=== PATIENT | male | born 1960 | race Caucasian/White ===

== ENCOUNTER 2017-03-23 08:00 | Outpatient (RCR) | payer OTHER, SELFPAY ==
[2017-03-21 00:21] VITALS: BP 143/75; PULSE 111; RESP 18; TEMP 36.4
[2017-03-23 08:15] VITALS: BP 145/79; PULSE 108; RESP 18; TEMP 37.2
== END 2017-04-20 23:59 ==
LOC: WC 08:00
PROVIDERS: Family Provider Family Medicine; PCP Family Medicine; Visit Provider Podiatrist
DX: Z09 Encounter for follow-up examination after completed treatment for conditions other than malignant neoplasm (principal)
CPT/HCPCS: 99213; G0463

== ENCOUNTER 2017-07-13 08:00 | Outpatient (RCR) | payer OTHER, SELFPAY ==
[2017-06-22 08:14] VITALS: BP 146/93; PULSE 94; RESP 18; TEMP 36.4; BMI 27.1
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
[2017-06-22 12:06] LABS: Absolute Lymphocyte Count 2.59 X10^3/ul (0.83-4.51); Absolute Neutrophil Count 3.7 X10^3/uL (2.0-7.7); Basophil# 0.06 X10^3/uL; Basophil% 0.8 % (0-1); Eosinophil# 0.35 X10^3/uL; Eosinophils% 4.8 % (0-5); Hematocrit 44.3 % (40-54); Hemoglobin 15.2 g/dl (13.0-16.5); Lymphocyte # 2.59 X10^3/ul (4.0); Lymphocyte % 35.9 % (19-41); Mean Corp Hgb Conc 34.3 g/gl (32-36); Mean Corpuscular Hgb 32.1 pg (27.0-32.0); Mean Corpuscular Volume 93.5 fL (80-94); Mean Platelet Vol. 11.2 fl (6.2-12.0); Monocyte# 0.53 X10^3/uL; Monocyte% 7.3 % (0-10); Neutrophil # 3.68 X10^3/uL (2.7-7.7); Neutrophil % 51.1 % (47-70); Platelet Count 225 K/mm3 (150-450); RBC Distribution Width SD 44.4 fl (35.1-43.9); Red Blood Count 4.74 M/mm3 (4.6-6.2); White Blood Count 7.2 K/mm3 (4.4-11.0)
[2017-06-22 12:13] LABS: POSITIVE COUNT NO; POSITIVE DIFFERENTIAL NO; POSITIVE MORPHOLOGY NO
[2017-06-22 12:14] LABS: Erythrocyte Sedimentation Rate 11 mm/hr (0-20)
[2017-06-22 13:24] LABS: ALB/GLOB Ratio 1.1 RATIO (0.9-2.4); AST(SGOT) 24 U/L (15-37); Alanine Aminotransfer ALT/SGPT 45 U/L (16-61); Albumin, Serum 4.3 g/dL (3.2-5.0); Alkaline Phosphatase 61 U/L (45-117); Anion Gap 10 (5-15); BUN 16 mg/dL (7-18); BUN/Creat Ratio 20.7 RATIO (10-20); CRP < 2.90 mg/L (0.0-3.0); Calcium,Total 9.2 mg/dL (8.5-10.1); Chloride 104 mmol/L (98-107); Creatinine, Serum 0.77 mg/dL (0.70-1.30); EST Glomerular Filtration Rate 110 mL/min (>60); Est Glom Filt Rate - Afr Amer 133 mL/min (>60); Estimated Creatinine Clearance 119.62 ml/min; Globulin 3.8 g/dL (2.2-4.2); Glucose 92 mg/dL (74-106); Protein, Total 8.1 g/dL (6.4-8.2); Sodium Level 139 mmol/L (136-145)
[2017-06-29 08:10] VITALS: BP 142/82; PULSE 103; RESP 16; TEMP 36.7; BMI 27.1
--- NOTE | 2017-06-29 08:43 | PN.PCM_ITS ---
(1) Ulcer of left lower extremity with fat layer exposed Status: Chronic Current Visit: Yes Code(s): L97.922 - Non-pressure chronic ulcer of unspecified part of left lower leg with fat layer exposed (2) Cellulitis of left leg Status: Resolved Current Visit: Yes Code(s): L03.116 - Cellulitis of left lower limb (3) Leg pain, left Status: Chronic Current Visit: Yes Code(s): M79.605 - Pain in left leg (4) Malnutrition Status: Chronic Current Visit: Yes Code(s): E46 - Unspecified protein- calorie malnutrition (5) Peripheral vascular disease Status: Chronic Current Visit: Yes Code(s): I73.9 - Peripheral vascular disease, unspecified Type of Wound Date of Service: 06/29/17 Chief Complaint: left leg wound History of Wound: This 57 year old male with multiple comorbidities was seen for left leg ulceration. His pain has decreased. He took antibiotics as prescribed. He was unable to tolerate a compression sock. He denies fever, chills, nausea, vomiting. He is not sure he wants to proceed forward with a custom ankle brace or further vascular workup as recommended by Dr. Jeffries last year. Progress of Wound: Improving quality - Physical Exam Vital Signs Temp Pulse Resp BP 98.0 F 103 H 16 142/82 H 06/29/17 08:10 06/29/17 08:10 06/29/17 08:10 06/29/17 08:10 General: Alert, Oriented x3, Cooperative Extremities: No cyanosis, Capillary Refill Less than 3 Seconds, No Calf Tenderness - Negative Brunson left, Diminished Peripheral Pulses, Edema - Mild to moderate left lower extremity Skin: Ulcer/ Wound - No purulence, no erythema, no streaking, no necrosis, no infection. There is no deep exposed tissue. The peripheral wound hyperpigmentation has also decreased. His skin is very atrophic and there is no hair noted. Wound Measurements and Assessment WC - Nurse 1 - General Ulcer Measurement Start: 06/22/17 08:14 Freq: Status: Active Protocol: Activity Type Activity Date Activity User E-Sign Co-Sign Detail Recorded Client Recorded Date Recorded By Document 06/29/17 08:10 MW [id number] 06/29/17 08:14 MW 06/29/17 08:10 Wound Center Nurse 1 [Ulcer Assessment] #2 L Med Ankle -Combined with other wound No -Current Size (cm) - Length 0.2 -Current Size (cm) - Width 0.6 -Current Size (cm) - Depth 0.1 -Total Square Cm 0.12 -Photo Taken No -Epithelialization None Present -Tunneling No -Undermining/Tunneling No -Circular Undermining No -Exudate Amt Small (1-33%) -Exudate Type Serosanguineous -Wound Margin Flat & Intact -Granulation Amt None Present (0 %) -Granulation Quality N/A -Slough/Fibrin Yes -Necrosis Amt Large (67-100%) -Necrotic Tissue Type Adherent Slough -Structure Exposed N/A -Texture (Aracely-wound Skin Appearance) Assessed Localized Edema Scarring -Moisture (Aracely-wound Skin Appearance No Abnormality ) Assessed -Color (Aracely-wound Skin Appearance) Assessed Hemosiderin Staining -Temperature (Aracely-wound Skin No Abnormality Appearance) (Pt Warm) -Tenderness on Palpation (Aracely-wound No Skin Appearance) -Ulcer Cleansing Rinsed/ Irrigated with Saline -Foul Odor after Cleansing No -Anesthetic Used 4% Lidocaine Solution [Edema Assessment] -Lower Limb Edema Present No -Left Calf (cm) 41.2 -Left Ankle (cm) 24.0 WC - Nurse 2 - General Ulcer CM Notes Start: 06/22/17 08:14 Freq: Status: Active Protocol: Activity Type Activity Date Activity User E-Sign Co-Sign Detail Recorded Client Recorded Date Recorded By Document 06/29/17 08:24 [id number] 06/29/17 08:29 06/29/17 08:24 Wound Center Nurse 2 [Procedure/Treatment] #2 L [employer] Ankle -Time 08:28 -Correct Patient Yes -Correct Side, Site, Position Yes -Correct Procedure Yes -Procedure Performed Yes -Type of Procedure Debridement -Clinical Debridement Subcutaneous -Post Debridement Size (cm) - Length 0.3 -Post Debridement Size (cm) - Width 0.7 -Post Debridement Size (cm) - Depth 0.1 -Total Square Cm 0.21 -Wound/Ulcer Outcome Not Healed -Ulcer Cleansing Rinsed/ Irrigated with Saline -Foul Odor after Cleansing No -Bioengineered Tissue No -Topical Lidocaine (%) 4 -Bleeding Controlled with Pressure -Treatment Response Procedure Tolerated Well [See Physician Procedure note for Specifics] Pain Scale: 0-10 Numeric [Pain] -Is Patient Pain Free? Yes Musculoskeletal: No Tenderness to Palpation of Joints or Extremities, Muscle Wasting, - - No fluctuance on palpation periwound left leg Neurological: Sensory exam intact to light touch and pain Psych/Mental Status: Normal Affect, Appropriate Debridement Note Post-Debridement Measurements/Treatment WC - Nurse 2 - General Ulcer CM Notes Start: 06/22/17 08:14 Freq: Status: Active Protocol: Activity Type Activity Date Activity User E-Sign Co-Sign Detail Recorded Client Recorded Date Recorded By Document 06/22/17 08:52 JF [id number] 06/22/17 08:56 JF Document 06/29/17 08:24 TM [id number] 06/29/17 08:29 TM 06/22/17 06/29/17 08:52 08:24 Wound Center Nurse 2 #2 L Med Ankle -Time 08:52 08:28 -Correct Patient Yes Yes -Correct Side, Site, Position Yes Yes -Correct Procedure Yes Yes -Procedure Performed Yes Yes -Type of Procedure Debridement Debridement -Clinical Debridement Subcutaneous Subcutaneous -Post Debridement Size (cm) - Length 0.3 0.3 -Post Debridement Size (cm) - Width 0.7 0.7 -Post Debridement Size (cm) - Depth 0.2 0.1 -Total Square Cm 0.21 0.21 -Wound/Ulcer Outcome Not Healed Not Healed -Ulcer Cleansing Rinsed/ Rinsed/ Irrigated with Irrigated with Saline Saline -Foul Odor after Cleansing No No -Bioengineered Tissue No No -Topical Lidocaine (%) 4 -Bleeding Controlled with Pressure Pressure -Treatment Response Procedure Procedure Tolerated Well Tolerated Well Pain Scale: 0-10 Numeric Is Patient Pain Free? Yes Yes Wound debrided: medial leg Laterality: Left Type of Debridement: Excisional debridement Anesthesia Used: 4% Lidocaine Solution Depth: in the subcutaneous layer Percentage of wound debrided: 100 Instrument Used: #15 blade Tissue Removed: fibrous, devitalized subcutaneous, biofilm, slough Severity: Fat Layer Exposed Amount of bleeding with debridement: Mild Bleeding Controlled with: Pressure Patient tolerated procedure well Assessment/Plan Active Problems Leg pain, left (Chronic) Malnutrition (Chronic) Peripheral vascular disease (Chronic) Ulcer of left lower extremity with fat layer exposed (Chronic) Assessment: Left leg ulcer fat layer exposed - recurrent. venous insufficiency/ leg edema. malnutrition. chronic pain Plan: I reviewed and discussed his case including etiology, risk factors, and recommended work up and treatment plan. A culture was obtained to evaluate for infection versus contamination and no bacterial growth was identified. Labs were ordered and reviewed today. His white blood cell count was 7.2 and sedimentation rate was 11. There are no other gross pertinent abnormalities noted with his CBC and CMP. He was advised to complete antiobiotic prescription (keflex and cipro) that was provided last week; I do not recommend a refill at this time. To call if these symptoms progress. I encouraged him to follow-up with his vascular testing as recommended by Dr. Jeffries. This was reiterated during his last wound care session series. To avoid pressure to wound at all times. To wear compression sock or tubigrip as tolerated. He could not tolerate a compression stocking because it hurts his previous left leg surgical intervention site. I offered him a custom ankle-foot orthotic such as an Anabella brace. This should provide lower extremity stability (he also has a history of previous ankle pain and intermittent instability) as well as some very mild compression. Preauthorization will be needed and he wants to think about this further prior to starting this process. This also mobilized the area to allow decrease wound tension and promote further healing. He is no longer taking oral pain narcotic medication and his pain is relatively controlled. Continue nutritional supplementation optimize healing. Debridement was performed today as noted in the clinical panel. He tolerated this well. He will change dressing daily with saline moistned alma. To return to clinic visit in 1 week or call sooner if questions or problems.
[2017-07-13 08:06] VITALS: BP 133/86; PULSE 93; RESP 18; TEMP 36.9; BMI 27.1
--- NOTE | 2017-07-13 08:49 | PCM.WC.PN ---
(1) Ulcer of left lower extremity with fat layer exposed Status: Chronic Current Visit: Yes Code(s): L97.922 - Non-pressure chronic ulcer of unspecified part of left lower leg with fat layer exposed (2) Leg pain, left Status: Resolved Current Visit: Yes Code(s): M79.605 - Pain in left leg (3) Malnutrition Status: Chronic Current Visit: Yes Code(s): E46 - Unspecified protein-calorie malnutrition (4) Peripheral vascular disease Status: Chronic Current Visit: Yes Code(s): I73.9 - Peripheral vascular disease, unspecified Type of Wound Date of Service: 07/13/17 Chief Complaint: left leg wound History of Wound: This 57 year old male with multiple comorbidities was seen for left leg ulceration. He was unable to tolerate a compression sock. He denies fever, chills, nausea, vomiting. He is not amendable to proceed forward with a custom ankle brace or further vascular workup as recommended by Dr. Jeffries last year. Progress of Wound: Improving - Physical Exam Vital Signs Temp Pulse Resp BP 98.4 F 93 18 133/86 H 07/13/17 08:06 07/13/17 08:06 07/13/17 08:06 07/13/17 08:06 General: Alert, Oriented x3, Cooperative Extremities: No clubbing, Capillary Refill Less than 3 Seconds, No Calf Tenderness, Diminished Peripheral Pulses Skin: Ulcer/ Wound - No purulence, no erythema, no streaking, no infection, no crepitus. His skin is atrophic. There is no hyperpigmentation. Wound Measurements and Assessment WC - Nurse 1 - General Ulcer Measurement Start: 06/22/17 08:14 Freq: Status: Active Protocol: Activity Type Activity Date Activity User E-Sign Co-Sign Detail Recorded Client Recorded Date Recorded By Document 07/13/17 08:06 SHAWN [id number] 07/13/17 08:08 SHAWN 07/13/17 08:06 Wound Center Nurse 1 [Ulcer Assessment] #2 L Med Ankle -Combined with other wound No -Current Size (cm) - Length 0.4 -Current Size (cm) - Width 0.9 -Current Size (cm) - Depth 0.1 -Total Square Cm 0.36 -Photo Taken No -Epithelialization Small 1-33% -Tunneling No -Undermining/Tunneling No -Circular Undermining No -Exudate Amt Small (1-33%) -Exudate Type Serosanguineous -Wound Margin Flat & Intact -Granulation Amt None Present (0 %) -Slough/Fibrin Yes -Necrosis Amt Large (67-100%) -Necrotic Tissue Type Adherent Slough -Structure Exposed N/A -Texture (Aracely-wound Skin Appearance) Assessed -Moisture (Aracely-wound Skin Appearance Assessed ) Dry/Scaly -Color (Aracely-wound Skin Appearance) Assessed Hemosiderin Staining -Temperature (Aracely-wound Skin No Abnormality Appearance) (Pt Warm) -Tenderness on Palpation (Aracely-wound No Skin Appearance) -Ulcer Cleansing Rinsed/ Irrigated with Saline -Foul Odor after Cleansing No -Anesthetic Used 5% Lidocaine Gel [Edema Assessment] -Lower Limb Edema Present Yes -Left Calf (cm) 40.0 -Left Ankle (cm) 23.0 WC - Nurse 2 - General Ulcer CM Notes Start: 06/22/17 08:14 Freq: Status: Active Protocol: Activity Type Activity Date Activity User E-Sign Co-Sign Detail Recorded Client Recorded Date Recorded By Document 07/13/17 08:18 [id number] 07/13/17 08:19 07/13/17 08:18 Wound Center Nurse 2 [Procedure/Treatment] #2 L Med Ankle -Time 08:18 -Correct Patient Yes -Correct Side, Site, Position Yes -Correct Procedure Yes -Procedure Performed Yes -Type of Procedure Debridement -Clinical Debridement Subcutaneous -Post Debridement Size (cm) - Length 0.2 -Post Debridement Size (cm) - Width 0.3 -Post Debridement Size (cm) - Depth 0.1 -Total Square Cm 0.06 -Wound/Ulcer Outcome Not Healed -Ulcer Cleansing Rinsed/ Irrigated with Saline -Foul Odor after Cleansing No -Bioengineered Tissue No -Topical Lidocaine (%) 5 -Bleeding Controlled with Pressure -Treatment Response Procedure Tolerated Well [See Physician Procedure note for Specifics] Pain Scale: 0-10 Numeric [Pain] -Is Patient Pain Free? Yes Musculoskeletal: No Tenderness to Palpation of Joints or Extremities, Muscle Wasting, Tenderness - Decrease wound palpation pain Neurological: Sensory exam intact to light touch and pain Psych/Mental Status: Normal Affect, Appropriate Debridement Note Post-Debridement Measurements/Treatment WC - Nurse 2 - General Ulcer CM Notes Start: 06/22/17 08:14 Freq: Status: Active Protocol: Activity Type Activity Date Activity User E-Sign Co-Sign Detail Recorded Client Recorded Date Recorded By Document 06/22/17 08:52 [id number] 06/22/17 08:56 Document 06/29/17 08:24 TM [id number] 06/29/17 08:29 TM Document 07/13/17 08:18 [id number] 07/13/17 08:19 06/22/17 06/29/17 07/13/17 08:52 08:24 08:18 Wound Center Nurse 2 #2 L Med Ankle -Time 08:52 08:28 08:18 -Correct Patient Yes Yes Yes -Correct Side, Site, Position Yes Yes Yes -Correct Procedure Yes Yes Yes -Procedure Performed Yes Yes Yes -Type of Procedure Debridement Debridement Debridement -Clinical Debridement Subcutaneous Subcutaneous Subcutaneous -Post Debridement Size (cm) - Length 0.3 0.3 0.2 -Post Debridement Size (cm) - Width 0.7 0.7 0.3 -Post Debridement Size (cm) - Depth 0.2 0.1 0.1 -Total Square Cm 0.21 0.21 0.06 -Wound/Ulcer Outcome Not Healed Not Healed Not Healed -Ulcer Cleansing Rinsed/ Rinsed/ Rinsed/ Irrigated with Irrigated with Irrigated with Saline Saline Saline -Foul Odor after Cleansing No No No -Bioengineered Tissue No No No -Topical Lidocaine (%) 4 5 -Bleeding Controlled with Pressure Pressure Pressure -Treatment Response Procedure Procedure Procedure Tolerated Well Tolerated Well Tolerated Well Pain Scale: 0-10 Numeric Is Patient Pain Free? Yes Yes Yes Wound debrided: leg Laterality: Left Type of Debridement: Excisional debridement Anesthesia Used: 4% Lidocaine Solution Depth: in the subcutaneous layer Percentage of wound debrided: 100 Instrument Used: 3mm curette Tissue Removed: fibrous, devitalized subcutaneous, biofilm, slough Severity: Fat Layer Exposed Amount of bleeding with debridement: Mild Bleeding Controlled with: Pressure Patient tolerated procedure well Assessment/Plan Active Problems Leg pain, left (Chronic) Malnutrition (Chronic) Peripheral vascular disease (Chronic) Ulcer of left lower extremity with fat layer exposed (Chronic) Assessment: Left leg ulcer fat layer exposed - recurrent. venous insufficiency/leg edema. malnutrition. chronic pain Plan: I reviewed and discussed his case including etiology, risk factors, and recommended work up and treatment plan. He recently completed antibiotics and denies illness or increased wound pain. To call if these symptoms return. I encouraged him to follow-up with his vascular testing as recommended by Dr. Jeffries. This was reiterated during his last wound care session series. To avoid pressure to wound at all times. To wear compression sock or tubigrip as tolerated. He could not tolerate a compression stocking because it hurts his previous left leg surgical intervention site. I offered him a custom ankle-foot orthotic such as an Anabella brace. This should provide lower extremity stability (he also has a history of previous ankle pain and intermittent instability) as well as some very mild compression. Preauthorization will be needed and does not want to proceed with this option at this time. This also mobilized the area to allow decrease wound tension and promote further healing. He is no longer taking oral pain narcotic medication and his pain is relatively controlled. Continue nutritional supplementation optimize healing. Debridement was performed today as noted in the clinical panel. He tolerated this well. He will change dressing daily with saline moistned alma. To return to clinic visit in 1 week or call sooner if questions or problems.
--- NOTE | 2017-07-13 08:56 | PN.PCM_ITS ---
(1) Ulcer of left lower extremity with fat layer exposed Status: Chronic Current Visit: Yes Code(s): L97.922 - Non-pressure chronic ulcer of unspecified part of left lower leg with fat layer exposed (2) Leg pain, left Status: Resolved Current Visit: Yes Code(s): M79.605 - Pain in left leg (3) Malnutrition Status: Chronic Current Visit: Yes Code(s): E46 - Unspecified protein- calorie malnutrition (4) Peripheral vascular disease Status: Chronic Current Visit: Yes Code(s): I73.9 - Peripheral vascular disease, unspecified Type of Wound Date of Service: 07/13/17 Chief Complaint: left leg wound History of Wound: This 57 year old male with multiple comorbidities was seen for left leg ulceration. He was unable to tolerate a compression sock. He denies fever, chills, nausea, vomiting. He is not amendable to proceed forward with a custom ankle brace or further vascular workup as recommended by Dr. Jeffries last year. Progress of Wound: Improving - Physical Exam Vital Signs Temp Pulse Resp BP 98.4 F 93 18 133/86 H 07/13/17 08:06 07/13/17 08:06 07/13/17 08:06 07/13/17 08:06 General: Alert, Oriented x3, Cooperative Extremities: No clubbing, Capillary Refill Less than 3 Seconds, No Calf Tenderness, Diminished Peripheral Pulses Skin: Ulcer/ Wound - No purulence, no erythema, no streaking, no infection, no crepitus. His skin is atrophic. There is no hyperpigmentation. Wound Measurements and Assessment WC - Nurse 1 - General Ulcer Measurement Start: 06/22/17 08:14 Freq: Status: Active Protocol: Activity Type Activity Date Activity User E-Sign Co-Sign Detail Recorded Client Recorded Date Recorded By Document 07/13/17 08:06 SHAWN [id number] 07/13/17 08:08 SHAWN 07/13/17 08:06 Wound Center Nurse 1 [Ulcer Assessment] #2 L Med Ankle -Combined with other wound No -Current Size (cm) - Length 0.4 -Current Size (cm) - Width 0.9 -Current Size (cm) - Depth 0.1 -Total Square Cm 0.36 -Photo Taken No -Epithelialization Small 1-33% -Tunneling No -Undermining/Tunneling No -Circular Undermining No -Exudate Amt Small (1-33%) -Exudate Type Serosanguineous -Wound Margin Flat & Intact -Granulation Amt None Present (0 %) -Slough/Fibrin Yes -Necrosis Amt Large (67-100%) -Necrotic Tissue Type Adherent Slough -Structure Exposed N/A -Texture (Aracely-wound Skin Appearance) Assessed -Moisture (Aracely-wound Skin Appearance Assessed ) Dry/Scaly -Color (Aracely-wound Skin Appearance) Assessed Hemosiderin Staining -Temperature (Aracely-wound Skin No Abnormality Appearance) (Pt Warm) -Tenderness on Palpation (Aracely-wound No Skin Appearance) -Ulcer Cleansing Rinsed/ Irrigated with Saline -Foul Odor after Cleansing No -Anesthetic Used 5% Lidocaine Gel [Edema Assessment] -Lower Limb Edema Present Yes -Left Calf (cm) 40.0 -Left Ankle (cm) 23.0 WC - Nurse 2 - General Ulcer CM Notes Start: 06/22/17 08:14 Freq: Status: Active Protocol: Activity Type Activity Date Activity User E-Sign Co-Sign Detail Recorded Client Recorded Date Recorded By Document 07/13/17 08:18 [id number] 07/13/17 08:19 07/13/17 08:18 Wound Center Nurse 2 [Procedure/Treatment] #2 L Med Ankle -Time 08:18 -Correct Patient Yes -Correct Side, Site, Position Yes -Correct Procedure Yes -Procedure Performed Yes -Type of Procedure Debridement -Clinical Debridement Subcutaneous -Post Debridement Size (cm) - Length 0.2 -Post Debridement Size (cm) - Width 0.3 -Post Debridement Size (cm) - Depth 0.1 -Total Square Cm 0.06 -Wound/Ulcer Outcome Not Healed -Ulcer Cleansing Rinsed/ Irrigated with Saline -Foul Odor after Cleansing No -Bioengineered Tissue No -Topical Lidocaine (%) 5 -Bleeding Controlled with Pressure -Treatment Response Procedure Tolerated Well [See Physician Procedure note for Specifics] Pain Scale: 0-10 Numeric [Pain] -Is Patient Pain Free? Yes Musculoskeletal: No Tenderness to Palpation of Joints or Extremities, Muscle Wasting, Tenderness - Decrease wound palpation pain Neurological: Sensory exam intact to light touch and pain Psych/Mental Status: Normal Affect, Appropriate Debridement Note Post-Debridement Measurements/Treatment WC - Nurse 2 - General Ulcer CM Notes Start: 06/22/17 08:14 Freq: Status: Active Protocol: Activity Type Activity Date Activity User E-Sign Co-Sign Detail Recorded Client Recorded Date Recorded By Document 06/22/17 08:52 [id number] 06/22/17 08:56 Document 06/29/17 08:24 TM [id number] 06/29/17 08:29 TM Document 07/13/17 08:18 [id number] 07/13/17 08:19 06/22/17 06/29/17 07/13/17 08:52 08:24 08:18 Wound Center Nurse 2 #2 L Med Ankle -Time 08:52 08:28 08:18 -Correct Patient Yes Yes Yes -Correct Side, Site, Position Yes Yes Yes -Correct Procedure Yes Yes Yes -Procedure Performed Yes Yes Yes -Type of Procedure Debridement Debridement Debridement -Clinical Debridement Subcutaneous Subcutaneous Subcutaneous -Post Debridement Size (cm) - Length 0.3 0.3 0.2 -Post Debridement Size (cm) - Width 0.7 0.7 0.3 -Post Debridement Size (cm) - Depth 0.2 0.1 0.1 -Total Square Cm 0.21 0.21 0.06 -Wound/Ulcer Outcome Not Healed Not Healed Not Healed -Ulcer Cleansing Rinsed/ Rinsed/ Rinsed/ Irrigated with Irrigated with Irrigated with Saline Saline Saline -Foul Odor after Cleansing No No No -Bioengineered Tissue No No No -Topical Lidocaine (%) 4 5 -Bleeding Controlled with Pressure Pressure Pressure -Treatment Response Procedure Procedure Procedure Tolerated Well Tolerated Well Tolerated Well Pain Scale: 0-10 Numeric Is Patient Pain Free? Yes Yes Yes Wound debrided: leg Laterality: Left Type of Debridement: Excisional debridement Anesthesia Used: 4% Lidocaine Solution Depth: in the subcutaneous layer Percentage of wound debrided: 100 Instrument Used: 3mm curette Tissue Removed: fibrous, devitalized subcutaneous, biofilm, slough Severity: Fat Layer Exposed Amount of bleeding with debridement: Mild Bleeding Controlled with: Pressure Patient tolerated procedure well Assessment/Plan Active Problems Leg pain, left (Chronic) Malnutrition (Chronic) Peripheral vascular disease (Chronic) Ulcer of left lower extremity with fat layer exposed (Chronic) Assessment: Left leg ulcer fat layer exposed - recurrent. venous insufficiency/ leg edema. malnutrition. chronic pain Plan: I reviewed and discussed his case including etiology, risk factors, and recommended work up and treatment plan. He recently completed antibiotics and denies illness or increased wound pain. To call if these symptoms return. I encouraged him to follow-up with his vascular testing as recommended by Dr. Jeffries. This was reiterated during his last wound care session series. To avoid pressure to wound at all times. To wear compression sock or tubigrip as tolerated. He could not tolerate a compression stocking because it hurts his previous left leg surgical intervention site. I offered him a custom ankle- foot orthotic such as an Anabella brace. This should provide lower extremity stability (he also has a history of previous ankle pain and intermittent instability) as well as some very mild compression. Preauthorization will be needed and does not want to proceed with this option at this time. This also mobilized the area to allow decrease wound tension and promote further healing. He is no longer taking oral pain narcotic medication and his pain is relatively controlled. Continue nutritional supplementation optimize healing. Debridement was performed today as noted in the clinical panel. He tolerated this well. He will change dressing daily with saline moistned alma. To return to clinic visit in 1 week or call sooner if questions or problems.
== END 2017-07-18 23:59 ==
LOC: WC 08:00
PROVIDERS: Family Provider Family Medicine; PCP Family Medicine; Visit Provider Podiatrist
DX: I73.9 Peripheral vascular disease, unspecified (principal); L97.822 Non-pressure chronic ulcer of other part of left lower leg with fat layer exposed; M79.605 Pain in left leg; R60.0 Localized edema; Z85.46 Personal history of malignant neoplasm of prostate; I10 Essential (primary) hypertension; Z86.718 Personal history of other venous thrombosis and embolism; G89.29 Other chronic pain; Z79.899 Other long term (current) drug therapy; F17.200 Nicotine dependence, unspecified, uncomplicated
CPT/HCPCS: 11042; 80053; 85025; 85652; 86140; 87070; 87075; 87205; 99213; G0463

== ENCOUNTER 2017-08-17 08:00 | Outpatient (RCR) | payer OTHER, SELFPAY ==
[2017-07-19 00:11] VITALS: PULSE 93; RESP 18; TEMP 36.9
[2017-07-27 08:42] VITALS: BP 150/90; PULSE 90; RESP 18; TEMP 36.9
[2017-08-03 08:05] VITALS: BP 128/93; PULSE 96; RESP 20; TEMP 36.6
--- NOTE | 2017-08-03 08:46 | PCM.WC.PN ---
(1) Ulcer of left lower extremity with fat layer exposed Status: Chronic Current Visit: Yes Code(s): L97.922 - Non-pressure chronic ulcer of unspecified part of left lower leg with fat layer exposed (2) Venous insufficiency of left lower extremity Status: Chronic Current Visit: Yes Code(s): I87.2 - Venous insufficiency (chronic) (peripheral) Type of Wound Date of Service: 08/03/17 Chief Complaint: left leg wound History of Wound: This 57 year old male with multiple comorbidities was seen for left leg ulceration. He was unable to tolerate a compression sock. He denies fever, chills, nausea, vomiting. He is not amendable to proceed forward with a custom ankle brace or further vascular workup as recommended by Dr. Jeffries last year. He will know check and see if he is in network at [facility] to consider proceeding with the recommended vascular workup. Progress of Wound: Stable with delayed healing - Physical Exam Vital Signs Temp Pulse Resp BP 97.8 F 96 20 H 128/93 H 08/03/17 08:05 08/03/17 08:05 08/03/17 08:05 08/03/17 08:05 General: Alert, Oriented x3, Cooperative Extremities: No cyanosis, Capillary Refill Less than 3 Seconds, No Calf Tenderness, Diminished Peripheral Pulses, Edema, Tenderness - Pain with wound manipulation Skin: Ulcer/ Wound - No purulence, no erythema, streaking, no odor, no acute signs of infection. There is no crepitus or bogginess on palpation. Wound bed is granular and fibrous., - - Atrophic skin Wound Measurements and Assessment WC - Nurse 1 - General Ulcer Measurement Start: 07/27/17 08:41 Freq: Status: Active Protocol: Activity Type Activity Date Activity User E-Sign Co-Sign Detail Recorded Client Recorded Date Recorded By Document 08/03/17 08:05 DL [id number] 08/03/17 08:11 DL 08/03/17 08:05 Wound Center Nurse 1 [Ulcer Assessment] #2 L Med Ankle -Current Size (cm) - Length 0.3 -Current Size (cm) - Width 0.6 -Current Size (cm) - Depth 0.1 -Total Square Cm 0.18 -Photo Taken No -Exudate Amt Small (1-33%) -Exudate Type Serosanguineous -Wound Margin Distinct, Outline Attached -Granulation Amt Small (1-33%) -Granulation Quality Kramer -Necrosis Amt Small (1-33%) -Necrotic Tissue Type Adherent Slough -Structure Exposed N/A -Texture (Aracely-wound Skin Appearance) Scarring -Moisture (Aracely-wound Skin Appearance No Abnormality ) -Color (Aracely-wound Skin Appearance) Hemosiderin Staining -Temperature (Aracely-wound Skin No Abnormality Appearance) (Pt Warm) -Ulcer Cleansing Rinsed/ Irrigated with Saline -Foul Odor after Cleansing No -Anesthetic Used 4% Lidocaine Solution [Edema Assessment] -Left Calf (cm) 38.5 -Left Ankle (cm) 23 - Nurse 2 - General Ulcer CM Notes Start: 07/27/17 08:41 Freq: Status: Active Protocol: Activity Type Activity Date Activity User E-Sign Co-Sign Detail Recorded Client Recorded Date Recorded By Document 08/03/17 08:25 [id number] 08/03/17 08:26 08/03/17 08:25 Wound Center Nurse 2 [Procedure/Treatment] #2 L Med Ankle -Time 08:26 -Correct Patient Yes -Correct Side, Site, Position Yes -Correct Procedure Yes -Procedure Performed Yes -Type of Procedure Debridement -Clinical Debridement Subcutaneous -Post Debridement Size (cm) - Length 0.4 -Post Debridement Size (cm) - Width 0.6 -Post Debridement Size (cm) - Depth 0.1 -Total Square Cm 0.24 -Wound/Ulcer Outcome Not Healed -Ulcer Cleansing Rinsed/ Irrigated with Saline -Foul Odor after Cleansing No -Bioengineered Tissue No -Bleeding Controlled with NA -Treatment Response Procedure Tolerated Well [See Physician Procedure note for Specifics] Pain Scale: 0-10 Numeric [Pain] -Is Patient Pain Free? Yes Musculoskeletal: No Tenderness to Palpation of Joints or Extremities, Muscle Wasting Neurological: Sensory exam intact to light touch and pain Psych/Mental Status: Normal Affect, Appropriate Debridement Note Post-Debridement Measurements/Treatment - Nurse 2 - General Ulcer CM Notes Start: 07/27/17 08:41 Freq: Status: Active Protocol: Activity Type Activity Date Activity User E-Sign Co-Sign Detail Recorded Client Recorded Date Recorded By Document 08/03/17 08:25 [id number] 08/03/17 08:26 08/03/17 08:25 Wound Center Nurse 2 #2 L Med Ankle -Time 08:26 -Correct Patient Yes -Correct Side, Site, Position Yes -Correct Procedure Yes -Procedure Performed Yes -Type of Procedure Debridement -Clinical Debridement Subcutaneous -Post Debridement Size (cm) - Length 0.4 -Post Debridement Size (cm) - Width 0.6 -Post Debridement Size (cm) - Depth 0.1 -Total Square Cm 0.24 -Wound/Ulcer Outcome Not Healed -Ulcer Cleansing Rinsed/ Irrigated with Saline -Foul Odor after Cleansing No -Bioengineered Tissue No -Bleeding Controlled with NA -Treatment Response Procedure Tolerated Well Pain Scale: 0-10 Numeric Is Patient Pain Free? Yes Wound debrided: medial lower leg Laterality: Left Type of Debridement: Excisional debridement Anesthesia Used: 5% Lidocaine Gel Depth: in the subcutaneous layer Percentage of wound debrided: 100 Instrument Used: 5mm curette Tissue Removed: fibrous, devitalized subcutaneous, biofilm, slough Severity: Fat Layer Exposed Amount of bleeding with debridement: Mild Bleeding Controlled with: Pressure Patient tolerated procedure well Assessment/Plan Active Problems Venous insufficiency of left lower extremity (Chronic) Ulcer of left lower extremity with fat layer exposed (Chronic) Assessment: Left leg ulcer fat layer exposed - recurrent. venous insufficiency/leg edema. malnutrition. chronic pain Plan: I reviewed and discussed his case including etiology, risk factors, and recommended work up and treatment plan. He recently completed antibiotics and denies illness or increased wound pain. To call if these symptoms return. I encouraged him to follow-up with his vascular testing as recommended by Dr. Jeffries. This was reiterated during his last wound care session series. He will confirm if he is in network at [facility] which is where he need to proceed with further workup. To avoid pressure to wound at all times. To wear compression sock or tubigrip as tolerated. He could not tolerate a compression stocking because it hurts his previous left leg surgical intervention site. I offered him a custom ankle-foot orthotic such as an Anabella brace. This should provide lower extremity stability (he also has a history of previous ankle pain and intermittent instability) as well as some very mild compression. Preauthorization will be needed and does not want to proceed with this option at this time. This also mobilized the area to allow decrease wound tension and promote further healing. He is no longer taking oral pain narcotic medication and his pain is relatively controlled. Continue nutritional supplementation optimize healing. Debridement was performed today as noted in the clinical panel. He tolerated this well. He will change dressing daily with saline moistned alma. To return to clinic visit in 1 week or call sooner if questions or problems.
--- NOTE | 2017-08-03 08:50 | PN.PCM_ITS ---
(1) Ulcer of left lower extremity with fat layer exposed Status: Chronic Current Visit: Yes Code(s): L97.922 - Non-pressure chronic ulcer of unspecified part of left lower leg with fat layer exposed (2) Venous insufficiency of left lower extremity Status: Chronic Current Visit: Yes Code(s): I87.2 - Venous insufficiency ( chronic) (peripheral) Type of Wound Date of Service: 08/03/17 Chief Complaint: left leg wound History of Wound: This 57 year old male with multiple comorbidities was seen for left leg ulceration. He was unable to tolerate a compression sock. He denies fever, chills, nausea, vomiting. He is not amendable to proceed forward with a custom ankle brace or further vascular workup as recommended by Dr. Jeffries last year. He will know check and see if he is in network at [facility] to consider proceeding with the recommended vascular workup. Progress of Wound: Stable with delayed healing - Physical Exam Vital Signs Temp Pulse Resp BP 97.8 F 96 20 H 128/93 H 08/03/17 08:05 08/03/17 08:05 08/03/17 08:05 08/03/17 08:05 General: Alert, Oriented x3, Cooperative Extremities: No cyanosis, Capillary Refill Less than 3 Seconds, No Calf Tenderness, Diminished Peripheral Pulses, Edema, Tenderness - Pain with wound manipulation Skin: Ulcer/ Wound - No purulence, no erythema, streaking, no odor, no acute signs of infection. There is no crepitus or bogginess on palpation. Wound bed is granular and fibrous., - - Atrophic skin Wound Measurements and Assessment WC - Nurse 1 - General Ulcer Measurement Start: 07/27/17 08:41 Freq: Status: Active Protocol: Activity Type Activity Date Activity User E-Sign Co-Sign Detail Recorded Client Recorded Date Recorded By Document 08/03/17 08:05 DL [id number] 08/03/17 08:11 DL 08/03/17 08:05 Wound Center Nurse 1 [Ulcer Assessment] #2 L Med Ankle -Current Size (cm) - Length 0.3 -Current Size (cm) - Width 0.6 -Current Size (cm) - Depth 0.1 -Total Square Cm 0.18 -Photo Taken No -Exudate Amt Small (1-33%) -Exudate Type Serosanguineous -Wound Margin Distinct, Outline Attached -Granulation Amt Small (1-33%) -Granulation Quality [place] -Necrosis Amt Small (1-33%) -Necrotic Tissue Type Adherent Slough -Structure Exposed N/A -Texture (Aracely-wound Skin Appearance) Scarring -Moisture (Aracely-wound Skin Appearance No Abnormality ) -Color (Aracely-wound Skin Appearance) Hemosiderin Staining -Temperature (Aracely-wound Skin No Abnormality Appearance) (Pt Warm) -Ulcer Cleansing Rinsed/ Irrigated with Saline -Foul Odor after Cleansing No -Anesthetic Used 4% Lidocaine Solution [Edema Assessment] -Left Calf (cm) 38.5 -Left Ankle (cm) 23 - Nurse 2 - General Ulcer CM Notes Start: 07/27/17 08:41 Freq: Status: Active Protocol: Activity Type Activity Date Activity User E-Sign Co-Sign Detail Recorded Client Recorded Date Recorded By Document 08/03/17 08:25 [id number] 08/03/17 08:26 08/03/17 08:25 Wound Center Nurse 2 [Procedure/Treatment] #2 L Med Ankle -Time 08:26 -Correct Patient Yes -Correct Side, Site, Position Yes -Correct Procedure Yes -Procedure Performed Yes -Type of Procedure Debridement -Clinical Debridement Subcutaneous -Post Debridement Size (cm) - Length 0.4 -Post Debridement Size (cm) - Width 0.6 -Post Debridement Size (cm) - Depth 0.1 -Total Square Cm 0.24 -Wound/Ulcer Outcome Not Healed -Ulcer Cleansing Rinsed/ Irrigated with Saline -Foul Odor after Cleansing No -Bioengineered Tissue No -Bleeding Controlled with NA -Treatment Response Procedure Tolerated Well [See Physician Procedure note for Specifics] Pain Scale: 0-10 Numeric [Pain] -Is Patient Pain Free? Yes Musculoskeletal: No Tenderness to Palpation of Joints or Extremities, Muscle Wasting Neurological: Sensory exam intact to light touch and pain Psych/Mental Status: Normal Affect, Appropriate Debridement Note Post-Debridement Measurements/Treatment - Nurse 2 - General Ulcer CM Notes Start: 07/27/17 08:41 Freq: Status: Active Protocol: Activity Type Activity Date Activity User E-Sign Co-Sign Detail Recorded Client Recorded Date Recorded By Document 08/03/17 08:25 [id number] 08/03/17 08:26 08/03/17 08:25 Wound Center Nurse 2 #2 L Med Ankle -Time 08:26 -Correct Patient Yes -Correct Side, Site, Position Yes -Correct Procedure Yes -Procedure Performed Yes -Type of Procedure Debridement -Clinical Debridement Subcutaneous -Post Debridement Size (cm) - Length 0.4 -Post Debridement Size (cm) - Width 0.6 -Post Debridement Size (cm) - Depth 0.1 -Total Square Cm 0.24 -Wound/Ulcer Outcome Not Healed -Ulcer Cleansing Rinsed/ Irrigated with Saline -Foul Odor after Cleansing No -Bioengineered Tissue No -Bleeding Controlled with NA -Treatment Response Procedure Tolerated Well Pain Scale: 0-10 Numeric Is Patient Pain Free? Yes Wound debrided: medial lower leg Laterality: Left Type of Debridement: Excisional debridement Anesthesia Used: 5% Lidocaine Gel Depth: in the subcutaneous layer Percentage of wound debrided: 100 Instrument Used: 5mm curette Tissue Removed: fibrous, devitalized subcutaneous, biofilm, slough Severity: Fat Layer Exposed Amount of bleeding with debridement: Mild Bleeding Controlled with: Pressure Patient tolerated procedure well Assessment/Plan Active Problems Venous insufficiency of left lower extremity (Chronic) Ulcer of left lower extremity with fat layer exposed (Chronic) Assessment: Left leg ulcer fat layer exposed - recurrent. venous insufficiency/ leg edema. malnutrition. chronic pain Plan: I reviewed and discussed his case including etiology, risk factors, and recommended work up and treatment plan. He recently completed antibiotics and denies illness or increased wound pain. To call if these symptoms return. I encouraged him to follow-up with his vascular testing as recommended by Dr. Jeffries. This was reiterated during his last wound care session series. He will confirm if he is in network at [facility] which is where he need to proceed with further workup. To avoid pressure to wound at all times. To wear compression sock or tubigrip as tolerated. He could not tolerate a compression stocking because it hurts his previous left leg surgical intervention site. I offered him a custom ankle-foot orthotic such as an Anabella brace. This should provide lower extremity stability (he also has a history of previous ankle pain and intermittent instability) as well as some very mild compression. Preauthorization will be needed and does not want to proceed with this option at this time. This also mobilized the area to allow decrease wound tension and promote further healing. He is no longer taking oral pain narcotic medication and his pain is relatively controlled. Continue nutritional supplementation optimize healing. Debridement was performed today as noted in the clinical panel. He tolerated this well. He will change dressing daily with saline moistned alma. To return to clinic visit in 1 week or call sooner if questions or problems.
[2017-08-10 08:13] VITALS: BP 131/80; PULSE 96; RESP 18; TEMP 37.1
[2017-08-10 08:15] VITALS: BP 107/66; PULSE 62; RESP 20; TEMP 36.3
--- NOTE | 2017-08-10 09:01 | PCM.WC.PN ---
(1) Ulcer of left lower extremity with fat layer exposed Status: Chronic Current Visit: Yes Code(s): L97.922 - Non-pressure chronic ulcer of unspecified part of left lower leg with fat layer exposed (2) Venous insufficiency of left lower extremity Status: Chronic Current Visit: Yes Code(s): I87.2 - Venous insufficiency (chronic) (peripheral) Type of Wound Date of Service: 08/10/17 Chief Complaint: left leg wound History of Wound: This 57 year old male with multiple comorbidities was seen for left leg ulceration. He was unable to tolerate a compression sock. He denies fever, chills, nausea, vomiting. He is not amendable to proceed forward with a custom ankle brace. He is now amendable to proceed with further vascular workup as recommended by Dr. Jeffries last year. He checked with his insurance and [facility] physicians are in network. He is available to go to an appointment on Tuesday or Tuesday and prefers to set his appointment up on his own because he knows his schedule best. He reports increased weeping to his left lower extremity. He is still not able tolerate compression dressings. The wound is expanding. Progress of Wound: Worse - Physical Exam Vital Signs Temp Pulse Resp BP 97.3 F L 62 20 H 107/66 08/10/17 08:15 08/10/17 08:15 08/10/17 08:15 08/10/17 08:15 General: Alert, Oriented x3, Cooperative Extremities: No cyanosis, Capillary Refill Less than 3 Seconds, No Calf Tenderness, Diminished Peripheral Pulses, Edema Skin: Ulcer/ Wound - No purulence, no erythema, streaking, no odor, no infection. The peripheral skin is atrophic. There is some inflammation periwound. There is increased wound weeping noted and interspersed sub-hemorrhagic and granulation tissue encompassing a larger area. There is no bogginess or crepitus on palpation. Wound Measurements and Assessment WC - Nurse 1 - General Ulcer Measurement Start: 07/27/17 08:41 Freq: Status: Active Protocol: Activity Type Activity Date Activity User E-Sign Co-Sign Detail Recorded Client Recorded Date Recorded By Document 08/10/17 08:13 RB [id number] 08/10/17 08:16 RB Document 08/10/17 08:15 JS [id number] 08/10/17 08:28 JS 08/10/17 08/10/17 08:13 08:15 Wound Center Nurse 1 [Ulcer Assessment] #2 L Med Ankle -Combined with other wound No No -Current Size (cm) - Length 0.3 14.7 -Current Size (cm) - Width 0.9 5.0 -Current Size (cm) - Depth 0.1 0.7 -Total Square Cm 0.27 73.50 -Date of Last Picture (Recall this 07/27/17 field) -Photo Taken No No -Epithelialization Small 1-33% None Present -Tunneling No No -Undermining/Tunneling No Yes -Undermining/Tunneling Starts (O' 10 clock) -Undermining/Tunneling Ends (O'clock) 1 -Maximum Distance (cm) 0.4 -Circular Undermining No No -Classification - Thickness Full Thickness Full Thickness without Exposed without Exposed Support Support Structure Structure -Exudate Amt Small (1-33%) Medium (34-66%) -Exudate Type Serosanguineous Serosanguineous -Wound Margin Distinct, Fibrotic Scar, Outline Thickened Scar Attached -Granulation Amt Medium (34-66%) Small (1-33%) -Granulation Quality [place] -Slough/Fibrin Yes Yes -Necrosis Amt Small (1-33%) None Present (0 %) -Necrotic Tissue Type Adherent Slough Adherent Slough -Structure Exposed N/A N/A -Texture (Aracely-wound Skin Appearance) Assessed No Abnormality -Moisture (Aracely-wound Skin Appearance Assessed No Abnormality ) Maceration Weeping -Color (Aracely-wound Skin Appearance) Assessed No Abnormality Erythema -Temperature (Aracely-wound Skin No Abnormality No Abnormality Appearance) (Pt Warm) (Pt Warm) -Tenderness on Palpation (Aracely-wound No Yes Skin Appearance) -Ulcer Cleansing Rinsed/ Rinsed/ Irrigated with Irrigated with Saline Saline -Foul Odor after Cleansing No No -Anesthetic Used 5% Lidocaine 4% Lidocaine Gel Solution [Edema Assessment] -Lower Limb Edema Present Yes WC - Nurse 2 - General Ulcer CM Notes Start: 07/27/17 08:41 Freq: Status: Active Protocol: Activity Type Activity Date Activity User E-Sign Co-Sign Detail Recorded Client Recorded Date Recorded By Document 08/10/17 08:26 SHAWN [id number] 08/10/17 08:29 SHAWN 08/10/17 08:26 Wound Center Nurse 2 [Procedure/Treatment] -Time 08:27 -Correct Patient Yes -Correct Side, Site, Position Yes -Correct Procedure Yes -Procedure Performed Yes -Type of Procedure Debridement -Clinical Debridement Subcutaneous -Post Debridement Size (cm) - Length 3.0 -Post Debridement Size (cm) - Width 3.0 -Post Debridement Size (cm) - Depth 0.1 -Total Square Cm 9.00 -Wound/Ulcer Outcome Not Healed -Ulcer Cleansing Rinsed/ Irrigated with Saline -Foul Odor after Cleansing No -Bioengineered Tissue No -Bleeding Controlled with Pressure -Other 0.3 x 1.0 x 0. 1cm was debrided today. -Treatment Response Procedure Tolerated Well [See Physician Procedure note for Specifics] Pain Scale: 0-10 Numeric [Pain] -Is Patient Pain Free? Yes Musculoskeletal: No Tenderness to Palpation of Joints or Extremities, Muscle Wasting Neurological: Sensory exam intact to light touch and pain Psych/Mental Status: Normal Affect, Appropriate Debridement Note Post-Debridement Measurements/Treatment WC - Nurse 2 - General Ulcer CM Notes Start: 07/27/17 08:41 Freq: Status: Active Protocol: Activity Type Activity Date Activity User E-Sign Co-Sign Detail Recorded Client Recorded Date Recorded By Document 08/03/17 08:25 JF [id number] 08/03/17 08:26 Document 08/10/17 08:26 JF [id number] 08/10/17 08:29 08/03/17 08/10/17 08:25 08:26 Wound Center Nurse 2 #2 L Med Ankle -Time 08:26 08:27 -Correct Patient Yes Yes -Correct Side, Site, Position Yes Yes -Correct Procedure Yes Yes -Procedure Performed Yes Yes -Type of Procedure Debridement Debridement -Clinical Debridement Subcutaneous Subcutaneous -Post Debridement Size (cm) - Length 0.4 3.0 -Post Debridement Size (cm) - Width 0.6 3.0 -Post Debridement Size (cm) - Depth 0.1 0.1 -Total Square Cm 0.24 9.00 -Wound/Ulcer Outcome Not Healed Not Healed -Ulcer Cleansing Rinsed/ Rinsed/ Irrigated with Irrigated with Saline Saline -Foul Odor after Cleansing No No -Bioengineered Tissue No No -Bleeding Controlled with NA Pressure -Other 0.3 x 1.0 x 0. 1cm was debrided today. -Treatment Response Procedure Procedure Tolerated Well Tolerated Well Pain Scale: 0-10 Numeric Is Patient Pain Free? Yes Yes Wound debrided: leg Laterality: Left Type of Debridement: Excisional debridement Anesthesia Used: 5% Lidocaine Gel Depth: in the subcutaneous layer Percentage of wound debrided: 100 Instrument Used: #15 blade Tissue Removed: fibrous, devitalized subcutaneous, biofilm, slough Severity: Fat Layer Exposed Amount of bleeding with debridement: Mild Bleeding Controlled with: Pressure Patient tolerated procedure well Assessment/Plan Active Problems Venous insufficiency of left lower extremity (Chronic) Ulcer of left lower extremity with fat layer exposed (Chronic) Assessment: Left leg ulcer fat layer exposed - recurrent. venous insufficiency/leg edema. malnutrition. chronic pain Plan: I reviewed and discussed his case including etiology, risk factors, and recommended work up and treatment plan. He recently completed antibiotics and denies illness or increased wound pain. To call if these symptoms return. I encouraged him to follow-up with his vascular testing as recommended by Dr. Jeffries. This was reiterated during his last wound care session series. He is amendable to proceed and will work on scheduling an appointment as advised to further work up his condition. To avoid pressure to wound at all times. To wear compression sock or tubigrip as tolerated. He could not tolerate a compression stocking because it hurts his previous left leg surgical intervention site. I offered him a custom ankle-foot orthotic such as an Anabella brace. This should provide lower extremity stability (he also has a history of previous ankle pain and intermittent instability) as well as some very mild compression. Preauthorization will be initated for advanced wound care product to optimize wound healing, epifix. He is no longer taking oral pain narcotic medication and his pain is relatively controlled. Continue nutritional supplementation optimize healing. Debridement was performed today as noted in the clinical panel. He tolerated this well. He will change dressing daily with hydrogel and adaptic with occasional promogran application as well. To return to clinic visit in 1 week or call sooner if questions or problems.
--- NOTE | 2017-08-10 09:07 | PN.PCM_ITS ---
(1) Ulcer of left lower extremity with fat layer exposed Status: Chronic Current Visit: Yes Code(s): L97.922 - Non-pressure chronic ulcer of unspecified part of left lower leg with fat layer exposed (2) Venous insufficiency of left lower extremity Status: Chronic Current Visit: Yes Code(s): I87.2 - Venous insufficiency ( chronic) (peripheral) Type of Wound Date of Service: 08/10/17 Chief Complaint: left leg wound History of Wound: This 57 year old male with multiple comorbidities was seen for left leg ulceration. He was unable to tolerate a compression sock. He denies fever, chills, nausea, vomiting. He is not amendable to proceed forward with a custom ankle brace. He is now amendable to proceed with further vascular workup as recommended by Dr. Jeffries last year. He checked with his insurance and [facility] physicians are in network. He is available to go to an appointment on Tuesday or Tuesday and prefers to set his appointment up on his own because he knows his schedule best. He reports increased weeping to his left lower extremity. He is still not able tolerate compression dressings. The wound is expanding. Progress of Wound: Worse - Physical Exam Vital Signs Temp Pulse Resp BP 97.3 F L 62 20 H 107/66 08/10/17 08:15 08/10/17 08:15 08/10/17 08:15 08/10/17 08:15 General: Alert, Oriented x3, Cooperative Extremities: No cyanosis, Capillary Refill Less than 3 Seconds, No Calf Tenderness, Diminished Peripheral Pulses, Edema Skin: Ulcer/ Wound - No purulence, no erythema, streaking, no odor, no infection. The peripheral skin is atrophic. There is some inflammation periwound. There is increased wound weeping noted and interspersed sub- hemorrhagic and granulation tissue encompassing a larger area. There is no bogginess or crepitus on palpation. Wound Measurements and Assessment WC - Nurse 1 - General Ulcer Measurement Start: 07/27/17 08:41 Freq: Status: Active Protocol: Activity Type Activity Date Activity User E-Sign Co-Sign Detail Recorded Client Recorded Date Recorded By Document 08/10/17 08:13 RB [id number] 08/10/17 08:16 RB Document 08/10/17 08:15 JS [id number] 08/10/17 08:28 JS 08/10/17 08/10/17 08:13 08:15 Wound Center Nurse 1 [Ulcer Assessment] #2 L Med Ankle -Combined with other wound No No -Current Size (cm) - Length 0.3 14.7 -Current Size (cm) - Width 0.9 5.0 -Current Size (cm) - Depth 0.1 0.7 -Total Square Cm 0.27 73.50 -Date of Last Picture (Recall this 07/27/17 field) -Photo Taken No No -Epithelialization Small 1-33% None Present -Tunneling No No -Undermining/Tunneling No Yes -Undermining/Tunneling Starts (O' 10 clock) -Undermining/Tunneling Ends (O'clock) 1 -Maximum Distance (cm) 0.4 -Circular Undermining No No -Classification - Thickness Full Thickness Full Thickness without Exposed without Exposed Support Support Structure Structure -Exudate Amt Small (1-33%) Medium (34-66%) -Exudate Type Serosanguineous Serosanguineous -Wound Margin Distinct, Fibrotic Scar, Outline Thickened Scar Attached -Granulation Amt Medium (34-66%) Small (1-33%) -Granulation Quality [place] Pale [place] -Slough/Fibrin Yes Yes -Necrosis Amt Small (1-33%) None Present (0 %) -Necrotic Tissue Type Adherent Slough Adherent Slough -Structure Exposed N/A N/A -Texture (Aracely-wound Skin Appearance) Assessed No Abnormality -Moisture (Aracely-wound Skin Appearance Assessed No Abnormality ) Maceration Weeping -Color (Aracely-wound Skin Appearance) Assessed No Abnormality Erythema -Temperature (Aracely-wound Skin No Abnormality No Abnormality Appearance) (Pt Warm) (Pt Warm) -Tenderness on Palpation (Aracely-wound No Yes Skin Appearance) -Ulcer Cleansing Rinsed/ Rinsed/ Irrigated with Irrigated with Saline Saline -Foul Odor after Cleansing No No -Anesthetic Used 5% Lidocaine 4% Lidocaine Gel Solution [Edema Assessment] -Lower Limb Edema Present Yes WC - Nurse 2 - General Ulcer CM Notes Start: 07/27/17 08:41 Freq: Status: Active Protocol: Activity Type Activity Date Activity User E-Sign Co-Sign Detail Recorded Client Recorded Date Recorded By Document 08/10/17 08:26 SHAWN [id number] 08/10/17 08:29 SHAWN 08/10/17 08:26 Wound Center Nurse 2 [Procedure/Treatment] -Time 08:27 -Correct Patient Yes -Correct Side, Site, Position Yes -Correct Procedure Yes -Procedure Performed Yes -Type of Procedure Debridement -Clinical Debridement Subcutaneous -Post Debridement Size (cm) - Length 3.0 -Post Debridement Size (cm) - Width 3.0 -Post Debridement Size (cm) - Depth 0.1 -Total Square Cm 9.00 -Wound/Ulcer Outcome Not Healed -Ulcer Cleansing Rinsed/ Irrigated with Saline -Foul Odor after Cleansing No -Bioengineered Tissue No -Bleeding Controlled with Pressure -Other 0.3 x 1.0 x 0. 1cm was debrided today. -Treatment Response Procedure Tolerated Well [See Physician Procedure note for Specifics] Pain Scale: 0-10 Numeric [Pain] -Is Patient Pain Free? Yes Musculoskeletal: No Tenderness to Palpation of Joints or Extremities, Muscle Wasting Neurological: Sensory exam intact to light touch and pain Psych/Mental Status: Normal Affect, Appropriate Debridement Note Post-Debridement Measurements/Treatment WC - Nurse 2 - General Ulcer CM Notes Start: 07/27/17 08:41 Freq: Status: Active Protocol: Activity Type Activity Date Activity User E-Sign Co-Sign Detail Recorded Client Recorded Date Recorded By Document 08/03/17 08:25 JF [id number] 08/03/17 08:26 Document 08/10/17 08:26 JF [id number] 08/10/17 08:29 08/03/17 08/10/17 08:25 08:26 Wound Center Nurse 2 #2 L Med Ankle -Time 08:26 08:27 -Correct Patient Yes Yes -Correct Side, Site, Position Yes Yes -Correct Procedure Yes Yes -Procedure Performed Yes Yes -Type of Procedure Debridement Debridement -Clinical Debridement Subcutaneous Subcutaneous -Post Debridement Size (cm) - Length 0.4 3.0 -Post Debridement Size (cm) - Width 0.6 3.0 -Post Debridement Size (cm) - Depth 0.1 0.1 -Total Square Cm 0.24 9.00 -Wound/Ulcer Outcome Not Healed Not Healed -Ulcer Cleansing Rinsed/ Rinsed/ Irrigated with Irrigated with Saline Saline -Foul Odor after Cleansing No No -Bioengineered Tissue No No -Bleeding Controlled with NA Pressure -Other 0.3 x 1.0 x 0. 1cm was debrided today. -Treatment Response Procedure Procedure Tolerated Well Tolerated Well Pain Scale: 0-10 Numeric Is Patient Pain Free? Yes Yes Wound debrided: leg Laterality: Left Type of Debridement: Excisional debridement Anesthesia Used: 5% Lidocaine Gel Depth: in the subcutaneous layer Percentage of wound debrided: 100 Instrument Used: #15 blade Tissue Removed: fibrous, devitalized subcutaneous, biofilm, slough Severity: Fat Layer Exposed Amount of bleeding with debridement: Mild Bleeding Controlled with: Pressure Patient tolerated procedure well Assessment/Plan Active Problems Venous insufficiency of left lower extremity (Chronic) Ulcer of left lower extremity with fat layer exposed (Chronic) Assessment: Left leg ulcer fat layer exposed - recurrent. venous insufficiency/ leg edema. malnutrition. chronic pain Plan: I reviewed and discussed his case including etiology, risk factors, and recommended work up and treatment plan. He recently completed antibiotics and denies illness or increased wound pain. To call if these symptoms return. I encouraged him to follow-up with his vascular testing as recommended by Dr. Jeffries. This was reiterated during his last wound care session series. He is amendable to proceed and will work on scheduling an appointment as advised to further work up his condition. To avoid pressure to wound at all times. To wear compression sock or tubigrip as tolerated. He could not tolerate a compression stocking because it hurts his previous left leg surgical intervention site. I offered him a custom ankle-foot orthotic such as an Anabella brace. This should provide lower extremity stability (he also has a history of previous ankle pain and intermittent instability) as well as some very mild compression. Preauthorization will be initated for advanced wound care product to optimize wound healing, epifix. He is no longer taking oral pain narcotic medication and his pain is relatively controlled. Continue nutritional supplementation optimize healing. Debridement was performed today as noted in the clinical panel. He tolerated this well. He will change dressing daily with hydrogel and adaptic with occasional promogran application as well. To return to clinic visit in 1 week or call sooner if questions or problems.
[2017-08-17 08:16] VITALS: BP 143/78; PULSE 106; RESP 18; TEMP 36.4
--- NOTE | 2017-08-17 09:16 | PN.PCM_ITS ---
(1) Ulcer of left lower extremity with fat layer exposed Status: Chronic Current Visit: Yes Code(s): L97.922 - Non-pressure chronic ulcer of unspecified part of left lower leg with fat layer exposed (2) Venous insufficiency of left lower extremity Status: Chronic Current Visit: Yes Code(s): I87.2 - Venous insufficiency ( chronic) (peripheral) Type of Wound Date of Service: 08/17/17 Chief Complaint: left leg wound History of Wound: This 57 year old male with multiple comorbidities was seen for left leg ulceration. He was unable to tolerate a compression sock. He denies fever, chills, nausea, vomiting. He is not amendable to proceed forward with a custom ankle brace. He is now amendable to proceed with further vascular workup as recommended by Dr. Jeffries last year. He checked with his insurance and [facility] physicians are in network; he is scheduled for September 15. He reports increased weeping to his left lower extremity. He is refusing compression dressings and states he will try again this week. The wound is expanding and is getting increasing pain and drainage. Preauthorization for advanced wound care product is pending. Progress of Wound: Worse - Physical Exam Vital Signs Temp Pulse Resp BP 97.5 F L 106 H 18 143/78 H 08/17/17 08:16 08/17/17 08:16 08/17/17 08:16 08/17/17 08:16 General: Alert, Oriented x3, Cooperative Extremities: No cyanosis, Capillary Refill Less than 3 Seconds, No Calf Tenderness - Negative Brunson, Diminished Peripheral Pulses, Edema - Left lower extremity Skin: Ulcer/ Wound - No purulence, no erythema, streaking, no odor, no infection. There is interspersed granulation speckled tissue around the main fibrous area. There is no deep probing or exposed tissue. The skin is atrophic and inflamed. There is no necrosis. Wound Measurements and Assessment WC - Nurse 1 - General Ulcer Measurement Start: 07/27/17 08:41 Freq: Status: Active Protocol: Activity Type Activity Date Activity User E-Sign Co-Sign Detail Recorded Client Recorded Date Recorded By Document 08/17/17 08:16 SHAWN [id number] 08/17/17 08:18 SHAWN 08/17/17 08:16 Wound Center Nurse 1 [Ulcer Assessment] #2 L Med Ankle -Combined with other wound No -Current Size (cm) - Length 0.3 -Current Size (cm) - Width 0.4 -Current Size (cm) - Depth 0.1 -Total Square Cm 0.12 -Photo Taken No -Epithelialization None Present -Tunneling No -Undermining/Tunneling No -Circular Undermining No -Exudate Amt Large (67-100%) -Exudate Type Serosanguineous -Wound Margin Flat & Intact -Granulation Amt None Present (0 %) -Slough/Fibrin Yes -Necrosis Amt Large (67-100%) -Necrotic Tissue Type Adherent Slough -Structure Exposed N/A -Texture (Aracely-wound Skin Appearance) Assessed Excoriation Localized Edema -Moisture (Aracely-wound Skin Appearance Assessed ) Dry/Scaly -Color (Aracely-wound Skin Appearance) No Abnormality Hemosiderin Staining -Temperature (Aracely-wound Skin No Abnormality Appearance) (Pt Warm) -Tenderness on Palpation (Aracely-wound No Skin Appearance) -Ulcer Cleansing Rinsed/ Irrigated with Saline -Foul Odor after Cleansing No -Anesthetic Used 4% Lidocaine Solution [Edema Assessment] -Lower Limb Edema Present Yes -Left Calf (cm) 40.6 -Left Ankle (cm) 24.4 WC - Nurse 2 - General Ulcer CM Notes Start: 07/27/17 08:41 Freq: Status: Active Protocol: Activity Type Activity Date Activity User E-Sign Co-Sign Detail Recorded Client Recorded Date Recorded By Document 08/17/17 08:34 SHAWN [id number] 08/17/17 08:35 SHAWN 08/17/17 08:34 Wound Center Nurse 2 [Procedure/Treatment] #2 L Med Ankle -Time 08:34 -Correct Patient Yes -Correct Side, Site, Position Yes -Correct Procedure Yes -Procedure Performed Yes -Type of Procedure Debridement -Clinical Debridement Subcutaneous -Post Debridement Size (cm) - Length 3.0 -Post Debridement Size (cm) - Width 2.3 -Post Debridement Size (cm) - Depth 0.1 -Total Square Cm 6.90 -Wound/Ulcer Outcome Not Healed -Ulcer Cleansing Rinsed/ Irrigated with Saline -Foul Odor after Cleansing No -Bioengineered Tissue No -Bleeding Controlled with Pressure -Treatment Response Procedure Tolerated Well [See Physician Procedure note for Specifics] Pain Scale: 0-10 Numeric [Pain] -Is Patient Pain Free? Yes Musculoskeletal: No Tenderness to Palpation of Joints or Extremities, Muscle Wasting Neurological: Sensory exam intact to light touch and pain Psych/Mental Status: Normal Affect, Appropriate Debridement Note Post-Debridement Measurements/Treatment WC - Nurse 2 - General Ulcer CM Notes Start: 07/27/17 08:41 Freq: Status: Active Protocol: Activity Type Activity Date Activity User E-Sign Co-Sign Detail Recorded Client Recorded Date Recorded By Document 08/03/17 08:25 [id number] 08/03/17 08:26 Document 08/10/17 08:26 [id number] 08/10/17 08:29 Document 08/17/17 08:34 [id number] 08/17/17 08:35 08/03/17 08/10/17 08/17/17 08:25 08:26 08:34 Wound Center Nurse 2 #2 L Med Ankle -Time 08:26 08:27 08:34 -Correct Patient Yes Yes Yes -Correct Side, Site, Position Yes Yes Yes -Correct Procedure Yes Yes Yes -Procedure Performed Yes Yes Yes -Type of Procedure Debridement Debridement Debridement -Clinical Debridement Subcutaneous Subcutaneous Subcutaneous -Post Debridement Size (cm) - Length 0.4 3.0 3.0 -Post Debridement Size (cm) - Width 0.6 3.0 2.3 -Post Debridement Size (cm) - Depth 0.1 0.1 0.1 -Total Square Cm 0.24 9.00 6.90 -Wound/Ulcer Outcome Not Healed Not Healed Not Healed -Ulcer Cleansing Rinsed/ Rinsed/ Rinsed/ Irrigated with Irrigated with Irrigated with Saline Saline Saline -Foul Odor after Cleansing No No No -Bioengineered Tissue No No No -Bleeding Controlled with NA Pressure Pressure -Other 0.3 x 1.0 x 0. 1cm was debrided today. -Treatment Response Procedure Procedure Procedure Tolerated Well Tolerated Well Tolerated Well Pain Scale: 0-10 Numeric Is Patient Pain Free? Yes Yes Yes Wound debrided: leg Laterality: Left Type of Debridement: Excisional debridement Anesthesia Used: 5% Lidocaine Gel Depth: in the subcutaneous layer Percentage of wound debrided: - - 15% Instrument Used: #15 blade Tissue Removed: fibrous, devitalized subcutaneous tissue, biofilm, slough Severity: Fat Layer Exposed Amount of bleeding with debridement: Mild Bleeding Controlled with: Pressure Patient tolerated procedure well Assessment/Plan Active Problems Venous insufficiency of left lower extremity (Chronic) Ulcer of left lower extremity with fat layer exposed (Chronic) Assessment: Left leg ulcer fat layer exposed - recurrent. venous insufficiency/ leg edema. malnutrition. chronic pain Plan: I reviewed and discussed his case including etiology, risk factors, and recommended work up and treatment plan. Debridement was performed today as noted in the clinical panel. I encouraged him to follow-up with his vascular testing as recommended by Dr. Jeffries. He is scheduled at [facility] in September 15, 2017. To avoid pressure to wound at all times. To wear compression sock or tubigrip as tolerated. He could not tolerate a compression stocking because it hurts his previous left leg surgical intervention site. I offered him a custom ankle-foot orthotic such as an Anabella brace. This should provide lower extremity stability (he also has a history of previous ankle pain and intermittent instability) as well as some very mild compression. He refuses these today and is only amenable to try an Gary wrap. Preauthorization will be initated for advanced wound care product to optimize wound healing, epifix. He is no longer taking oral pain narcotic medication and his pain is relatively controlled. Continue nutritional supplementation optimize healing. Debridement was performed today as noted in the clinical panel. He tolerated this well. He will change dressing daily with hydrogel and adaptic with occasional promogran application as well. To return to clinic visit in 1 week or call sooner if questions or problems.
== END 2017-08-18 23:59 ==
LOC: WC 08:00
PROVIDERS: Family Provider Family Medicine; PCP Family Medicine; Visit Provider Podiatrist
DX: L97.922 Non-pressure chronic ulcer of unspecified part of left lower leg with fat layer exposed (principal); I87.2 Venous insufficiency (chronic) (peripheral); E46 Unspecified protein-calorie malnutrition; G89.29 Other chronic pain
CPT/HCPCS: 11042; 99212; G0463

== ENCOUNTER 2017-09-07 08:30 | Outpatient (RCR) | payer OTHER, SELFPAY ==
[2017-08-19 00:18] VITALS: BP 143/78; PULSE 106; RESP 18; TEMP 36.4
[2017-08-31 08:48] VITALS: BP 145/85; PULSE 100; RESP 18; TEMP 36.9
--- NOTE | 2017-08-31 08:49 | WC ---
pt went to 08/19/17 for c/o hives face and neck pt placed on predinose for 10 days
--- NOTE | 2017-08-31 09:25 | PCM.WC.PN ---
(1) Ulcer of left lower extremity with fat layer exposed Status: Chronic Current Visit: Yes Code(s): L97.922 - Non-pressure chronic ulcer of unspecified part of left lower leg with fat layer exposed (2) Former smoker Status: Resolved Current Visit: Yes Code(s): Z87.891 - Personal history of nicotine dependence (3) Venous insufficiency of left lower extremity Status: Chronic Current Visit: Yes Code(s): I87.2 - Venous insufficiency (chronic) (peripheral) (4) History of DVT (deep vein thrombosis) Status: Chronic Current Visit: Yes Code(s): Z86.718 - Personal history of other venous thrombosis and embolism Comment: remote provoked context Type of Wound Date of Service: 08/31/17 Chief Complaint: left leg wound History of Wound: This 57 year old male with multiple comorbidities was seen for left leg ulceration. He denies fever, chills, nausea, vomiting. He is not amendable to proceed forward with a custom ankle brace. He is now amendable to proceed with further vascular workup as recommended by Dr. Jeffries last year and this is been scheduled at [facility] for September 15. He reports increased weeping to his left lower extremity. The wound is expanding and is getting increasing pain and drainage. The wound previously healing is now reopened and is weeping again. He reports he had a full body allergic reaction with hives to arms face and his left limb. He saw his nurse practitioner and started him on prednisone. He took his last pill yesterday. He denies having a fever when he checked his temperature and he denies odor or increased redness to his leg. He does report a hive appearance similar to the one on his arm. Progress of Wound: Return - Physical Exam Vital Signs Temp Pulse Resp BP 98.4 F 100 18 145/85 H 08/31/17 08:48 08/31/17 08:48 08/31/17 08:48 08/31/17 08:48 General: Alert, Oriented x3, Cooperative HEENT: Atraumatic Extremities: No cyanosis, Capillary Refill Less than 3 Seconds, No Calf Tenderness, Diminished Peripheral Pulses, Edema Skin: Ulcer/ Wound - No purulence, no erythema, streaking, or odor. There is mild increased edema periwound. There is no fluctuance or bogginess on palpation. His skin is atrophic. He has speckled granulation tissue that has emerged from the previous wound bed in this encompasses approximately 25% of the measured cluster site. Wound Measurements and Assessment WC - Nurse 1 - General Ulcer Measurement Start: 08/31/17 08:48 Freq: Status: Active Protocol: Activity Type Activity Date Activity User E-Sign Co-Sign Detail Recorded Client Recorded Date Recorded By Document 08/31/17 08:48 RB [id number] 08/31/17 08:56 RB 08/31/17 08:48 Wound Center Nurse 1 [Ulcer Assessment] #2 L Med Ankle -Combined with other wound No -Current Size (cm) - Length 0.1 -Current Size (cm) - Width 0.1 -Current Size (cm) - Depth 0.1 -Total Square Cm 0.01 -Photo Taken No -Epithelialization Small 1-33% -Tunneling No -Undermining/Tunneling No -Circular Undermining No -Classification - Thickness Full Thickness without Exposed Support Structure -Exudate Amt Small (1-33%) -Exudate Type Serosanguineous -Wound Margin Distinct, Outline Attached -Granulation Amt Medium (34-66%) -Granulation Quality [place] -Slough/Fibrin Yes -Necrosis Amt Small (1-33%) -Necrotic Tissue Type Adherent Slough -Structure Exposed N/A -Texture (Aracely-wound Skin Appearance) Assessed -Moisture (Aracely-wound Skin Appearance Assessed ) -Color (Aracely-wound Skin Appearance) Assessed -Temperature (Aracely-wound Skin No Abnormality Appearance) (Pt Warm) -Tenderness on Palpation (Aracely-wound No Skin Appearance) -Ulcer Cleansing Rinsed/ Irrigated with Saline -Foul Odor after Cleansing No -Anesthetic Used 4% Lidocaine Solution [Edema Assessment] -Lower Limb Edema Present Yes -Left Calf (cm) 39 -Left Ankle (cm) 27.8 - Nurse 2 - General Ulcer CM Notes Start: 08/31/17 08:48 Freq: Status: Active Protocol: Activity Type Activity Date Activity User E-Sign Co-Sign Detail Recorded Client Recorded Date Recorded By Document 08/31/17 09:08 SHAWN [id number] 08/31/17 09:10 SHAWN 08/31/17 09:08 Wound Center Nurse 2 [Procedure/Treatment] #2 L Med Ankle -Time 09:08 -Correct Patient Yes -Correct Side, Site, Position Yes -Correct Procedure Yes -Procedure Performed Yes -Type of Procedure Debridement -Clinical Debridement Subcutaneous -Post Debridement Size (cm) - Length 4.1 -Post Debridement Size (cm) - Width 3.8 -Post Debridement Size (cm) - Depth 0.1 -Total Square Cm 15.58 -Wound/Ulcer Outcome Not Healed -Ulcer Cleansing Rinsed/ Irrigated with Saline -Foul Odor after Cleansing No -Bioengineered Tissue Yes -Type of bioengineered Tissue EPIFIX -Expiration Date 03/21/22 -Product Lot Number [id number] -Percent Used 100 -Saline Lot Number [id number] -Bleeding Controlled with Pressure -Treatment Response Procedure Tolerated Well [See Physician Procedure note for Specifics] Pain Scale: 0-10 Numeric [Pain] -Is Patient Pain Free? Yes Musculoskeletal: No Tenderness to Palpation of Joints or Extremities, Muscle Wasting, Tenderness - Wound manipulation pain is noted Neurological: Sensory exam intact to light touch and pain Psych/Mental Status: Normal Affect, Appropriate Debridement Note Post-Debridement Measurements/Treatment WC - Nurse 2 - General Ulcer CM Notes Start: 08/31/17 08:48 Freq: Status: Active Protocol: Activity Type Activity Date Activity User E-Sign Co-Sign Detail Recorded Client Recorded Date Recorded By Document 08/31/17 09:08 SHAWN [id number] 08/31/17 09:10 SHAWN 08/31/17 09:08 Wound Center Nurse 2 #2 L Med Ankle -Time 09:08 -Correct Patient Yes -Correct Side, Site, Position Yes -Correct Procedure Yes -Procedure Performed Yes -Type of Procedure Debridement -Clinical Debridement Subcutaneous -Post Debridement Size (cm) - Length 4.1 -Post Debridement Size (cm) - Width 3.8 -Post Debridement Size (cm) - Depth 0.1 -Total Square Cm 15.58 -Wound/Ulcer Outcome Not Healed -Ulcer Cleansing Rinsed/ Irrigated with Saline -Foul Odor after Cleansing No -Bioengineered Tissue Yes -Type of bioengineered Tissue EPIFIX -Expiration Date 03/21/22 -Product Lot Number [id number] -Percent Used 100 -Saline Lot Number [id number] -Bleeding Controlled with Pressure -Treatment Response Procedure Tolerated Well Pain Scale: 0-10 Numeric Is Patient Pain Free? Yes Wound debrided: medial lower leg Laterality: Left Type of Debridement: Excisional debridement Anesthesia Used: 5% Lidocaine Gel Depth: in the subcutaneous layer Percentage of wound debrided: - - 25% Instrument Used: #15 blade Tissue Removed: fibrous, devitalized subcutaneous, biofilm, slough Severity: Fat Layer Exposed Amount of bleeding with debridement: Mild Bleeding Controlled with: Pressure Patient tolerated procedure well Assessment/Plan Active Problems Venous insufficiency of left lower extremity (Chronic) Ulcer of left lower extremity with fat layer exposed (Chronic) History of DVT (deep vein thrombosis) (Chronic) remote provoked context Assessment: Left leg ulcer fat layer exposed - recurrent. venous insufficiency/leg edema. malnutrition. chronic pain Plan: I reviewed and discussed his case including etiology, risk factors, and recommended work up and treatment plan. Debridement was performed today as noted in the clinical panel. I encouraged him to follow-up with his vascular testing as recommended by Dr. Jeffries. He is scheduled at [facility] in September 15, 2017. To avoid pressure to wound at all times. To wear compression sock or tubigrip as tolerated. He could not tolerate a compression stocking because it hurts his previous left leg surgical intervention site. I offered him a custom ankle-foot orthotic such as an Anabella brace. This should provide lower extremity stability (he also has a history of previous ankle pain and intermittent instability) as well as some very mild compression. He refuses these today and is only amenable to try an Gary wrap. He is no longer taking oral pain narcotic medication and his pain is relatively controlled. Continue nutritional supplementation optimize healing. Debridement was performed today as noted in the clinical panel. He tolerated this well. Verbal consent was obtained for application of advanced wound care product, epi fix to promote healing. This was applied according to standard protocol was secured in place the wound veil and Steri-Strips. He tolerated this well. This is medically necessary. To return to clinic visit in 1 week or call sooner if questions or problems.
--- NOTE | 2017-08-31 09:31 | PN.PCM_ITS ---
(1) Ulcer of left lower extremity with fat layer exposed Status: Chronic Current Visit: Yes Code(s): L97.922 - Non-pressure chronic ulcer of unspecified part of left lower leg with fat layer exposed (2) Former smoker Status: Resolved Current Visit: Yes Code(s): Z87.891 - Personal history of nicotine dependence (3) Venous insufficiency of left lower extremity Status: Chronic Current Visit: Yes Code(s): I87.2 - Venous insufficiency ( chronic) (peripheral) (4) History of DVT (deep vein thrombosis) Status: Chronic Current Visit: Yes Code(s): Z86.718 - Personal history of other venous thrombosis and embolism Comment: remote provoked context Type of Wound Date of Service: 08/31/17 Chief Complaint: left leg wound History of Wound: This 57 year old male with multiple comorbidities was seen for left leg ulceration. He denies fever, chills, nausea, vomiting. He is not amendable to proceed forward with a custom ankle brace. He is now amendable to proceed with further vascular workup as recommended by Dr. Jeffries last year and this is been scheduled at [facility] for September 15. He reports increased weeping to his left lower extremity. The wound is expanding and is getting increasing pain and drainage. The wound previously healing is now reopened and is weeping again. He reports he had a full body allergic reaction with hives to arms face and his left limb. He saw his nurse practitioner and started him on prednisone. He took his last pill yesterday. He denies having a fever when he checked his temperature and he denies odor or increased redness to his leg. He does report a hive appearance similar to the one on his arm. Progress of Wound: Return - Physical Exam Vital Signs Temp Pulse Resp BP 98.4 F 100 18 145/85 H 08/31/17 08:48 08/31/17 08:48 08/31/17 08:48 08/31/17 08:48 General: Alert, Oriented x3, Cooperative HEENT: Atraumatic Extremities: No cyanosis, Capillary Refill Less than 3 Seconds, No Calf Tenderness, Diminished Peripheral Pulses, Edema Skin: Ulcer/ Wound - No purulence, no erythema, streaking, or odor. There is mild increased edema periwound. There is no fluctuance or bogginess on palpation. His skin is atrophic. He has speckled granulation tissue that has emerged from the previous wound bed in this encompasses approximately 25% of the measured cluster site. Wound Measurements and Assessment WC - Nurse 1 - General Ulcer Measurement Start: 08/31/17 08:48 Freq: Status: Active Protocol: Activity Type Activity Date Activity User E-Sign Co-Sign Detail Recorded Client Recorded Date Recorded By Document 08/31/17 08:48 RB [id number] 08/31/17 08:56 RB 08/31/17 08:48 Wound Center Nurse 1 [Ulcer Assessment] #2 L Med Ankle -Combined with other wound No -Current Size (cm) - Length 0.1 -Current Size (cm) - Width 0.1 -Current Size (cm) - Depth 0.1 -Total Square Cm 0.01 -Photo Taken No -Epithelialization Small 1-33% -Tunneling No -Undermining/Tunneling No -Circular Undermining No -Classification - Thickness Full Thickness without Exposed Support Structure -Exudate Amt Small (1-33%) -Exudate Type Serosanguineous -Wound Margin Distinct, Outline Attached -Granulation Amt Medium (34-66%) -Granulation Quality [place] -Slough/Fibrin Yes -Necrosis Amt Small (1-33%) -Necrotic Tissue Type Adherent Slough -Structure Exposed N/A -Texture (Aracely-wound Skin Appearance) Assessed -Moisture (Aracely-wound Skin Appearance Assessed ) -Color (Aracely-wound Skin Appearance) Assessed -Temperature (Aracely-wound Skin No Abnormality Appearance) (Pt Warm) -Tenderness on Palpation (Aracely-wound No Skin Appearance) -Ulcer Cleansing Rinsed/ Irrigated with Saline -Foul Odor after Cleansing No -Anesthetic Used 4% Lidocaine Solution [Edema Assessment] -Lower Limb Edema Present Yes -Left Calf (cm) 39 -Left Ankle (cm) 27.8 - Nurse 2 - General Ulcer CM Notes Start: 08/31/17 08:48 Freq: Status: Active Protocol: Activity Type Activity Date Activity User E-Sign Co-Sign Detail Recorded Client Recorded Date Recorded By Document 08/31/17 09:08 SHAWN [id number] 08/31/17 09:10 SHAWN 08/31/17 09:08 Wound Center Nurse 2 [Procedure/Treatment] #2 L Med Ankle -Time 09:08 -Correct Patient Yes -Correct Side, Site, Position Yes -Correct Procedure Yes -Procedure Performed Yes -Type of Procedure Debridement -Clinical Debridement Subcutaneous -Post Debridement Size (cm) - Length 4.1 -Post Debridement Size (cm) - Width 3.8 -Post Debridement Size (cm) - Depth 0.1 -Total Square Cm 15.58 -Wound/Ulcer Outcome Not Healed -Ulcer Cleansing Rinsed/ Irrigated with Saline -Foul Odor after Cleansing No -Bioengineered Tissue Yes -Type of bioengineered Tissue EPIFIX -Expiration Date 03/21/22 -Product Lot Number [id number] -Percent Used 100 -Saline Lot Number [id number] -Bleeding Controlled with Pressure -Treatment Response Procedure Tolerated Well [See Physician Procedure note for Specifics] Pain Scale: 0-10 Numeric [Pain] -Is Patient Pain Free? Yes Musculoskeletal: No Tenderness to Palpation of Joints or Extremities, Muscle Wasting, Tenderness - Wound manipulation pain is noted Neurological: Sensory exam intact to light touch and pain Psych/Mental Status: Normal Affect, Appropriate Debridement Note Post-Debridement Measurements/Treatment WC - Nurse 2 - General Ulcer CM Notes Start: 08/31/17 08:48 Freq: Status: Active Protocol: Activity Type Activity Date Activity User E-Sign Co-Sign Detail Recorded Client Recorded Date Recorded By Document 08/31/17 09:08 SHAWN [id number] 08/31/17 09:10 SHAWN 08/31/17 09:08 Wound Center Nurse 2 #2 L Med Ankle -Time 09:08 -Correct Patient Yes -Correct Side, Site, Position Yes -Correct Procedure Yes -Procedure Performed Yes -Type of Procedure Debridement -Clinical Debridement Subcutaneous -Post Debridement Size (cm) - Length 4.1 -Post Debridement Size (cm) - Width 3.8 -Post Debridement Size (cm) - Depth 0.1 -Total Square Cm 15.58 -Wound/Ulcer Outcome Not Healed -Ulcer Cleansing Rinsed/ Irrigated with Saline -Foul Odor after Cleansing No -Bioengineered Tissue Yes -Type of bioengineered Tissue EPIFIX -Expiration Date 03/21/22 -Product Lot Number [id number] -Percent Used 100 -Saline Lot Number [id number] -Bleeding Controlled with Pressure -Treatment Response Procedure Tolerated Well Pain Scale: 0-10 Numeric Is Patient Pain Free? Yes Wound debrided: medial lower leg Laterality: Left Type of Debridement: Excisional debridement Anesthesia Used: 5% Lidocaine Gel Depth: in the subcutaneous layer Percentage of wound debrided: - - 25% Instrument Used: #15 blade Tissue Removed: fibrous, devitalized subcutaneous, biofilm, slough Severity: Fat Layer Exposed Amount of bleeding with debridement: Mild Bleeding Controlled with: Pressure Patient tolerated procedure well Assessment/Plan Active Problems Venous insufficiency of left lower extremity (Chronic) Ulcer of left lower extremity with fat layer exposed (Chronic) History of DVT (deep vein thrombosis) (Chronic) remote provoked context Assessment: Left leg ulcer fat layer exposed - recurrent. venous insufficiency/ leg edema. malnutrition. chronic pain Plan: I reviewed and discussed his case including etiology, risk factors, and recommended work up and treatment plan. Debridement was performed today as noted in the clinical panel. I encouraged him to follow-up with his vascular testing as recommended by Dr. Jeffries. He is scheduled at [facility] in September 15, 2017. To avoid pressure to wound at all times. To wear compression sock or tubigrip as tolerated. He could not tolerate a compression stocking because it hurts his previous left leg surgical intervention site. I offered him a custom ankle-foot orthotic such as an Anabella brace. This should provide lower extremity stability (he also has a history of previous ankle pain and intermittent instability) as well as some very mild compression. He refuses these today and is only amenable to try an Gary wrap. He is no longer taking oral pain narcotic medication and his pain is relatively controlled. Continue nutritional supplementation optimize healing. Debridement was performed today as noted in the clinical panel. He tolerated this well. Verbal consent was obtained for application of advanced wound care product, epi fix to promote healing. This was applied according to standard protocol was secured in place the wound veil and Steri-Strips. He tolerated this well. This is medically necessary. To return to clinic visit in 1 week or call sooner if questions or problems.
[2017-09-07 08:38] VITALS: BP 145/88; PULSE 101; RESP 18; TEMP 37
--- NOTE | 2017-09-07 08:40 | WC ---
pt removed steristrips per self pt states the steristrips make me itch. pt on ATB and predinose for hives rash and swollen ears bilat
--- NOTE | 2017-09-07 09:03 | PCM.WC.PN ---
(1) Ulcer of left lower extremity with fat layer exposed Status: Resolved Current Visit: Yes Code(s): L97.922 - Non-pressure chronic ulcer of unspecified part of left lower leg with fat layer exposed (2) Former smoker Status: Resolved Current Visit: Yes Code(s): Z87.891 - Personal history of nicotine dependence (3) Venous insufficiency of left lower extremity Status: Chronic Current Visit: Yes Code(s): I87.2 - Venous insufficiency (chronic) (peripheral) (4) History of DVT (deep vein thrombosis) Status: Chronic Current Visit: Yes Code(s): Z86.718 - Personal history of other venous thrombosis and embolism Comment: remote provoked context Type of Wound Date of Service: 09/07/17 Chief Complaint: left leg wound History of Wound: This 57 year old male with multiple comorbidities was seen for left leg ulceration. He denies fever, chills, nausea, vomiting. He is now amendable to proceed with further vascular workup as recommended last year and this is been scheduled at [facility] for September 15. He denies drainage and has kept his epi fix in place as advised. He is also done with his prednisone course due to his lower and upper extremity rash. This is significantly improved and he denies itching. Progress of Wound: Healed - Physical Exam Vital Signs Temp Pulse Resp BP 98.6 F 101 H 18 145/88 H 09/07/17 08:38 09/07/17 08:38 09/07/17 08:38 09/07/17 08:38 General: Alert, Oriented x3, Cooperative Extremities: No cyanosis, Capillary Refill Less than 3 Seconds, No Calf Tenderness, Diminished Peripheral Pulses, Edema Skin: Ulcer/ Wound - Full epithelialization is noted with skin remodeling to the medial leg. The peripheral skin is atrophic and dry. Varicosities of the lumbar noted. His peripheral skin is atrophic. There is no purulence, necrosis, or infection noted. Wound Measurements and Assessment WC - Nurse 1 - General Ulcer Measurement Start: 08/31/17 08:48 Freq: Status: Active Protocol: Activity Type Activity Date Activity User E-Sign Co-Sign Detail Recorded Client Recorded Date Recorded By Document 09/07/17 08:38 RB [id number] 09/07/17 08:42 RB 09/07/17 08:38 Wound Center Nurse 1 [Ulcer Assessment] #2 L Med Ankle -Combined with other wound No -Current Size (cm) - Length 0.1 -Current Size (cm) - Width 0.1 -Current Size (cm) - Depth 0.1 -Total Square Cm 0.01 -Photo Taken No -Tunneling No -Undermining/Tunneling No -Circular Undermining No -Classification - Thickness Full Thickness without Exposed Support Structure -Exudate Amt None Present (0 %) -Wound Margin Distinct, Outline Attached -Granulation Amt Large (67-100%) -Granulation Quality [place] -Slough/Fibrin No -Necrosis Amt None Present (0 %) -Structure Exposed N/A -Texture (Aracely-wound Skin Appearance) Assessed Excoriation -Moisture (Aracely-wound Skin Appearance Dry/Scaly ) -Color (Aracely-wound Skin Appearance) Erythema -Temperature (Aracely-wound Skin No Abnormality Appearance) (Pt Warm) -Tenderness on Palpation (Aracely-wound No Skin Appearance) -Ulcer Cleansing Rinsed/ Irrigated with Saline -Foul Odor after Cleansing No [Edema Assessment] -Lower Limb Edema Present Yes -Left Calf (cm) 39.5 -Left Ankle (cm) 24 09/07/17 08:40 Wound Center by Susu Smith pt removed steristrips per self pt states the steristrips make me itch. pt on ATB and predinose for hives rash and swollen ears bilat Initialized on 09/07/17 08:40 - END OF NOTE WC - Nurse 2 - General Ulcer CM Notes Start: 08/31/17 08:48 Freq: Status: Active Protocol: Activity Type Activity Date Activity User E-Sign Co-Sign Detail Recorded Client Recorded Date Recorded By Document 09/07/17 08:56 SHAWN [id number] 09/07/17 08:58 SHAWN 09/07/17 08:56 Wound Center Nurse 2 [Procedure/Treatment] #2 L Med Ankle -Correct Patient No -Correct Side, Site, Position No -Correct Procedure No -Procedure Performed No -Post Debridement Size (cm) - Length 0 -Post Debridement Size (cm) - Width 0 -Post Debridement Size (cm) - Depth 0 -Total Square Cm 0 -Wound/Ulcer Outcome Healed- Epithelialized [See Physician Procedure note for Specifics] Pain Scale: 0-10 Numeric [Pain] -Is Patient Pain Free? Yes Musculoskeletal: No Tenderness to Palpation of Joints or Extremities, Muscle Wasting Neurological: Sensory exam intact to light touch and pain Psych/Mental Status: Normal Affect, Appropriate Debridement Note Post-Debridement Measurements/Treatment WC - Nurse 2 - General Ulcer CM Notes Start: 08/31/17 08:48 Freq: Status: Active Protocol: Activity Type Activity Date Activity User E-Sign Co-Sign Detail Recorded Client Recorded Date Recorded By Document 08/31/17 09:08 [id number] 08/31/17 09:10 Document 09/07/17 08:56 [id number] 09/07/17 08:58 08/31/17 09/07/17 09:08 08:56 Wound Center Nurse 2 #2 L Med Ankle -Time 09:08 -Correct Patient Yes No -Correct Side, Site, Position Yes No -Correct Procedure Yes No -Procedure Performed Yes No -Type of Procedure Debridement -Clinical Debridement Subcutaneous -Post Debridement Size (cm) - Length 4.1 0 -Post Debridement Size (cm) - Width 3.8 0 -Post Debridement Size (cm) - Depth 0.1 0 -Total Square Cm 15.58 0 -Wound/Ulcer Outcome Not Healed Healed- Epithelialized -Ulcer Cleansing Rinsed/ Irrigated with Saline -Foul Odor after Cleansing No -Bioengineered Tissue Yes -Type of bioengineered Tissue EPIFIX -Expiration Date 03/21/22 -Product Lot Number [id number] -Percent Used 100 -Saline Lot Number [id number] -Bleeding Controlled with Pressure -Treatment Response Procedure Tolerated Well Pain Scale: 0-10 Numeric Is Patient Pain Free? Yes Yes No debridement was completed today - The wound has healed Assessment/Plan Active Problems Venous insufficiency of left lower extremity (Chronic) History of DVT (deep vein thrombosis) (Chronic) remote provoked context Assessment: Left leg ulcer fat layer exposed -healed. venous insufficiency/leg edema with complicated previous traumatic accidents and vascular surgery intervention. malnutrition. chronic pain Plan: I reviewed and discussed his case including etiology, risk factors, and recommended work up and treatment plan. Debridement was not performed today because the wound has healed. I recommend discontinuation of dressing care. To maintain proper skin integrity by moisturizing daily. To monitor close for return of wound or infection in which neither is noted today. I encouraged him to follow-up with his vascular testing as recommended by Dr. Jeffries. He is scheduled at [facility] in September 15, 2017. To avoid pressure to wound at all times. To wear compression sock or tubigrip as tolerated. He could not tolerate a compression stocking because it hurts his previous left leg surgical intervention site. This should provide lower extremity stability (he also has a history of previous ankle pain and intermittent instability) as well as some very mild compression. He is discharged from the wound care center at this time and was advised to call if his wound returns. I do want to follow-up with him after his vascular surgery evaluation and intervention and he was advised to follow-up with me at the foot and ankle center.
--- NOTE | 2017-09-07 09:07 | PN.PCM_ITS ---
(1) Ulcer of left lower extremity with fat layer exposed Status: Resolved Current Visit: Yes Code(s): L97.922 - Non-pressure chronic ulcer of unspecified part of left lower leg with fat layer exposed (2) Former smoker Status: Resolved Current Visit: Yes Code(s): Z87.891 - Personal history of nicotine dependence (3) Venous insufficiency of left lower extremity Status: Chronic Current Visit: Yes Code(s): I87.2 - Venous insufficiency ( chronic) (peripheral) (4) History of DVT (deep vein thrombosis) Status: Chronic Current Visit: Yes Code(s): Z86.718 - Personal history of other venous thrombosis and embolism Comment: remote provoked context Type of Wound Date of Service: 09/07/17 Chief Complaint: left leg wound History of Wound: This 57 year old male with multiple comorbidities was seen for left leg ulceration. He denies fever, chills, nausea, vomiting. He is now amendable to proceed with further vascular workup as recommended last year and this is been scheduled at [facility] for September 15. He denies drainage and has kept his epi fix in place as advised. He is also done with his prednisone course due to his lower and upper extremity rash. This is significantly improved and he denies itching. Progress of Wound: Healed - Physical Exam Vital Signs Temp Pulse Resp BP 98.6 F 101 H 18 145/88 H 09/07/17 08:38 09/07/17 08:38 09/07/17 08:38 09/07/17 08:38 General: Alert, Oriented x3, Cooperative Extremities: No cyanosis, Capillary Refill Less than 3 Seconds, No Calf Tenderness, Diminished Peripheral Pulses, Edema Skin: Ulcer/ Wound - Full epithelialization is noted with skin remodeling to the medial leg. The peripheral skin is atrophic and dry. Varicosities of the lumbar noted. His peripheral skin is atrophic. There is no purulence, necrosis , or infection noted. Wound Measurements and Assessment WC - Nurse 1 - General Ulcer Measurement Start: 08/31/17 08:48 Freq: Status: Active Protocol: Activity Type Activity Date Activity User E-Sign Co-Sign Detail Recorded Client Recorded Date Recorded By Document 09/07/17 08:38 RB [id number] 09/07/17 08:42 RB 09/07/17 08:38 Wound Center Nurse 1 [Ulcer Assessment] #2 L Med Ankle -Combined with other wound No -Current Size (cm) - Length 0.1 -Current Size (cm) - Width 0.1 -Current Size (cm) - Depth 0.1 -Total Square Cm 0.01 -Photo Taken No -Tunneling No -Undermining/Tunneling No -Circular Undermining No -Classification - Thickness Full Thickness without Exposed Support Structure -Exudate Amt None Present (0 %) -Wound Margin Distinct, Outline Attached -Granulation Amt Large (67-100%) -Granulation Quality [place] -Slough/Fibrin No -Necrosis Amt None Present (0 %) -Structure Exposed N/A -Texture (Aracely-wound Skin Appearance) Assessed Excoriation -Moisture (Aracely-wound Skin Appearance Dry/Scaly ) -Color (Aracely-wound Skin Appearance) Erythema -Temperature (Aracely-wound Skin No Abnormality Appearance) (Pt Warm) -Tenderness on Palpation (Aracely-wound No Skin Appearance) -Ulcer Cleansing Rinsed/ Irrigated with Saline -Foul Odor after Cleansing No [Edema Assessment] -Lower Limb Edema Present Yes -Left Calf (cm) 39.5 -Left Ankle (cm) 24 09/07/17 08:40 Wound Center by Susu Smith pt removed steristrips per self pt states the steristrips make me itch. pt on ATB and predinose for hives rash and swollen ears bilat Initialized on 09/07/17 08:40 - END OF NOTE WC - Nurse 2 - General Ulcer CM Notes Start: 08/31/17 08:48 Freq: Status: Active Protocol: Activity Type Activity Date Activity User E-Sign Co-Sign Detail Recorded Client Recorded Date Recorded By Document 09/07/17 08:56 SHAWN [id number] 09/07/17 08:58 SHAWN 09/07/17 08:56 Wound Center Nurse 2 [Procedure/Treatment] #2 L Med Ankle -Correct Patient No -Correct Side, Site, Position No -Correct Procedure No -Procedure Performed No -Post Debridement Size (cm) - Length 0 -Post Debridement Size (cm) - Width 0 -Post Debridement Size (cm) - Depth 0 -Total Square Cm 0 -Wound/Ulcer Outcome Healed- Epithelialized [See Physician Procedure note for Specifics] Pain Scale: 0-10 Numeric [Pain] -Is Patient Pain Free? Yes Musculoskeletal: No Tenderness to Palpation of Joints or Extremities, Muscle Wasting Neurological: Sensory exam intact to light touch and pain Psych/Mental Status: Normal Affect, Appropriate Debridement Note Post-Debridement Measurements/Treatment WC - Nurse 2 - General Ulcer CM Notes Start: 08/31/17 08:48 Freq: Status: Active Protocol: Activity Type Activity Date Activity User E-Sign Co-Sign Detail Recorded Client Recorded Date Recorded By Document 08/31/17 09:08 [id number] 08/31/17 09:10 Document 09/07/17 08:56 [id number] 09/07/17 08:58 08/31/17 09/07/17 09:08 08:56 Wound Center Nurse 2 #2 L Med Ankle -Time 09:08 -Correct Patient Yes No -Correct Side, Site, Position Yes No -Correct Procedure Yes No -Procedure Performed Yes No -Type of Procedure Debridement -Clinical Debridement Subcutaneous -Post Debridement Size (cm) - Length 4.1 0 -Post Debridement Size (cm) - Width 3.8 0 -Post Debridement Size (cm) - Depth 0.1 0 -Total Square Cm 15.58 0 -Wound/Ulcer Outcome Not Healed Healed- Epithelialized -Ulcer Cleansing Rinsed/ Irrigated with Saline -Foul Odor after Cleansing No -Bioengineered Tissue Yes -Type of bioengineered Tissue EPIFIX -Expiration Date 03/21/22 -Product Lot Number [id number] -Percent Used 100 -Saline Lot Number [id number] -Bleeding Controlled with Pressure -Treatment Response Procedure Tolerated Well Pain Scale: 0-10 Numeric Is Patient Pain Free? Yes Yes No debridement was completed today - The wound has healed Assessment/Plan Active Problems Venous insufficiency of left lower extremity (Chronic) History of DVT (deep vein thrombosis) (Chronic) remote provoked context Assessment: Left leg ulcer fat layer exposed -healed. venous insufficiency/leg edema with complicated previous traumatic accidents and vascular surgery intervention. malnutrition. chronic pain Plan: I reviewed and discussed his case including etiology, risk factors, and recommended work up and treatment plan. Debridement was not performed today because the wound has healed. I recommend discontinuation of dressing care. To maintain proper skin integrity by moisturizing daily. To monitor close for return of wound or infection in which neither is noted today. I encouraged him to follow-up with his vascular testing as recommended by Dr. Jeffries. He is scheduled at [facility] in September 15, 2017. To avoid pressure to wound at all times. To wear compression sock or tubigrip as tolerated. He could not tolerate a compression stocking because it hurts his previous left leg surgical intervention site. This should provide lower extremity stability (he also has a history of previous ankle pain and intermittent instability) as well as some very mild compression. He is discharged from the wound care center at this time and was advised to call if his wound returns. I do want to follow-up with him after his vascular surgery evaluation and intervention and he was advised to follow-up with me at the foot and ankle center.
== END 2017-09-17 23:59 ==
LOC: WC 08:30
PROVIDERS: Family Provider Family Medicine; PCP Family Medicine; Visit Provider Podiatrist
DX: I87.2 Venous insufficiency (chronic) (peripheral) (principal); L97.822 Non-pressure chronic ulcer of other part of left lower leg with fat layer exposed; Z86.718 Personal history of other venous thrombosis and embolism; Z87.891 Personal history of nicotine dependence
CPT/HCPCS: 15271; 99212; Q4131; G0463

== ENCOUNTER → 2017-09-14 14:07 | Outpatient (CLI) | payer OTHER, SELFPAY ==
[2017-09-19 15:30] LABS: Egg, Whole <0.10 kU/L (Class 0)
[2017-09-20 10:12] LABS: Banana <0.10 kU/L (Class 0); Immunoglobulin E 147 IU/mL (0-100); Tomato <0.10 kU/L (Class 0)
== END ==
PROVIDERS: Family Provider Family Medicine; PCP Family Medicine; Visit Provider Otolaryngology Otolaryngology/Facial Plastic Surgery
DX: T78.40XA Allergy, unspecified, initial encounter (principal)
CPT/HCPCS: 36415; 82785; 86003

== ENCOUNTER → 2017-11-16 11:56 | Outpatient (CLI) | payer OTHER, SELFPAY ==
[2017-11-19 12:07] LABS: Almond <0.10 kU/L (Class 0); Apple <0.10 kU/L (Class 0); Banana <0.10 kU/L (Class 0); Barley, Whole Grain <0.10 kU/L (Class 0); Beef <0.10 kU/L (Class 0); Brazil Nut <0.10 kU/L (Class 0); Carrot <0.10 kU/L (Class 0); Cashew <0.10 kU/L (Class 0); Chicken <0.10 kU/L (Class 0); Clam <0.10 kU/L (Class 0); Codfish <0.10 kU/L (Class 0); Crab <0.10 kU/L (Class 0); Egg, White <0.10 kU/L (Class 0); Egg, Whole <0.10 kU/L (Class 0); Egg, Yolk <0.10 kU/L (Class 0); Garlic <0.10 kU/L (Class 0); Gluten <0.10 kU/L (Class 0); Hazelnut/Filbert <0.10 kU/L (Class 0); Lobster <0.10 kU/L (Class 0); Milk (Cow) <0.10 kU/L (Class 0); Oat <0.10 kU/L (Class 0); Onion <0.10 kU/L (Class 0); Orange <0.10 kU/L (Class 0); Pea <0.10 kU/L (Class 0); Pecan <0.10 kU/L (Class 0); Pork <0.10 kU/L (Class 0); Potato, White <0.10 kU/L (Class 0); Rice <0.10 kU/L (Class 0); SESAME SEED <0.10 kU/L (Class 0); Salmon <0.10 kU/L (Class 0); Shrimp <0.10 kU/L (Class 0); Soybean <0.10 kU/L (Class 0); Strawberry <0.10 kU/L (Class 0); Tomato <0.10 kU/L (Class 0); Tuna <0.10 kU/L (Class 0); Walnut, (Food) <0.10 kU/L (Class 0); Wheat <0.10 kU/L (Class 0); Yeast <0.10 kU/L (Class 0)
[2017-11-19 14:06] LABS: Alternaria tenuis <0.10 kU/L (Class 0); Ash, White <0.10 kU/L (Class 0); Aspergillus fumigatus <0.10 kU/L (Class 0); Bermuda Grass <0.10 kU/L (Class 0); Birch <0.10 kU/L (Class 0); Black Walnut <0.10 kU/L (Class 0); Cat Hair / Dander,Stand <0.10 kU/L (Class 0); Cedar, Mountain <0.10 kU/L (Class 0); Cladosporium herbarum <0.10 kU/L (Class 0); Cockroach, American <0.10 kU/L (Class 0); Cottonwood <0.10 kU/L (Class 0); D farinae Mite <0.10 kU/L (Class 0); D pteronyssinus <0.10 kU/L (Class 0); Dog Epithelia <0.10 kU/L (Class 0); Elm, American White <0.10 kU/L (Class 0); Immunoglobulin E 115 IU/mL (0-100); Maple/Box Elder <0.10 kU/L (Class 0); Mulberry, White <0.10 kU/L (Class 0); Oak, White <0.10 kU/L (Class 0); Pecan <0.10 kU/L (Class 0); Penicillium Notatum <0.10 kU/L (Class 0); Pigweed, Rough <0.10 kU/L (Class 0); Ragweed, Short/Common <0.10 kU/L (Class 0); Russian Thistle <0.10 kU/L (Class 0); Sheep Sorrel <0.10 kU/L (Class 0); Sycamore, American <0.10 kU/L (Class 0); Timothy Grass <0.10 kU/L (Class 0)
[2017-11-21 11:15] LABS: Mouse Urine <0.10 kU/L (Class 0)
[2017-11-21 11:16] LABS: Immunoglobulin E 114 IU/mL (0-100)
[2017-11-21 12:42] LABS: Peanut <0.10 kU/L (Class 0); Turkey <0.10 kU/L (Class 0)
== END ==
PROVIDERS: Family Provider Family Medicine; PCP Family Medicine; Visit Provider Otolaryngology Otolaryngology/Facial Plastic Surgery
DX: J32.9 Chronic sinusitis, unspecified (principal); T78.40XA Allergy, unspecified, initial encounter
CPT/HCPCS: 36415; 82785; 86003; 87070; 87205

== ENCOUNTER 2017-12-14 14:00 | Outpatient (RCR) | payer OTHER, SELFPAY ==
[2017-11-30 14:34] VITALS: BP 135/89; PULSE 89; RESP 18; TEMP 36.9
--- NOTE | 2017-11-30 16:52 | PCM.WC.PN ---
(1) Ulcer of left lower extremity, limited to breakdown of skin Status: Chronic Current Visit: Yes Code(s): L97.921 - Non-pressure chronic ulcer of unspecified part of left lower leg limited to breakdown of skin (2) Venous insufficiency Status: Chronic Current Visit: Yes Code(s): I87.2 - Venous insufficiency (chronic) (peripheral) (3) Dermatitis Status: Chronic Current Visit: Yes Code(s): L30.9 - Dermatitis, unspecified (4) Inflammatory arthritis Status: Suspected Current Visit: Yes Code(s): M19.90 - Unspecified osteoarthritis, unspecified site (5) Former smoker Status: Resolved Current Visit: No Code(s): Z87.891 - Personal history of nicotine dependence (6) Localized edema Status: Chronic Current Visit: Yes Code(s): R60.0 - Localized edema (7) Leg pain, left Status: Chronic Current Visit: Yes Code(s): M79.605 - Pain in left leg Type of Wound Date of Service: 11/30/17 Chief Complaint: left leg wound has returned History of Wound: This 57 year old male with multiple comorbidities was seen for left leg ulceration. The onset of return was last 2 days. He denies fever, chills, nausea, vomiting. He did complete his recommended follow-up at [facility] with vascular surgery. He relates vascular surgeon said he could offer him a venous ablation but it probably would not help a lot. He is amenable to a medical record release I can review this workup and these notes. he denies itching. He reports he also had a recent skin dermatitis to his hand, arm, and his leg. He also reports recent eye and facial swelling while he was out of town last week. She has chronic dry eyes. She denies irritable bowel type syndromes. He also has multiple joint aches and pains that are chronic in nature. He denies seeing a previous bone worker and would consider referral in the future. Progress of Wound: New left leg - Physical Exam Vital Signs Temp Pulse Resp BP 98.4 F 89 18 135/89 H 11/30/17 14:34 11/30/17 14:34 11/30/17 14:34 11/30/17 14:34 General: Alert, Oriented x3, Cooperative Extremities: No cyanosis, Capillary Refill Less than 3 Seconds - All toes left foot, No Calf Tenderness - Negative Jaime and Brunson sign, Diminished Peripheral Pulses, Edema - Left leg mild to moderate nonpitting, Tenderness - Wound manipulation left medial leg Skin: Ulcer/ Wound - There is skin discontinuity with only some hemorrhagic tissue exposed and interspersed manner to the medial left ankle. There is peripheral telangiectasias and edema noted. There is no deep tissue subcutaneous tissue exposed. There is no crepitus on palpation to the surrounding site. Peripheral skin is atrophic and hairless Wound Measurements and Assessment WC - Nurse 1 - General Ulcer Measurement Start: 11/30/17 14:24 Freq: Status: Active Protocol: Activity Type Activity Date Activity User E-Sign Co-Sign Detail Recorded Client Recorded Date Recorded By Document 11/30/17 14:34 RB [id number] 11/30/17 14:44 RB 11/30/17 14:34 Wound Center Nurse 1 [Ulcer Assessment] 3. L medial ankle -Combined with other wound No -Current Size (cm) - Length 0.1 -Current Size (cm) - Width 0.1 -Current Size (cm) - Depth 0.1 -Total Square Cm 0.01 -Photo Taken Yes -Tunneling No -Undermining/Tunneling No -Circular Undermining No -Classification - Thickness Full Thickness without Exposed Support Structure -Exudate Amt Small (1-33%) -Exudate Type Serosanguineous -Wound Margin Distinct, Outline Attached -Granulation Amt Large (67-100%) -Granulation Quality [place] -Slough/Fibrin Yes -Necrosis Amt Small (1-33%) -Necrotic Tissue Type Adherent Slough -Structure Exposed N/A -Texture (Aracely-wound Skin Appearance) Excoriation -Moisture (Aracely-wound Skin Appearance Maceration ) -Color (Aracely-wound Skin Appearance) Assessed -Temperature (Aracely-wound Skin No Abnormality Appearance) (Pt Warm) -Tenderness on Palpation (Aracely-wound No Skin Appearance) -Ulcer Cleansing Rinsed/ Irrigated with Saline -Foul Odor after Cleansing No -Anesthetic Used 4% Lidocaine Solution [Edema Assessment] -Lower Limb Edema Present Yes -Right Calf (cm) 38.5 -Right Ankle (cm) 24 -Left Calf (cm) 41 -Left Ankle (cm) 24.5 Musculoskeletal: No Tenderness to Palpation of Joints or Extremities, Muscle Wasting Neurological: Sensory exam intact to light touch and pain Psych/Mental Status: Normal Affect, Appropriate Debridement Note No debridement was completed today - There is only partial skin discontinuity with only some hemorrhagic tissue exposed. Assessment/Plan Active Problems Ulcer of left lower extremity, limited to breakdown of skin (Chronic) Venous insufficiency (Chronic) Dermatitis (Chronic) Localized edema (Chronic) Leg pain, left (Chronic) Assessment: Left leg ulcer skin layer exposed -returned. venous insufficiency/leg edema with complicated previous traumatic accidents and vascular surgery intervention. Rule out other dermatologic or inflammatory polyarthritis systemic disease. malnutrition. chronic pain Plan: I reviewed and discussed his case including etiology, risk factors, and recommended work up and treatment plan. Debridement was not performed today because the wound is very superficial. I recommend he resume hydrogel with collagen application as daily dressing care. To maintain proper skin integrity by moisturizing daily. To monitor close for infection in which neither is noted today. He did follow-up with vascular surgery at [facility] is advised; I will request these medical records. To avoid pressure to wound at all times. To wear compression sock or tubigrip as tolerated. He could not tolerate a compression stocking because it hurts his previous left leg surgical intervention site. This should provide lower extremity stability (he also has a history of previous ankle pain and intermittent instability) as well as some very mild compression. I am concerned of his dermatologic, joint, and other systemic subjective complaints. I am concerned he has underlying rheumatologic or other anti-inflammatory systemic condition that is contributing to his condition. He does have follow-up with a pharmaceutical assistant and I recommend he completes this is scheduled. I also offered him a rheumatology referral and he will think about this in the near future. He did have some recent allergy testing performed last month at the hospital and it is noted there are all within normal range. He did have a slightly elevated IgE of 114 which is out of the outside normal high range at 100. His previous rheumatological screening in 2015 was also noted and repeating some of this workup will be considered. I recommended he return to the wound healing center in 1 week or call sooner if he has any questions or concerns. I did answer all his questions today.
[2017-12-07 14:21] VITALS: BP 139/90; PULSE 92; RESP 16; TEMP 36.1
--- NOTE | 2017-12-07 15:20 | PCM.WC.PN ---
(1) Ulcer of left lower extremity, limited to breakdown of skin Status: Chronic Code(s): L97.921 - Non-pressure chronic ulcer of unspecified part of left lower leg limited to breakdown of skin (2) Venous insufficiency Status: Chronic Code(s): I87.2 - Venous insufficiency (chronic) (peripheral) (3) Dermatitis Status: Chronic Code(s): L30.9 - Dermatitis, unspecified (4) Inflammatory arthritis Status: Suspected Code(s): M19.90 - Unspecified osteoarthritis, unspecified site (5) Former smoker Status: Resolved Code(s): Z87.891 - Personal history of nicotine dependence (6) Localized edema Status: Chronic Code(s): R60.0 - Localized edema (7) Leg pain, left Status: Chronic Code(s): M79.605 - Pain in left leg (8) Allergic Status: Suspected Code(s): T78.40XA - Allergy, unspecified, initial encounter Type of Wound Date of Service: 12/10/17 Chief Complaint: left leg wound has returned History of Wound: This 57 year old male with multiple comorbidities was seen for left leg ulceration. He denies fever, chills, nausea, vomiting. He did complete his recommended follow-up at [facility] with vascular surgery. He relates vascular surgeon said he could offer him a venous ablation but it probably would not help a lot. He reports he also had a recent skin dermatitis to his hand, arm, and his leg. He also reports recent eye and facial swelling while he was out of town last week. She has chronic dry eyes. She denies irritable bowel type syndromes. He also has multiple joint aches and pains that are chronic in nature. He denies seeing a previous turfgrass management professor and is amenable to take this referral at this time. Progress of Wound: Stable - Physical Exam Vital Signs Temp Pulse Resp BP 96.9 F L 92 16 139/90 H 12/07/17 14:21 12/07/17 14:21 12/07/17 14:21 12/07/17 14:21 General: Alert, Oriented x3, Cooperative HEENT: Atraumatic Extremities: No cyanosis, Capillary Refill Less than 3 Seconds, No Calf Tenderness - Negative Jaime and Brunson, Diminished Peripheral Pulses, Edema Skin: Ulcer/ Wound - Interspersed sub-hemorrhagic tissue exposure is noted with mild weeping serous drainage. The peripheral skin is atrophic and hyperpigmentation of the parent. There is no fluctuance or bogginess on palpation or sandra eschar Wound Measurements and Assessment - Nurse 1 - General Ulcer Measurement Start: 11/30/17 14:24 Freq: Status: Active Protocol: Activity Type Activity Date Activity User E-Sign Co-Sign Detail Recorded Client Recorded Date Recorded By Document 12/07/17 14:21 [facility] [id number] 12/07/17 14:26 [facility] 12/07/17 14:21 Wound Center Nurse 1 [Ulcer Assessment] 3. L medial ankle -Combined with other wound No -Current Size (cm) - Length 12.5 -Current Size (cm) - Width 8.7 -Current Size (cm) - Depth 0.1 -Total Square Cm 108.75 -Photo Taken No -Epithelialization None Present -Tunneling No -Undermining/Tunneling No -Circular Undermining No -Exudate Amt Medium (34-66%) -Exudate Type Serous -Wound Margin Distinct, Outline Attached -Granulation Amt Large (67-100%) -Granulation Quality Red -Slough/Fibrin No -Necrosis Amt None Present (0 %) -Structure Exposed None/Limited to Skin Breakdown -Texture (Aracely-wound Skin Appearance) Scarring -Moisture (Aracely-wound Skin Appearance Dry/Scaly ) -Color (Aracely-wound Skin Appearance) Hemosiderin Staining -Temperature (Aracely-wound Skin No Abnormality Appearance) (Pt Warm) -Tenderness on Palpation (Aracely-wound No Skin Appearance) -Ulcer Cleansing Rinsed/ Irrigated with Saline -Foul Odor after Cleansing No -Anesthetic Used 4% Lidocaine Solution - Nurse 2 - General Ulcer CM Notes Start: 11/30/17 14:24 Freq: Status: Active Protocol: Activity Type Activity Date Activity User E-Sign Co-Sign Detail Recorded Client Recorded Date Recorded By Document 12/07/17 15:16 [id number] 12/07/17 15:17 12/07/17 15:16 Wound Center Nurse 2 [Procedure/Treatment] -Correct Patient No -Correct Side, Site, Position No -Correct Procedure No -Procedure Performed No [See Physician Procedure note for Specifics] Pain Scale: 0-10 Numeric [Pain] -Is Patient Pain Free? Yes Musculoskeletal: No Tenderness to Palpation of Joints or Extremities, Muscle Wasting Neurological: Sensory exam intact to light touch and pain Psych/Mental Status: Normal Affect, Appropriate Debridement Note Post-Debridement Measurements/Treatment WC - Nurse 2 - General Ulcer CM Notes Start: 11/30/17 14:24 Freq: Status: Active Protocol: Activity Type Activity Date Activity User E-Sign Co-Sign Detail Recorded Client Recorded Date Recorded By Document 12/07/17 15:16 [id number] 12/07/17 15:17 [email or web address] 12/07/17 15:16 Wound Center Nurse 2 3. L medial ankle -Correct Patient No -Correct Side, Site, Position No -Correct Procedure No -Procedure Performed No Pain Scale: 0-10 Numeric Is Patient Pain Free? Yes No debridement was completed today Assessment/Plan Assessment: Left leg ulcer skin layer exposed -returned. venous insufficiency/leg edema with complicated previous traumatic accidents and vascular surgery intervention. Rule out other dermatologic or inflammatory polyarthritis systemic disease. malnutrition. chronic pain Plan: I reviewed and discussed his case including etiology, risk factors, and recommended work up and treatment plan. Debridement was not performed today because the wound is very superficial. I recommend he continues hydrogel with collagen application as daily dressing care. To maintain proper skin integrity by moisturizing daily. To monitor close for infection in which neither is noted today. He did follow-up with vascular surgery at [facility] is advised. This is reviewed and it appears his venous insufficiency is contributing to his condition amongst other medical systemic contributions. Additional intervention was not recommended. His duplex showed widely patent stents. 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 To avoid pressure to wound at all times. To wear compression sock or tubigrip as tolerated. He could not tolerate a compression stocking because it hurts his previous left leg surgical intervention site. This should provide lower extremity stability (he also has a history of previous ankle pain and intermittent instability) as well as some very mild compression. I am concerned of his dermatologic, joint, and other systemic subjective complaints. I am concerned he has underlying rheumatologic or other anti-inflammatory systemic condition that is contributing to his condition. He does have follow-up with a lead caregiver and I recommend he completes this is scheduled. I also offered him a rheumatology referral and he is amendable for a referral to see Dr. Parks. He did have some recent allergy testing performed last month at the hospital and it is noted there are all within normal range. He did have a slightly elevated IgE of 114 which is out of the outside normal high range at 100. His previous rheumatological screening in 2015 was also noted and repeating some of this workup will be considered. I recommended he return to the wound healing center in 1 week or call sooner if he has any questions or concerns. I did answer all his questions today.
[2017-12-14 14:15] VITALS: BP 138/88; PULSE 75; RESP 18; TEMP 36
[2017-12-14 16:47] LABS: Absolute Lymphocyte Count 3.03 X10^3/ul (0.83-4.51); Basophil# 0.11 X10^3/uL; Basophil% 1.2 % (0-1); Eosinophil# 1.05 X10^3/uL; Eosinophils% 11.8 % (0-5); Hemoglobin 14.9 g/dl (13.0-16.5); Lymphocyte # 3.03 X10^3/ul (4.0); Lymphocyte % 34.1 % (19-41); Mean Corp Hgb Conc 33.9 g/gl (32-36); Mean Corpuscular Hgb 32.6 pg (27.0-32.0); Mean Corpuscular Volume 96.3 fL (80-94); Mean Platelet Vol. 11.2 fl (6.2-12.0); Monocyte# 0.71 X10^3/uL; Neutrophil # 3.99 X10^3/uL (2.7-7.7); Neutrophil % 44.9 % (47-70); Platelet Count 246 K/mm3 (150-450); RBC Distribution Width CV 12.8 % (11.6-14.6); RBC Distribution Width SD 44.8 fl (35.1-43.9); Red Blood Count 4.57 M/mm3 (4.6-6.2); White Blood Count 8.9 K/mm3 (4.4-11.0)
[2017-12-14 17:05] LABS: CRP 7.23 mg/L (0.0-3.0)
[2017-12-14 17:17] LABS: POSITIVE COUNT NO; POSITIVE DIFFERENTIAL NO; POSITIVE MORPHOLOGY NO
--- NOTE | 2017-12-14 17:36 | PN.PCM_ITS ---
(1) Ulcer of left lower extremity, limited to breakdown of skin Status: Chronic Current Visit: Yes Code(s): L97.921 - Non-pressure chronic ulcer of unspecified part of left lower leg limited to breakdown of skin (2) Venous insufficiency Status: Chronic Current Visit: Yes Code(s): I87.2 - Venous insufficiency (chronic) (peripheral) (3) Dermatitis Status: Chronic Current Visit: Yes Code(s): L30.9 - Dermatitis, unspecified (4) Inflammatory arthritis Status: Suspected Current Visit: Yes Code(s): M19.90 - Unspecified osteoarthritis, unspecified site (5) Former smoker Status: Resolved Current Visit: Yes Code(s): Z87.891 - Personal history of nicotine dependence (6) Localized edema Status: Chronic Current Visit: Yes Code(s): R60.0 - Localized edema (7) Leg pain, left Status: Chronic Current Visit: Yes Code(s): M79.605 - Pain in left leg (8) Allergic Status: Suspected Current Visit: Yes Qualifiers: Encounter type: subsequent encounter Qualified Code(s): T78.40XD - Allergy, unspecified, subsequent encounter Code(s): T78.40XA - Allergy, unspecified, initial encounter (9) Cellulitis of left leg Status: Acute Current Visit: Yes Code(s): L03.116 - Cellulitis of left lower limb Type of Wound Date of Service: 12/14/17 Chief Complaint: left leg ulcer History of Wound: This 57 year old male with multiple comorbidities was seen for left leg ulceration. He denies fever, chills, nausea, vomiting. He did complete his recommended follow-up at [facility] with vascular surgery. He relates vascular surgeon said he could offer him a venous ablation but it probably would not help a lot. He has had recent multiple allergic reactions and follow with an systems support specialist tomorrow. I previously referred him to a fire control mechanic and he is waiting to get scheduled. He has been taking Levaquin as advised. Wound site is increasing in size. He admits he has been working a lot more and is not able to elevate while he is working long shifts. He tries to wear compression as tolerated but this is very painful. Progress of Wound: Stable - Physical Exam Vital Signs Temp Pulse Resp BP 96.8 F L 75 18 138/88 H 12/14/17 14:15 12/14/17 14:15 12/14/17 14:15 12/14/17 14:15 General: Alert, Oriented x3, Cooperative HEENT: Atraumatic Extremities: No cyanosis, Capillary Refill Less than 3 Seconds, No Calf Tenderness - Negative Jaime and Brunson, Diminished Peripheral Pulses, Edema - Left lower extremity, Tenderness - Tenderness with wound manipulation Skin: Ulcer/ Wound - No purulence odor or maceration noted. There is continued progressive increased size of hemorrhagic interspersed tissue to the medial lower left leg with adjacent raised areas of skin inflammation have a distinct pattern. There is hyperpigmentation. The peripheral skin is hairless and atrophic. Wound Measurements and Assessment WC - Nurse 1 - General Ulcer Measurement Start: 11/30/17 14:24 Freq: Status: Active Protocol: Activity Type Activity Date Activity User E-Sign Co-Sign Detail Recorded Client Recorded Date Recorded By Document 12/14/17 14:15 DL [id number] 12/14/17 14:23 DL 12/14/17 14:15 Wound Center Nurse 1 [Ulcer Assessment] 3. L medial ankle -Current Size (cm) - Length 7 -Current Size (cm) - Width 4.5 -Current Size (cm) - Depth 0.1 -Total Square Cm 31.5 -Photo Taken No -Exudate Amt Large (67-100%) -Exudate Type Serosanguineous -Wound Margin Indistinct, Non -Visible -Granulation Amt Medium (34-66%) -Granulation Quality Red -Necrosis Amt Medium (34-66%) -Necrotic Tissue Type Adherent Slough -Structure Exposed N/A -Texture (Aracely-wound Skin Appearance) Excoriation Scarring -Color (Aracely-wound Skin Appearance) Erythema Hemosiderin Staining -Temperature (Aracely-wound Skin No Abnormality Appearance) (Pt Warm) -Ulcer Cleansing Wound Cleanser -Foul Odor after Cleansing No -Anesthetic Used 4% Lidocaine Solution [Edema Assessment] -Left Calf (cm) 44 -Point of measurement (cm from the 24.4 medial instep) WC - Nurse 2 - General Ulcer CM Notes Start: 11/30/17 14:24 Freq: Status: Active Protocol: Activity Type Activity Date Activity User E-Sign Co-Sign Detail Recorded Client Recorded Date Recorded By Document 12/14/17 14:47 TM [id number] 12/14/17 14:49 12/14/17 14:47 Wound Center Nurse 2 [Procedure/Treatment] 3. L medial ankle -Time 14:48 -Correct Patient Yes -Correct Side, Site, Position Yes -Correct Procedure Yes -Procedure Performed Yes -Post Debridement Size (cm) - Length 7.0 -Post Debridement Size (cm) - Width 4.5 -Post Debridement Size (cm) - Depth 0.1 -Total Square Cm 31.50 -Wound/Ulcer Outcome Not Healed -Ulcer Cleansing Rinsed/ Irrigated with Saline -Foul Odor after Cleansing No -Bioengineered Tissue No -Topical Lidocaine (%) 5 -Bleeding Controlled with Pressure -Treatment Response Procedure Tolerated Well [See Physician Procedure note for Specifics] Pain Scale: 0-10 Numeric [Pain] -Is Patient Pain Free? Yes Musculoskeletal: Muscle Wasting, Tenderness Neurological: Sensory exam intact to light touch and pain Psych/Mental Status: Normal Affect, Appropriate Debridement Note Post-Debridement Measurements/Treatment WC - Nurse 2 - General Ulcer CM Notes Start: 11/30/17 14:24 Freq: Status: Active Protocol: Activity Type Activity Date Activity User E-Sign Co-Sign Detail Recorded Client Recorded Date Recorded By Document 12/07/17 15:16 [id number] 12/07/17 15:17 Document 12/14/17 14:47 [id number] 12/14/17 14:49 12/07/17 12/14/17 15:16 14:47 Wound Center Nurse 2 3. L medial ankle -Time 14:48 -Correct Patient No Yes -Correct Side, Site, Position No Yes -Correct Procedure No Yes -Procedure Performed No Yes -Post Debridement Size (cm) - Length 7.0 -Post Debridement Size (cm) - Width 4.5 -Post Debridement Size (cm) - Depth 0.1 -Total Square Cm 31.50 -Wound/Ulcer Outcome Not Healed -Ulcer Cleansing Rinsed/ Irrigated with Saline -Foul Odor after Cleansing No -Bioengineered Tissue No -Topical Lidocaine (%) 5 -Bleeding Controlled with Pressure -Treatment Response Procedure Tolerated Well Pain Scale: 0-10 Numeric Is Patient Pain Free? Yes Yes No debridement was completed today - This is extremely superficial and very painful Assessment/Plan Active Problems Ulcer of left lower extremity, limited to breakdown of skin (Chronic) Venous insufficiency (Chronic) Dermatitis (Chronic) Cellulitis of left leg (Acute) Localized edema (Chronic) Leg pain, left (Chronic) Assessment: Left leg ulcer skin layer exposed -returned. Cellulitis. venous insufficiency/leg edema with complicated previous traumatic accidents and vascular surgery intervention. Rule out other dermatologic or inflammatory polyarthritis systemic disease. malnutrition. chronic pain Plan: I reviewed and discussed his case including etiology, risk factors, and recommended work up and treatment plan. Debridement was not performed today because the wound is very superficial. I recommend he continues hydrogel with collagen application as daily dressing care. To maintain proper skin integrity by moisturizing daily. To monitor close for infection in which neither is noted today. He did follow-up with vascular surgery at [facility] is advised. This is reviewed and it appears his venous insufficiency is contributing to his condition amongst other medical systemic contributions. Additional intervention was not recommended. His duplex showed widely patent stents. 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 To avoid pressure to wound at all times. To wear compression sock or tubigrip as tolerated. He could not tolerate a compression stocking because it hurts his previous left leg surgical intervention site. This should provide lower extremity stability (he also has a history of previous ankle pain and intermittent instability) as well as some very mild compression. I am concerned of his dermatologic, joint, and other systemic subjective complaints. I am concerned he has underlying rheumatologic or other anti-inflammatory systemic condition that is contributing to his condition. He does have follow-up with a farm equipment engine mechanic and I recommend he completes this is scheduled. I also offered him a rheumatology referral and he is amendable for a referral to see Dr. Parks. He did have some recent allergy testing performed last month at the hospital and it is noted there are all within normal range. He did have a slightly elevated IgE of 114 which is out of the outside normal high range at 100. His previous rheumatological sc reening in 2014 was also noted and repeating some of this workup will be considered. He will follow-up tomorrow as scheduled. Wound culture was obtained last week and he demonstrates growth including Staphylococcus epidermidis and corynebacterium amycolatum. I prescribed him levofloxacin and he was advised to take this daily. Infectious disease consultation is recommended for next week and he will be scheduled next Tuesday morning. This is greatly appreciated. Labs were ordered and these were reviewed after he obtain these wound clinic was over; white blood cell count 8.9, ESR 17, C-re active protein 7.23. I recommended he return to the wound healing center in 1 week or call sooner if he has any questions or concerns. I did answer all his questions today.
[2017-12-14 17:56] LABS: Erythrocyte Sedimentation Rate 17 mm/hr (0-20)
--- NOTE | 2017-12-21 15:50 | PCM.HP.ID ---
Problem List (1) Cellulitis of left leg Status: Acute Reason for Consult: infected ulcer Consulted by: Dr. Grullon History of Present Illness: The patient is a 57 year old M with venous insufficiency, chronic LLE ulcer, follows at wound care center. Reports several months of bumps on skin, redness on face, and worsened LLE ulcer on luna. Has been referred to allergy, derm, and rheum. Skin is better. Leg had worsening pain, redness, and heavy serous drainage. Wound cx done at wound center, grew corynebacterium and MRSE. Given course of levaquin, finishing today, and leg is doing much better with decreased drainage, redness, and skin breakdown. No fever, no n/v/d Full ROS performed and neg except as noted above. - Medical History Past Medical History (Chronic Problems): Chronic Problems Ulcer of left lower extremity, limited to breakdown of skin (Chronic) Venous insufficiency (Chronic) Dermatitis (Chronic) History of prostatectomy (Chronic) 2011 Localized edema (Chronic) History of prostate cancer (Chronic) He had a prostatectomy in 2011 Leg pain, left (Chronic) Malnutrition (Chronic) Peripheral vascular disease (Chronic) Venous insufficiency of left lower extremity (Chronic) Cellulitis of leg, left (Chronic) Pericarditis (Chronic) Vein stenosis (Chronic) Lower extremities With stenting History of DVT (deep vein thrombosis) (Chronic) remote provoked context Hypertension (Chronic) Allergies/Adverse Reactions: Allergies hydromorphone HCl [From Dilaudid] Allergy (Verified 06/22/17 08:32) Anaphylaxis Home Medications: Ambulatory Orders Medication Instructions Recorded Aspirin 81 mg PO DAILY 10/20/15 Multivitamin [Daily Multiple 1 tablet PO DAILY 10/20/15 Vitamin] Gabapentin 300 mg PO DAILY PRN PRN 07/12/16 Oxycodone HCl/Acetaminophen 1 tablet PO Q6H PRN PRN 11/30/17 [Percocet 5/325] - Social History Tobacco Use: cigar SMOKING STATUS:: Former smoker Vital Signs Temp Pulse Resp BP 96.8 F L 75 18 138/88 H 12/14/17 14:15 12/14/17 14:15 12/14/17 14:15 12/14/17 14:15 Oxygen Delivery Method Room Air reviewed - Other Studies Radiology: [] reviewed Other Studies: [] Route of nutrition/ use of supplements: [] Nutritional Intake: [] IV Site: [] Alejo Catheter: [] - Physical Exam General: Alert, Oriented x3, Cooperative, No apparent distress HEENT: Atraumatic, PERRLA, EOMI Neck: Supple, No Nodes Lungs: Clear to auscultation, Normal air movement Cardiovascular: Regular rate, Regular Rhythm Abdomen: Soft, Non Tender, Non-Distended Extremities: Edema Skin: Ulcer/ Wound - Reviewed photos of L luna/calf with ulcer, improved redness Musculoskeletal: No Tenderness to Palpation of Joints or Extremities Neurological: Cranial nerves II-XII grossly intact - Assessment/Plan Antibiotics: [] Assessment/Plan: [] LLE infected ulcer, cx with corynebacterium and MRSE. May be skin contaminant, but did show good improvement with course of levaquin. If symptoms return, would consider course of linezolid. Further work-up with vascular, rheum, and derm is ongoing. Thank you, will follow as needed.
== END 2017-12-18 23:59 ==
LOC: WC 14:00
PROVIDERS: Family Provider Family Medicine; PCP Family Medicine; Referring Provider Podiatrist; Visit Provider Podiatrist
DX: I87.2 Venous insufficiency (chronic) (peripheral) (principal); L97.821 Non-pressure chronic ulcer of other part of left lower leg limited to breakdown of skin; R60.0 Localized edema; Z87.891 Personal history of nicotine dependence; M13.80 Other specified arthritis, unspecified site; Z85.46 Personal history of malignant neoplasm of prostate; I73.9 Peripheral vascular disease, unspecified; Z86.718 Personal history of other venous thrombosis and embolism; I10 Essential (primary) hypertension
CPT/HCPCS: 36415; 85025; 85652; 86140; 87070; 87075; 87077; 87186; 87205; 99213; G0463

== ENCOUNTER 2018-01-18 09:15 | Outpatient (RCR) | payer OTHER, SELFPAY ==
[2017-12-19 01:38] VITALS: BP 138/88; PULSE 75; RESP 18; TEMP 36
[2017-12-28 14:03] VITALS: BP 146/87; PULSE 82; RESP 16; TEMP 36
--- NOTE | 2017-12-28 15:10 | PCM.WC.PN ---
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 Status: Chronic Current Visit: Yes Code(s): L97.922 - Non-pressure chronic ulcer of unspecified part of left lower leg with fat layer exposed (2) Venous insufficiency Status: Chronic Current Visit: Yes Code(s): I87.2 - Venous insufficiency (chronic) (peripheral) (3) Inflammatory arthritis Status: Suspected Current Visit: Yes Code(s): M19.90 - Unspecified osteoarthritis, unspecified site (4) Allergic Status: Suspected Current Visit: Yes Qualifiers: Code(s): T78.40XA - Allergy, unspecified, initial encounter (5) Cellulitis of left leg Status: Chronic Current Visit: Yes Code(s): L03.116 - Cellulitis of left lower limb (6) Former smoker Status: Resolved Current Visit: Yes Code(s): Z87.891 - Personal history of nicotine dependence (7) Localized edema Status: Chronic Current Visit: Yes Code(s): R60.0 - Localized edema Type of Wound Date of Service: 12/28/17 Chief Complaint: left leg ulcer History of Wound: This 57 year old male with multiple comorbidities was seen for left leg ulceration. He denies fever, chills, nausea, vomiting. He did complete his recommended follow-up at [facility] with vascular surgery. He relates vascular surgeon said he could offer him a venous ablation but it probably would not help a lot. He has had recent multiple allergic reactions and he did follow-up as advised. He has been calling to try to get the ongoing treatment recommendations and has not been able to make contact with this physician's office and is getting frustrated. I previously referred him to a partner management consultant and he is waiting to get scheduled. 's office was contacted and they confirmed that they did receive the information and will call him soon. He has been taking Levaquin as advised. He did recently get approved for Lynezolid after prior authorization was completed. Wound site is increasing in size and appears more pink today. He tries to wear compression as tolerated but this is very painful. Progress of Wound: Worse - Physical Exam Vital Signs Temp Pulse Resp BP 96.8 F L 82 16 146/87 H 12/28/17 14:03 12/28/17 14:03 12/28/17 14:03 12/28/17 14:03 General: Alert, Oriented x3, Cooperative Extremities: No cyanosis, Capillary Refill Less than 3 Seconds, No Calf Tenderness - Negative Jaime and Brunson bilateral, Diminished Peripheral Pulses, Edema - Increase left lower extremity, Tenderness - Pain with wound manipulation left Skin: Ulcer/ Wound - No purulence, odor, or streaking. There is increased hyperpigmentation periwound site with increased some hemorrhagic tissue boundary as well as increased subcutaneous formed tissue noted. Mild serous drainage is noted. There is no deep tissue exposed or eschar. The peripheral adjacent skin has scant hair and is very atrophic. Wound Measurements and Assessment WC - Nurse 1 - General Ulcer Measurement Start: 12/28/17 14:03 Freq: Status: Active Protocol: Activity Type Activity Date Activity User E-Sign Co-Sign Detail Recorded Client Recorded Date Recorded By Document 12/28/17 14:03 [id number] 12/28/17 14:05 12/28/17 14:03 Wound Center Nurse 1 [Ulcer Assessment] 3. L medial ankle -Combined with other wound No -Current Size (cm) - Length 8.7 -Current Size (cm) - Width 7.9 -Current Size (cm) - Depth 0.1 -Total Square Cm 68.73 -Photo Taken No -Epithelialization Small 1-33% -Tunneling No -Undermining/Tunneling No -Circular Undermining No -Exudate Amt None Present (0 %) -Wound Margin Distinct, Outline Attached -Granulation Amt Medium (34-66%) -Granulation Quality Pale Pickett -Slough/Fibrin Yes -Necrosis Amt None Present (0 %) -Necrotic Tissue Type Adherent Slough -Structure Exposed None/Limited to Skin Breakdown -Texture (Aracely-wound Skin Appearance) Scarring -Moisture (Aracely-wound Skin Appearance No Abnormality ) Assessed -Color (Aracely-wound Skin Appearance) Assessed Erythema Hemosiderin Staining -Temperature (Aracely-wound Skin No Abnormality Appearance) (Pt Warm) -Tenderness on Palpation (Aracely-wound Yes Skin Appearance) -Ulcer Cleansing Rinsed/ Irrigated with Saline -Foul Odor after Cleansing No [Edema Assessment] -Lower Limb Edema Present NA Musculoskeletal: No Tenderness to Palpation of Joints or Extremities, Muscle Wasting, - - Compartment left lower extremity remains soft to touch Neurological: Sensory exam intact to light touch and pain - Hypersensitive Psych/Mental Status: Normal Affect, Appropriate Debridement Note No debridement was completed today - He refuses Assessment/Plan Active Problems Venous insufficiency (Chronic) Cellulitis of left leg (Chronic) Chronic ulcer of left leg with fat layer exposed (Chronic) Ulcer of left lower extremity with fat layer exposed (Chronic) Localized edema (Chronic) Assessment: Left leg ulcer skin layer exposed -returned, worse. Cellulitis suspected and returned. venous insufficiency/leg edema with complicated previous traumatic accidents and vascular surgery intervention. Rule out other dermatologic or inflammatory polyarthritis systemic disease. malnutrition. chronic pain Plan: I reviewed and discussed his case including etiology, risk factors, and recommended work up and treatment plan. Debridement was not performed today because the the patient refuses today. I recommend he continues hydrogel with collagen application as daily dressing care. He has some Theresa at home and it is okay if he intermittently uses this as well to help with scaffolding. To maintain proper skin integrity by moisturizing the adjacent skin daily. I recommend application of advanced wound care product, epi fix. The indications, purpose, plan application, and anticipated healing time and management were discussed. He is amenable and prior authorization will be started. He did follow-up with vascular surgery at [facility] is advised. This is reviewed and it appears his venous insufficiency is contributing to his condition amongst other medical systemic contributions. Additional intervention was not recommended. His duplex showed widely patent stents. 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 To avoid pressure to wound at all times. To wear compression sock or tubigrip as tolerated. He could not tolerate a compression stocking because it hurts his previous left leg surgical intervention site. This should provide lower extremity stability (he also has a history of previous ankle pain and intermittent instability) as well as some very mild compression. I am concerned of his dermatologic, joint, and other systemic subjective complaints. I am concerned he has underlying rheumatologic or other anti-inflammatory systemic condition that is contributing to his condition. He does have follow-up with a regional wildlife agent and I recommend he has completed this as scheduled and is waiting for follow-up plan. I also offered him a rheumatology referral and he is amendable for a referral to see Dr. Parks. Scheduling is pending. He did have some recent allergy testing performed last month at the hospital and it is noted there are all within normal range. He did have a slightly elevated IgE of 114 which is out of the outside normal high range at 100. His previous rheumatological screening in 2014 was also noted and repeating some of this workup will be considered. He will follow-up tomorrow as scheduled. Wound culture was obtained last week and he demonstrates growth including Staphylococcus epidermidis and corynebacterium amycolatum. I prescribed him levofloxacin and he was advised to take this daily. Infectious disease consultation was completed last week. Upon completion of levofloxacin his symptoms started returning and I provided him with a prescription for Linezolid. Approval for this was obtained today and he will pick this up from the pharmacy soon. I recommend he follow-up with infectious disease physician in 2 weeks. Labs were ordered and these were reviewed after he obtain these wound clinic was over; white blood cell count 8.9, ESR 17, C-reactive protein 7.23. I recommended he return to the wound healing center in 1 week or call sooner if he has any questions or concerns. I did answer all his questions today.
[2018-01-04 14:36] VITALS: BP 145/86; PULSE 81; RESP 16; TEMP 36.6
--- NOTE | 2018-01-04 16:27 | PN.PCM_ITS ---
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 Status: Chronic Current Visit: Yes Code(s): L97.922 - Non-pressure chronic ulcer of unspecified part of left lower leg with fat layer exposed (2) Venous insufficiency Status: Chronic Current Visit: Yes Code(s): I87.2 - Venous insufficiency (chronic) (peripheral) (3) Inflammatory arthritis Status: Suspected Current Visit: Yes Code(s): M19.90 - Unspecified osteoarthritis, unspecified site (4) Allergic Status: Suspected Current Visit: Yes Qualifiers: Code(s): T78.40XA - Allergy, unspecified, initial encounter (5) Cellulitis of left leg Status: Chronic Current Visit: Yes Code(s): L03.116 - Cellulitis of left lower limb (6) Former smoker Status: Resolved Current Visit: Yes Code(s): Z87.891 - Personal history of nicotine dependence (7) Localized edema Status: Chronic Current Visit: Yes Code(s): R60.0 - Localized edema Type of Wound Date of Service: 01/04/18 Chief Complaint: left leg ulcer History of Wound: This 57 year old male with multiple comorbidities was seen for left leg ulceration. He denies fever, chills, nausea, vomiting, or loss of appetite. He did complete his recommended follow-up at [facility] with vascular surgery. He relates vascular surgeon said he could offer him a venous ablation but it probably would not help a lot. He has had recent multiple allergic reactions and he did follow-up as advised. This office did communicate with Willy that they recommend an additional consultation with the colleague and this is being scheduled. He reports he has some abnormal specific protein elevation that they will be looking into. I previously referred him to a sas programmer analyst and he is scheduled for February 06, 2018. He continues to take Linezolid as advised. The redness around the wound has decreased however he still has aracely-ulcer site inflammation. There is increased drainage. He tries to wear compression as tolerated but this is very painful. Progress of Wound: Stable - Physical Exam Vital Signs Temp Pulse Resp BP 97.8 F 81 16 145/86 H 01/04/18 14:36 01/04/18 14:36 01/04/18 14:36 01/04/18 14:36 General: Alert, Oriented x3, Cooperative HEENT: Atraumatic Extremities: No cyanosis, Capillary Refill Less than 3 Seconds, No Calf Tenderness - Negative Jaime and Brunson sign, Diminished Peripheral Pulses, Edema - Left lower extremity Skin: Ulcer/ Wound - No purulence, erythema, streaking, odor, or acute infection, or eschar or deep tissue exposure. There is continued delineation of granulation tissue like a more traditional ulcer site. There is peripheral ulcer site inflammation in the streaking and intense hyperpigmentation has decreased compared to recent previous visits. The peripheral skin is hairless and atrophic. He does have telangiectasias and some evidence of venous congestion to the foot and ankle and leg as well on the left lower extremity Wound Measurements and Assessment WC - Nurse 1 - General Ulcer Measurement Start: 12/28/17 14:03 Freq: Status: Active Protocol: Activity Type Activity Date Activity User E-Sign Co-Sign Detail Recorded Client Recorded Date Recorded By Document 01/04/18 14:36 [facility] [id number] 01/04/18 14:41 BM 01/04/18 14:36 Wound Center Nurse 1 [Ulcer Assessment] 3. L medial ankle -Combined with other wound No -Current Size (cm) - Length 9.9 -Current Size (cm) - Width 8.6 -Current Size (cm) - Depth 0.1 -Total Square Cm 85.14 -Date of Last Picture (Recall this 01/04/18 field) -Photo Taken Yes -Epithelialization None Present -Tunneling No -Undermining/Tunneling No -Circular Undermining No -Exudate Amt Large (67-100%) -Exudate Type Serous -Wound Margin Distinct, Outline Attached -Granulation Amt Large (67-100%) -Granulation Quality Red -Slough/Fibrin No -Necrosis Amt None Present (0 %) -Texture (Aracely-wound Skin Appearance) Excoriation Scarring -Moisture (Aracely-wound Skin Appearance Weeping ) -Color (Aracely-wound Skin Appearance) Erythema Hemosiderin Staining -Temperature (Aracely-wound Skin No Abnormality Appearance) (Pt Warm) -Tenderness on Palpation (Aracely-wound Yes Skin Appearance) -Ulcer Cleansing Rinsed/ Irrigated with Saline -Foul Odor after Cleansing No -Anesthetic Used 4% Lidocaine Solution WC - Nurse 2 - General Ulcer CM Notes Start: 12/28/17 14:03 Freq: Status: Active Protocol: Activity Type Activity Date Activity User E-Sign Co-Sign Detail Recorded Client Recorded Date Recorded By Document 01/04/18 15:00 [id number] [id number] 01/04/18 15:02 JF 01/04/18 15:00 Wound Center Nurse 2 [Procedure/Treatment] -Time 15:01 -Correct Patient Yes -Correct Side, Site, Position Yes -Correct Procedure Yes -Procedure Performed Yes -Type of Procedure Debridement -Clinical Debridement Subcutaneous -Post Debridement Size (cm) - Length 9.9 -Post Debridement Size (cm) - Width 8.6 -Post Debridement Size (cm) - Depth 0.1 -Total Square Cm 85.14 -Wound/Ulcer Outcome Not Healed -Ulcer Cleansing Rinsed/ Irrigated with Saline -Foul Odor after Cleansing No -Bioengineered Tissue No -Bleeding Controlled with Pressure -Other 50% debrided -Treatment Response Procedure Tolerated Well [See Physician Procedure note for Specifics] Pain Scale: 0-10 Numeric [Pain] -Is Patient Pain Free? Yes Musculoskeletal: No Tenderness to Palpation of Joints or Extremities, Muscle Wasting, - - Compartments remain soft on palpation left lower extremity Neurological: Sensory exam intact to light touch and pain Psych/Mental Status: Normal Affect, Appropriate Debridement Note Post-Debridement Measurements/Treatment WC - Nurse 2 - General Ulcer CM Notes Start: 12/28/17 14:03 Freq: Status: Active Protocol: Activity Type Activity Date Activity User E-Sign Co-Sign Detail Recorded Client Recorded Date Recorded By Document 01/04/18 15:00 [id number] 01/04/18 15:02 01/04/18 15:00 Wound Center Nurse 2 3. L medial ankle -Time 15:01 -Correct Patient Yes -Correct Side, Site, Position Yes -Correct Procedure Yes -Procedure Performed Yes -Type of Procedure Debridement -Clinical Debridement Subcutaneous -Post Debridement Size (cm) - Length 9.9 -Post Debridement Size (cm) - Width 8.6 -Post Debridement Size (cm) - Depth 0.1 -Total Square Cm 85.14 -Wound/Ulcer Outcome Not Healed -Ulcer Cleansing Rinsed/ Irrigated with Saline -Foul Odor after Cleansing No -Bioengineered Tissue No -Bleeding Controlled with Pressure -Other 50% debrided -Treatment Response Procedure Tolerated Well Pain Scale: 0-10 Numeric Is Patient Pain Free? Yes Wound debrided: medial lower leg Laterality: Left Type of Debridement: Excisional debridement Anesthesia Used: 4% Lidocaine Solution Depth: in the subcutaneous layer Percentage of wound debrided: 50 Instrument Used: #15 blade Tissue Removed: fibrous, devitalized subcutaneous, biofilm, slough Severity: Fat Layer Exposed Amount of bleeding with debridement: Mild Bleeding Controlled with: Pressure Patient tolerated procedure well Assessment/Plan Active Problems Venous insufficiency (Chronic) Cellulitis of left leg (Chronic) Chronic ulcer of left leg with fat layer exposed (Chronic) Ulcer of left lower extremity with fat layer exposed (Chronic) Localized edema (Chronic) Assessment: Left leg ulcer skin layer exposed -stable. Cellulitis is resolving. venous insufficiency/leg edema with complicated previous traumatic accidents and vascular surgery intervention. Rule out other dermatologic or inflammatory polyarthritis systemic disease. malnutrition. chronic pain Plan: I reviewed and discussed his case including etiology, risk factors, and recommended work up and treatment plan. Debridement was performed today as noted in the clinical panel. I recommend he continues hydrogel with collagen application as daily dressing care. He has some Theresa at home and it is okay if he intermittently uses this as well to help with scaffolding. To maintain proper skin integrity by moisturizing the adjacent skin daily. I recommend application of advanced wound care product, epi fix. The indications, purpose, plan application, and anticipated healing time and management were discussed. He is amenable and prior authorization is in process and is still pending. He did follow-up with vascular surgery at [facility] is advised. This is reviewed and it appears his venous insufficiency is contributing to his condition amongst other medical systemic contributions. Additional intervention was not recommended. His duplex showed widely patent stents. 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 To avoid pressure to wound at all times. To wear compression sock or tubigrip as tolerated. He could not tolerate a compression stocking because it hurts his previous left leg surgical intervention site. This should provide lower extremity stability (he also has a history of previous ankle pain and intermittent instability) as well as some very mild compression. I am concerned of his dermatologic, joint, and other systemic subjective complaints. I am concerned he has underlying rheumatologic or other anti-inflammatory systemic condition that is contributing to his condition. He does have follow- up with a mold injector and I recommend he has completed this as scheduled and is waiting for follow-up plan. I also offered him a rheumatology referral and he is amendable for a referral to see Dr. Parks. This has been scheduled for February 06, 2018. He did have some recent allergy testing performed last month at the hospital and it is noted there are all within normal range. He did have a slightly elevated IgE of 114 which is out of the outside normal high range at 100. His previous rheumatological screening in 2014 was also noted and repeating some of this workup will be considered. He has a follow-up scheduled with a colleague and additional information is pending. Wound culture was obtained previously and he demonstrates bacterial growth. Sensitivities were reviewed. A refill for Linezolid was provided today. Infectious disease consultation and this will hopefully be scheduled for next week in the morning. Labs were ordered and these were reviewed after he obtain these wound clinic was over; white blood cell count 8.9, ESR 17, C-reactive protein 7.23. I recommended he return to the wound healing center in 1 week or call sooner if he has any questions or concerns. I did answer all his questions today.
[2018-01-11 10:30] VITALS: BP 137/88; PULSE 84; RESP 16; TEMP 36.4
--- NOTE | 2018-01-11 11:26 | PN.PCM_ITS ---
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 Status: Chronic Current Visit: Yes Code(s): L97.922 - Non-pressure chronic ulcer of unspecified part of left lower leg with fat layer exposed (2) Venous insufficiency Status: Chronic Current Visit: Yes Code(s): I87.2 - Venous insufficiency (chronic) (peripheral) (3) Inflammatory arthritis Status: Suspected Current Visit: Yes Code(s): M19.90 - Unspecified osteoarthritis, unspecified site (4) Allergic Status: Suspected Current Visit: Yes Qualifiers: Code(s): T78.40XA - Allergy, unspecified, initial encounter (5) Cellulitis of left leg Status: Chronic Current Visit: Yes Code(s): L03.116 - Cellulitis of left lower limb (6) Former smoker Status: Resolved Current Visit: Yes Code(s): Z87.891 - Personal history of nicotine dependence (7) Localized edema Status: Chronic Current Visit: Yes Code(s): R60.0 - Localized edema Type of Wound Date of Service: 01/11/18 Chief Complaint: left leg ulcer History of Wound: This 57 year old male with multiple comorbidities was seen for left leg ulceration. He denies fever, chills, nausea, vomiting, or loss of appetite. He did complete his recommended follow-up at [facility] with vascular surgery. He relates vascular surgeon said he could offer him a venous ablation but it probably would not help a lot. He has had recent multiple allergic reactions and he did follow-up as advised. He is still trying to coord inate additional follow-up with Dr. Cueva. He reports he has some abnormal specific protein elevation that they will be looking into (monoclonal antibody) and he is scheduled for a bone marrow biopsy next Week. Workup for multiple myeloma is in process. It is noted he had 19 x-rays obtained from various body regions which he does not believe osseous changes were identified. I previously referred him to a horse rancher and he is scheduled for February 06, 2018. He completed a course of linezolid and infectious disease saw him today as well as a follow-up; he was not advised to take additional antibiotics at this time. The redness around the wound has decreased however he still has megha-ulcer site inflammation. He tries to wear compression as tolerated but this is very painful. Progress of Wound: Stable - Physical Exam Vital Signs Temp Pulse Resp BP 97.6 F L 84 16 137/88 H 01/11/18 10:30 01/11/18 10:30 01/11/18 10:30 01/11/18 10:30 General: Alert, Oriented x3, Cooperative Extremities: No cyanosis, Capillary Refill Less than 3 Seconds, No Calf Tenderness - Negative Jaime and Brunson sign left, Diminished Peripheral Pulses, Edema - Mild left lower extremity, Tenderness - Pain with wound manipulation left Skin: Ulcer/ Wound - No purulence, erythema, streaking, odor, or infection. The hyperpigmentation and inflammation around the ulcer site has decreased. There is granular base ulcer with peripheral sub-hemorrhagic tissue exposed. There is decreased palpation to the ulcer and megha-ulcer site., - - The peripheral skin remains hairless and atrophic and varicosities are also continued Wound Measurements and Assessment WC - Nurse 1 - General Ulcer Measurement Start: 12/28/17 14:03 Freq: Status: Active Protocol: Activity Type Activity Date Activity User E-Sign Co-Sign Detail Recorded Client Recorded Date Recorded By Document 01/11/18 10:30 [id number] 01/11/18 10:32 01/11/18 10:30 Wound Center Nurse 1 [Ulcer Assessment] 3. L medial ankle -Combined with other wound No -Current Size (cm) - Length 6.5 -Current Size (cm) - Width 5 -Current Size (cm) - Depth 0.1 -Total Square Cm 32.5 -Photo Taken No -Epithelialization Medium 34-66% -Tunneling No -Undermining/Tunneling No -Circular Undermining No -Exudate Amt Small (1-33%) -Exudate Type Serosanguineous -Wound Margin Distinct, Outline Attached -Granulation Amt Medium (34-66%) -Granulation Quality [place] Red -Slough/Fibrin No -Necrosis Amt Small (1-33%) -Necrotic Tissue Type Adherent Slough -Structure Exposed None/Limited to Skin Breakdown -Texture (Megha-wound Skin Appearance) Assessed Excoriation -Moisture (Megha-wound Skin Appearance No Abnormality ) Assessed -Color (Megha-wound Skin Appearance) Erythema -Temperature (Megha-wound Skin No Abnormality Appearance) (Pt Warm) -Tenderness on Palpation (Megha-wound Yes Skin Appearance) -Ulcer Cleansing Rinsed/ Irrigated with Saline -Anesthetic Used 4% Lidocaine Solution [Edema Assessment] -Lower Limb Edema Present NA - Nurse 2 - General Ulcer CM Notes Start: 12/28/17 14:03 Freq: Status: Active Protocol: Activity Type Activity Date Activity User E-Sign Co-Sign Detail Recorded Client Recorded Date Recorded By Document 01/11/18 11:02 [id number] 01/11/18 11:04 01/11/18 11:02 Wound Center Nurse 2 [Procedure/Treatment] 3. L medial ankle -Time 11:03 -Correct Patient Yes -Correct Side, Site, Position Yes -Correct Procedure Yes -Procedure Performed Yes -Type of Procedure Debridement -Clinical Debridement Subcutaneous -Post Debridement Size (cm) - Length 6.6 -Post Debridement Size (cm) - Width 5 -Post Debridement Size (cm) - Depth 0.1 -Total Square Cm 33.0 -Wound/Ulcer Outcome Not Healed -Ulcer Cleansing Rinsed/ Irrigated with Saline -Foul Odor after Cleansing No -Bioengineered Tissue Yes -Type of bioengineered Tissue EPIFIX -Expiration Date 08/19/22 -Product Lot Number [id number] -Percent Used 100 -Saline Lot Number [id number] -Bleeding Controlled with Pressure -Treatment Response Procedure Tolerated Well [See Physician Procedure note for Specifics] Pain Scale: 0-10 Numeric [Pain] -Is Patient Pain Free? Yes Musculoskeletal: No Tenderness to Palpation of Joints or Extremities, Muscle Wasting, - - Compartments left lower extremity remains soft to palpate Neurological: Sensory exam intact to light touch and pain Psych/Mental Status: Normal Affect, Appropriate Debridement Note Post-Debridement Measurements/Treatment - Nurse 2 - General Ulcer CM Notes Start: 12/28/17 14:03 Freq: Status: Active Protocol: Activity Type Activity Date Activity User E-Sign Co-Sign Detail Recorded Client Recorded Date Recorded By Document 01/04/18 15:00 [id number] 01/04/18 15:02 Document 01/11/18 11:02 [id number] 01/11/18 11:04 01/04/18 01/11/18 15:00 11:02 Wound Center Nurse 2 3. L medial ankle -Time 15:01 11:03 -Correct Patient Yes Yes -Correct Side, Site, Position Yes Yes -Correct Procedure Yes Yes -Procedure Performed Yes Yes -Type of Procedure Debridement Debridement -Clinical Debridement Subcutaneous Subcutaneous -Post Debridement Size (cm) - Length 9.9 6.6 -Post Debridement Size (cm) - Width 8.6 5 -Post Debridement Size (cm) - Depth 0.1 0.1 -Total Square Cm 85.14 33.0 -Wound/Ulcer Outcome Not Healed Not Healed -Ulcer Cleansing Rinsed/ Rinsed/ Irrigated with Irrigated with Saline Saline -Foul Odor after Cleansing No No -Bioengineered Tissue No Yes -Type of bioengineered Tissue EPIFIX -Expiration Date 08/19/22 -Product Lot Number [id number] -Percent Used 100 -Saline Lot Number [id number] -Bleeding Controlled with Pressure Pressure -Other 50% debrided -Treatment Response Procedure Procedure Tolerated Well Tolerated Well Pain Scale: 0-10 Numeric Is Patient Pain Free? Yes Yes Wound debrided: leg Laterality: Left Type of Debridement: Excisional debridement Anesthesia Used: 4% Lidocaine Solution Depth: in the subcutaneous layer Percentage of wound debrided: 100 Instrument Used: #15 blade Tissue Removed: fibrous, devitalized subcutaneous, biofilm, slough Severity: Fat Layer Exposed Amount of bleeding with debridement: Mild Bleeding Controlled with: Pressure Patient tolerated procedure well Assessment/Plan Active Problems Venous insufficiency (Chronic) Cellulitis of left leg (Chronic) Chronic ulcer of left leg with fat layer exposed (Chronic) Ulcer of left lower extremity with fat layer exposed (Chronic) Localized edema (Chronic) Assessment: Left leg ulcer skin layer exposed -stable. Cellulitis is resolving. venous insufficiency/leg edema with complicated previous traumatic accidents and vascular surgery intervention. Rule out other dermatologic or inflammatory polyarthritis systemic disease. malnutrition. Workup for multiple myeloma is in process. chronic pain Plan: I reviewed and discussed his case including etiology, risk factors, and recommended work up and treatment plan. Debridement was performed today as noted in the clinical panel. He was approved for advanced wound care product, epi fix. Verbal consent was obtained and this was applied according to standard protocol to optimize healing. The indication, planned procedure, benefits, risks, and anticipated healing time and management were discussed in detail. I answered all his questions. This was secured with a wound veil and Steri- Strips. He tolerated this procedure well. To maintain proper skin integrity by moisturizing the adjacent skin daily. He did follow-up with vascular surgery at [facility] is advised. This is reviewed and it appears his venous insufficiency is contributing to his condition amongst other medical systemic contributions. Additional intervention was not recommended. His duplex showed widely patent stents. 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 To avoid pressure to wound at all times. To wear compression sock or tubigrip as tolerated. He could not tolerate a compression stocking because it hurts his previous left leg surgical intervention site. This should provide lower extremity stability (he also has a history of previous ankle pain and intermittent instability) as well as some very mild compression. I am concerned of his dermatologic, joint, and other systemic subjective complaints. I am concerned he has underlying rheumatologic, immune compromised status, other anti-inflammatory systemic condition that is contributing to his condition. He does have follow-up with a loader engineer and I recommend he has completed this as scheduled and is waiting for follow-up plan. I also offered him a rheumatology referral and he is amendable for a referral to see Dr. Parks. This has been scheduled for February 06, 2018. He has a bone marrow biopsy scheduled for next week for part of his workup of multiple myeloma in addition to other laboratory tests that are pending. He did have some recent allergy testing performed last month at the hospital and it is noted there are all within normal range. He did have a slightly elevated IgE of 114 which is out of the outside normal high range at 100. His previous rheumatological screening in 2015 was also noted and repeating some of this workup will be considered. Wound culture was obtained previously and he demonstrates bacterial growth. Sensitivities were reviewed. Infectious disease saw him today which is appreciated. Additional antibiotics and I recommend at this time. Labs were ordered and these were reviewed after he obtain these wound clinic was over; white blood cell count 8.9, ESR 17, C-reactive protein 7.23. I recommended he return to the wound healing center in 1 week or call sooner if he has any questions or concerns. I did answer all his questions today.
--- NOTE | 2018-01-11 22:13 | PCM.PN.ID ---
Patient Problems: Active and Suspected Problems Inflammatory arthritis (Suspected) Allergic (Suspected) Subjective: Feeling ok. Last dose of linezolid was 4 days ago. Some burning in wound today, minimal drainage. No fever. No n/v/d. - Physical Exam General: Alert, Cooperative, No apparent distress Lungs: Clear to auscultation, Normal air movement Cardiovascular: Regular rate, Regular Rhythm Abdomen: Soft, Non Tender, Non-Distended Skin: Ulcer/ Wound - L luna, no drainage, overall improved Vital Signs Temp Pulse Resp BP 97.6 F L 84 16 137/88 H 01/11/18 10:30 01/11/18 10:30 01/11/18 10:30 01/11/18 10:30 Oxygen Delivery Method Room Air Medical Necessity - Tobacco Use Smoking Status: Current every day smoker Route of nutrition/ use of supplements: [] Nutritional Intake: [] IV Site: [] Alejo Catheter: [] - Assessment/Plan Antibiotics: [] Assessment/Plan: [] Active and Suspected Problems Inflammatory arthritis (Suspected) Allergic (Suspected) L luna ulcer - had improvement with course of linezolid, now stable off of abx. Recommend continuing to monitor and repeat cx and restart linezolid if it worsens. Will follow as needed, d/w Dr. Grullon.
[2018-01-18 09:09] VITALS: BP 138/85; PULSE 95; RESP 16; TEMP 36.9
--- NOTE | 2018-01-18 10:20 | PCM.WC.PN ---
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 Status: Resolved Current Visit: Yes Code(s): L97.922 - Non-pressure chronic ulcer of unspecified part of left lower leg with fat layer exposed (2) Venous insufficiency Status: Chronic Current Visit: Yes Code(s): I87.2 - Venous insufficiency (chronic) (peripheral) (3) Inflammatory arthritis Status: Suspected Current Visit: Yes Code(s): M19.90 - Unspecified osteoarthritis, unspecified site (4) Allergic Status: Suspected Current Visit: Yes Qualifiers: Code(s): T78.40XA - Allergy, unspecified, initial encounter (5) Cellulitis of left leg Status: Chronic Current Visit: Yes Code(s): L03.116 - Cellulitis of left lower limb (6) Former smoker Status: Resolved Current Visit: Yes Code(s): Z87.891 - Personal history of nicotine dependence (7) Localized edema Status: Chronic Current Visit: Yes Code(s): R60.0 - Localized edema Type of Wound Date of Service: 01/18/18 Chief Complaint: left leg ulcer History of Wound: This 57 year old male with multiple comorbidities was seen for left leg ulceration. He has 1 pinpoint area that is still weeping. Other than that he thinks the other ulcer site may have healed after application of advanced wound care product. He denies fever, chills, nausea, vomiting, or loss of appetite. He did complete his recommended follow-up at [facility] with vascular surgery. He relates vascular surgeon said he could offer him a venous ablation but it probably would not help a lot. He has had recent multiple allergic reactions and he did follow-up as advised. He is still trying to coordinate additional follow-up with Dr. Cueva. He reports he has some abnormal specific protein elevation that they will be looking into (monoclonal antibody) and he is scheduled for a bone marrow biopsy/aspirate for workup for multiple myeloma which is scheduled for this afternoon. It is noted he had 19 x-rays obtained from various body regions which he does not believe osseous changes were identified. I previously referred him to a ar manager and he is scheduled for February 06, 2018. He completed a course of linezolid and infectious disease saw him today as well as a follow-up; he was not advised to take additional antibiotics at this time. The redness around the wound has decreased however he still has megha-ulcer site inflammation. He tries to wear compression as tolerated but this is very painful. Progress of Wound: Healed - Physical Exam Vital Signs Temp Pulse Resp BP 98.4 F 95 16 138/85 H 01/18/18 09:09 01/18/18 09:09 01/18/18 09:09 01/18/18 09:09 General: Alert, Oriented x3, Cooperative Extremities: No cyanosis, Capillary Refill Less than 3 Seconds, No Calf Tenderness - Negative Jaime and Brunson, Diminished Peripheral Pulses, Edema - . Ulcer inflammation decreased, Tenderness - Decrease tenderness to healed ulcer site Skin: Ulcer/ Wound - No purulence, erythema, streaking, odor, or hyperpigmentation noted today. There is full epithelialization noted to the previous ulcer site to the medial left leg. There is scant serous moisture noted to the distal medial most aspect but no open lesions are appreciated. The peripheral skin remains hairless and atrophic. There are telangiectasias. Wound Measurements and Assessment WC - Nurse 1 - General Ulcer Measurement Start: 12/28/17 14:03 Freq: Status: Active Protocol: Activity Type Activity Date Activity User E-Sign Co-Sign Detail Recorded Client Recorded Date Recorded By Document 01/18/18 09:09 [facility] [id number] 01/18/18 09:13 [facility] 01/18/18 09:09 Wound Center Nurse 1 [Ulcer Assessment] 3. L medial ankle -Combined with other wound No -Current Size (cm) - Length 7.4 -Current Size (cm) - Width 5.4 -Current Size (cm) - Depth 0.1 -Total Square Cm 39.96 -Photo Taken No -Epithelialization None Present -Tunneling No -Undermining/Tunneling No -Circular Undermining No -Exudate Amt Small (1-33%) -Exudate Type Serous -Wound Margin Distinct, Outline Attached -Granulation Amt None Present (0 %) -Slough/Fibrin Yes -Necrosis Amt Large (67-100%) -Necrotic Tissue Type Adherent Slough -Structure Exposed N/A -Texture (Megha-wound Skin Appearance) Scarring Rash -Moisture (Megha-wound Skin Appearance Dry/Scaly ) -Color (Megha-wound Skin Appearance) Hemosiderin Staining -Temperature (Megha-wound Skin No Abnormality Appearance) (Pt Warm) -Tenderness on Palpation (Megha-wound No Skin Appearance) -Ulcer Cleansing Rinsed/ Irrigated with Saline -Foul Odor after Cleansing No -Anesthetic Used 4% Lidocaine Solution - Nurse 2 - General Ulcer CM Notes Start: 12/28/17 14:03 Freq: Status: Active Protocol: Activity Type Activity Date Activity User E-Sign Co-Sign Detail Recorded Client Recorded Date Recorded By Document 01/18/18 09:30 [id number] 01/18/18 09:33 01/18/18 09:30 Wound Center Nurse 2 [Procedure/Treatment] -Correct Patient No -Correct Side, Site, Position No -Correct Procedure No -Procedure Performed No -Post Debridement Size (cm) - Length 0.1 -Post Debridement Size (cm) - Width 0.1 -Post Debridement Size (cm) - Depth 0.1 -Total Square Cm 0.01 -Wound/Ulcer Outcome Not Healed [See Physician Procedure note for Specifics] Pain Scale: 0-10 Numeric [Pain] -Is Patient Pain Free? Yes Musculoskeletal: No Tenderness to Palpation of Joints or Extremities, Muscle Wasting Neurological: Sensory exam intact to light touch and pain - Hypersensitive Psych/Mental Status: Normal Affect, Appropriate Debridement Note Post-Debridement Measurements/Treatment - Nurse 2 - General Ulcer CM Notes Start: 12/28/17 14:03 Freq: Status: Active Protocol: Activity Type Activity Date Activity User E-Sign Co-Sign Detail Recorded Client Recorded Date Recorded By Document 01/04/18 15:00 [id number] 01/04/18 15:02 Document 01/11/18 11:02 [id number] 01/11/18 11:04 Document 01/18/18 09:30 [id number] 01/18/18 09:33 01/04/18 01/11/18 01/18/18 15:00 11:02 09:30 Wound Center Nurse 2 3. L medial ankle -Time 15:01 11:03 -Correct Patient Yes Yes No -Correct Side, Site, Position Yes Yes No -Correct Procedure Yes Yes No -Procedure Performed Yes Yes No -Type of Procedure Debridement Debridement -Clinical Debridement Subcutaneous Subcutaneous -Post Debridement Size (cm) - Length 9.9 6.6 0.1 -Post Debridement Size (cm) - Width 8.6 5 0.1 -Post Debridement Size (cm) - Depth 0.1 0.1 0.1 -Total Square Cm 85.14 33.0 0.01 -Wound/Ulcer Outcome Not Healed Not Healed Not Healed -Ulcer Cleansing Rinsed/ Rinsed/ Irrigated with Irrigated with Saline Saline -Foul Odor after Cleansing No No -Bioengineered Tissue No Yes -Type of bioengineered Tissue EPIFIX -Expiration Date 08/19/22 -Product Lot Number [id number] -Percent Used 100 -Saline Lot Number [id number] -Bleeding Controlled with Pressure Pressure -Other 50% debrided -Treatment Response Procedure Procedure Tolerated Well Tolerated Well Pain Scale: 0-10 Numeric Is Patient Pain Free? Yes Yes Yes No debridement was completed today - The ulcer has healed Assessment/Plan Active Problems Venous insufficiency (Chronic) Cellulitis of left leg (Chronic) Ulcer of left lower extremity with fat layer exposed (Chronic) Localized edema (Chronic) Assessment: Left leg ulcer skin layer exposed -stable. Cellulitis is resolving. venous insufficiency/leg edema with complicated previous traumatic accidents and vascular surgery intervention. Rule out other dermatologic or inflammatory polyarthritis systemic disease. malnutrition. Workup for multiple myeloma is in process. chronic pain Plan: I reviewed and discussed his case including etiology, risk factors, and recommended work up and treatment plan. Debridement was not performed because the ulcer site has healed. He understands this is very friable and he will return next week for evaluation. He was approved for advanced wound care product, epi fix. This was applied last week and healing status is noted today. To avoid extensive showering or soaking. To pat dry gently. It is okay to apply an Adaptic or dry gauze to the site for protection. I urged him to do compression as tolerated at least part of the day. To maintain proper skin integrity by moisturizing the adjacent skin daily. He did follow-up with vascular surgery at [facility] is advised. This is reviewed and it appears his venous insufficiency is contributing to his condition amongst other medical systemic contributions. Additional intervention was not recommended. His duplex showed widely patent stents. 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 To avoid pressure to wound at all times. To wear compression sock or tubigrip as tolerated. He could not tolerate a compression stocking because it hurts his previous left leg surgical intervention site. This should provide lower extremity stability (he also has a history of previous ankle pain and intermittent instability) as well as some very mild compression. I am concerned of his dermatologic, joint, and other systemic subjective complaints. I am concerned he has underlying rheumatologic, immune compromised status, other anti-inflammatory systemic condition that is contributing to his condition. He does have follow-up with a animal husbandry manager and I recommend he has completed this as scheduled and is waiting for follow-up plan. I also offered him a rheumatology referral and he is amendable for a referral to see Dr. Parks. This has been scheduled for February 06, 2018. He has a bone marrow biopsy scheduled for this afternoon for part of his workup of multiple myeloma in addition to other laboratory tests which were reviewed last week. He did have some recent allergy testing performed last month at the hospital and it is noted there are all within normal range. He did have a slightly elevated IgE of 114 which is out of the outside normal high range at 100. His previous rheumatological screening in 2014 was also noted and repeating some of this workup will be considered. Wound culture was obtained previously and he demonstrates bacterial growth. Sensitivities were reviewed. Infectious disease saw him today which is appreciated. Additional antibiotics and I recommend at this time. Labs were ordered and these were reviewed after he obtain these wound clinic was over; white blood cell count 8.9, ESR 17, C-reactive protein 7.23. I recommended he return to the wound healing center in 1 week or call sooner if he has any questions or concerns. I did answer all his questions today.
--- NOTE | 2018-01-18 10:26 | PN.PCM_ITS ---
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 Status: Resolved Current Visit: Yes Code(s): L97.922 - Non-pressure chronic ulcer of unspecified part of left lower leg with fat layer exposed (2) Venous insufficiency Status: Chronic Current Visit: Yes Code(s): I87.2 - Venous insufficiency (chronic) (peripheral) (3) Inflammatory arthritis Status: Suspected Current Visit: Yes Code(s): M19.90 - Unspecified osteoarthritis, unspecified site (4) Allergic Status: Suspected Current Visit: Yes Qualifiers: Code(s): T78.40XA - Allergy, unspecified, initial encounter (5) Cellulitis of left leg Status: Chronic Current Visit: Yes Code(s): L03.116 - Cellulitis of left lower limb (6) Former smoker Status: Resolved Current Visit: Yes Code(s): Z87.891 - Personal history of nicotine dependence (7) Localized edema Status: Chronic Current Visit: Yes Code(s): R60.0 - Localized edema Type of Wound Date of Service: 01/18/18 Chief Complaint: left leg ulcer History of Wound: This 57 year old male with multiple comorbidities was seen for left leg ulceration. He has 1 pinpoint area that is still weeping. Other than that he thinks the other ulcer site may have healed after application of advanced wound care product. He denies fever, chills, nausea, vomiting, or loss of appetite. He did complete his recommended follow-up at [facility] with vascular surgery. He relates vascular surgeon said he could offer him a venous ablation but it probably would not help a lot. He has had recent multiple allergic reactions and he did follow-up as advised. He is still trying to coordinate additional follow-up with Dr. Cueva. He reports he has some abnormal specific protein elevation that they will be looking into (monoclonal antibody) and he is scheduled for a bone marrow biopsy/aspirate for workup for multiple myeloma which is scheduled for this afternoon. It is noted he had 19 x-rays obtained from various body regions which he does not believe osseous changes were identified. I previously referred him to a maintenance equipment operator and he is scheduled for February 06, 2018. He completed a course of linezolid and infectious disease saw him today as well as a follow-up; he was not advised to take additional antibiotics at this time. The redness around the wound has decreased however he still has megha-ulcer site inflammation. He tries to wear compression as tolerated but this is very painful. Progress of Wound: Healed - Physical Exam Vital Signs Temp Pulse Resp BP 98.4 F 95 16 138/85 H 01/18/18 09:09 01/18/18 09:09 01/18/18 09:09 01/18/18 09:09 General: Alert, Oriented x3, Cooperative Extremities: No cyanosis, Capillary Refill Less than 3 Seconds, No Calf Tenderness - Negative Jaime and Brunson, Diminished Peripheral Pulses, Edema - . Ulcer inflammation decreased, Tenderness - Decrease tenderness to healed ulcer site Skin: Ulcer/ Wound - No purulence, erythema, streaking, odor, or hyperpigmentation noted today. There is full epithelialization noted to the previous ulcer site to the medial left leg. There is scant serous moisture not ed to the distal medial most aspect but no open lesions are appreciated. The peripheral skin remains hairless and atrophic. There are telangiectasias. Wound Measurements and Assessment WC - Nurse 1 - General Ulcer Measurement Start: 12/28/17 14:03 Freq: Status: Active Protocol: Activity Type Activity Date Activity User E-Sign Co-Sign Detail Recorded Client Recorded Date Recorded By Document 01/18/18 09:09 [facility] [id number] 01/18/18 09:13 [facility] 01/18/18 09:09 Wound Center Nurse 1 [Ulcer Assessment] 3. L medial ankle -Combined with other wound No -Current Size (cm) - Length 7.4 -Current Size (cm) - Width 5.4 -Current Size (cm) - Depth 0.1 -Total Square Cm 39.96 -Photo Taken No -Epithelialization None Present -Tunneling No -Undermining/Tunneling No -Circular Undermining No -Exudate Amt Small (1-33%) -Exudate Type Serous -Wound Margin Distinct, Outline Attached -Granulation Amt None Present (0 %) -Slough/Fibrin Yes -Necrosis Amt Large (67-100%) -Necrotic Tissue Type Adherent Slough -Structure Exposed N/A -Texture (Megha-wound Skin Appearance) Scarring Rash -Moisture (Megha-wound Skin Appearance Dry/Scaly ) -Color (Megha-wound Skin Appearance) Hemosiderin Staining -Temperature (Megha-wound Skin No Abnormality Appearance) (Pt Warm) -Tenderness on Palpation (Megha-wound No Skin Appearance) -Ulcer Cleansing Rinsed/ Irrigated with Saline -Foul Odor after Cleansing No -Anesthetic Used 4% Lidocaine Solution - Nurse 2 - General Ulcer CM Notes Start: 12/28/17 14:03 Freq: Status: Active Protocol: Activity Type Activity Date Activity User E-Sign Co-Sign Detail Recorded Client Recorded Date Recorded By Document 01/18/18 09:30 [id number] 01/18/18 09:33 01/18/18 09:30 Wound Center Nurse 2 [Procedure/Treatment] -Correct Patient No -Correct Side, Site, Position No -Correct Procedure No -Procedure Performed No -Post Debridement Size (cm) - Length 0.1 -Post Debridement Size (cm) - Width 0.1 -Post Debridement Size (cm) - Depth 0.1 -Total Square Cm 0.01 -Wound/Ulcer Outcome Not Healed [See Physician Procedure note for Specifics] Pain Scale: 0-10 Numeric [Pain] -Is Patient Pain Free? Yes Musculoskeletal: No Tenderness to Palpation of Joints or Extremities, Muscle Wasting Neurological: Sensory exam intact to light touch and pain - Hypersensitive Psych/Mental Status: Normal Affect, Appropriate Debridement Note Post-Debridement Measurements/Treatment - Nurse 2 - General Ulcer CM Notes Start: 12/28/17 14:03 Freq: Status: Active Protocol: Activity Type Activity Date Activity User E-Sign Co-Sign Detail Recorded Client Recorded Date Recorded By Document 01/04/18 15:00 [id number] 01/04/18 15:02 Document 01/11/18 11:02 [id number] 01/11/18 11:04 Document 01/18/18 09:30 [id number] 01/18/18 09:33 01/04/18 01/11/18 01/18/18 15:00 11:02 09:30 Wound Center Nurse 2 3. L medial ankle -Time 15:01 11:03 -Correct Patient Yes Yes No -Correct Side, Site, Position Yes Yes No -Correct Procedure Yes Yes No -Procedure Performed Yes Yes No -Type of Procedure Debridement Debridement -Clinical Debridement Subcutaneous Subcutaneous -Post Debridement Size (cm) - Length 9.9 6.6 0.1 -Post Debridement Size (cm) - Width 8.6 5 0.1 -Post Debridement Size (cm) - Depth 0.1 0.1 0.1 -Total Square Cm 85.14 33.0 0.01 -Wound/Ulcer Outcome Not Healed Not Healed Not Healed -Ulcer Cleansing Rinsed/ Rinsed/ Irrigated with Irrigated with Saline Saline -Foul Odor after Cleansing No No -Bioengineered Tissue No Yes -Type of bioengineered Tissue EPIFIX -Expiration Date 08/19/22 -Product Lot Number [id number] -Percent Used 100 -Saline Lot Number [id number] -Bleeding Controlled with Pressure Pressure -Other 50% debrided -Treatment Response Procedure Procedure Tolerated Well Tolerated Well Pain Scale: 0-10 Numeric Is Patient Pain Free? Yes Yes Yes No debridement was completed today - The ulcer has healed Assessment/Plan Active Problems Venous insufficiency (Chronic) Cellulitis of left leg (Chronic) Ulcer of left lower extremity with fat layer exposed (Chronic) Localized edema (Chronic) Assessment: Left leg ulcer skin layer exposed -stable. Cellulitis is resolving. venous insufficiency/leg edema with complicated previous traumatic accidents and vascular surgery intervention. Rule out other dermatologic or inflammatory polyarthritis systemic disease. malnutrition. Workup for multiple myeloma is in process. chronic pain Plan: I reviewed and discussed his case including etiology, risk factors, and recommended work up and treatment plan. Debridement was not performed because the ulcer site has healed. He understands this is very friable and he will return next week for evaluation. He was approved for advanced wound care product, epi fix. This was applied last week and healing status is noted today. To avoid extensive showering or soaking. To pat dry gently. It is okay to apply an Adaptic or dry gauze to the site for protection. I urged him to do compression as tolerated at least part of the day. To maintain proper skin integrity by moisturizing the adjacent skin daily. He did follow-up with vascular surgery at [facility] is advised. This is reviewed and it appears his venous insufficiency is contributing to his condition amongst other medical systemic contributions. Additional intervention was not recommended. His duplex showed widely patent stents. 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 To avoid pressure to wound at all times. To wear compression sock or tubigrip as tolerated. He could not tolerate a compression stocking because it hurts his previous left leg surgical intervention site. This should provide lower extremity stability (he also has a history of previous ankle pain and intermittent instability) as well as some very mild compression. I am concerned of his dermatologic, joint, and other systemic subjective complaints. I am concerned he has underlying rheumatologic, immune compromised status, other anti-inflammatory systemic condition that is contributing to his condition. He does have follow-up with a machinist apprentice and I recommend he has completed this as scheduled and is waiting for follow-up plan. I also offered him a rheumatology referral and he is amendable for a referral to see Dr. Parks. This has been scheduled for February 06, 2018. He has a bone marrow biopsy scheduled for this afternoon for part of his workup of multiple myeloma in addition to other laboratory tests which were reviewed last week. He did have some recent allergy testing performed last month at the hospital and it is noted there are all within normal range. He did have a slightly elevated IgE of 114 which is out of the outside normal high range at 100. His previous rheumatological screening in 2014 was also noted and repeating some of this workup will be considered. Wound culture was obtained previously and he demonstrates bacterial growth. Sensitivities were reviewed. Infectious disease saw him today which is appreciated. Additional antibiotics and I recommend at this time. Labs were ordered and these were reviewed after he obtain these wound clinic was over; white blood cell count 8.9, ESR 17, C-reactive protein 7.23. I recommended he return to the wound healing center in 1 week or call sooner if he has any questions or concerns. I did answer all his questions today.
== END 2018-01-18 23:59 ==
LOC: WC 09:15
PROVIDERS: Family Provider Family Medicine; PCP Family Medicine; Referring Provider Podiatrist; Visit Provider Podiatrist
DX: I87.2 Venous insufficiency (chronic) (peripheral) (principal); L97.822 Non-pressure chronic ulcer of other part of left lower leg with fat layer exposed; M19.90 Unspecified osteoarthritis, unspecified site; Z87.891 Personal history of nicotine dependence; R60.0 Localized edema; L03.116 Cellulitis of left lower limb
CPT/HCPCS: 11042; 11045; 15271; 99213; Q4131; G0463

== ENCOUNTER → 2018-02-06 14:25 | Outpatient (CLI) | payer BC, SELFPAY ==
[2018-02-06 16:12] LABS: Absolute Lymphocyte Count 2.54 X10^3/ul (0.83-4.51); Absolute Neutrophil Count 2.6 X10^3/uL (2.0-7.7); Basophil# 0.06 X10^3/uL; Basophil% 0.9 % (0-1); Eosinophil# 0.54 X10^3/uL; Eosinophils% 8.5 % (0-5); Hematocrit 44.6 % (40-54); Hemoglobin 15.2 g/dl (13.0-16.5); Lymphocyte # 2.54 X10^3/ul (4.0); Lymphocyte % 39.7 % (19-41); Mean Corp Hgb Conc 34.1 g/gl (32-36); Mean Corpuscular Hgb 32.1 pg (27.0-32.0); Mean Corpuscular Volume 94.3 fL (80-94); Monocyte# 0.66 X10^3/uL; Monocyte% 10.3 % (0-10); Neutrophil # 2.58 X10^3/uL (2.7-7.7); Neutrophil % 40.4 % (47-70); Platelet Count 223 K/mm3 (150-450); RBC Distribution Width CV 13.1 % (11.6-14.6); RBC Distribution Width SD 43.4 fl (35.1-43.9); Red Blood Count 4.73 M/mm3 (4.6-6.2); White Blood Count 6.4 K/mm3 (4.4-11.0)
[2018-02-06 16:23] LABS: POSITIVE COUNT NO; POSITIVE DIFFERENTIAL NO; POSITIVE MORPHOLOGY NO
[2018-02-06 16:34] LABS: ALB/GLOB Ratio 1.1 RATIO (0.9-2.4); AST(SGOT) 38 U/L (15-37); Alanine Aminotransfer ALT/SGPT 60 U/L (16-61); Albumin, Serum 4.2 g/dL (3.2-5.0); Alkaline Phosphatase 61 U/L (45-117); Anion Gap 11 (5-15); BUN 20 mg/dL (7-18); BUN/Creat Ratio 23.4 RATIO (10-20); Calcium,Total 9.2 mg/dL (8.5-10.1); Chloride 104 mmol/L (98-107); Creatinine, Serum 0.86 mg/dL (0.70-1.30); EST Glomerular Filtration Rate 98 mL/min (>60); Est Glom Filt Rate - Afr Amer 118 mL/min (>60); Globulin 3.9 g/dL (2.2-4.2); Glucose 83 mg/dL (74-106); Potassium 3.8 mmol/L (3.5-5.1); Protein, Total 8.1 g/dL (6.4-8.2); Sodium Level 143 mmol/L (136-145)
[2018-02-08 19:49] LABS: ANTINUCLEAR ANTIBODIES DIRECT Negative (Negative)
[2018-02-16 09:01] LABS: CCP IgG Antibodies 11 units (0-19); HEPATITIS B SURFACE AG Negative (Negative); HLA B27 Negative (.); Hep B Surface Antibodies Non Reactive (.); Hep C Antibodies 4.9 s/co ratio (0.0-0.9)
== END ==
PROVIDERS: Family Provider Family Medicine; PCP Family Medicine; Referring Provider Internal Medicine Rheumatology; Visit Provider Internal Medicine Rheumatology
DX: M06.4 Inflammatory polyarthropathy (principal); I83.029 Varicose veins of left lower extremity with ulcer of unspecified site; D47.2 Monoclonal gammopathy; I10 Essential (primary) hypertension; R51 Headache
CPT/HCPCS: 36415; 80053; 81374; 85025; 86038; 86200; 86431; 86706; 86803; 87340

== ENCOUNTER 2018-02-15 14:15 | Outpatient (RCR) | payer OTHER, SELFPAY ==
[2018-01-19 01:35] VITALS: BP 138/85; PULSE 95; RESP 16; TEMP 36.9
[2018-01-25 13:20] VITALS: BP 120/80; PULSE 79; RESP 18; TEMP 35.9
--- NOTE | 2018-01-25 14:07 | PCM.WC.PN ---
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 Status: Resolved Current Visit: Yes Code(s): L97.922 - Non-pressure chronic ulcer of unspecified part of left lower leg with fat layer exposed (2) Venous insufficiency Status: Chronic Current Visit: Yes Code(s): I87.2 - Venous insufficiency (chronic) (peripheral) (3) Localized edema Status: Chronic Current Visit: Yes Code(s): R60.0 - Localized edema (4) Leg pain, left Status: Chronic Current Visit: Yes Code(s): M79.605 - Pain in left leg Type of Wound Date of Service: 01/25/18 Chief Complaint: left leg ulcer History of Wound: This 57 year old male with multiple comorbidities was seen for left leg ulceration. He has increased weeping and thinks that the ulcer site has reemerged. He denies fever, chills, nausea, vomiting, or loss of appetite. Progress of Wound: Worsening status - Physical Exam Vital Signs Temp Pulse Resp BP 96.7 F L 79 18 120/80 01/25/18 13:20 01/25/18 13:20 01/25/18 13:20 01/25/18 13:20 General: Alert, Oriented x3, Cooperative Extremities: No cyanosis, Capillary Refill Less than 3 Seconds, No Calf Tenderness - Negative Jaime and Brunson sign left, Diminished Peripheral Pulses, Edema Skin: Ulcer/ Wound - There is increased sub-hemorrhagic tissue and intermittent subcutaneous tissue exposed again with increased weeping. The periwound site has decreased inflammation and remains atrophic with lack of hair. There is no deep tissue exposure noted Wound Measurements and Assessment WC - Nurse 1 - General Ulcer Measurement Start: 01/25/18 13:20 Freq: Status: Active Protocol: Activity Type Activity Date Activity User E-Sign Co-Sign Detail Recorded Client Recorded Date Recorded By Document 01/25/18 13:20 DL [id number] 01/25/18 13:25 DL 01/25/18 13:20 Wound Center Nurse 1 [Ulcer Assessment] 3. L medial ankle -Current Size (cm) - Length 6.2 -Current Size (cm) - Width 4.2 -Current Size (cm) - Depth 0.1 -Total Square Cm 26.04 -Photo Taken No -Exudate Amt Small (1-33%) -Exudate Type Serosanguineous -Wound Margin Indistinct, Non -Visible -Granulation Amt Large (67-100%) -Granulation Quality Red -Necrosis Amt Small (1-33%) -Necrotic Tissue Type Eschar -Structure Exposed N/A -Texture (Aracely-wound Skin Appearance) Localized Edema Scarring -Moisture (Aracely-wound Skin Appearance Weeping ) -Color (Aracely-wound Skin Appearance) Erythema Hemosiderin Staining -Temperature (Aracely-wound Skin No Abnormality Appearance) (Pt Warm) -Ulcer Cleansing Wound Cleanser -Foul Odor after Cleansing No -Anesthetic Used 4% Lidocaine Solution [Edema Assessment] -Left Calf (cm) 39 -Left Ankle (cm) 23.5 WC - Nurse 2 - General Ulcer CM Notes Start: 01/25/18 13:20 Freq: Status: Active Protocol: Activity Type Activity Date Activity User E-Sign Co-Sign Detail Recorded Client Recorded Date Recorded By Document 01/25/18 13:41 TM [id number] 01/25/18 13:44 TM 01/25/18 13:41 Wound Center Nurse 2 [Procedure/Treatment] 3. L medial ankle -Time 13:43 -Correct Patient Yes -Correct Side, Site, Position Yes -Correct Procedure Yes -Procedure Performed Yes -Type of Procedure Debridement -Clinical Debridement Subcutaneous -Post Debridement Size (cm) - Length 6.3 -Post Debridement Size (cm) - Width 4.3 -Post Debridement Size (cm) - Depth 0.1 -Total Square Cm 27.09 -Wound/Ulcer Outcome Not Healed -Ulcer Cleansing Rinsed/ Irrigated with Saline -Foul Odor after Cleansing No -Bioengineered Tissue Yes -Type of bioengineered Tissue EPIFIX -Expiration Date 09/18/22 -Product Lot Number [id number] -Percent Used 100 -Saline Lot Number [id number] -Topical Lidocaine (%) 4 -Bleeding Controlled with Pressure -Treatment Response Procedure Tolerated Well [See Physician Procedure note for Specifics] Pain Scale: 0-10 Numeric [Pain] -Is Patient Pain Free? Yes Musculoskeletal: No Tenderness to Palpation of Joints or Extremities, Muscle Wasting Neurological: Sensory exam intact to light touch and pain Psych/Mental Status: Normal Affect, Appropriate Debridement Note Post-Debridement Measurements/Treatment WC - Nurse 2 - General Ulcer CM Notes Start: 01/25/18 13:20 Freq: Status: Active Protocol: Activity Type Activity Date Activity User E-Sign Co-Sign Detail Recorded Client Recorded Date Recorded By Document 01/25/18 13:41 [id number] 01/25/18 13:44 01/25/18 13:41 Wound Center Nurse 2 3. L medial ankle -Time 13:43 -Correct Patient Yes -Correct Side, Site, Position Yes -Correct Procedure Yes -Procedure Performed Yes -Type of Procedure Debridement -Clinical Debridement Subcutaneous -Post Debridement Size (cm) - Length 6.3 -Post Debridement Size (cm) - Width 4.3 -Post Debridement Size (cm) - Depth 0.1 -Total Square Cm 27.09 -Wound/Ulcer Outcome Not Healed -Ulcer Cleansing Rinsed/ Irrigated with Saline -Foul Odor after Cleansing No -Bioengineered Tissue Yes -Type of bioengineered Tissue EPIFIX -Expiration Date 09/18/22 -Product Lot Number [id number] -Percent Used 100 -Saline Lot Number [id number] -Topical Lidocaine (%) 4 -Bleeding Controlled with Pressure -Treatment Response Procedure Tolerated Well Pain Scale: 0-10 Numeric Is Patient Pain Free? Yes Wound debrided: medial lower leg Laterality: Left Type of Debridement: Excisional debridement Anesthesia Used: 4% Lidocaine Solution Depth: in the subcutaneous layer Percentage of wound debrided: 100 Instrument Used: #15 blade Tissue Removed: fibrous, devitalized subcutaneous, biofilm, slough Severity: Fat Layer Exposed Amount of bleeding with debridement: Mild Bleeding Controlled with: Pressure Patient tolerated procedure well Assessment/Plan Active Problems Venous insufficiency (Chronic) Localized edema (Chronic) Leg pain, left (Chronic) Assessment: Left leg ulcer skin layer exposed -return. Cellulitis has resolved. venous insufficiency/leg edema with complicated previous traumatic accidents and vascular surgery intervention. Rule out other dermatologic or inflammatory polyarthritis systemic disease. malnutrition. Workup for multiple myeloma is in process. chronic pain Plan: I reviewed and discussed his case including etiology, risk factors, and recommended work up and treatment plan. Debridement was performed today as noted in the clinical panel. He tolerated this well and provided verbal consent for application of advanced wound care product, epi fix. This was applied according to standard protocol was further secured with a wound veil and Steri-Strips. Keep this clean dry and intact until follow-up next week. I urged him to do compression as tolerated at least part of the day. To maintain proper skin integrity by moisturizing the adjacent skin daily. He did follow-up with vascular surgery at [facility] is advised. This is reviewed and it appears his venous insufficiency is contributing to his condition amongst other medical systemic contributions. Additional intervention was not recommended. His duplex showed widely patent stents. 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 To avoid pressure to wound at all times. To wear compression sock or tubigrip as tolerated. He could not tolerate a compression stocking because it hurts his previous left leg surgical intervention site. This should provide lower extremity stability (he also has a history of previous ankle pain and intermittent instability) as well as some very mild compression. I am concerned of his dermatologic, joint, and other systemic subjective complaints. I am concerned he has underlying rheumatologic, immune compromised status, other anti-inflammatory systemic condition that is contributing to his condition. He does have follow-up with a alining inspector and I recommend he has completed this as scheduled and is waiting for follow-up plan. I also offered him a rheumatology referral and he is amendable for a referral to see Dr. Parks. This has been scheduled for February 06, 2018. He has a bone marrow biopsy scheduled for this afternoon for part of his workup of multiple myeloma in addition to other laboratory tests which were reviewed last week. He did have some recent allergy testing performed last month at the hospital and it is noted there are all within normal range. He did have a slightly elevated IgE of 114 which is out of the outside normal high range at 100. His previous rheumatological screening in 2014 was also noted and repeating some of this workup will be considered. Wound culture was obtained previously and he demonstrates bacterial growth. Sensitivities were reviewed. Infectious disease saw him today which is appreciated. Additional antibiotics and I recommend at this time. Labs were ordered and these were reviewed after he obtain these wound clinic was over; white blood cell count 8.9, ESR 17, C-reactive protein 7.23. I recommended he return to the wound healing center in 1 week or call sooner if he has any questions or concerns.
--- NOTE | 2018-01-25 14:14 | PN.PCM_ITS ---
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 Status: Resolved Current Visit: Yes Code(s): L97.922 - Non-pressure chronic ulcer of unspecified part of left lower leg with fat layer exposed (2) Venous insufficiency Status: Chronic Current Visit: Yes Code(s): I87.2 - Venous insufficiency (chronic) (peripheral) (3) Localized edema Status: Chronic Current Visit: Yes Code(s): R60.0 - Localized edema (4) Leg pain, left Status: Chronic Current Visit: Yes Code(s): M79.605 - Pain in left leg Type of Wound Date of Service: 01/25/18 Chief Complaint: left leg ulcer History of Wound: This 57 year old male with multiple comorbidities was seen for left leg ulceration. He has increased weeping and thinks that the ulcer site has reemerged. He denies fever, chills, nausea, vomiting, or loss of appetite. Progress of Wound: Worsening status - Physical Exam Vital Signs Temp Pulse Resp BP 96.7 F L 79 18 120/80 01/25/18 13:20 01/25/18 13:20 01/25/18 13:20 01/25/18 13:20 General: Alert, Oriented x3, Cooperative Extremities: No cyanosis, Capillary Refill Less than 3 Seconds, No Calf Tenderness - Negative Jaime and Brunson sign left, Diminished Peripheral Pulses, Edema Skin: Ulcer/ Wound - There is increased sub-hemorrhagic tissue and intermittent subcutaneous tissue exposed again with increased weeping. The periwound site has decreased inflammation and remains atrophic with lack of hair. There is no deep tissue exposure noted Wound Measurements and Assessment WC - Nurse 1 - General Ulcer Measurement Start: 01/25/18 13:20 Freq: Status: Active Protocol: Activity Type Activity Date Activity User E-Sign Co-Sign Detail Recorded Client Recorded Date Recorded By Document 01/25/18 13:20 DL [id number] 01/25/18 13:25 DL 01/25/18 13:20 Wound Center Nurse 1 [Ulcer Assessment] 3. L medial ankle -Current Size (cm) - Length 6.2 -Current Size (cm) - Width 4.2 -Current Size (cm) - Depth 0.1 -Total Square Cm 26.04 -Photo Taken No -Exudate Amt Small (1-33%) -Exudate Type Serosanguineous -Wound Margin Indistinct, Non -Visible -Granulation Amt Large (67-100%) -Granulation Quality Red -Necrosis Amt Small (1-33%) -Necrotic Tissue Type Eschar -Structure Exposed N/A -Texture (Aracely-wound Skin Appearance) Localized Edema Scarring -Moisture (Aracely-wound Skin Appearance Weeping ) -Color (Aracely-wound Skin Appearance) Erythema Hemosiderin Staining -Temperature (Aracely-wound Skin No Abnormality Appearance) (Pt Warm) -Ulcer Cleansing Wound Cleanser -Foul Odor after Cleansing No -Anesthetic Used 4% Lidocaine Solution [Edema Assessment] -Left Calf (cm) 39 -Left Ankle (cm) 23.5 WC - Nurse 2 - General Ulcer CM Notes Start: 01/25/18 13:20 Freq: Status: Active Protocol: Activity Type Activity Date Activity User E-Sign Co-Sign Detail Recorded Client Recorded Date Recorded By Document 01/25/18 13:41 TM [id number] 01/25/18 13:44 TM 01/25/18 13:41 Wound Center Nurse 2 [Procedure/Treatment] 3. L medial ankle -Time 13:43 -Correct Patient Yes -Correct Side, Site, Position Yes -Correct Procedure Yes -Procedure Performed Yes -Type of Procedure Debridement -Clinical Debridement Subcutaneous -Post Debridement Size (cm) - Length 6.3 -Post Debridement Size (cm) - Width 4.3 -Post Debridement Size (cm) - Depth 0.1 -Total Square Cm 27.09 -Wound/Ulcer Outcome Not Healed -Ulcer Cleansing Rinsed/ Irrigated with Saline -Foul Odor after Cleansing No -Bioengineered Tissue Yes -Type of bioengineered Tissue EPIFIX -Expiration Date 09/18/22 -Product Lot Number [id number] -Percent Used 100 -Saline Lot Number [id number] -Topical Lidocaine (%) 4 -Bleeding Controlled with Pressure -Treatment Response Procedure Tolerated Well [See Physician Procedure note for Specifics] Pain Scale: 0-10 Numeric [Pain] -Is Patient Pain Free? Yes Musculoskeletal: No Tenderness to Palpation of Joints or Extremities, Muscle Wasting Neurological: Sensory exam intact to light touch and pain Psych/Mental Status: Normal Affect, Appropriate Debridement Note Post-Debridement Measurements/Treatment WC - Nurse 2 - General Ulcer CM Notes Start: 01/25/18 13:20 Freq: Status: Active Protocol: Activity Type Activity Date Activity User E-Sign Co-Sign Detail Recorded Client Recorded Date Recorded By Document 01/25/18 13:41 [id number] 01/25/18 13:44 01/25/18 13:41 Wound Center Nurse 2 3. L medial ankle -Time 13:43 -Correct Patient Yes -Correct Side, Site, Position Yes -Correct Procedure Yes -Procedure Performed Yes -Type of Procedure Debridement -Clinical Debridement Subcutaneous -Post Debridement Size (cm) - Length 6.3 -Post Debridement Size (cm) - Width 4.3 -Post Debridement Size (cm) - Depth 0.1 -Total Square Cm 27.09 -Wound/Ulcer Outcome Not Healed -Ulcer Cleansing Rinsed/ Irrigated with Saline -Foul Odor after Cleansing No -Bioengineered Tissue Yes -Type of bioengineered Tissue EPIFIX -Expiration Date 09/18/22 -Product Lot Number [id number] -Percent Used 100 -Saline Lot Number [id number] -Topical Lidocaine (%) 4 -Bleeding Controlled with Pressure -Treatment Response Procedure Tolerated Well Pain Scale: 0-10 Numeric Is Patient Pain Free? Yes Wound debrided: medial lower leg Laterality: Left Type of Debridement: Excisional debridement Anesthesia Used: 4% Lidocaine Solution Depth: in the subcutaneous layer Percentage of wound debrided: 100 Instrument Used: #15 blade Tissue Removed: fibrous, devitalized subcutaneous, biofilm, slough Severity: Fat Layer Exposed Amount of bleeding with debridement: Mild Bleeding Controlled with: Pressure Patient tolerated procedure well Assessment/Plan Active Problems Venous insufficiency (Chronic) Localized edema (Chronic) Leg pain, left (Chronic) Assessment: Left leg ulcer skin layer exposed -return. Cellulitis has resolved. venous insufficiency/leg edema with complicated previous traumatic accidents and vascular surgery intervention. Rule out other dermatologic or inflammatory polyarthritis systemic disease. malnutrition. Workup for multiple myeloma is in process. chronic pain Plan: I reviewed and discussed his case including etiology, risk factors, and recommended work up and treatment plan. Debridement was performed today as noted in the clinical panel. He tolerated this well and provided verbal consent for application of advanced wound care product, epi fix. This was applied according to standard protocol was further secured with a wound veil and Steri- Strips. Keep this clean dry and intact until follow-up next week. I urged him to do compression as tolerated at least part of the day. To maintain proper skin integrity by moisturizing the adjacent skin daily. He did follow-up with vascular surgery at [facility] is advised. This is reviewed and it appears his venous insufficiency is contributing to his condition amongst other medical systemic contributions. Additional intervention was not recommended. His duplex showed widely patent stents. 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 To avoid pressure to wound at all times. To wear compression sock or tubigrip as tolerated. He could not tolerate a compression stocking because it hurts his previous left leg surgical intervention site. This should provide lower extremity stability (he also has a history of previous ankle pain and intermittent instability) as well as some very mild compression. I am concerned of his dermatologic, joint, and other systemic subjective complaints. I am concerned he has underlying rheumatologic, immune compromised status, other anti-inflammatory systemic condition that is contributing to his condition. He does have follow-up with a directory carrier and I recommend he has completed this as scheduled and is waiting for follow-up plan. I also offered him a rheu matology referral and he is amendable for a referral to see Dr. Parks. This has been scheduled for February 06, 2018. He has a bone marrow biopsy scheduled for this afternoon for part of his workup of multiple myeloma in addition to other laboratory tests which were reviewed last week. He did have some recent allergy testing performed last month at the hospital and it is noted there are all within normal range. He did have a slightly elevated IgE of 114 which is out of the outside normal high range at 100. His previous rheumatological screening in 2014 was also noted and repeating some of this workup will be considered. Wound culture was obtained previously and he demonstrates bacterial growth. Sensitivities were reviewed. Infectious disease saw him today which is appreciated. Additional antibiotics and I recommend at this time. Labs were ordered and these were reviewed after he obtain these wound clinic was over; white blood cell count 8.9, ESR 17, C-reactive protein 7.23. I recommended he return to the wound healing center in 1 week or call sooner if he has any questions or concerns.
[2018-02-01 14:12] VITALS: BP 149/88; PULSE 84; RESP 16; TEMP 37.3
--- NOTE | 2018-02-01 14:33 | PCM.WC.PN ---
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 Status: Resolved Current Visit: Yes Code(s): L97.922 - Non-pressure chronic ulcer of unspecified part of left lower leg with fat layer exposed (2) Venous insufficiency Status: Chronic Current Visit: Yes Code(s): I87.2 - Venous insufficiency (chronic) (peripheral) (3) Localized edema Status: Chronic Current Visit: Yes Code(s): R60.0 - Localized edema (4) Leg pain, left Status: Chronic Current Visit: Yes Code(s): M79.605 - Pain in left leg Type of Wound Date of Service: 02/01/18 Chief Complaint: left leg ulcer History of Wound: This 57 year old male with multiple comorbidities was seen for left leg ulceration. He denies fever, chills, nausea, vomiting, or loss of appetite. He has resolved weeping and thinks the site has healed. He has a follow-up next Tuesday to get his bone marrow aspirate results. He also has his initial consultation with executive housekeeper next Tuesday as well. Progress of Wound: Healed - Physical Exam Vital Signs Temp Pulse Resp BP 99.1 F 84 16 149/88 H 02/01/18 14:12 02/01/18 14:12 02/01/18 14:12 02/01/18 14:12 General: Alert, Oriented x3, Cooperative Extremities: No cyanosis, Capillary Refill Less than 3 Seconds, No Calf Tenderness - Negative Jaime and Brunson sign bilateral, Edema, Peripheral Pulses Normal Skin: Ulcer/ Wound - Full epithelialization is noted. There is no exposed soft hemorrhagic or granulation tissue. The peripheral skin is hairless and atrophic. There is friable skin noted at the recently healed ulcer site to the medial leg with adjacent varicosities and inflammation continued. This does not look infected Wound Measurements and Assessment WC - Nurse 1 - General Ulcer Measurement Start: 01/25/18 13:20 Freq: Status: Active Protocol: Activity Type Activity Date Activity User E-Sign Co-Sign Detail Recorded Client Recorded Date Recorded By Document 02/01/18 14:12 [facility] [id number] 02/01/18 14:16 [facility] 02/01/18 14:12 Wound Center Nurse 1 [Ulcer Assessment] 3. L medial ankle -Combined with other wound No -Current Size (cm) - Length 0.1 -Current Size (cm) - Width 0.1 -Current Size (cm) - Depth 0.1 -Total Square Cm 0.01 -Date of Last Picture (Recall this 02/01/18 field) -Photo Taken Yes -Epithelialization Large 67-100% -Texture (Aracely-wound Skin Appearance) Scarring -Moisture (Aracely-wound Skin Appearance Dry/Scaly ) -Color (Aracely-wound Skin Appearance) Hemosiderin Staining -Temperature (Aracely-wound Skin No Abnormality Appearance) (Pt Warm) -Tenderness on Palpation (Aracely-wound No Skin Appearance) -Ulcer Cleansing Rinsed/ Irrigated with Saline -Foul Odor after Cleansing No -Anesthetic Used 4% Lidocaine Solution - Nurse 2 - General Ulcer CM Notes Start: 01/25/18 13:20 Freq: Status: Active Protocol: Activity Type Activity Date Activity User E-Sign Co-Sign Detail Recorded Client Recorded Date Recorded By Document 02/01/18 14:25 TM [id number] 02/01/18 14:33 TM 02/01/18 14:25 Wound Center Nurse 2 [Procedure/Treatment] -Time 14:25 -Correct Patient Yes -Correct Side, Site, Position Yes -Correct Procedure Yes -Procedure Performed Yes -Post Debridement Size (cm) - Length 0.2 -Post Debridement Size (cm) - Width 0.2 -Post Debridement Size (cm) - Depth 0.1 -Total Square Cm 0.04 -Wound/Ulcer Outcome Not Healed -Ulcer Cleansing Rinsed/ Irrigated with Saline -Foul Odor after Cleansing No -Bioengineered Tissue No -Topical Lidocaine (%) 4 -Bleeding Controlled with NA -Treatment Response Procedure Tolerated Well [See Physician Procedure note for Specifics] Pain Scale: 0-10 Numeric [Pain] -Is Patient Pain Free? Yes Musculoskeletal: No Tenderness to Palpation of Joints or Extremities, Muscle Wasting, Tenderness - Decrease tenderness with recently healed ulcer site Neurological: Sensory exam intact to light touch and pain Psych/Mental Status: Normal Affect, Appropriate Debridement Note Post-Debridement Measurements/Treatment - Nurse 2 - General Ulcer CM Notes Start: 01/25/18 13:20 Freq: Status: Active Protocol: Activity Type Activity Date Activity User E-Sign Co-Sign Detail Recorded Client Recorded Date Recorded By Document 01/25/18 13:41 TM [id number] 01/25/18 13:44 TM Document 02/01/18 14:25 TM [id number] 02/01/18 14:33 01/25/18 02/01/18 13:41 14:25 Wound Center Nurse 2 3. L medial ankle -Time 13:43 14:25 -Correct Patient Yes Yes -Correct Side, Site, Position Yes Yes -Correct Procedure Yes Yes -Procedure Performed Yes Yes -Type of Procedure Debridement -Clinical Debridement Subcutaneous -Post Debridement Size (cm) - Length 6.3 0.2 -Post Debridement Size (cm) - Width 4.3 0.2 -Post Debridement Size (cm) - Depth 0.1 0.1 -Total Square Cm 27.09 0.04 -Wound/Ulcer Outcome Not Healed Not Healed -Ulcer Cleansing Rinsed/ Rinsed/ Irrigated with Irrigated with Saline Saline -Foul Odor after Cleansing No No -Bioengineered Tissue Yes No -Type of bioengineered Tissue EPIFIX -Expiration Date 09/18/22 -Product Lot Number [id number] -Percent Used 100 -Saline Lot Number [id number] -Topical Lidocaine (%) 4 4 -Bleeding Controlled with Pressure NA -Treatment Response Procedure Procedure Tolerated Well Tolerated Well Pain Scale: 0-10 Numeric Is Patient Pain Free? Yes Yes No debridement was completed today - The ulcer site has healed Assessment/Plan Active Problems Venous insufficiency (Chronic) Localized edema (Chronic) Leg pain, left (Chronic) Assessment: Left leg ulcer skin layer exposed -healed today with history of recurrence. Cellulitis has resolved. venous insufficiency/leg edema with complicated previous traumatic accidents and vascular surgery intervention. Rule out other dermatologic or inflammatory polyarthritis systemic disease. malnutrition. Workup for multiple myeloma is in process. chronic pain Plan: I reviewed and discussed his case including etiology, risk factors, and recommended work up and treatment plan. This was not debrided today because it is recently healed. I do recommend protecting his very friable skin site by applying a dry gauze. It is okay for him to intermittently apply Adaptic as well. I urged him to do compression as tolerated at least part of the day. To maintain proper skin integrity by moisturizing the adjacent skin daily. He did follow-up with vascular surgery at [facility] is advised. This is reviewed and it appears his venous insufficiency is contributing to his condition amongst other medical systemic contributions. Additional intervention was not recommended. His duplex showed widely patent stents. 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 To avoid pressure to wound at all times. To wear compression sock or tubigrip as tolerated. He could not tolerate a compression stocking because it hurts his previous left leg surgical intervention site. This should provide lower extremity stability (he also has a history of previous ankle pain and intermittent instability) as well as some very mild compression. I am concerned of his dermatologic, joint, and other systemic subjective complaints. I am concerned he has underlying rheumatologic, immune compromised status, other anti-inflammatory systemic condition that is contributing to his condition. He does have follow-up with a linen room houseperson and I recommend he has completed this as scheduled and is waiting for follow-up plan. I also offered him a rheumatology referral and he is amendable for a referral to see Dr. Parks. This has been scheduled for February 06, 2018. He completed a bone marrow biopsy for workup of potential multiple myeloma versus other condition, and he is following up to discuss the results this upcoming Tuesday on February 06, 2018. He did have some recent allergy testing performed last month at the hospital and it is noted there are all within normal range. He did have a slightly elevated IgE of 114 which is out of the outside normal high range at 100. His previous rheumatological screening in 2015 was also noted and repeating some of this workup will be considered. Wound culture was obtained previously and he demonstrates bacterial growth. Sensitivities were reviewed. Infectious disease saw him today which is appreciated. Additional antibiotics and I recommend at this time. Labs were ordered and these were reviewed after he obtain these wound clinic was over; white blood cell count 8.9, ESR 17, C-reactive protein 7.23. I recommended he return to the wound healing center in 1 week or call sooner if he has any questions or concerns.
[2018-02-08 14:06] VITALS: BP 148/90; PULSE 81; RESP 16; TEMP 35.9
--- NOTE | 2018-02-08 14:47 | PCM.WC.PN ---
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 Status: Resolved Code(s): L97.922 - Non-pressure chronic ulcer of unspecified part of left lower leg with fat layer exposed (2) Venous insufficiency Status: Chronic Code(s): I87.2 - Venous insufficiency (chronic) (peripheral) (3) Localized edema Status: Chronic Code(s): R60.0 - Localized edema (4) Leg pain, left Status: Chronic Code(s): M79.605 - Pain in left leg Type of Wound Date of Service: 02/08/18 Chief Complaint: left leg ulcer History of Wound: This 57 year old male with multiple comorbidities was seen for left leg ulceration. He denies fever, chills, nausea, vomiting, or loss of appetite. He has resolved weeping and thinks the site has healed. He had a follow-up recently with rheumatology, hematology/oncology, and dermatology. Progress of Wound: Remains healed - Physical Exam Vital Signs Temp Pulse Resp BP 96.6 F L 81 16 148/90 H 02/08/18 14:06 02/08/18 14:06 02/08/18 14:06 02/08/18 14:06 General: Alert, Oriented x3, Cooperative Extremities: No cyanosis, Capillary Refill Less than 3 Seconds, No Calf Tenderness - Negative Jaime and Brunson sign bilateral, Diminished Peripheral Pulses, Edema - Mild with peripheral varicosities and telangiectasias continued Skin: Ulcer/ Wound - Full epithelialization is noted. He reports an area of previous weeping which I do not see at this time. There is no purulence, erythema, strength, odor, necrosis, bogginess or fluctuance noted. The skin is hairless and atrophic left lower extremity Wound Measurements and Assessment - Nurse 1 - General Ulcer Measurement Start: 01/25/18 13:20 Freq: Status: Active Protocol: Activity Type Activity Date Activity User E-Sign Co-Sign Detail Recorded Client Recorded Date Recorded By Document 02/08/18 14:06 [id number] 02/08/18 14:10 02/08/18 14:06 Wound Center Nurse 1 [Ulcer Assessment] 3. L medial ankle -Combined with other wound No -Current Size (cm) - Length 0.1 -Current Size (cm) - Width 0.1 -Current Size (cm) - Depth 0.1 -Total Square Cm 0.01 -Photo Taken No -Epithelialization None Present -Tunneling No -Undermining/Tunneling No -Circular Undermining No -Exudate Amt None Present (0 %) -Granulation Amt None Present (0 %) -Granulation Quality N/A -Texture (Aracely-wound Skin Appearance) Excoriation Scarring -Moisture (Aracely-wound Skin Appearance Dry/Scaly ) -Color (Aracely-wound Skin Appearance) Hemosiderin Staining -Temperature (Aracely-wound Skin No Abnormality Appearance) (Pt Warm) -Tenderness on Palpation (Aracely-wound No Skin Appearance) -Ulcer Cleansing Rinsed/ Irrigated with Saline -Foul Odor after Cleansing No -Anesthetic Used 4% Lidocaine Solution [Edema Assessment] -Lower Limb Edema Present No -Left Calf (cm) 41.3 -Left Ankle (cm) 24.2 WC - Nurse 2 - General Ulcer CM Notes Start: 01/25/18 13:20 Freq: Status: Active Protocol: Activity Type Activity Date Activity User E-Sign Co-Sign Detail Recorded Client Recorded Date Recorded By Document 02/08/18 14:33 [id number] 02/08/18 14:34 02/08/18 14:33 Wound Center Nurse 2 [Procedure/Treatment] 3. L medial ankle -Time 14:33 -Correct Patient Yes -Correct Side, Site, Position Yes -Correct Procedure Yes -Procedure Performed Yes -Post Debridement Size (cm) - Length 0 -Post Debridement Size (cm) - Width 0 -Post Debridement Size (cm) - Depth 0 -Total Square Cm 0 -Wound/Ulcer Outcome Healed- Epithelialized -Ulcer Cleansing Rinsed/ Irrigated with Saline -Foul Odor after Cleansing No -Bioengineered Tissue No -Topical Lidocaine (%) 4 -Bleeding Controlled with NA -Treatment Response Procedure Tolerated Well [See Physician Procedure note for Specifics] Pain Scale: 0-10 Numeric [Pain] -Is Patient Pain Free? Yes Musculoskeletal: No Tenderness to Palpation of Joints or Extremities, Muscle Wasting Neurological: Sensory exam intact to light touch and pain Psych/Mental Status: Normal Affect, Appropriate Debridement Note Post-Debridement Measurements/Treatment WC - Nurse 2 - General Ulcer CM Notes Start: 01/25/18 13:20 Freq: Status: Active Protocol: Activity Type Activity Date Activity User E-Sign Co-Sign Detail Recorded Client Recorded Date Recorded By Document 01/25/18 13:41 [id number] 01/25/18 13:44 TM Document 02/01/18 14:25 [id number] 02/01/18 14:33 TM Document 02/08/18 14:33 [id number] 02/08/18 14:34 01/25/18 02/01/18 02/08/18 13:41 14:25 14:33 Wound Center Nurse 2 3. L medial ankle -Time 13:43 14:25 14:33 -Correct Patient Yes Yes Yes -Correct Side, Site, Position Yes Yes Yes -Correct Procedure Yes Yes Yes -Procedure Performed Yes Yes Yes -Type of Procedure Debridement -Clinical Debridement Subcutaneous -Post Debridement Size (cm) - Length 6.3 0.2 0 -Post Debridement Size (cm) - Width 4.3 0.2 0 -Post Debridement Size (cm) - Depth 0.1 0.1 0 -Total Square Cm 27.09 0.04 0 -Wound/Ulcer Outcome Not Healed Not Healed Healed- Epithelialized -Ulcer Cleansing Rinsed/ Rinsed/ Rinsed/ Irrigated with Irrigated with Irrigated with Saline Saline Saline -Foul Odor after Cleansing No No No -Bioengineered Tissue Yes No No -Type of bioengineered Tissue EPIFIX -Expiration Date 09/18/22 -Product Lot Number [id number] -Percent Used 100 -Saline Lot Number [id number] -Topical Lidocaine (%) 4 4 4 -Bleeding Controlled with Pressure NA NA -Treatment Response Procedure Procedure Procedure Tolerated Well Tolerated Well Tolerated Well Pain Scale: 0-10 Numeric Is Patient Pain Free? Yes Yes Yes No debridement was completed today - The ulcer site is healed Assessment/Plan Assessment: Left leg ulcer skin layer exposed -healed today with history of recurrence. Cellulitis has resolved. venous insufficiency/leg edema with complicated previous traumatic accidents and vascular surgery intervention. Rule out other dermatologic or inflammatory polyarthritis systemic disease. malnutrition. Workup for multiple myeloma was negative. chronic pain Plan: I reviewed and discussed his case including etiology, risk factors, and recommended work up and treatment plan. This was not debrided today because it is recently healed. I do recommend protecting his very friable skin site by applying a dry gauze. It is okay for him to intermittently apply Adaptic as well. I urged him to do compression as tolerated at least part of the day. To maintain proper skin integrity by moisturizing the adjacent skin daily. He did follow-up with vascular surgery at [facility] is advised. This is reviewed and it appears his venous insufficiency is contributing to his condition amongst other medical systemic contributions. Additional intervention was not recommended. His duplex showed widely patent stents. 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 To avoid pressure to wound at all times. To wear compression sock or tubigrip as tolerated. He could not tolerate a compression stocking because it hurts his previous left leg surgical intervention site. This should provide lower extremity stability (he also has a history of previous ankle pain and intermittent instability) as well as some very mild compression. I am concerned of his dermatologic, joint, and other systemic subjective complaints. I am concerned he has underlying rheumatologic, immune compromised status, other anti-inflammatory systemic condition that is contributing to his condition. He does have follow-up with a physician extender and rheumatology. He was started on intermittent low-dose of prednisone as needed and lab work was ordered by Dr. Parks. He has also completed a bone marrow biopsy for workup of potential multiple myeloma versus other condition. This was negative for multiple myeloma and he has a benign condition. He will follow-up in 6 months to a year. He did have some recent allergy testing performed last month at the hospital and it is noted there are all within normal range. He did have a slightly elevated IgE of 114 which is out of the outside normal high range at 100. This is related to his benign condition. Wound culture was obtained previously and he demonstrates bacterial growth. Sensitivities were reviewed. Infectious disease saw him today which is appreciated. Additional antibiotics and I recommend at this time. Labs were ordered and these were reviewed after he obtain these wound clinic was over; white blood cell count 8.9, ESR 17, C-reactive protein 7.23. I recommended he return to the wound healing center in 1 week for a final healed ulcer site check, or call sooner if he has any questions or concerns.
[2018-02-15 14:36] VITALS: BP 156/90; PULSE 84; RESP 18; TEMP 37.4
--- NOTE | 2018-02-15 15:19 | PN.PCM_ITS ---
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 Status: Chronic Current Visit: Yes Code(s): L97.922 - Non-pressure chronic ulcer of unspecified part of left lower leg with fat layer exposed (2) Venous insufficiency Status: Chronic Current Visit: Yes Code(s): I87.2 - Venous insufficiency (chronic) (peripheral) (3) Localized edema Status: Chronic Current Visit: Yes Code(s): R60.0 - Localized edema (4) Leg pain, left Status: Chronic Current Visit: Yes Code(s): M79.605 - Pain in left leg Type of Wound Date of Service: 02/16/18 Chief Complaint: left leg ulcer History of Wound: This 57 year old male with multiple comorbidities was seen for left leg ulceration. He denies fever, chills, nausea, vomiting, or loss of appetite. He reports that he had returned weeping and pinkness. He thinks the ulcer site has returned. He had a follow-up recently with rheumatology, hematology/oncology, and dermatology. He relates he has been diagnosed with a venous stasis dermatitis that not only affects the left limb where the veins are insufficient but also the skin on his arms face and trunk when a flareup is occurring. He will follow-up as needed with a food manager. He will continue to take prednisone as needed. Progress of Wound: Reopened - Physical Exam Vital Signs Temp Pulse Resp BP 99.3 F H 84 18 156/90 H 02/15/18 14:36 02/15/18 14:36 02/15/18 14:36 02/15/18 14:36 General: Alert, Oriented x3, Cooperative Extremities: No cyanosis, Capillary Refill Less than 3 Seconds, No Calf Tenderness - Negative Jaime and Brunson sign bilateral, Diminished Peripheral Pulses, Edema - Bilateral lower extremities with varicosities and delineations Skin: Ulcer/ Wound - No purulence, erythema, streaking, odor, necrosis, eschar or acute signs of infection. There is intermittent skin discontinuity with granulation and some hemorrhagic tissue there is some hyperpigmentation at this return ulcer site. There is no bogginess or fluctuance on palpation. The skin of the entire limb is hairless and atrophic. Wound Measurements and Assessment WC - Nurse 1 - General Ulcer Measurement Start: 01/25/18 13:20 Freq: Status: Active Protocol: Activity Type Activity Date Activity User E-Sign Co-Sign Detail Recorded Client Recorded Date Recorded By Document 02/15/18 14:36 RB [id number] 02/15/18 14:39 RB 02/15/18 14:36 Wound Center Nurse 1 [Ulcer Assessment] 3. L medial ankle -Combined with other wound No -Current Size (cm) - Length 0.1 -Current Size (cm) - Width 0.1 -Current Size (cm) - Depth 0.1 -Total Square Cm 0.01 -Photo Taken No -Tunneling No -Undermining/Tunneling No -Circular Undermining No -Exudate Amt Small (1-33%) -Exudate Type Serosanguineous -Wound Margin Distinct, Outline Attached -Granulation Amt Small (1-33%) -Granulation Quality Alexander -Slough/Fibrin Yes -Necrosis Amt Large (67-100%) -Necrotic Tissue Type Adherent Slough -Structure Exposed N/A -Texture (Aracely-wound Skin Appearance) Assessed -Moisture (Aracely-wound Skin Appearance Assessed ) -Color (Aracely-wound Skin Appearance) Assessed Hemosiderin Staining -Temperature (Aracely-wound Skin No Abnormality Appearance) (Pt Warm) -Ulcer Cleansing Rinsed/ Irrigated with Saline -Foul Odor after Cleansing No -Anesthetic Used 5% Lidocaine Gel [Edema Assessment] -Lower Limb Edema Present No -Left Calf (cm) 41.3 -Left Ankle (cm) 24.2 WC - Nurse 2 - General Ulcer CM Notes Start: 01/25/18 13:20 Freq: Status: Active Protocol: Activity Type Activity Date Activity User E-Sign Co-Sign Detail Recorded Client Recorded Date Recorded By Document 02/15/18 14:58 [id number] 02/15/18 15:00 02/15/18 14:58 Wound Center Nurse 2 [Procedure/Treatment] 3. L medial ankle -Time 14:58 -Correct Patient Yes -Correct Side, Site, Position Yes -Correct Procedure Yes -Procedure Performed Yes -Type of Procedure Debridement -Clinical Debridement Subcutaneous -Post Debridement Size (cm) - Length 5.0 -Post Debridement Size (cm) - Width 3.0 -Post Debridement Size (cm) - Depth 0.1 -Total Square Cm 15.00 -Wound/Ulcer Outcome Not Healed -Ulcer Cleansing Rinsed/ Irrigated with Saline -Foul Odor after Cleansing No -Bioengineered Tissue Yes -Type of bioengineered Tissue EPIFIX -Expiration Date 10/19/22 -Product Lot Number [id number] -Percent Used 100 -Saline Lot Number [id number] -Bleeding Controlled with Pressure -Other 10% of ulcer was debrided. -Offloading No -Treatment Response Procedure Tolerated Well [See Physician Procedure note for Specifics] Pain Scale: 0-10 Numeric [Pain] -Is Patient Pain Free? Yes Musculoskeletal: No Tenderness to Palpation of Joints or Extremities, Muscle Wasting, - - Compartments remain soft to palpate left lower extremity Neurological: Sensory exam intact to light touch and pain - Hypersensitivity noted Psych/Mental Status: Normal Affect, Appropriate Debridement Note Post-Debridement Measurements/Treatment WC - Nurse 2 - General Ulcer CM Notes Start: 01/25/18 13:20 Freq: Status: Active Protocol: Activity Type Activity Date Activity User E-Sign Co-Sign Detail Recorded Client Recorded Date Recorded By Document 01/25/18 13:41 [id number] 01/25/18 13:44 TM Document 02/01/18 14:25 [id number] 02/01/18 14:33 TM Document 02/08/18 14:33 [id number] 02/08/18 14:34 Document 02/15/18 14:58 [id number] 02/15/18 15:00 01/25/18 02/01/18 02/08/18 13:41 14:25 14:33 Wound Center Nurse 2 3. L medial ankle -Time 13:43 14:25 14:33 -Correct Patient Yes Yes Yes -Correct Side, Site, Position Yes Yes Yes -Correct Procedure Yes Yes Yes -Procedure Performed Yes Yes Yes -Type of Procedure Debridement -Clinical Debridement Subcutaneous -Post Debridement Size (cm) - Length 6.3 0.2 0 -Post Debridement Size (cm) - Width 4.3 0.2 0 -Post Debridement Size (cm) - Depth 0.1 0.1 0 -Total Square Cm 27.09 0.04 0 -Wound/Ulcer Outcome Not Healed Not Healed Healed- Epithelialized -Ulcer Cleansing Rinsed/ Rinsed/ Rinsed/ Irrigated with Irrigated with Irrigated with Saline Saline Saline -Foul Odor after Cleansing No No No -Bioengineered Tissue Yes No No -Type of bioengineered Tissue EPIFIX -Expiration Date 09/18/22 -Product Lot Number [id number] -Percent Used 100 -Saline Lot Number [id number] -Topical Lidocaine (%) 4 4 4 -Bleeding Controlled with Pressure NA NA -Other -Offloading -Treatment Response Procedure Procedure Procedure Tolerated Well Tolerated Well Tolerated Well Pain Scale: 0-10 Numeric Is Patient Pain Free? Yes Yes Yes 02/15/18 14:58 Wound Center Nurse 2 3. L medial ankle -Time 14:58 -Correct Patient Yes -Correct Side, Site, Position Yes -Correct Procedure Yes -Procedure Performed Yes -Type of Procedure Debridement -Clinical Debridement Subcutaneous -Post Debridement Size (cm) - Length 5.0 -Post Debridement Size (cm) - Width 3.0 -Post Debridement Size (cm) - Depth 0.1 -Total Square Cm 15.00 -Wound/Ulcer Outcome Not Healed -Ulcer Cleansing Rinsed/ Irrigated with Saline -Foul Odor after Cleansing No -Bioengineered Tissue Yes -Type of bioengineered Tissue EPIFIX -Expiration Date 10/19/22 -Product Lot Number [id number] -Percent Used 100 -Saline Lot Number [id number] -Topical Lidocaine (%) -Bleeding Controlled with Pressure -Other 10% of ulcer was debrided. -Offloading No -Treatment Response Procedure Tolerated Well Pain Scale: 0-10 Numeric Is Patient Pain Free? Yes Wound debrided: leg Laterality: Left Type of Debridement: Excisional debridement Anesthesia Used: 4% Lidocaine Solution Depth: in the subcutaneous layer Percentage of wound debrided: 10 Instrument Used: #15 blade Tissue Removed: fibrous, devitalized subcutaneous, biofilm, slough Severity: Fat Layer Exposed Amount of bleeding with debridement: Mild Bleeding Controlled with: Pressure Patient tolerated procedure well Assessment/Plan Active Problems Venous insufficiency (Chronic) Chronic ulcer of left leg with fat layer exposed (Chronic) Localized edema (Chronic) Leg pain, left (Chronic) Assessment: Left leg ulcer fat in layer exposed return. venous insufficie ncy/leg edema with complicated previous traumatic accidents and vascular surgery intervention. Rule out other dermatologic or inflammatory polyarthritis systemic disease. malnutrition. Workup for multiple myeloma was negative. chronic pain Plan: I reviewed and discussed his case including etiology, risk factors, and recommended work up and treatment plan. This ulcer site is reopened and debridement was performed as noted in the clinical panel. I recommend application of advanced wound care product, epi fix. Verbal consent was obtained and this was applied according to standard protocol. This was moistened with saline and further secured with a wound veil and Steri-Strips. He tolerated this well. Secondary dressing was applied and he was advised to keep is clean, dry, and intact until follow-up visit next week. He did follow- up with vascular surgery at [facility] is advised. This is reviewed and it appears his venous insufficiency is contributing to his condition amongst other medical systemic contributions. Additional intervention was not recommended. His duplex showed widely patent stents. 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 To avoid pressure to wound at all times. To wear compression sock or tubigrip as tolerated. He could not tolerate a compression stocking because it hurts his previous left leg surgical intervention site. This should provide lower extremity stability (he also has a history of previous ankle pain and intermittent instability) as well as some very mild compression. I am concerned of his dermatologic, joint, and other systemic subjective complaints. I am concerned he has underlying rheumatologic, immune compromised status, other anti-inflammatory systemic condition that is contributing to his condition. He does have follow-up with a food manager and rheumatology. He was started on intermittent low-dose of prednisone as needed and lab work was ordered by Dr. Parks. He has also completed a bone marrow biopsy for workup of potential multiple myeloma versus other condition. This was negative for multiple myeloma and he has a benign condition. He will follow-up in 6 months to a year. He did have some recent allergy testing performed last month at the hospital and it is noted there are all within normal range. He did have a slightly elevated IgE of 114 which is out of the outside normal high range at 100. This is related to his benign condition. Wound culture was obtained previously and he demonstrates bacterial growth. Sensitivities were reviewed. Infectious disease saw him today which is appreciated. Additional antibiotics and I recommend at this time. Labs were ordered and these were reviewed after he obtain these wound clinic was over; white blood cell count 8.9, ESR 17, C-reactive protein 7.23. I recommended he return to the wound healing center in 1 week for a final healed ulcer site check, or call sooner if he has any questions or concerns.
== END 2018-02-17 23:59 ==
LOC: WC 14:15
PROVIDERS: Family Provider Family Medicine; PCP Family Medicine; Referring Provider Podiatrist; Visit Provider Podiatrist
DX: I87.2 Venous insufficiency (chronic) (peripheral) (principal); R60.0 Localized edema; M79.605 Pain in left leg; L97.322 Non-pressure chronic ulcer of left ankle with fat layer exposed
CPT/HCPCS: 15271; 15272; 99213; Q4131; G0463

== ENCOUNTER 2018-02-22 09:57 | Outpatient (RCR) | payer OTHER, SELFPAY ==
[2018-02-18 01:17] VITALS: BP 156/90; PULSE 84; RESP 18; TEMP 37.4
[2018-02-22 14:02] VITALS: BP 149/97; PULSE 85; RESP 16; TEMP 35.9
--- NOTE | 2018-02-22 16:46 | PCM.WC.PN ---
(1) Ulcer of left lower extremity, limited to breakdown of skin Status: Resolved Code(s): L97.921 - Non-pressure chronic ulcer of unspecified part of left lower leg limited to breakdown of skin (2) Venous insufficiency Status: Chronic Code(s): I87.2 - Venous insufficiency (chronic) (peripheral) (3) Dermatitis Status: Chronic Code(s): L30.9 - Dermatitis, unspecified Type of Wound Date of Service: 02/22/18 Chief Complaint: left leg ulcer History of Wound: This 57 year old male with multiple comorbidities was seen for left leg ulceration. He denies fever, chills, nausea, vomiting, or loss of appetite. He denies drainage or weeping. Progress of Wound: Healed - Physical Exam Vital Signs Temp Pulse Resp BP 96.6 F L 85 16 149/97 H 02/22/18 14:02 02/22/18 14:02 02/22/18 14:02 02/22/18 14:02 General: Alert, Oriented x3, Cooperative Extremities: No cyanosis, Capillary Refill Less than 3 Seconds, No Calf Tenderness - Negative Jaime and Brunson sign left, Diminished Peripheral Pulses, Edema - Left lower extremity Skin: Ulcer/ Wound - Full epithelialization noted without weeping or skin discontinuity. The skin is atrophic and hairless to left lower extremity and the telangiectasias are unchanged Wound Measurements and Assessment WC - Nurse 1 - General Ulcer Measurement Start: 02/22/18 14:02 Freq: Status: Active Protocol: Activity Type Activity Date Activity User E-Sign Co-Sign Detail Recorded Client Recorded Date Recorded By Document 02/22/18 14:02 [id number] 02/22/18 14:05 02/22/18 14:02 Wound Center Nurse 1 [Ulcer Assessment] 3. L medial ankle -Combined with other wound No -Current Size (cm) - Length 0.1 -Current Size (cm) - Width 0.1 -Current Size (cm) - Depth 0.1 -Total Square Cm 0.01 -Photo Taken No -Tunneling No -Undermining/Tunneling No -Circular Undermining No -Exudate Amt None Present (0 %) -Wound Margin Distinct, Outline Attached -Granulation Amt Large (67-100%) -Granulation Quality [place] -Slough/Fibrin Yes -Necrosis Amt Small (1-33%) -Necrotic Tissue Type Adherent Slough -Structure Exposed N/A -Texture (Aracely-wound Skin Appearance) Assessed -Moisture (Aracely-wound Skin Appearance Assessed ) -Color (Aracely-wound Skin Appearance) Assessed Hemosiderin Staining -Temperature (Aracely-wound Skin No Abnormality Appearance) (Pt Warm) -Tenderness on Palpation (Aracely-wound No Skin Appearance) -Ulcer Cleansing Rinsed/ Irrigated with Saline -Foul Odor after Cleansing No -Anesthetic Used 5% Lidocaine Gel [Edema Assessment] -Lower Limb Edema Present Yes -Left Calf (cm) 40.5 -Left Ankle (cm) 23.9 WC - Nurse 2 - General Ulcer CM Notes Start: 02/22/18 14:02 Freq: Status: Active Protocol: Activity Type Activity Date Activity User E-Sign Co-Sign Detail Recorded Client Recorded Date Recorded By Document 02/22/18 14:52 [id number] 02/22/18 15:01 02/22/18 14:52 Wound Center Nurse 2 [Procedure/Treatment] 3. L medial ankle -Time 14:58 -Correct Patient Yes -Correct Side, Site, Position Yes -Correct Procedure Yes -Procedure Performed Yes -Post Debridement Size (cm) - Length 0 -Post Debridement Size (cm) - Width 0 -Post Debridement Size (cm) - Depth 0 -Total Square Cm 0 -Wound/Ulcer Outcome Healed- Epithelialized -Ulcer Cleansing Rinsed/ Irrigated with Saline -Foul Odor after Cleansing No -Bioengineered Tissue No -Topical Lidocaine (%) 5 -Bleeding Controlled with NA -Offloading No -Treatment Response Procedure Tolerated Well [See Physician Procedure note for Specifics] Pain Scale: 0-10 Numeric [Pain] -Is Patient Pain Free? Yes Musculoskeletal: No Tenderness to Palpation of Joints or Extremities, Muscle Wasting Neurological: Sensory exam intact to light touch and pain Psych/Mental Status: Normal Affect, Appropriate Debridement Note Post-Debridement Measurements/Treatment - Nurse 2 - General Ulcer CM Notes Start: 02/22/18 14:02 Freq: Status: Active Protocol: Activity Type Activity Date Activity User E-Sign Co-Sign Detail Recorded Client Recorded Date Recorded By Document 02/22/18 14:52 [id number] 02/22/18 15:01 02/22/18 14:52 Wound Center Nurse 2 3. L medial ankle -Time 14:58 -Correct Patient Yes -Correct Side, Site, Position Yes -Correct Procedure Yes -Procedure Performed Yes -Post Debridement Size (cm) - Length 0 -Post Debridement Size (cm) - Width 0 -Post Debridement Size (cm) - Depth 0 -Total Square Cm 0 -Wound/Ulcer Outcome Healed- Epithelialized -Ulcer Cleansing Rinsed/ Irrigated with Saline -Foul Odor after Cleansing No -Bioengineered Tissue No -Topical Lidocaine (%) 5 -Bleeding Controlled with NA -Offloading No -Treatment Response Procedure Tolerated Well Pain Scale: 0-10 Numeric Is Patient Pain Free? Yes No debridement was completed today - The ulcer site has healed Assessment/Plan Assessment: Left leg ulcer healed. venous insufficiency/leg edema with complicated previous traumatic accidents and vascular surgery intervention. Rule out other dermatologic or inflammatory polyarthritis systemic disease. malnutrition. Workup for multiple myeloma was negative. chronic pain Plan: I reviewed and discussed his case including etiology, risk factors, and recommended work up and treatment plan. The ulcer site has healed. To monitor for reopening or return of infection which tammi noted today. To moisturize adjacent skin to keep the skin integrity intact. To discontinue dressing changes. To control edema best as he can tolerate with compression stocking or Tubigrip and periodic elevation throughout the day. His previous rheumatology, dermatology, and hematologic oncology workup is noted. He is discharged from the wound healing center at this time. Return to clinic as needed. I answered all his questions.
== END 2018-03-20 23:59 ==
LOC: WC 09:57
PROVIDERS: Family Provider Family Medicine; PCP Family Medicine; Referring Provider Podiatrist; Visit Provider Podiatrist
DX: Z09 Encounter for follow-up examination after completed treatment for conditions other than malignant neoplasm (principal); I87.2 Venous insufficiency (chronic) (peripheral)
CPT/HCPCS: 99213; G0463

== ENCOUNTER → 2018-02-24 11:18 | Outpatient (CLI) | payer OTHER, SELFPAY ==
[2018-02-25 20:07] LABS: HCV Quant. RNA PCR HCV Not Detected IU/mL (.)
== END ==
PROVIDERS: Family Provider Family Medicine; PCP Family Medicine; Referring Provider Internal Medicine Rheumatology; Visit Provider Internal Medicine Rheumatology
DX: M06.4 Inflammatory polyarthropathy (principal); I83.029 Varicose veins of left lower extremity with ulcer of unspecified site; D47.2 Monoclonal gammopathy; I10 Essential (primary) hypertension; R51 Headache
CPT/HCPCS: 36415; 87522

== ENCOUNTER → 2018-04-27 13:47 | Outpatient (CLI) | payer BC, SELFPAY ==
[2018-04-27 15:47] LABS: Absolute Lymphocyte Count 2.19 X10^3/ul (0.83-4.51); Absolute Neutrophil Count 3.3 X10^3/uL (2.0-7.7); Basophil# 0.05 X10^3/uL; Basophil% 0.8 % (0-1); Eosinophils% 6.1 % (0-5); Hematocrit 42.4 % (40-54); Hemoglobin 14.5 g/dl (13.0-16.5); Lymphocyte # 2.19 X10^3/ul (4.0); Lymphocyte % 33.4 % (19-41); Mean Corp Hgb Conc 34.2 g/gl (32-36); Mean Corpuscular Volume 93.6 fL (80-94); Mean Platelet Vol. 10.8 fl (6.2-12.0); Monocyte# 0.55 X10^3/uL; Monocyte% 8.4 % (0-10); Neutrophil # 3.34 X10^3/uL (2.7-7.7); Platelet Count 214 K/mm3 (150-450); RBC Distribution Width CV 14.2 % (11.6-14.6); RBC Distribution Width SD 48.1 fl (35.1-43.9); Red Blood Count 4.53 M/mm3 (4.6-6.2); White Blood Count 6.6 K/mm3 (4.4-11.0)
[2018-04-27 15:50] LABS: POSITIVE COUNT NO; POSITIVE DIFFERENTIAL NO; POSITIVE MORPHOLOGY NO
[2018-04-27 16:05] LABS: ALB/GLOB Ratio 1.2 RATIO (0.9-2.4); AST(SGOT) 33 U/L (15-37); Alanine Aminotransfer ALT/SGPT 73 U/L (16-61); Albumin, Serum 4.4 g/dL (3.2-5.0); Alkaline Phosphatase 56 U/L (45-117); Anion Gap 14 (5-15); BUN 19 mg/dL (7-18); BUN/Creat Ratio 21.6 RATIO (10-20); Calcium,Total 9.3 mg/dL (8.5-10.1); Chloride 103 mmol/L (98-107); Creatinine, Serum 0.88 mg/dL (0.70-1.30); EST Glomerular Filtration Rate 95 mL/min (>60); Est Glom Filt Rate - Afr Amer 114 mL/min (>60); Globulin 3.6 g/dL (2.2-4.2); Glucose 125 mg/dL (74-106); Potassium 3.8 mmol/L (3.5-5.1); Sodium Level 140 mmol/L (136-145)
== END ==
PROVIDERS: Family Provider Family Medicine; PCP Family Medicine; Referring Provider Internal Medicine Rheumatology; Visit Provider Internal Medicine Rheumatology
DX: M06.4 Inflammatory polyarthropathy (principal); I83.029 Varicose veins of left lower extremity with ulcer of unspecified site; D47.2 Monoclonal gammopathy; I10 Essential (primary) hypertension; R51 Headache; Z85.46 Personal history of malignant neoplasm of prostate; Z79.899 Other long term (current) drug therapy
CPT/HCPCS: 36415; 80053; 85025

== ENCOUNTER → 2018-05-15 12:35 | Outpatient (CLI) | payer BC, SELFPAY ==
--- NOTE | 2018-05-15 12:38 | RAD_ITS ---
STUDY: X-RAY - THORACIC SPINE REASON FOR EXAM: Male, 58 years old. Back pain. TECHNIQUE: 3 view(s) of the thoracic spine were obtained. COMPARISON: None. FINDINGS: Normal kyphosis of the thoracic spine. There is no substantial scoliosis. Normal thoracic vertebrae and endplates. Normal disc space heights. The soft tissue structures are unremarkable. RAD/Thoracic Spine 3 Views IMPRESSION: Normal x-ray examination of the thoracic spine. Electronically Signed: Bebo Hamilton MD at 23:49 EST , Service support ,
== END ==
PROVIDERS: Family Provider Family Medicine; PCP Family Medicine; Referring Provider Anesthesiology Pain Medicine; Visit Provider Anesthesiology Pain Medicine
DX: M54.9 Dorsalgia, unspecified (principal)
CPT/HCPCS: 72072

== ENCOUNTER → 2018-07-17 10:08 | Outpatient (CLI) | payer BC, SELFPAY ==
[2018-07-17 11:08] LABS: Amphetamine Urine VISTA NEGATIVE (<1000 ng/mL); Barbiturate Urine VISTA NEGATIVE (< 200 ng/mL); Benzodiazepine Urine VISTA NEGATIVE (< 200 ng/mL); Cocaine Urine VISTA NEGATIVE (< 300 ng/mL); Ecstacy Urine VISTA NEGATIVE (< 500 ng/mL); Methadone Urine VISTA NEGATIVE (< 300 ng/mL); PCP Urine VISTA NEGATIVE (< 25 ng/mL); THC Urine VISTA NEGATIVE (< 50 ng/mL)
[2018-07-17 11:13] LABS: Vista UDS pH Range 5
== END ==
PROVIDERS: Family Provider Family Medicine; PCP Family Medicine; Referring Provider Anesthesiology Pain Medicine; Visit Provider Anesthesiology Pain Medicine
DX: F11.20 Opioid dependence, uncomplicated (principal)
CPT/HCPCS: 80307

== ENCOUNTER 2020-02-06 15:06 | Emergency (ER) | payer BC, SELFPAY ==
[2020-02-06] VITALS (8 sets, daily range): BP systolic 146–200; BP diastolic 92–122; PULSE 70–94; RESP 18–19; TEMP 35.6; O2SAT 94–99; BMI 27.7; BMI 27.8
--- NOTE | 2020-02-06 15:32 | EKG12_ITS ---
Test Reason : REPEAT Blood Pressure : / mmHG Vent. Rate : 088 BPM Atrial Rate : 088 BPM P-R Int : 142 ms QRS Dur : 082 ms QT Int : 388 ms P-R-T Axes : -17 041 047 degrees QTc Int : 469 ms Normal sinus rhythm Nonspecific T wave abnormality Prolonged QT Abnormal ECG Confirmed by CHERYLE SANTORO, BRANNON ([id number]), editorial cartoonist VICTORINO MAYA ([id number]) on 02/11/2020 9:32:01 A M Referred By: DR. CALZADA Confirmed By:JL LOBATO MD
--- NOTE | 2020-02-06 15:35 | ED.DCSUM_ITS ---
- ER Visit Summary Date of Service: 02/06/20 Chief Complaint: Chest pain History of Present Illness: The patient is a [address] Wilkerson. He reports that he has chest pain that began approximately 2 hours ago while he was at rest. It is a continuous sharp, stabbing pain that waxes and wanes. Is 8 o ut of 10 at worst and 4-10 currently. It is worsened by leaning back. Is relieved by walking around, sitting up, or taking deep breaths. He has had nausea with this, but no vomiting. No diaphoresis or shortness of breath. Reports he took Pepto-Bismol without relief. Patient reports that 5 days ago he was changed from 25 mg of atenolol daily to 25 mg of metoprolol daily. He denies any chest pain or change in dyspnea exertion in the past month. He denies any sick contacts. He does wear a mask. Physical Examination: Vitals: Stable. Afebrile. General: Well-nourished and well-developed. Head: Normocephalic atraumatic. Neck: Supple, no lymphadenopathy. No JVD. Nontender. Cardiovascular: Regular rate and rhythm. No murmurs. Respiratory: No respiratory distress. Clear to auscultation bilaterally. Abdominal: Soft, nontender, nondistended, normal bowel sounds. No guarding, rebound, or peritoneal signs. Back: Nontender. Extremities: Nontender, no edema. Skin: Normal color, no rash. Neurologic: Alert and oriented ?3. Cranial nerves II through XII are intact. Normal strength and sensation. Psych: Normal affect. Test Results: EKG is sinus at [address] changes. There is no significant change since 2017. Repeat EKG is unchanged. Initial troponin is negative. Repeat troponin is negative. D-dimer 0.82. Chem-7 shows a chloride of 109 BUN of 19. CBC shows unit feels a 6. Clinical Impression(s) from Imaging Studies Chest X-Ray 02/06/20 15:44 IMPRESSION: No acute thoracic pathology. Electronically Signed: Bryan Chua, at 16:11 EST Tel , Service support , Chest CTA 02/06/20 17:54 IMPRESSION: No evidence of pulmonary embolus or other acute thoracic disease. Hepatosplenomegaly with fatty infiltration of the liver. Electronically Signed: Bryan Chua, at 18:42 EST Tel , Service support , Emergency Department Course and Treatment: Patient was given dose of aspirin. He is resting comfortably. He refused pain medications. Treatment Plan: Patient would like to go home. He will be discharged instructions to follow-up with his primary care physician since possible. Return to the emergency department for any worsening symptoms. Disposition: To home in improved and stable condition. Impression: 1. Atypical chest pain. 2. Heart score of 4. 3. SARA score of 2. This note was generated with [employer] dictation software. It may contain incorrect words, spelling, and punctuation that were not noted in review of the chart prior to signing ED Disposition - Plan for ED Patient: Instructions: ED Chest Pain Atypical Unkn Cause Referrals: Дмитрий Wilkerson MD [Primary Care Provider] - As soon as possible
[2020-02-06] MEDS: Aspirin 81 MG TAB.CHEW 324 MG PO (15:39)
--- NOTE | 2020-02-06 15:44 | RAD_ITS ---
STUDY: X-RAY CHEST REASON FOR EXAM: Male, 59 years old. Chest pain TECHNIQUE: Frontal view of the chest COMPARISON: 12/09/16 FINDINGS: The lungs are clear. There are no pleural effusions. There is no pneumothorax. The heart is normal in size. The visualized osseous structures are within normal limits. RAD/Chest 1 View (Portable) IMPRESSION: No acute thoracic pathology. Electronically Signed: Bryan Chua, at 16:11 EST Tel , Service support ,
[2020-02-06] MEDS: 0.9% Normal Saline 1,000 ML 150 ML IV (15:45)
[2020-02-06 16:05] LABS: Absolute Neutrophil Count 5.3 X10^3/uL (2.0-7.7); Basophil% 1.1 % (0-1); Eosinophil# 0.54 X10^3/uL; Eosinophils% 5.8 % (0-5); Hematocrit 49.1 % (40-54); Hemoglobin 16.5 g/dL (13.0-16.5); Mean Corp Hgb Conc 33.6 g/dL (32-36); Mean Corpuscular Hgb 32.9 pg (27.0-32.0); Mean Platelet Vol. 10.8 fl (6.2-12.0); Monocyte# 0.74 X10^3/uL; NRBC Flagged by Analyzer 0 % (0-5); Neutrophil # 5.28 X10^3/uL (2.7-7.7); Neutrophil % 56.9 % (47-70); Platelet Count 208 K/mm3 (150-450); RBC Distribution Width SD 43.6 fl (35.1-43.9); Red Blood Count 5.01 M/mm3 (4.6-6.2); White Blood Count 9.3 K/mm3 (4.4-11.0)
[2020-02-06 16:19] LABS: Anion Gap 6 (5-15); BUN 19 mg/dL (7-18); Calcium,Total 9.4 mg/dL (8.5-10.1); Chloride 108 mmol/L (98-107); Creatinine, Serum 0.95 mg/dL (0.70-1.30); EST Glomerular Filtration Rate 86 mL/min (>60); Est Glom Filt Rate - Afr Amer 104 mL/min (>60); Estimated Creatinine Clearance 94.62 ml/min; Glucose 95 mg/dL (74-106); Potassium 4.3 mmol/L (3.5-5.1); Sodium Level 139 mmol/L (136-145)
[2020-02-06 16:31] LABS: D-Dimer Quantitative (DVT/PE) 0.82 FEU/ug/m (0.27-0.49)
--- NOTE | 2020-02-06 17:54 | CT_ITS ---
STUDY: CTA CHEST REASON FOR EXAM: Male, 59 years old. CP,NAUSEA,DIZZINESS RADIATION DOSAGE (If Supplied By Facility): CTDIvol = ( 14.18 ) mGy, DLP = ( 476.58 ) mGycm TECHNIQUE: The examination was performed with the intravenous administration of IV 100mL Isovue-370. Post-processing of the angiographic images was performed, with multiplanar reformation and 3D reconstruction. Individualized dose optimization techniques were used for this CT. COMPARISON: 05/26/14 FINDINGS: There is dependent atelectasis noted in the lungs. There are no pulmonary infiltrates or pleural effusions. The central airways are patent. There is no pneumothorax. There is no evidence of pulmonary embolus. There is no evidence of thoracic aortic aneurysm or dissection. The heart and pericardium are within normal limits. There is no thoracic lymphadenopathy. Images through the upper abdomen demonstrate hepatosplenomegaly with fatty infiltration of the liver. CT/CTA Chest W/WO Contrast IMPRESSION: No evidence of pulmonary embolus or other acute thoracic disease. Hepatosplenomegaly with fatty infiltration of the liver. Electronically Signed: Bryan Chua, at 18:42 EST Tel , Service support ,
--- NOTE | 2020-02-06 18:15 | EKG12_ITS ---
Test Reason : CP Blood Pressure : / mmHG Vent. Rate : 090 BPM Atrial Rate : 090 BPM P-R Int : 144 ms QRS Dur : 086 ms QT Int : 380 ms P-R-T Axes : -25 040 023 degrees QTc Int : 464 ms Normal sinus rhythm Normal ECG Confirmed by CHERYLE SANTORO, BRANNON ([id number]), sound editor VICTORINO MAYA ([id number]) on 02/11/2020 9:32:15 A M Referred By: SELINA Confirmed By:JL LOBATO MD
--- NOTE | 2020-02-06 20:17 | ED.RN ---
pt given instructions to receive covid results.
== END 2020-02-06 20:17 | disposition home or self-care (01) ==
LOC: ED 15:54
PROVIDERS: Emergency Provider Emergency Medicine; PCP Family Medicine
DX: R07.89 Other chest pain (principal); R51.9 Headache, unspecified; R19.7 Diarrhea, unspecified; R11.0 Nausea; I10 Essential (primary) hypertension; F17.290 Nicotine dependence, other tobacco product, uncomplicated; Z79.82 Long term (current) use of aspirin; Z79.899 Other long term (current) drug therapy
CPT/HCPCS: 71045; 71275; 80048; 84484; 85025; 85379; 87635; 93005; 96360; 96361; 99285; J7030; Q9967; A4216; U0003

== ENCOUNTER 2020-02-13 08:15 | Outpatient (RCR) | payer BC, SELFPAY ==
[2020-01-23 08:15] VITALS: BP 121/93; PULSE 93; RESP 20; TEMP 36.4; BMI 27.7
[2020-01-23 15:11] LABS: M R Staph aureus DNA By PCR Negative (Negative); Probe Check PASS; Specimen Processing Control PASS; Staph aureus DNA By PCR NEGATIVE (Negative)
--- NOTE | 2020-01-23 21:47 | PN.PCM_ITS ---
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 He denies fever, chills, nausea, vomiting, or loss of appetite. He reports that he had returned weeping and pinkness. He thinks the ulcer site has returned. He was first seen for this condition on 12-20-2019 [facility] and was further referred to the wound healing center. 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 He already demonstrates delayed healing and is failing conservative care including compression management local wound care. There is mild pain, and increased drainage. Progress of Wound: worse status - Physical Exam Vital Signs Temp Pulse Resp BP 97.6 F L 93 20 H 121/93 H 01/23/20 08:15 01/23/20 08:15 01/23/20 08:15 01/23/20 08:15 General: Alert, Oriented x3, Cooperative, No apparent distress HEENT: Atraumatic Extremities: No cyanosis, Capillary Refill Less than 3 Seconds, No Calf T enderness, Edema, Peripheral Pulses Normal Skin: Ulcer/ Wound - Skin discontinuity cluster with some hemorrhagic and granulation tissue and weeping serous drainage. No odor, purulence, erythema or streaking. This ulcer site has progressively enlarged over the past month Wound Measurements and Assessment WC - Nurse 1 - General Ulcer Measurement Start: 01/23/20 08:15 Freq: Status: Active Protocol: Activity Type Activity Date Activity User E-Sign Co-Sign Detail Recorded Client Recorded Date Recorded By Document 01/23/20 08:15 DL [id number] 01/23/20 08:26 DL 01/23/20 08:15 Wound Center Nurse 1 [Ulcer Assessment] #4 L Med LE -Current Size (cm) - Length 14.5 -Current Size (cm) - Width 6 -Current Size (cm) - Depth 0.1 -Total Square Cm 87.0 -Photo Taken Yes -Classification - Thickness Full Thickness without Exposed Support Structure -Exudate Amt Medium -Exudate Type Serosanguineous -Wound Margin Indistinct, Non -Visible -Granulation Amt Medium (34-66%) -Granulation Quality Red -Necrosis Amt Medium (34-66%) -Necrotic Tissue Type Adherent Slough -Structure Exposed N/A -Texture (Aracely-wound Skin Appearance) Scarring -Moisture (Aracely-wound Skin Appearance Weeping ) -Color (Aracely-wound Skin Appearance) Hemosiderin Staining -Temperature (Aracely-wound Skin No Abnormality Appearance) (Pt Warm) -Tenderness on Palpation (Aracely-wound No Skin Appearance) -Ulcer Cleansing Rinsed/ Irrigated with Saline -Foul Odor after Cleansing No -Anesthetic Used 4% Lidocaine Solution [Edema Assessment] -Left Calf (cm) 38 -Left Ankle (cm) 23.3 WC - Nurse 2 - General Ulcer CM Notes Start: 01/23/20 08:15 Freq: Status: Active Protocol: Activity Type Activity Date Activity User E-Sign Co-Sign Detail Recorded Client Recorded Date Recorded By Document 01/23/20 08:56 [id number] 01/23/20 09:00 JF 01/23/20 08:56 Wound Center Nurse 2 [Procedure/Treatment] #4 L Med LE -Time 08:56 -Correct Patient Yes -Correct Side, Site, Position Yes -Correct Procedure Yes -Procedure Performed Yes -Type of Procedure Debridement -Clinical Debridement Subcutaneous -Tissue Removed Subcutaneous -Post Debridement (cm) - Length 6.7 -Post Debridement (cm) - Width 5.1 -Post Debridement (cm) - Depth 0.1 -Total Square (Post) (cm) 34.17 -Area of Debridement (cm) - Length 3.4 -Area of Debridement (cm) - Width 2.5 -Total Square (Area) (cm) 8.50 -Tunneling No -Undermining/Tunneling No -Circular Undermining No -Wound/Ulcer Outcome Not Healed -Ulcer Cleansing Rinsed/ Irrigated with Saline -Foul Odor after Cleansing No -Bioengineered Tissue No -Bleeding Controlled with Pressure -Offloading No -Treatment Response Procedure Tolerated Well -Debridement - Subq, 1st 20sq cm Yes [See Physician Procedure note for Specifics] Pain Scale: 0-10 Numeric [Pain] -Is Patient Pain Free? Yes - Nurse 3 - General Ulcer D/C NN Start: 01/23/20 08:15 Freq: Status: Active Protocol: Activity Type Activity Date Activity User E-Sign Co-Sign Detail Recorded Client Recorded Date Recorded By Document 01/23/20 09:19 [facility] [id number] 01/23/20 09:19 [facility] 01/23/20 09:19 Wound Care Nurse 3 [Wound Dressing] #4 L Med LE -Ulcer Cleansing Rinsed/ Irrigated with Saline -Foul Odor after Cleansing No -Primary Dressing Applied NonAdherent Contact Layer, Other -Other Dressing hydrogel -Primary Dressing Covered/Secured Other with -Other Covering abd [Compression Applied] Left -Multi-Layered Wrap Application Multi-Layer Comp - Left ($) [Post Procedure Tolerated] -Treatment Response Procedure Tolerated Well Pain Scale: 0-10 Numeric [Pain] -Is Patient Pain Free? Yes - Visit Discharge [Visit Discharge Information] -Discharge Condition Stable -Ambulatory Status Ambulatory -Transportation Private Auto Musculoskeletal: No Tenderness to Palpation of Joints or Extremities, Muscle Wasting Neurological: Sensory exam intact to light touch and pain Psych/Mental Status: Normal Affect, Appropriate Debridement Note Post-Debridement Measurements/Treatment - Nurse 2 - General Ulcer CM Notes Start: 01/23/20 08:15 Freq: Status: Active Protocol: Activity Type Activity Date Activity User E-Sign Co-Sign Detail Recorded Client Recorded Date Recorded By Document 01/23/20 08:56 [id number] 01/23/20 09:00 01/23/20 08:56 Wound Center Nurse 2 #4 L Med LE -Time 08:56 -Correct Patient Yes -Correct Side, Site, Position Yes -Correct Procedure Yes -Procedure Performed Yes -Type of Procedure Debridement -Clinical Debridement Subcutaneous -Tissue Removed Subcutaneous -Post Debridement (cm) - Length 6.7 -Post Debridement (cm) - Width 5.1 -Post Debridement (cm) - Depth 0.1 -Total Square (Post) (cm) 34.17 -Area of Debridement (cm) - Length 3.4 -Area of Debridement (cm) - Width 2.5 -Total Square (Area) (cm) 8.50 -Tunneling No -Undermining/Tunneling No -Circular Undermining No -Wound/Ulcer Outcome Not Healed -Ulcer Cleansing Rinsed/ Irrigated with Saline -Foul Odor after Cleansing No -Bioengineered Tissue No -Bleeding Controlled with Pressure -Offloading No -Treatment Response Procedure Tolerated Well -Debridement - Subq, 1st 20sq cm Yes Pain Scale: 0-10 Numeric Is Patient Pain Free? Yes - Nurse 3 - General Ulcer D/C NN Start: 01/23/20 08:15 Freq: Status: Active Protocol: Activity Type Activity Date Activity User E-Sign Co-Sign Detail Recorded Client Recorded Date Recorded By Document 01/23/20 09:19 [facility] [id number] 01/23/20 09:19 [facility] 01/23/20 09:19 Wound Care Nurse 3 #4 L Med LE -Ulcer Cleansing Rinsed/ Irrigated with Saline -Foul Odor after Cleansing No -Primary Dressing Applied NonAdherent Contact Layer, Other -Other Dressing hydrogel -Primary Dressing Covered/Secured with Other -Other Covering abd Left -Multi-Layered Wrap Application Multi-Layer Comp - Left ($) Treatment Response Procedure Tolerated Well Pain Scale: 0-10 Numeric Is Patient Pain Free? Yes WC - Visit Discharge Discharge Condition Stable Ambulatory Status Ambulatory Transportation Private Auto Wound debrided: leg Laterality: Left Type of Debridement: Excisional debridement Anesthesia Used: 5% Lidocaine Gel Depth: in the subcutaneous layer Percentage of wound debrided: - - 5% Instrument Used: #15 blade Tissue Removed: fibrous, devitalized subcutaneous, biofilm, slough Severity: Fat Layer Exposed Amount of bleeding with debridement: Mild Bleeding Controlled with: Pressure Patient tolerated procedure well Assessment/Plan Active Problems Venous insufficiency (Chronic) Dermatitis (Chronic) 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 Ulcer colonization contamination work-up in process. venous insufficiency/leg edema with complicated previous traumatic accidents and vascular surgery intervention '. 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 Workup for multiple myeloma was negative. chronic pain Plan: I reviewed and discussed his case including etiology, risk factors, and recommended work up and treatment plan. This ulcer site is reopened and debridement was performed as noted in the clinical panel. I recommend application of advanced wound care product, epi fix. Verbal consent was obtained and prior authorization will be initiated. It is noted that this ulcer site has been open for 1 month and has failed other conservative care. This is medically necessary for limb salvage. In the meantime he was advised to wash with Dial soap and water and to apply Adaptic and hydrogel daily. After debridement and saline irrigation was performed a culture including aerobic, anaerobic, and MRSA PCR was obtained. Results will determine if antibiotics are needed versus more aggressive antimicrobial soap. He did follow-up with vascular surgery at [facility] is advised. This is reviewed and it appears his venous insufficiency is contributing to his condition amongst other medical systemic contributions. Additional intervention was not recommended. His duplex showed widely patent stents. 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 To avoid pressure to wound at all times. To wear compression sock or tubigrip as tolerated. He could not tolerate a compression stocking because it hurts his previous left leg surgical intervention site. He will try an Gary wrap at this time. . I recommended he return to the wound healing center in 1 week for a final healed ulcer site check, or call sooner if he has any questions or concerns.
[2020-01-30 08:09] VITALS: BP 168/97; PULSE 91; RESP 18; TEMP 36; BMI 27.7
[2020-01-30 08:37] VITALS: BP 160/88
--- NOTE | 2020-01-30 23:11 | PCM.WC.PN ---
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 He denies fever, chills, nausea, vomiting, or loss of appetite. He reports that he had returned weeping and pinkness. He was first seen for this condition [facility] and was further referred to the wound healing center. He had prior work-up for July Albrceht syndrome and is also been evaluated by curatorial specialist in dermatology. He already demonstrates delayed healing and is failing conservative care including compression management local wound care. There is mild pain, and continued drainage. Progress of Wound: Stable - Physical Exam Vital Signs Temp Pulse Resp BP 96.8 F L 91 18 160/88 H 01/30/20 08:09 01/30/20 08:09 01/30/20 08:09 01/30/20 08:37 General: Alert, Oriented x3, Cooperative, No apparent distress HEENT: Atraumatic Extremities: No cyanosis, Capillary Refill Less than 3 Seconds, No Calf Tenderness, Diminished Peripheral Pulses, Edema Skin: Ulcer/ Wound - No purulence, odor or streaking. The ulcer has intermittent islands of subhemorrhagic tissue with inflammation and erythema. The skin is shiny and atrophic and also has some hyperpigmentation Wound Measurements and Assessment WC - Nurse 1 - General Ulcer Measurement Start: 01/23/20 08:15 Freq: Status: Active Protocol: Activity Type Activity Date Activity User E-Sign Co-Sign Detail Recorded Client Recorded Date Recorded By Document 01/30/20 08:09 RB [id number] 01/30/20 08:11 RB 01/30/20 08:09 Wound Center Nurse 1 [Ulcer Assessment] #4 L Med LE -Combined with other wound No -Current Size (cm) - Length 6 -Current Size (cm) - Width 2.5 -Current Size (cm) - Depth 0.1 -Total Square Cm 15.0 -Tunneling No -Undermining/Tunneling No -Circular Undermining No -Exudate Amt Medium -Exudate Type Serosanguineous -Wound Margin Flat & Intact -Granulation Amt Medium (34-66%) -Granulation Quality [place] -Slough/Fibrin Yes -Necrosis Amt Small (1-33%) -Necrotic Tissue Type Adherent Slough -Structure Exposed N/A -Texture (Aracely-wound Skin Appearance) Assessed, Excoriation -Moisture (Aracely-wound Skin Appearance Assessed ) -Color (Aracely-wound Skin Appearance) Assessed -Temperature (Aracely-wound Skin No Abnormality Appearance) (Pt Warm) -Tenderness on Palpation (Aracely-wound No Skin Appearance) -Ulcer Cleansing Wound Cleanser -Foul Odor after Cleansing No -Anesthetic Used 4% Lidocaine Solution [Edema Assessment] -Lower Limb Edema Present Yes -Left Calf (cm) 38.5 -Left Ankle (cm) 23.5 WC - Nurse 2 - General Ulcer CM Notes Start: 01/23/20 08:15 Freq: Status: Active Protocol: Activity Type Activity Date Activity User E-Sign Co-Sign Detail Recorded Client Recorded Date Recorded By Document 01/30/20 08:20 JF [id number] 01/30/20 08:21 JF 01/30/20 08:20 Wound Center Nurse 2 [Procedure/Treatment] #4 L Med LE -Correct Patient No -Correct Side, Site, Position No -Correct Procedure No -Procedure Performed No -Wound/Ulcer Outcome Not Healed [See Physician Procedure note for Specifics] Pain Scale: 0-10 Numeric [Pain] -Is Patient Pain Free? Yes WC - Nurse 3 - General Ulcer D/C NN Start: 01/23/20 08:15 Freq: Status: Active Protocol: Activity Type Activity Date Activity User E-Sign Co-Sign Detail Recorded Client Recorded Date Recorded By Document 01/30/20 08:37 RB [id number] 01/30/20 08:38 RB 01/30/20 08:37 Wound Care Nurse 3 [Wound Dressing] #4 L Med LE -Ulcer Cleansing Rinsed/ Irrigated with Saline -Primary Dressing Applied NonAdherent Contact Layer -Primary Dressing Covered/Secured Dry Gauze,Dry with Gauze & Roll Gauze,Secured with Tape [Compression Applied] Left -Other gary Vital Signs [Blood Pressure] -Blood Pressure (90/60-120/80) 160/88 H -Blood Pressure Mean (mm Hg) 112 -Source Monitor -Position Sitting -Blood Pressure Location Left Arm Pain Scale: 0-10 Numeric [Pain] -Is Patient Pain Free? Yes - Visit Discharge [Visit Discharge Information] -Discharge Condition Stable -Ambulatory Status Ambulatory -Transportation Private Auto -Medication Reconcilliation completed No & provided to patient/care provider -Clinical Summary of Care Provided Yes Musculoskeletal: No Tenderness to Palpation of Joints or Extremities, Muscle Wasting, Tenderness Neurological: Sensory exam intact to light touch and pain Psych/Mental Status: Normal Affect, Appropriate Debridement Note Post-Debridement Measurements/Treatment - Nurse 2 - General Ulcer CM Notes Start: 01/23/20 08:15 Freq: Status: Active Protocol: Activity Type Activity Date Activity User E-Sign Co-Sign Detail Recorded Client Recorded Date Recorded By Document 01/23/20 08:56 JF [id number] 01/23/20 09:00 Document 01/30/20 08:20 JF [id number] 01/30/20 08:21 JF 01/23/20 01/30/20 08:56 08:20 Wound Center Nurse 2 #4 L Med LE -Time 08:56 -Correct Patient Yes No -Correct Side, Site, Position Yes No -Correct Procedure Yes No -Procedure Performed Yes No -Type of Procedure Debridement -Clinical Debridement Subcutaneous -Tissue Removed Subcutaneous -Post Debridement (cm) - Length 6.7 -Post Debridement (cm) - Width 5.1 -Post Debridement (cm) - Depth 0.1 -Total Square (Post) (cm) 34.17 -Area of Debridement (cm) - Length 3.4 -Area of Debridement (cm) - Width 2.5 -Total Square (Area) (cm) 8.50 -Tunneling No -Undermining/Tunneling No -Circular Undermining No -Wound/Ulcer Outcome Not Healed Not Healed -Ulcer Cleansing Rinsed/ Irrigated with Saline -Foul Odor after Cleansing No -Bioengineered Tissue No -Bleeding Controlled with Pressure -Offloading No -Treatment Response Procedure Tolerated Well -Debridement - Subq, 1st 20sq cm Yes Pain Scale: 0-10 Numeric Is Patient Pain Free? Yes Yes WC - Nurse 3 - General Ulcer D/C NN Start: 01/23/20 08:15 Freq: Status: Active Protocol: Activity Type Activity Date Activity User E-Sign Co-Sign Detail Recorded Client Recorded Date Recorded By Document 01/23/20 09:19 [facility] [id number] 01/23/20 09:19 [facility] Document 01/30/20 08:37 RB [id number] 01/30/20 08:38 RB 01/23/20 01/30/20 09:19 08:37 Wound Care Nurse 3 #4 L Med LE -Ulcer Cleansing Rinsed/ Rinsed/ Irrigated with Irrigated with Saline Saline -Foul Odor after Cleansing No -Primary Dressing Applied NonAdherent NonAdherent Contact Layer, Contact Layer Other -Other Dressing hydrogel -Primary Dressing Covered/Secured with Other Dry Gauze,Dry Gauze & Roll Gauze,Secured with Tape -Other Covering abd Left -Multi-Layered Wrap Application Multi-Layer Comp - Left ($) -Other gary Treatment Response Procedure Tolerated Well Vital Signs Blood Pressure (90/60-120/80) 160/88 H Blood Pressure Mean (mm Hg) 112 Source Monitor Position Sitting Blood Pressure Location Left Arm Pain Scale: 0-10 Numeric Is Patient Pain Free? 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 Ulcer colonization contamination. venous insufficiency/leg edema with complicated previous traumatic accidents and vascular surgery intervention. 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 Workup for multiple myeloma was negative. chronic pain Plan: I reviewed and discussed his case including etiology, risk factors, and recommended work up and treatment plan. He has very tender today and therefore debridement was not performed. There is some intermittent subhemorrhagic and subcutaneous tissue exposed. The tissue appears inflamed. I recommend application of advanced wound care product, epi fix. Verbal consent was obtained and prior authorization will be initiated. It is noted that this ulcer site has been open for 1 month and has failed other conservative care. This is medically necessary for limb salvage. In the meantime he was advised to wash with Dial soap and water and to apply Adaptic and hydrogel daily. After debridement and saline irrigation was performed a culture including aerobic, anaerobic, and MRSA PCR was obtained. So far there is staph lugdunensis and corynebacterium growth. I recommend addressing this locally with 0.25% Dakin solution cleanse and dressing change for the next 1 to 2 weeks. If local signs of infection and inflammation progress and oral antibiotic will be implemented. He does not appear to be systemically ill at this time. He did follow-up with vascular surgery at [facility] is advised. This is reviewed and it appears his venous insufficiency is contributing to his condition amongst other medical systemic contributions. Additional intervention was not recommended. His duplex showed widely patent stents. 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 To avoid pressure to wound at all times. To wear compression sock or tubigrip as tolerated. He could not tolerate a compression stocking because it hurts his previous left leg surgical intervention site. He will try an Gary wrap at this time. . I recommended he return to the wound healing center in 1 week for a final healed ulcer site check, or call sooner if he has any questions or concerns.
[2020-02-06 08:58] VITALS: BP 161/97; PULSE 99; RESP 20; TEMP 36.2; BMI 27.7
[2020-02-06 09:37] VITALS: BP 160/92
--- NOTE | 2020-02-06 09:56 | PCM.WC.PN ---
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 He denies fever, chills, nausea, vomiting, or loss of appetite. He reports that he had returned weeping and pinkness. He was first seen for this condition on 12-20-2019 at [facility] and was further referred to the wound healing center. He had prior work-up for July Albrecht syndrome and is also been evaluated by customs entry writer in dermatology. He already demonstrates delayed healing and is failing conservative care including compression management local wound care. There is mild pain, and continued drainage. Progress of Wound: Stable - Physical Exam Vital Signs Temp Pulse Resp BP 97.1 F L 99 20 H 160/92 H 02/06/20 08:58 02/06/20 08:58 02/06/20 08:58 02/06/20 09:37 Wound Measurements and Assessment WC - Nurse 1 - General Ulcer Measurement Start: 01/23/20 08:15 Freq: Status: Active Protocol: Activity Type Activity Date Activity User E-Sign Co-Sign Detail Recorded Client Recorded Date Recorded By Document 02/06/20 08:58 DL [id number] 02/06/20 09:03 DL 02/06/20 08:58 Wound Center Nurse 1 [Ulcer Assessment] #4 L Med LE -Current Size (cm) - Length 0.1 -Current Size (cm) - Width 0.1 -Current Size (cm) - Depth 0.1 -Total Square Cm 0.01 -Photo Taken No -Exudate Amt None Present -Wound Margin Indistinct, Non -Visible -Granulation Amt Large (67-100%) -Granulation Quality [place] -Necrosis Amt None Present (0 %) -Structure Exposed N/A -Texture (Aracely-wound Skin Appearance) Excoriation, Scarring -Moisture (Aracely-wound Skin Appearance Dry/Scaly ) -Color (Aracely-wound Skin Appearance) Hemosiderin Staining -Temperature (Aracely-wound Skin No Abnormality Appearance) (Pt Warm) -Tenderness on Palpation (Aracely-wound No Skin Appearance) -Ulcer Cleansing Rinsed/ Irrigated with Saline -Foul Odor after Cleansing No -Anesthetic Used 4% Lidocaine Solution [Edema Assessment] -Point of Measurement (cm from the 38 distal point) -Point of measurement (cm from the 23.5 medial instep) NICCI - Nurse 2 - General Ulcer CM Notes Start: 01/23/20 08:15 Freq: Status: Active Protocol: Activity Type Activity Date Activity User E-Sign Co-Sign Detail Recorded Client Recorded Date Recorded By Document 02/06/20 09:10 SHAWN [id number] 02/06/20 09:13 SHAWN 02/06/20 09:10 Wound Center Nurse 2 [Procedure/Treatment] #4 L Med LE -Time 09:11 -Correct Patient Yes -Correct Side, Site, Position Yes -Correct Procedure Yes -Procedure Performed Yes -Type of Procedure Debridement -Clinical Debridement Epidermis / Dermis -Tissue Removed Epidermis, Dermis -Post Debridement (cm) - Length 2.4 -Post Debridement (cm) - Width 0.5 -Post Debridement (cm) - Depth 0.1 -Total Square (Post) (cm) 1.20 -Area of Debridement (cm) - Length 2.4 -Area of Debridement (cm) - Width 0.5 -Total Square (Area) (cm) 1.20 -Tunneling No -Undermining/Tunneling No -Circular Undermining No -Wound/Ulcer Outcome Not Healed -Ulcer Cleansing Rinsed/ Irrigated with Saline -Foul Odor after Cleansing No -Bioengineered Tissue No -Bleeding Controlled with Pressure -Offloading No -Treatment Response Procedure Tolerated Well -Debridement - Open, 1st 20sq cm Yes [See Physician Procedure note for Specifics] Pain Scale: 0-10 Numeric [Pain] -Is Patient Pain Free? Yes NICCI - Nurse 3 - General Ulcer D/C NN Start: 01/23/20 08:15 Freq: Status: Active Protocol: Activity Type Activity Date Activity User E-Sign Co-Sign Detail Recorded Client Recorded Date Recorded By Document 02/06/20 09:37 RB [id number] 02/06/20 09:38 RB 02/06/20 09:37 Wound Care Nurse 3 [Wound Dressing] #4 L Med LE -Ulcer Cleansing Wound Cleanser -Primary Dressing Applied NonAdherent Contact Layer -Primary Dressing Covered/Secured Dry Gauze,Dry with Gauze & Roll Gauze,Secured with Tape -Other Covering gary Vital Signs [Blood Pressure] -Blood Pressure (90/60-120/80) 160/92 H -Blood Pressure Mean (mm Hg) 114 -Source Monitor -Position Sitting -Blood Pressure Location Left Arm Teaching: Wound Center [Wound Center Education] (Items with an * have Printed Materials Available- Please identify what is given to patient under the Teaching materials given to patient and caregiver Section. Compression Wraps & Stockings -Person Taught Patient -Teaching Method Discussion -Response to teaching Reinforcement needed WC - Visit Discharge [Visit Discharge Information] -Discharge Condition Stable -Ambulatory Status Ambulatory -Transportation Private Auto -Medication Reconcilliation completed No & provided to patient/care provider -Clinical Summary of Care Provided Yes Debridement Note Post-Debridement Measurements/Treatment WC - Nurse 2 - General Ulcer CM Notes Start: 01/23/20 08:15 Freq: Status: Active Protocol: Activity Type Activity Date Activity User E-Sign Co-Sign Detail Recorded Client Recorded Date Recorded By Document 01/23/20 08:56 [id number] 01/23/20 09:00 Document 01/30/20 08:20 [id number] 01/30/20 08:21 Document 02/06/20 09:10 [id number] 02/06/20 09:13 01/23/20 01/30/20 02/06/20 08:56 08:20 09:10 Wound Center Nurse 2 #4 L Med LE -Time 08:56 09:11 -Correct Patient Yes No Yes -Correct Side, Site, Position Yes No Yes -Correct Procedure Yes No Yes -Procedure Performed Yes No Yes -Type of Procedure Debridement Debridement -Clinical Debridement Subcutaneous Epidermis / Dermis -Tissue Removed Subcutaneous Epidermis, Dermis -Post Debridement (cm) - Length 6.7 2.4 -Post Debridement (cm) - Width 5.1 0.5 -Post Debridement (cm) - Depth 0.1 0.1 -Total Square (Post) (cm) 34.17 1.20 -Area of Debridement (cm) - Length 3.4 2.4 -Area of Debridement (cm) - Width 2.5 0.5 -Total Square (Area) (cm) 8.50 1.20 -Tunneling No No -Undermining/Tunneling No No -Circular Undermining No No -Wound/Ulcer Outcome Not Healed Not Healed Not Healed -Ulcer Cleansing Rinsed/ Rinsed/ Irrigated with Irrigated with Saline Saline -Foul Odor after Cleansing No No -Bioengineered Tissue No No -Bleeding Controlled with Pressure Pressure -Offloading No No -Treatment Response Procedure Procedure Tolerated Well Tolerated Well -Debridement - Open, 1st 20sq cm Yes -Debridement - Subq, 1st 20sq cm Yes Pain Scale: 0-10 Numeric Is Patient Pain Free? Yes Yes Yes WC - Nurse 3 - General Ulcer D/C NN Start: 01/23/20 08:15 Freq: Status: Active Protocol: Activity Type Activity Date Activity User E-Sign Co-Sign Detail Recorded Client Recorded Date Recorded By Document 01/23/20 09:19 [facility] [id number] 01/23/20 09:19 [facility] Document 01/30/20 08:37 [id number] 01/30/20 08:38 RB Document 02/06/20 09:37 RB [id number] 02/06/20 09:38 RB 01/23/20 01/30/20 02/06/20 09:19 08:37 09:37 Wound Care Nurse 3 #4 L Med LE -Ulcer Cleansing Rinsed/ Rinsed/ Wound Cleanser Irrigated with Irrigated with Saline Saline -Foul Odor after Cleansing No -Primary Dressing Applied NonAdherent NonAdherent NonAdherent Contact Layer, Contact Layer Contact Layer Other -Other Dressing hydrogel -Primary Dressing Covered/Secured with Other Dry Gauze,Dry Dry Gauze,Dry Gauze & Roll Gauze & Roll Gauze,Secured Gauze,Secured with Tape with Tape -Other Covering abd gary Left -Multi-Layered Wrap Application Multi-Layer Comp - Left ($) -Other gary Treatment Response Procedure Tolerated Well Vital Signs Blood Pressure (90/60-120/80) 160/88 H 160/92 H Blood Pressure Mean (mm Hg) 112 114 Source Monitor Monitor Position Sitting Sitting Blood Pressure Location Left Arm Left Arm Pain Scale: 0-10 Numeric Is Patient Pain Free? 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 Ulcer colonization contamination. venous insufficiency/leg edema with complicated previous traumatic accidents and vascular surgery intervention. 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 Workup for multiple myeloma was negative. chronic pain Plan: I reviewed and discussed his case including etiology, risk factors, and recommended work up and treatment plan. He has very tender today and therefore debridement was not performed. There is some intermittent subhemorrhagic and subcutaneous tissue exposed. The tissue appears inflamed. I recommend application of advanced wound care product, epi fix. Verbal consent was obtained and prior authorization will be initiated. It is noted that this ulcer site has been open for 1 month and has failed other conservative care. This is medically necessary for limb salvage. In the meantime he was advised to wash with Dial soap and water and to apply Adaptic and hydrogel daily. After debridement and saline irrigation was performed a culture including aerobic, anaerobic, and MRSA PCR was obtained. So far there is staph lugdunensis and corynebacterium growth. I recommend addressing this locally with 0.25% Dakin solution cleanse and dressing change for the next 1 to 2 weeks. If local signs of infection and inflammation progress and oral antibiotic will be implemented. He does not appear to be systemically ill at this time. He did follow-up with vascular surgery at [facility] is advised. This is reviewed and it appears his venous insufficiency is contributing to his condition amongst other medical systemic contributions. Additional intervention was not recommended. His duplex showed widely patent stents. 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 To avoid pressure to wound at all times. To wear compression sock or tubigrip as tolerated. He could not tolerate a compression stocking because it hurts his previous left leg surgical intervention site. He will try an Gary wrap at this time. . I recommended he return to the wound healing center in 1 week for a final healed ulcer site check, or call sooner if he has any questions or concerns.
--- NOTE | 2020-02-06 10:14 | PN.PCM_ITS ---
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 He denies fever, chills, nausea, vomiting, or loss of appetite. He reports that he had returned weeping and pinkness. He was first seen for this condition on 12[facility] and was further referred to the wound healing center. 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 He already demonstrates delayed healing and is failing conservative care including compression management local wound care. There is mild pain, and continued drainage. He has been changing dressing with quarter strength Dakin's as advised. His redness is less intense however it is extending into the back of his leg. He has been applying an Gary wrap on a more consistent basis to his mid leg as tolerated. Progress of Wound: Stable ulcer, continued periwound skin inflammation - Physical Exam Vital Signs Temp Pulse Resp BP 97.1 F L 99 20 H 160/92 H 02/06/20 08:58 02/06/20 08:58 02/06/20 08:58 02/06/20 09:37 General: Alert, Oriented x3, Cooperative, No apparent distress HEENT: Atraumatic Extremities: No cyanosis, Capillary Refill Less than 3 Seconds, No Calf Tend erness, Diminished Peripheral Pulses, Edema Skin: Ulcer/ Wound - No bogginess or fluctuance on palpation. No necrosis or deep tissue exposure. The ulcer bed is subcutaneous and subhemorrhagic in a scattered manner. There is periulcer inflammation with erythema skin texture change with skin peeling that is less intense compared to last week. No streaking, - - Adjacent skin is hairless and atrophic Wound Measurements and Assessment - Nurse 1 - General Ulcer Measurement Start: 01/23/20 08:15 Freq: Status: Active Protocol: Activity Type Activity Date Activity User E-Sign Co-Sign Detail Recorded Client Recorded Date Recorded By Document 02/06/20 08:58 DL [id number] 02/06/20 09:03 DL 02/06/20 08:58 Wound Center Nurse 1 [Ulcer Assessment] #4 L Med LE -Current Size (cm) - Length 0.1 -Current Size (cm) - Width 0.1 -Current Size (cm) - Depth 0.1 -Total Square Cm 0.01 -Photo Taken No -Exudate Amt None Present -Wound Margin Indistinct, Non -Visible -Granulation Amt Large (67-100%) -Granulation Quality [place] -Necrosis Amt None Present (0 %) -Structure Exposed N/A -Texture (Aracely-wound Skin Appearance) Excoriation, Scarring -Moisture (Aracely-wound Skin Appearance Dry/Scaly ) -Color (Aracely-wound Skin Appearance) Hemosiderin Staining -Temperature (Aracely-wound Skin No Abnormality Appearance) (Pt Warm) -Tenderness on Palpation (Aracely-wound No Skin Appearance) -Ulcer Cleansing Rinsed/ Irrigated with Saline -Foul Odor after Cleansing No -Anesthetic Used 4% Lidocaine Solution [Edema Assessment] -Point of Measurement (cm from the 38 distal point) -Point of measurement (cm from the 23.5 medial instep) - Nurse 2 - General Ulcer CM Notes Start: 01/23/20 08:15 Freq: Status: Active Protocol: Activity Type Activity Date Activity User E-Sign Co-Sign Detail Recorded Client Recorded Date Recorded By Document 02/06/20 09:10 SHAWN [id number] 02/06/20 09:13 SHAWN 02/06/20 09:10 Wound Center Nurse 2 [Procedure/Treatment] #4 L Med LE -Time 09:11 -Correct Patient Yes -Correct Side, Site, Position Yes -Correct Procedure Yes -Procedure Performed Yes -Type of Procedure Debridement -Clinical Debridement Epidermis / Dermis -Tissue Removed Epidermis, Dermis -Post Debridement (cm) - Length 2.4 -Post Debridement (cm) - Width 0.5 -Post Debridement (cm) - Depth 0.1 -Total Square (Post) (cm) 1.20 -Area of Debridement (cm) - Length 2.4 -Area of Debridement (cm) - Width 0.5 -Total Square (Area) (cm) 1.20 -Tunneling No -Undermining/Tunneling No -Circular Undermining No -Wound/Ulcer Outcome Not Healed -Ulcer Cleansing Rinsed/ Irrigated with Saline -Foul Odor after Cleansing No -Bioengineered Tissue No -Bleeding Controlled with Pressure -Offloading No -Treatment Response Procedure Tolerated Well -Debridement - Open, 1st 20sq cm Yes [See Physician Procedure note for Specifics] Pain Scale: 0-10 Numeric [Pain] -Is Patient Pain Free? Yes - Nurse 3 - General Ulcer D/C NN Start: 01/23/20 08:15 Freq: Status: Active Protocol: Activity Type Activity Date Activity User E-Sign Co-Sign Detail Recorded Client Recorded Date Recorded By Document 02/06/20 09:37 RB [id number] 02/06/20 09:38 RB 02/06/20 09:37 Wound Care Nurse 3 [Wound Dressing] #4 L Med LE -Ulcer Cleansing Wound Cleanser -Primary Dressing Applied NonAdherent Contact Layer -Primary Dressing Covered/Secured Dry Gauze,Dry with Gauze & Roll Gauze,Secured with Tape -Other Covering gary Vital Signs [Blood Pressure] -Blood Pressure (90/60-120/80) 160/92 H -Blood Pressure Mean (mm Hg) 114 -Source Monitor -Position Sitting -Blood Pressure Location Left Arm Teaching: Wound Center [Wound Center Education] (Items with an * have Printed Materials Available- Please identify what is given to patient under the Teaching materials given to patient and caregiver Section. Compression Wraps & Stockings -Person Taught Patient -Teaching Method Discussion -Response to teaching Reinforcement needed WC - Visit Discharge [Visit Discharge Information] -Discharge Condition Stable -Ambulatory Status Ambulatory -Transportation Private Auto -Medication Reconcilliation completed No & provided to patient/care provider -Clinical Summary of Care Provided Yes Musculoskeletal: No Tenderness to Palpation of Joints or Extremities, Muscle Wasting, - - No crepitus on palpation Neurological: Sensory exam intact to light touch and pain Psych/Mental Status: Normal Affect, Appropriate Debridement Note Post-Debridement Measurements/Treatment WC - Nurse 2 - General Ulcer CM Notes Start: 01/23/20 08:15 Freq: Status: Active Protocol: Activity Type Activity Date Activity User E-Sign Co-Sign Detail Recorded Client Recorded Date Recorded By Document 01/23/20 08:56 JF [id number] 01/23/20 09:00 JF Document 01/30/20 08:20 JF [id number] 01/30/20 08:21 JF Document 02/06/20 09:10 JF [id number] 02/06/20 09:13 JF 01/23/20 01/30/20 02/06/20 08:56 08:20 09:10 Wound Center Nurse 2 #4 L Med LE -Time 08:56 09:11 -Correct Patient Yes No Yes -Correct Side, Site, Position Yes No Yes -Correct Procedure Yes No Yes -Procedure Performed Yes No Yes -Type of Procedure Debridement Debridement -Clinical Debridement Subcutaneous Epidermis / Dermis -Tissue Removed Subcutaneous Epidermis, Dermis -Post Debridement (cm) - Length 6.7 2.4 -Post Debridement (cm) - Width 5.1 0.5 -Post Debridement (cm) - Depth 0.1 0.1 -Total Square (Post) (cm) 34.17 1.20 -Area of Debridement (cm) - Length 3.4 2.4 -Area of Debridement (cm) - Width 2.5 0.5 -Total Square (Area) (cm) 8.50 1.20 -Tunneling No No -Undermining/Tunneling No No -Circular Undermining No No -Wound/Ulcer Outcome Not Healed Not Healed Not Healed -Ulcer Cleansing Rinsed/ Rinsed/ Irrigated with Irrigated with Saline Saline -Foul Odor after Cleansing No No -Bioengineered Tissue No No -Bleeding Controlled with Pressure Pressure -Offloading No No -Treatment Response Procedure Procedure Tolerated Well Tolerated Well -Debridement - Open, 1st 20sq cm Yes -Debridement - Subq, 1st 20sq cm Yes Pain Scale: 0-10 Numeric Is Patient Pain Free? Yes Yes Yes WC - Nurse 3 - General Ulcer D/C NN Start: 01/23/20 08:15 Freq: Status: Active Protocol: Activity Type Activity Date Activity User E-Sign Co-Sign Detail Recorded Client Recorded Date Recorded By Document 01/23/20 09:19 BMF [id number] 01/23/20 09:19 BMF Document 01/30/20 08:37 RB [id number] 01/30/20 08:38 RB Document 02/06/20 09:37 RB [id number] 02/06/20 09:38 RB 01/23/20 01/30/20 02/06/20 09:19 08:37 09:37 Wound Care Nurse 3 #4 L Med LE -Ulcer Cleansing Rinsed/ Rinsed/ Wound Cleanser Irrigated with Irrigated with Saline Saline -Foul Odor after Cleansing No -Primary Dressing Applied NonAdherent NonAdherent NonAdherent Contact Layer, Contact Layer Contact Layer Other -Other Dressing hydrogel -Primary Dressing Covered/Secured with Other Dry Gauze,Dry Dry Gauze,Dry Gauze & Roll Gauze & Roll Gauze,Secured Gauze,Secured with Tape with Tape -Other Covering abd gary Left -Multi-Layered Wrap Application Multi-Layer Comp - Left ($) -Other gary Treatment Response Procedure Tolerated Well Vital Signs Blood Pressure (90/60-120/80) 160/88 H 160/92 H Blood Pressure Mean (mm Hg) 112 114 Source Monitor Monitor Position Sitting Sitting Blood Pressure Location Left Arm Left Arm Pain Scale: 0-10 Numeric Is Patient Pain Free? Yes Yes Teaching: Wound Center Compression Wraps & Stockings -Person Taught Patient -Teaching Method Discussion -Response to teaching Reinforcement needed WC - Visit Discharge Discharge Condition Stable Stable Stable Ambulatory Status Ambulatory Ambulatory Ambulatory Transportation Private Auto Private Auto Private Auto Medication Reconcilliation completed & No No provided to patient/care provider Clinical Summary of Care Provided Yes Yes Wound debrided: medial leg Laterality: Left Type of Debridement: Selective debridement Anesthesia Used: 5% Lidocaine Gel Depth: in the subcutaneous layer Percentage of wound debrided: 40 Instrument Used: #15 blade Tissue Removed: fibrous, devitalized tissue, biofilm, slough Severity: Fat Layer Exposed Amount of bleeding with debridement: Mild Bleeding Controlled with: Pressure Patient tolerated procedure well Assessment/Plan Active Problems Venous insufficiency (Chronic) Dermatitis (Chronic) 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 Ulcer colonization contamination. Cellulitis left lower extremity, antibiotics initiated. venous insuf ficiency/leg edema with complicated previous traumatic accidents and vascular surgery intervention. 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 Workup for multiple myeloma was negative. chronic pain Plan: I reviewed and discussed his case including etiology, risk factors, and recommended work up and treatment plan. Selective debridement was performed today as tolerated. About 40% of the measured ulcer site was debrided. There is some intermittent subhemorrhagic and subcutaneous tissue exposed. The tissue appears inflamed. I recommend application of advanced wound care product, epi fix. Verbal consent was obtained and prior authorization will be initiated. It is noted that this ulcer site has been open for 1 month and has failed other conservative care. This is medically necessary for limb salvage. He demonstrates partial reduction and periulcer inflammation and decreased weeping with Dakin's solution dressing changes last week. Culture growth final report demonstrates staph lugdunensis and corynebacterium growth. Due to his continued periulcer inflammation I recommend doxycycline 100 mg twice daily. Prescription was provided today. He does not appear to be systemically ill at this time. He did follow-up with vascular surgery at [facility] is advised. This is reviewed and it appears his venous insufficiency is contributing to his condition amongst other medical systemic contributions. Additional intervention was not recommended. His duplex showed widely patent stents. 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 To avoid pressure to wound at all times. To wear compression sock or tubigrip as tolerated. He could not tolerate a compression stocking because it hurts his previous left leg surgical intervention site. He continue application Gary wrap at this time. . I recommended he return to the wound healing center in 1 week for a final healed ulcer site check, or call sooner if he has any questions or concerns.
[2020-02-13 08:23] VITALS: BP 179/112; PULSE 78; RESP 18; TEMP 36; BMI 27.7
[2020-02-13 08:49] VITALS: BP 176/112; PULSE 99; RESP 18; TEMP 36.4
--- NOTE | 2020-02-13 09:49 | PN.PCM_ITS ---
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 He denies fever, chills, nausea, vomiting, or loss of appetite. He reports that he had returned weeping and pinkness. He was first seen for this condition on 12[facility] and was further referred to the wound healing center. 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 He already demonstrates delayed healing and is failing conservative care including compression management local wound care. There is mild pain, and continued drainage. He has been changing dressing with quarter strength Dakin's as advised. His redness is less intense however it is extending into the back of his leg. He has less itching. He has been applying an Gary wrap on a more consistent basis to his mid leg as tolerated. He is been off of work which is helping. His pain is mild and only intermittent. He has been taking antibiotics as advised and has 4 days left. Progress of Wound: Stable ulcer, continued periwound skin inflammation decreased - Physical Exam Vital Signs Temp Pulse Resp BP 97.6 F L 99 18 176/112 H 02/13/20 08:49 02/13/20 08:49 02/13/20 08:49 02/13/20 08:49 General: Alert, Oriented x3, Cooperative, No apparent distress HEENT: Atraumatic Extremities: No cyanosis, Capillary Refill Less than 3 Seconds, No Calf Tenderness, Diminished Peripheral Pulses, Edema Skin: Ulcer/ Wound - No purulence or streaking. Periwound inflammation is less intense and he has some skin continued skin peeling. There are some hemorrhagic intermittent tissue noted and a 3 x 3 cm area. No deep tissue necrosis. Scant subcutaneous tissue exposed. Hyperpigmentation. No fluctuance or bogginess, - - Compartments remain soft to palpate left Wound Measurements and Assessment WC - Nurse 1 - General Ulcer Measurement Start: 01/23/20 08:15 Freq: Status: Active Protocol: Activity Type Activity Date Activity User E-Sign Co-Sign Detail Recorded Client Recorded Date Recorded By Document 02/13/20 08:23 DL [id number] 02/13/20 08:26 DL 02/13/20 08:23 Wound Center Nurse 1 [Ulcer Assessment] #4 L Med LE -Current Size (cm) - Length 0.1 -Current Size (cm) - Width 0.1 -Current Size (cm) - Depth 0.1 -Total Square Cm 0.01 -Photo Taken No -Exudate Amt Small -Exudate Type Serosanguineous -Wound Margin Indistinct, Non -Visible -Granulation Amt Large (67-100%) -Granulation Quality Red -Necrosis Amt None Present (0 %) -Structure Exposed N/A -Texture (Aracely-wound Skin Appearance) Localized Edema -Moisture (Aracely-wound Skin Appearance Weeping ) -Color (Aracely-wound Skin Appearance) Hemosiderin Staining -Temperature (Aracely-wound Skin No Abnormality Appearance) (Pt Warm) -Tenderness on Palpation (Aracely-wound No Skin Appearance) -Ulcer Cleansing Wound Cleanser -Foul Odor after Cleansing No -Anesthetic Used 4% Lidocaine Solution [Edema Assessment] -Left Calf (cm) 36 -Left Ankle (cm) 23.2 WC - Nurse 2 - General Ulcer CM Notes Start: 01/23/20 08:15 Freq: Status: Active Protocol: Activity Type Activity Date Activity User E-Sign Co-Sign Detail Recorded Client Recorded Date Recorded By Document 02/13/20 08:32 JF [id number] 02/13/20 08:38 JF 02/13/20 08:32 Wound Center Nurse 2 [Procedure/Treatment] #4 L Med LE -Time 08:36 -Correct Patient Yes -Correct Side, Site, Position Yes -Correct Procedure Yes -Procedure Performed Yes -Type of Procedure Debridement -Clinical Debridement Epidermis / Dermis -Tissue Removed Epidermis, Dermis -Post Debridement (cm) - Length 3 -Post Debridement (cm) - Width 3 -Post Debridement (cm) - Depth 0.1 -Total Square (Post) (cm) 9 -Area of Debridement (cm) - Length 3.0 -Area of Debridement (cm) - Width 3.0 -Total Square (Area) (cm) 9.00 -Tunneling No -Undermining/Tunneling No -Circular Undermining No -Wound/Ulcer Outcome Not Healed -Ulcer Cleansing Rinsed/ Irrigated with Saline -Foul Odor after Cleansing No -Bioengineered Tissue No -Bleeding Controlled with Pressure -Offloading No -Treatment Response Procedure Tolerated Well -Debridement - Open, 1st 20sq cm Yes [See Physician Procedure note for Specifics] Pain Scale: 0-10 Numeric [Pain] -Is Patient Pain Free? Yes - Nurse 3 - General Ulcer D/C NN Start: 01/23/20 08:15 Freq: Status: Active Protocol: Activity Type Activity Date Activity User E-Sign Co-Sign Detail Recorded Client Recorded Date Recorded By Document 02/13/20 08:49 DL [id number] 02/13/20 08:51 DL 02/13/20 08:49 Wound Care Nurse 3 [Wound Dressing] #4 L Med LE -Ulcer Cleansing Rinsed/ Irrigated with Saline -Foul Odor after Cleansing No -Primary Dressing Applied NonAdherent Contact Layer -Primary Dressing Covered/Secured Dry Gauze & with Roll Gauze, Secured with Tape Vital Signs [Temperature Protocol: VS] -Temperature (97.8 F-99.1 F) 97.6 F L -Temperature Source Temporal [Pulse] -Pulse Rate (60-100) 99 -Pulse Location Monitor [Respirations] -Respiratory Rate (12-18) 18 -Respiratory rate source Observation [Blood Pressure] -Blood Pressure (90/60-120/80) 176/112 H -Blood Pressure Mean (mm Hg) 133 -Source Monitor Pain Scale: 0-10 Numeric [Pain] -Is Patient Pain Free? Yes WC - Visit Discharge [Visit Discharge Information] -Discharge Condition Stable -Ambulatory Status Ambulatory -Transportation Private Auto Musculoskeletal: No Tenderness to Palpation of Joints or Extremities, Muscle Wasting Neurological: Sensory exam intact to light touch and pain Psych/Mental Status: Normal Affect, Appropriate Debridement Note Post-Debridement Measurements/Treatment - Nurse 2 - General Ulcer CM Notes Start: 01/23/20 08:15 Freq: Status: Active Protocol: Activity Type Activity Date Activity User E-Sign Co-Sign Detail Recorded Client Recorded Date Recorded By Document 01/23/20 08:56 [email or web address] [id number] 01/23/20 09:00 JF Document 01/30/20 08:20 JF [id number] 01/30/20 08:21 JF Document 02/06/20 09:10 [id number] 02/06/20 09:13 JF Document 02/13/20 08:32 [id number] 02/13/20 08:38 01/23/20 01/30/20 02/06/20 08:56 08:20 09:10 Wound Center Nurse 2 #4 L Med LE -Time 08:56 09:11 -Correct Patient Yes No Yes -Correct Side, Site, Position Yes No Yes -Correct Procedure Yes No Yes -Procedure Performed Yes No Yes -Type of Procedure Debridement Debridement -Clinical Debridement Subcutaneous Epidermis / Dermis -Tissue Removed Subcutaneous Epidermis, Dermis -Post Debridement (cm) - Length 6.7 2.4 -Post Debridement (cm) - Width 5.1 0.5 -Post Debridement (cm) - Depth 0.1 0.1 -Total Square (Post) (cm) 34.17 1.20 -Area of Debridement (cm) - Length 3.4 2.4 -Area of Debridement (cm) - Width 2.5 0.5 -Total Square (Area) (cm) 8.50 1.20 -Tunneling No No -Undermining/Tunneling No No -Circular Undermining No No -Wound/Ulcer Outcome Not Healed Not Healed Not Healed -Ulcer Cleansing Rinsed/ Rinsed/ Irrigated with Irrigated with Saline Saline -Foul Odor after Cleansing No No -Bioengineered Tissue No No -Bleeding Controlled with Pressure Pressure -Offloading No No -Treatment Response Procedure Procedure Tolerated Well Tolerated Well -Debridement - Open, 1st 20sq cm Yes -Debridement - Subq, 1st 20sq cm Yes Pain Scale: 0-10 Numeric Is Patient Pain Free? Yes Yes Yes 02/13/20 08:32 Wound Center Nurse 2 #4 L Med LE -Time 08:36 -Correct Patient Yes -Correct Side, Site, Position Yes -Correct Procedure Yes -Procedure Performed Yes -Type of Procedure Debridement -Clinical Debridement Epidermis / Dermis -Tissue Removed Epidermis, Dermis -Post Debridement (cm) - Length 3 -Post Debridement (cm) - Width 3 -Post Debridement (cm) - Depth 0.1 -Total Square (Post) (cm) 9 -Area of Debridement (cm) - Length 3.0 -Area of Debridement (cm) - Width 3.0 -Total Square (Area) (cm) 9.00 -Tunneling No -Undermining/Tunneling No -Circular Undermining No -Wound/Ulcer Outcome Not Healed -Ulcer Cleansing Rinsed/ Irrigated with Saline -Foul Odor after Cleansing No -Bioengineered Tissue No -Bleeding Controlled with Pressure -Offloading No -Treatment Response Procedure Tolerated Well -Debridement - Open, 1st 20sq cm Yes -Debridement - Subq, 1st 20sq cm Pain Scale: 0-10 Numeric Is Patient Pain Free? Yes WC - Nurse 3 - General Ulcer D/C NN Start: 01/23/20 08:15 Freq: Status: Active Protocol: Activity Type Activity Date Activity User E-Sign Co-Sign Detail Recorded Client Recorded Date Recorded By Document 01/23/20 09:19 [facility] [id number] 01/23/20 09:19 [facility] Document 01/30/20 08:37 RB [id number] 01/30/20 08:38 RB Document 02/06/20 09:37 RB [id number] 02/06/20 09:38 RB Document 02/13/20 08:49 DL [id number] 02/13/20 08:51 DL 01/23/20 01/30/20 02/06/20 09:19 08:37 09:37 Wound Care Nurse 3 #4 L Med LE -Ulcer Cleansing Rinsed/ Rinsed/ Wound Cleanser Irrigated with Irrigated with Saline Saline -Foul Odor after Cleansing No -Primary Dressing Applied NonAdherent NonAdherent NonAdherent Contact Layer, Contact Layer Contact Layer Other -Other Dressing hydrogel -Primary Dressing Covered/Secured with Other Dry Gauze,Dry Dry Gauze,Dry Gauze & Roll Gauze & Roll Gauze,Secured Gauze,Secured with Tape with Tape -Other Covering abd gary Left -Multi-Layered Wrap Application Multi-Layer Comp - Left ($) -Other gary Treatment Response Procedure Tolerated Well Temperature (97.8 F-99.1 F) Temperature Source Pulse Rate (60-100) Pulse Location Respiratory Rate (12-18) Respiratory rate source Vital Signs Blood Pressure (90/60-120/80) 160/88 H 160/92 H Blood Pressure Mean (mm Hg) 112 114 Source Monitor Monitor Position Sitting Sitting Blood Pressure Location Left Arm Left Arm Pain Scale: 0-10 Numeric Is Patient Pain Free? Yes Yes Teaching: Wound Center Compression Wraps & Stockings -Person Taught Patient -Teaching Method Discussion -Response to teaching Reinforcement needed WC - Visit Discharge Discharge Condition Stable Stable Stable Ambulatory Status Ambulatory Ambulatory Ambulatory Transportation Private Auto Private Auto Private Auto Medication Reconcilliation completed & No No provided to patient/care provider Clinical Summary of Care Provided Yes Yes 02/13/20 08:49 Wound Care Nurse 3 #4 L Med LE -Ulcer Cleansing Rinsed/ Irrigated with Saline -Foul Odor after Cleansing No -Primary Dressing Applied NonAdherent Contact Layer -Other Dressing -Primary Dressing Covered/Secured with Dry Gauze & Roll Gauze, Secured with Tape -Other Covering Left -Multi-Layered Wrap Application -Other Treatment Response Temperature (97.8 F-99.1 F) 97.6 F L Temperature Source Temporal Pulse Rate (60-100) 99 Pulse Location Monitor Respiratory Rate (12-18) 18 Respiratory rate source Observation Vital Signs Blood Pressure (90/60-120/80) 176/112 H Blood Pressure Mean (mm Hg) 133 Source Monitor Position Blood Pressure Location Pain Scale: 0-10 Numeric Is Patient Pain Free? Yes Teaching: Wound Center Compression Wraps & Stockings -Person Taught -Teaching Method -Response to teaching WC - Visit Discharge Discharge Condition Stable Ambulatory Status Ambulatory Transportation Private Auto Medication Reconcilliation completed & provided to patient/care provider Clinical Summary of Care Provided Wound debrided: medial lower leg Laterality: Left Type of Debridement: Selective debridement Anesthesia Used: 4% Lidocaine Solution Depth: Down to and including healthy tissue Percentage of wound debrided: 30 Instrument Used: #15 blade Tissue Removed: fibrous, devitalized tissue, skin slough, biofilm Severity: Limited To Skin Breakdown Amount of bleeding with debridement: None Patient tolerated procedure well Assessment/Plan Active Problems Venous insufficiency (Chronic) Dermatitis (Chronic) 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 Ulcer colonization contamination. Cellulitis left lower extremity, improving/stabilizing. venous insufficiency/leg edema with complicated previous traumatic accidents and vascular surgery intervention. 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 Workup for multiple myeloma was negative. chronic pain Plan: I reviewed and discussed his case including etiology, risk factors, and recommended work up and treatment plan. Selective debridement was performed today as tolerated. About 40% of the measured ulcer site was debrided. There is some intermittent subhemorrhagic and subcutaneous tissue exposed. The tissue appears inflamed. I recommend application of advanced wound care product, epi fix. Verbal consent was obtained and prior authorization will be initiated. It is noted that this ulcer site has been open for 1 month and has failed other conservative care. This is medically necessary for limb salvage. He demonstrates partial reduction and periulcer inflammation and decreased weeping with Dakin's solution dressing changes last week. Culture growth final report demonstrates staph lugdunensis and corynebacterium growth. Due to his continued periulcer inflammation I recommend doxycycline 100 mg twice daily. Prescription was provided last visit and he was advised to complete the course. He is responding well so far. He does not appear to be systemically ill at this time. He was approved for epifix however has a large deductible. He will consider application next week after he discusses this with his . Is medically necessary for limb salvage and I think he would benefit from it due to his his delayed healing. His elevated blood pressure is also noted. He was recently seen in the emergency room last week and had medications adjustment. He will follow-up with his primary care physician for ongoing hypertensive issues. He is asymptomatic at this time. He did follow-up with vascular surgery at [facility] is advised. This is reviewed and it appears his venous insufficiency is contributing to his condition amongst other medical systemic contributions. Additional intervention was not recommended. His duplex showed widely patent stents. 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 To avoid pressure to wound at all times. To wear compression sock or tubigrip as tolerated. He could not tolerate a compression stocking because it hurts his previous left leg surgical intervention site. He continue application Gary wrap at this time. . I recommended he return to the wound healing center in 1 week for a final healed ulcer site check, or call sooner if he has any questions or concerns.
== END 2020-02-18 23:59 ==
LOC: WC 08:15
PROVIDERS: PCP Family Medicine; Visit Provider Podiatrist
DX: L97.822 Non-pressure chronic ulcer of other part of left lower leg with fat layer exposed (principal); I87.2 Venous insufficiency (chronic) (peripheral); L03.116 Cellulitis of left lower limb; I87.1 Compression of vein; I10 Essential (primary) hypertension; R60.0 Localized edema; L30.9 Dermatitis, unspecified; Z79.82 Long term (current) use of aspirin; Z79.52 Long term (current) use of systemic steroids; Z79.899 Other long term (current) drug therapy; Z22.9 Carrier of infectious disease, unspecified
CPT/HCPCS: 11042; 29581; 87070; 87075; 87077; 87186; 87205; 87640; 97597; 99212; 99213; G0463

== ENCOUNTER → 2020-02-21 06:30 | Outpatient (CLI) | payer BC, SELFPAY ==
[2020-02-06 15:07] VITALS: BMI 27.8
[2020-02-19 00:07] VITALS: BMI 27.8
--- NOTE | 2020-02-21 10:11 | STRESSREP ---
Stress Test Report Date: 02-21-2020 Procedure: Pharmacologic stress nuclear imaging study Indications: Chest pain Consent: Per the patient Procedure: The patient underwent pharmacologic (Regadenoson) evaluation with a peak heart rate of 111 beats per minute (68%predicted maximal heart rate) and a peak blood pressure of 138/82 mmHg. The baseline ECG demonstrated sinus rhythm. The peak pharmacologic ECG demonstrated no obvious ECG changes. There were no cardiac dysrhythmias pretest, during pharmacologic infusion, or recovery. There was no complaint of chest discomfort during pharmacologic infusion or recovery. The examination was discontinued secondary to completion of protocol. Impression: 1. Pharmacologic (Regadenoson) evaluation 2. Peak pharmacologic ECG with no obvious ECG changes. 3. There were no cardiac dysrhythmias pretest, during pharmacologic infusion, or recovery. 4. Nuclear images pending Myocardial perfusion imaging study: Technique: The patient was injected with 14.5 millicuries of technetium 99m Cardiolite and subsequently rest SPECT Cardiolite nuclear imaging was obtained in the horizontal long, vertical long, and short axis views. The patient underwent pharmacologic (Regadenoson) evaluation with a peak heart rate of 111 beats per minute (68% percent predicted maximal heart rate) and a peak blood pressure of 138/82 mmHg. The patient was injected with 44.7 millicuries of technetium 99m Cardiolite and subsequently stress SPECT Cardiolite nuclear imaging was obtained in the horizontal long, vertical long, and short axis views. A gated Cardiolite study at peak stress was obtained. Interpretation: Rest and stress SPECT Cardiolite nuclear imaging status post realignment, normalization, and attenuation correction demonstrate relative uniform tracer uptake and myocardial perfusion appearing within normal limits. There is end systolic thickening and brightening. The gated Cardiolite study demonstrates myocardial thickening and inward wall motion. The reported LVEF is 76%. Impression: 1. Rest and stress SPECT Cardiolite nuclear imaging demonstrate relative uniform tracer uptake and myocardial perfusion appearing within normal limits. 2. The gated Cardiolite study reports an LVEF of 76%. This note was generated with [employer] software. It may contain incorrect words, spelling, and punctuation that were not noted in checking the note before signing.
== END ==
PROVIDERS: PCP Family Medicine; Referring Provider Family Medicine; Visit Provider Family Medicine
DX: R07.89 Other chest pain (principal)
CPT/HCPCS: 78452; 93017; A9500; A4216; J2785

== ENCOUNTER 2020-03-19 11:00 | Outpatient (RCR) | payer BC, SELFPAY ==
[2020-02-19 00:07] VITALS: BP 176/112; PULSE 99; RESP 18; TEMP 36.4; BMI 27.8
[2020-02-27 08:25] VITALS: BP 151/102; PULSE 98; RESP 18; TEMP 36.6; BMI 27.8
--- NOTE | 2020-02-27 09:20 | PCM.WC.PN ---
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 He denies fever, chills, nausea, vomiting, or loss of appetite. He reports that he had resolved weeping and pinkness. His pain is resolved. He was first seen for this condition on 12-20-2019. 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 He already demonstrates delayed healing and is failing conservative care including compression management and local wound care. He has been changing dressing with quarter strength Dakin's until the last couple days he has only applied Adaptic. He tries to wear Gary wraps. He is currently laid off of work and is resting and elevating. He denies itching. Progress of Wound: Stable, resolved periulcer inflammation - Physical Exam Vital Signs Temp Pulse Resp BP 97.8 F 98 18 151/102 H 02/27/20 08:25 02/27/20 08:25 02/27/20 08:25 02/27/20 08:25 General: Alert, Oriented x3, Cooperative, No apparent distress HEENT: Atraumatic Extremities: Capillary Refill Less than 3 Seconds - No purulence Skin: Ulcer/ Wound - No erythema, streaking, odor, infection. Decreased periulcer inflammation and pink discoloration. There is minimal subcutaneous granular tissue noted and management of hemorrhagic tissue with some intermittent epithelialization highlighted Wound Measurements and Assessment WC - Nurse 1 - General Ulcer Measurement Start: 02/27/20 08:24 Freq: Status: Active Protocol: Activity Type Activity Date Activity User E-Sign Co-Sign Detail Recorded Client Recorded Date Recorded By Document 02/27/20 08:25 DL [id number] 02/27/20 08:32 DL 02/27/20 08:25 Wound Center Nurse 1 [Ulcer Assessment] #4 L Med LE -Current Size (cm) - Length 5 -Current Size (cm) - Width 4 -Current Size (cm) - Depth 0.1 -Total Square Cm 20 -Photo Taken No -Exudate Amt Small -Wound Margin Distinct, Outline Attached -Granulation Amt Large (67-100%) -Granulation Quality Evaro -Necrosis Amt None Present (0 %) -Structure Exposed N/A -Texture (Aracely-wound Skin Appearance) Localized Edema ,Scarring -Moisture (Aracely-wound Skin Appearance No Abnormality ) -Color (Aracely-wound Skin Appearance) Hemosiderin Staining -Temperature (Aracely-wound Skin No Abnormality Appearance) (Pt Warm) -Tenderness on Palpation (Aracely-wound No Skin Appearance) -Ulcer Cleansing Wound Cleanser -Foul Odor after Cleansing No -Anesthetic Used 4% Lidocaine Solution WC - Nurse 2 - General Ulcer CM Notes Start: 02/27/20 08:24 Freq: Status: Active Protocol: Activity Type Activity Date Activity User E-Sign Co-Sign Detail Recorded Client Recorded Date Recorded By Document 02/27/20 08:42 SHAWN [id number] 02/27/20 08:52 02/27/20 08:42 Wound Center Nurse 2 [Procedure/Treatment] -Time 08:43 -Correct Patient Yes -Correct Side, Site, Position Yes -Correct Procedure Yes -Procedure Performed Yes -Type of Procedure Debridement -Clinical Debridement Epidermis / Dermis -Tissue Removed Epidermis, Dermis -Post Debridement (cm) - Length 5 -Post Debridement (cm) - Width 4 -Post Debridement (cm) - Depth 0.1 -Total Square (Post) (cm) 20 -Area of Debridement (cm) - Length 5 -Area of Debridement (cm) - Width 4 -Total Square (Area) (cm) 20 -Tunneling No -Undermining/Tunneling No -Circular Undermining No -Wound/Ulcer Outcome Not Healed -Ulcer Cleansing Rinsed/ Irrigated with Saline -Foul Odor after Cleansing No -Bioengineered Tissue No -Bleeding Controlled with Pressure -Offloading No -Treatment Response Procedure Tolerated Well -Debridement - Open, 1st 20sq cm Yes -Debridement - Subq, 1st 20sq cm No [See Physician Procedure note for Specifics] Pain Scale: 0-10 Numeric [Pain] -Is Patient Pain Free? Yes - Nurse 3 - General Ulcer D/C NN Start: 02/27/20 08:24 Freq: Status: Active Protocol: Activity Type Activity Date Activity User E-Sign Co-Sign Detail Recorded Client Recorded Date Recorded By Document 02/27/20 08:53 SHAWN [id number] 02/27/20 08:53 SHAWN 02/27/20 08:53 Wound Care Nurse 3 [Wound Dressing] #4 L Med LE -Ulcer Cleansing Rinsed/ Irrigated with Saline -Foul Odor after Cleansing No -Primary Dressing Applied NonAdherent Contact Layer -Primary Dressing Covered/Secured Dry Gauze & with Roll Gauze, Secured with Tape [Compression Applied] Left -Compression Wrap Gary Wrap Pain Scale: 0-10 Numeric [Pain] -Is Patient Pain Free? Yes - Visit Discharge [Visit Discharge Information] -Discharge Condition Stable -Ambulatory Status Ambulatory -Transportation Private Auto -Medication Reconcilliation completed Yes & provided to patient/care provider -Clinical Summary of Care Provided Yes Musculoskeletal: Muscle Wasting Neurological: Sensory exam intact to light touch and pain Psych/Mental Status: Normal Affect, Appropriate - Has been he is experiencing Debridement Note Post-Debridement Measurements/Treatment - Nurse 2 - General Ulcer CM Notes Start: 02/27/20 08:24 Freq: Status: Active Protocol: Activity Type Activity Date Activity User E-Sign Co-Sign Detail Recorded Client Recorded Date Recorded By Document 02/27/20 08:42 SHAWN [id number] 02/27/20 08:52 SHAWN 02/27/20 08:42 Wound Center Nurse 2 #4 L Med LE -Time 08:43 -Correct Patient Yes -Correct Side, Site, Position Yes -Correct Procedure Yes -Procedure Performed Yes -Type of Procedure Debridement -Clinical Debridement Epidermis / Dermis -Tissue Removed Epidermis, Dermis -Post Debridement (cm) - Length 5 -Post Debridement (cm) - Width 4 -Post Debridement (cm) - Depth 0.1 -Total Square (Post) (cm) 20 -Area of Debridement (cm) - Length 5 -Area of Debridement (cm) - Width 4 -Total Square (Area) (cm) 20 -Tunneling No -Undermining/Tunneling No -Circular Undermining No -Wound/Ulcer Outcome Not Healed -Ulcer Cleansing Rinsed/ Irrigated with Saline -Foul Odor after Cleansing No -Bioengineered Tissue No -Bleeding Controlled with Pressure -Offloading No -Treatment Response Procedure Tolerated Well -Debridement - Open, 1st 20sq cm Yes -Debridement - Subq, 1st 20sq cm No Pain Scale: 0-10 Numeric Is Patient Pain Free? Yes - Nurse 3 - General Ulcer D/C NN Start: 02/27/20 08:24 Freq: Status: Active Protocol: Activity Type Activity Date Activity User E-Sign Co-Sign Detail Recorded Client Recorded Date Recorded By Document 02/27/20 08:53 [id number] 02/27/20 08:53 SHAWN 02/27/20 08:53 Wound Care Nurse 3 #4 L Med LE -Ulcer Cleansing Rinsed/ Irrigated with Saline -Foul Odor after Cleansing No -Primary Dressing Applied NonAdherent Contact Layer -Primary Dressing Covered/Secured with Dry Gauze & Roll Gauze, Secured with Tape Left -Compression Wrap Gary Wrap Pain Scale: 0-10 Numeric Is Patient Pain Free? Yes - Visit Discharge Discharge Condition Stable Ambulatory Status Ambulatory Transportation Private Auto Medication Reconcilliation completed & Yes provided to patient/care provider Clinical Summary of Care Provided Yes Wound debrided: leg Laterality: Left Type of Debridement: Selective debridement Anesthesia Used: 4% Lidocaine Solution Depth: Down to and including healthy tissue Percentage of wound debrided: 40 Instrument Used: #15 blade Tissue Removed: fibrous, devitalized tissue, biofilm, slough Severity: Fat Layer Exposed Amount of bleeding with debridement: Mild Bleeding Controlled with: Pressure Patient tolerated procedure well Assessment/Plan Active Problems Ulcer of left lower extremity, limited to breakdown of skin (Chronic) Ulcer of left lower extremity with fat layer exposed (Chronic) 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 Ulcer colonization contamination resolved. Cellulitis left lower extremity, improving/stabilizing. venous insufficiency/leg edema with complicated previous traumatic accidents and vascular surgery intervention. 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 Workup for multiple myeloma was negative. chronic pain Plan: I reviewed and discussed his case including etiology, risk factors, and recommended work up and treatment plan. Selective debridement was performed today as tolerated. About 40% of the measured ulcer site was debrided. There is some intermittent subhemorrhagic and subcutaneous tissue exposed. The tissue appears inflamed. I recommend application of advanced wound care product, epi fix. Verbal consent was obtained and prior authorization will be initiated. It is noted that this ulcer site has been open for 1 month and has failed other conservative care. This is medically necessary for limb salvage. He completed a course of antibiotics and has improved. I do not recommend additional antibiotics at this time. To cover this ulcer with Adaptic and it is okay to discontinue Dakin's wet-to-dry dressing this time. He is responding well so far. He does not appear to be systemically ill at this time. He was approved for epifix however has a large deductible. He will consider application next week after he discusses this with his . He relates he recently had a stress test done and he is closer to his deductible but he wants. I explained to him that this is medically necessary for limb salvage and I think he would benefit from it due to his his delayed healing. He did follow-up with vascular surgery at [facility] is advised. This is reviewed and it appears his venous insufficiency is contributing to his condition amongst other medical systemic contributions. Additional intervention was not recommended. His duplex showed widely patent stents. 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 To avoid pressure to wound at all times. To wear compression sock or tubigrip as tolerated. He could not tolerate a compression stocking because it hurts his previous left leg surgical intervention site. He continue application Gary wrap at this time. . I recommended he return to the wound healing center in 1 week for a final healed ulcer site check, or call sooner if he has any questions or concerns.
[2020-03-05 08:19] VITALS: BP 150/97; PULSE 95; RESP 16; TEMP 36.3; BMI 27.8
--- NOTE | 2020-03-05 11:11 | PCM.WC.PN ---
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 He denies fever, chills, nausea, vomiting, or loss of appetite. He reports that he had resolved weeping and pinkness. His pain is resolved. He was first seen for this condition on 12-20-2019. 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 He already demonstrates delayed healing and is failing conservative care including compression management and local wound care. He has been changing dressing with quarter strength Dakin's until the last couple days he has only applied Adaptic. He tries to wear Gary wraps. He is currently laid off of work and is resting and elevating. He denies itching. He relates some ongoing intermittent leg swelling. He is amendable to proceed forward with advanced wound line product, epifix today. Progress of Wound: Stable - Physical Exam Vital Signs Temp Pulse Resp BP 97.4 F L 95 16 150/97 H 03/05/20 08:19 03/05/20 08:19 03/05/20 08:19 03/05/20 08:19 General: Alert, Oriented x3, Cooperative, No apparent distress HEENT: Atraumatic Extremities: No cyanosis, Capillary Refill Less than 3 Seconds, No Calf Tenderness, Diminished Peripheral Pulses, Edema Skin: Ulcer/ Wound - No purulence, erythema, streaking, odor. There is peripheral ulcer site inflammation and edema. There are satellite intermittent epithelialized patches in the ulcer bed otherwise the ulcer is with a granular base. No exposed deep tissue, necrosis or maceration. No bogginess or fluctuance on palp Wound Measurements and Assessment WC - Nurse 1 - General Ulcer Measurement Start: 02/27/20 08:24 Freq: Status: Active Protocol: Activity Type Activity Date Activity User E-Sign Co-Sign Detail Recorded Client Recorded Date Recorded By Document 03/05/20 08:19 [facility] [id number] 03/05/20 08:27 [facility] 03/05/20 08:19 Wound Center Nurse 1 [Ulcer Assessment] #4 L Med LE -Combined with other wound No -Current Size (cm) - Length 5.5 -Current Size (cm) - Width 4.2 -Current Size (cm) - Depth 0.1 -Total Square Cm 23.10 -Photo Taken No -Epithelialization None Present -Tunneling No -Undermining/Tunneling No -Circular Undermining No -Exudate Amt Small -Exudate Type Serous -Wound Margin Distinct, Outline Attached -Granulation Amt Small (1-33%) -Granulation Quality [place] -Slough/Fibrin Yes -Necrosis Amt Large (67-100%) -Necrotic Tissue Type Adherent Slough -Texture (Aracely-wound Skin Appearance) Assessed, Scarring -Moisture (Aracely-wound Skin Appearance Assessed,Dry/ ) Scaly -Color (Aracely-wound Skin Appearance) Assessed, Hemosiderin Staining -Temperature (Aracely-wound Skin No Abnormality Appearance) (Pt Warm) -Tenderness on Palpation (Aracely-wound No Skin Appearance) -Ulcer Cleansing SOAPY WATER -Foul Odor after Cleansing No -Anesthetic Used 4% Lidocaine Solution [Edema Assessment] -Left Calf (cm) 38.6 -Left Ankle (cm) 24.1 WC - Nurse 2 - General Ulcer CM Notes Start: 02/27/20 08:24 Freq: Status: Active Protocol: Activity Type Activity Date Activity User E-Sign Co-Sign Detail Recorded Client Recorded Date Recorded By Document 03/05/20 08:33 [id number] 03/05/20 08:41 03/05/20 08:33 Wound Center Nurse 2 [Procedure/Treatment] #4 L Med LE -Time 08:36 -Correct Patient Yes -Correct Side, Site, Position Yes -Correct Procedure Yes -Procedure Performed Yes -Type of Procedure Debridement -Clinical Debridement Subcutaneous -Tissue Removed Subcutaneous -Post Debridement (cm) - Length 5.5 -Post Debridement (cm) - Width 4.2 -Post Debridement (cm) - Depth 0.1 -Total Square (Post) (cm) 23.10 -Area of Debridement (cm) - Length 5.5 -Area of Debridement (cm) - Width 4.2 -Total Square (Area) (cm) 23.10 -Tunneling No -Undermining/Tunneling No -Circular Undermining No -Wound/Ulcer Outcome Not Healed -Ulcer Cleansing Rinsed/ Irrigated with Saline -Foul Odor after Cleansing No -Bioengineered Tissue Yes -Type of Bioengineered Tissue Epifix -Expiration Date 11/19/24 -Product Lot Number [id number] -Percent Used 100 -Bleeding Controlled with Pressure -Other saline [id number] -Offloading No -Treatment Response Procedure Tolerated Well -Debridement - Subq, 1st 20sq cm No -Apply Skin Sub - 1st 25 sq cm - Legs 1 -Epifix (per sq cm) 0 -Epifix Mesh (per sq cm) 11 [See Physician Procedure note for Specifics] Pain Scale: 0-10 Numeric [Pain] -Is Patient Pain Free? Yes - Nurse 3 - General Ulcer D/C NN Start: 02/27/20 08:24 Freq: Status: Active Protocol: Activity Type Activity Date Activity User E-Sign Co-Sign Detail Recorded Client Recorded Date Recorded By Document 03/05/20 08:46 [facility] [id number] 03/05/20 08:47 [facility] 03/05/20 08:46 Wound Care Nurse 3 [Wound Dressing] #4 L Med LE -Primary Dressing Applied Other -Other Dressing [email or web address] -Primary Dressing Covered/Secured Dry Gauze & with Roll Gauze, Secured with Tape,Other -Other Covering ABD [Compression Applied] Left -Compression Wrap Gary Wrap Pain Scale: 0-10 Numeric [Pain] -Is Patient Pain Free? Yes - Visit Discharge [Visit Discharge Information] -Discharge Condition Stable -Ambulatory Status Ambulatory -Transportation Private Auto Musculoskeletal: No Tenderness to Palpation of Joints or Extremities, Muscle Wasting Neurological: Sensory exam intact to light touch and pain Psych/Mental Status: Normal Affect, Appropriate Debridement Note Post-Debridement Measurements/Treatment - Nurse 2 - General Ulcer CM Notes Start: 02/27/20 08:24 Freq: Status: Active Protocol: Activity Type Activity Date Activity User E-Sign Co-Sign Detail Recorded Client Recorded Date Recorded By Document 02/27/20 08:42 [id number] 02/27/20 08:52 Document 03/05/20 08:33 [id number] 03/05/20 08:41 02/27/20 03/05/20 08:42 08:33 Wound Center Nurse 2 #4 L Med LE -Time 08:43 08:36 -Correct Patient Yes Yes -Correct Side, Site, Position Yes Yes -Correct Procedure Yes Yes -Procedure Performed Yes Yes -Type of Procedure Debridement Debridement -Clinical Debridement Epidermis / Subcutaneous Dermis -Tissue Removed Epidermis, Subcutaneous Dermis -Post Debridement (cm) - Length 5 5.5 -Post Debridement (cm) - Width 4 4.2 -Post Debridement (cm) - Depth 0.1 0.1 -Total Square (Post) (cm) 20 23.10 -Area of Debridement (cm) - Length 5 5.5 -Area of Debridement (cm) - Width 4 4.2 -Total Square (Area) (cm) 20 23.10 -Tunneling No No -Undermining/Tunneling No No -Circular Undermining No No -Wound/Ulcer Outcome Not Healed Not Healed -Ulcer Cleansing Rinsed/ Rinsed/ Irrigated with Irrigated with Saline Saline -Foul Odor after Cleansing No No -Bioengineered Tissue No Yes -Type of Bioengineered Tissue Epifix -Expiration Date 11/19/24 -Product Lot Number [id number] -Percent Used 100 -Bleeding Controlled with Pressure Pressure -Other saline [id number] -Offloading No No -Treatment Response Procedure Procedure Tolerated Well Tolerated Well -Debridement - Open, 1st 20sq cm Yes -Debridement - Subq, 1st 20sq cm No No -Apply Skin Sub - 1st 25 sq cm - Legs 1 -Epifix (per sq cm) 0 -Epifix Mesh (per sq cm) 11 Pain Scale: 0-10 Numeric Is Patient Pain Free? Yes Yes - Nurse 3 - General Ulcer D/C NN Start: 02/27/20 08:24 Freq: Status: Active Protocol: Activity Type Activity Date Activity User E-Sign Co-Sign Detail Recorded Client Recorded Date Recorded By Document 02/27/20 08:53 SHAWN [id number] 02/27/20 08:53 Document 03/05/20 08:46 [facility] [id number] 03/05/20 08:47 [facility] 02/27/20 03/05/20 08:53 08:46 Wound Care Nurse 3 #4 L Med LE -Ulcer Cleansing Rinsed/ Irrigated with Saline -Foul Odor after Cleansing No -Primary Dressing Applied NonAdherent Other Contact Layer -Other Dressing EPIMESH -Primary Dressing Covered/Secured with Dry Gauze & Dry Gauze & Roll Gauze, Roll Gauze, Secured with Secured with Tape Tape,Other -Other Covering ABD Left -Compression Wrap Gary Wrap Gary Wrap Pain Scale: 0-10 Numeric Is Patient Pain Free? Yes Yes WC - Visit Discharge Discharge Condition Stable Stable Ambulatory Status Ambulatory Ambulatory Transportation Private Auto Private Auto Medication Reconcilliation completed & Yes provided to patient/care provider Clinical Summary of Care Provided Yes Wound debrided: medial lower leg Laterality: Left Type of Debridement: Excisional debridement Anesthesia Used: 5% Lidocaine Gel Depth: in the subcutaneous layer Percentage of wound debrided: 100 Instrument Used: #15 blade Tissue Removed: fibrous, devitalized subcutaneous, biofilm, slough Severity: Fat Layer Exposed Amount of bleeding with debridement: Mild Bleeding Controlled with: Pressure Patient tolerated procedure well Assessment/Plan Active Problems Ulcer of left lower extremity, limited to breakdown of skin (Chronic) Ulcer of left lower extremity with fat layer exposed (Chronic) 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 Ulcer colonization contamination resolved. Cellulitis left lower extremity, improving/stabilizing. venous insufficiency/leg edema with complicated previous traumatic accidents and vascular surgery intervention. 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 Workup for multiple myeloma was negative. chronic pain Plan: I reviewed and discussed his case including etiology, risk factors, and recommended work up and treatment plan. Subcutaneous excisional debridement was performed today as tolerated and noted in the clinical nursing panel. About 40% of the measured ulcer site was debrided. There is some intermittent subhemorrhagic and subcutaneous tissue exposed. The tissue appears inflamed. I recommend application of advanced wound care product, epi fix. Verbal consent was obtained and prior authorization were confirmed today and this was applied according to standard protocol. Wound veil and Steri-Strips were applied. He tolerated this well. To keep clean, dry, and intact until follow-up next week. It is noted that this ulcer site has been open for 1 month and has failed other conservative care. This is medically necessary for limb salvage. He completed a course of antibiotics and has improved. I do not recommend additional antibiotics at this time. He does not appear to be systemically ill at this time. I explained to him that this is medically necessary for limb salvage and I think he would benefit from it due to his his delayed healing. He did follow-up with vascular surgery at [facility] is advised. This is reviewed and it appears his venous insufficiency is contributing to his condition amongst other medical systemic contributions. Additional intervention was not recommended. His duplex showed widely patent stents. 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 To avoid pressure to wound at all times. To wear compression sock or tubigrip as tolerated. He could not tolerate a compression stocking because it hurts his previous left leg surgical intervention site. He continue application Gary wrap at this time. . I recommended he return to the wound healing center in 1 week for a final healed ulcer site check, or call sooner if he has any questions or concerns.
[2020-03-12 08:21] VITALS: BP 149/94; PULSE 99; TEMP 36.4; BMI 27.8
--- NOTE | 2020-03-12 14:37 | PCM.WC.PN ---
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 He denies fever, chills, nausea, vomiting, or loss of appetite. He reports that he had resolved weeping and pinkness. His pain is resolved. He was first seen for this condition on 12-20-2019. 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 He had an epifix applied last week and denies drainage now. He is still having trouble with fluctuating edema in his trying to apply for unemployment at this time. Progress of Wound: Healed - Physical Exam Vital Signs Temp Pulse Resp BP 97.6 F L 99 16 149/94 H 03/12/20 08:21 03/12/20 08:21 03/05/20 08:19 03/12/20 08:21 General: Alert, Oriented x3, Cooperative, No apparent distress Extremities: No cyanosis, Capillary Refill Less than 3 Seconds, No Calf Tenderness, Diminished Peripheral Pulses, Edema - Decreased Skin: Ulcer/ Wound - No purulence, erythema, string, odor, infection. Full epithelialization is noted and the site has healed. Wound Measurements and Assessment WC - Nurse 1 - General Ulcer Measurement Start: 02/27/20 08:24 Freq: Status: Active Protocol: Activity Type Activity Date Activity User E-Sign Co-Sign Detail Recorded Client Recorded Date Recorded By Document 03/12/20 08:21 DL [id number] 03/12/20 08:24 DL 03/12/20 08:21 Wound Center Nurse 1 [Ulcer Assessment] #4 L Med LE -Current Size (cm) - Length 0.1 -Current Size (cm) - Width 0.1 -Current Size (cm) - Depth 0.1 -Total Square Cm 0.01 -Exudate Amt Medium -Exudate Type Serosanguineous -Wound Margin Distinct, Outline Attached -Granulation Amt None Present (0 %) -Necrosis Amt Medium (34-66%) -Necrotic Tissue Type Adherent Slough -Texture (Aracely-wound Skin Appearance) Assessed, Scarring -Moisture (Aracely-wound Skin Appearance No Abnormality, ) Assessed -Color (Aracely-wound Skin Appearance) No Abnormality, Assessed -Temperature (Aracely-wound Skin No Abnormality Appearance) (Pt Warm) -Tenderness on Palpation (Aracely-wound No Skin Appearance) -Ulcer Cleansing Rinsed/ Irrigated with Saline -Foul Odor after Cleansing No -Anesthetic Used 4% Lidocaine Solution - Nurse 2 - General Ulcer CM Notes Start: 02/27/20 08:24 Freq: Status: Active Protocol: Activity Type Activity Date Activity User E-Sign Co-Sign Detail Recorded Client Recorded Date Recorded By Document 03/12/20 08:39 SHAWN [id number] 03/12/20 08:40 SHAWN 03/12/20 08:39 Wound Center Nurse 2 [Procedure/Treatment] -Correct Patient No -Correct Side, Site, Position No -Correct Procedure No -Procedure Performed No -Post Debridement (cm) - Length 0 -Post Debridement (cm) - Width 0 -Post Debridement (cm) - Depth 0 -Total Square (Post) (cm) 0 -Area of Debridement (cm) - Length 0 -Area of Debridement (cm) - Width 0 -Total Square (Area) (cm) 0 -Wound/Ulcer Outcome Healed- Epithelialized [See Physician Procedure note for Specifics] Pain Scale: 0-10 Numeric [Pain] -Is Patient Pain Free? Yes - Nurse 3 - General Ulcer D/C NN Start: 02/27/20 08:24 Freq: Status: Active Protocol: Activity Type Activity Date Activity User E-Sign Co-Sign Detail Recorded Client Recorded Date Recorded By Document 03/12/20 08:49 KR [id number] 03/12/20 08:50 KR 03/12/20 08:49 -Is Patient Pain Free? Yes - Visit Discharge [Visit Discharge Information] -Discharge Condition Stable -Ambulatory Status Ambulatory -Transportation Private Auto Musculoskeletal: Muscle Wasting Neurological: Sensory exam intact to light touch and pain Psych/Mental Status: Normal Affect, Appropriate Debridement Note Post-Debridement Measurements/Treatment - Nurse 2 - General Ulcer CM Notes Start: 02/27/20 08:24 Freq: Status: Active Protocol: Activity Type Activity Date Activity User E-Sign Co-Sign Detail Recorded Client Recorded Date Recorded By Document 02/27/20 08:42 SHAWN [id number] 02/27/20 08:52 Document 03/05/20 08:33 JF [id number] 03/05/20 08:41 JF Document 03/12/20 08:39 [id number] 03/12/20 08:40 JF 02/27/20 03/05/20 03/12/20 08:42 08:33 08:39 Wound Center Nurse 2 #4 L Med LE -Time 08:43 08:36 -Correct Patient Yes Yes No -Correct Side, Site, Position Yes Yes No -Correct Procedure Yes Yes No -Procedure Performed Yes Yes No -Type of Procedure Debridement Debridement -Clinical Debridement Epidermis / Subcutaneous Dermis -Tissue Removed Epidermis, Subcutaneous Dermis -Post Debridement (cm) - Length 5 5.5 0 -Post Debridement (cm) - Width 4 4.2 0 -Post Debridement (cm) - Depth 0.1 0.1 0 -Total Square (Post) (cm) 20 23.10 0 -Area of Debridement (cm) - Length 5 5.5 0 -Area of Debridement (cm) - Width 4 4.2 0 -Total Square (Area) (cm) 20 23.10 0 -Tunneling No No -Undermining/Tunneling No No -Circular Undermining No No -Wound/Ulcer Outcome Not Healed Not Healed Healed- Epithelialized -Ulcer Cleansing Rinsed/ Rinsed/ Irrigated with Irrigated with Saline Saline -Foul Odor after Cleansing No No -Bioengineered Tissue No Yes -Type of Bioengineered Tissue Epifix -Expiration Date 11/19/24 -Product Lot Number [id number] -Percent Used 100 -Bleeding Controlled with Pressure Pressure -Other saline [id number] -Offloading No No -Treatment Response Procedure Procedure Tolerated Well Tolerated Well -Debridement - Open, 1st 20sq cm Yes -Debridement - Subq, 1st 20sq cm No No -Apply Skin Sub - 1st 25 sq cm - Legs 1 -Epifix (per sq cm) 0 -Epifix Mesh (per sq cm) 11 Pain Scale: 0-10 Numeric Is Patient Pain Free? Yes Yes Yes WC - Nurse 3 - General Ulcer D/C NN Start: 02/27/20 08:24 Freq: Status: Active Protocol: Activity Type Activity Date Activity User E-Sign Co-Sign Detail Recorded Client Recorded Date Recorded By Document 02/27/20 08:53 SHAWN [id number] 02/27/20 08:53 Document 03/05/20 08:46 [facility] [id number] 03/05/20 08:47 BM Document 03/12/20 08:49 KR [id number] 03/12/20 08:50 KR 02/27/20 03/05/20 03/12/20 08:53 08:46 08:49 Wound Care Nurse 3 #4 L Med LE -Ulcer Cleansing Rinsed/ Irrigated with Saline -Foul Odor after Cleansing No -Primary Dressing Applied NonAdherent Other Contact Layer -Other Dressing EPIMESH -Primary Dressing Covered/Secured with Dry Gauze & Dry Gauze & Roll Gauze, Roll Gauze, Secured with Secured with Tape Tape,Other -Other Covering ABD Left -Compression Wrap Gary Wrap Gary Wrap Pain Scale: 0-10 Numeric Is Patient Pain Free? Yes Yes Yes WC - Visit Discharge Discharge Condition Stable Stable Stable Ambulatory Status Ambulatory Ambulatory Ambulatory Transportation Private Auto Private Auto Private Auto Medication Reconcilliation completed & Yes provided to patient/care provider Clinical Summary of Care Provided Yes No debridement was completed today - healed Assessment/Plan Active Problems Ulcer of left lower extremity, limited to breakdown of skin (Chronic) Venous insufficiency (Chronic) Ulcer of left lower extremity with fat layer exposed (Chronic) May-Thurner syndrome (Chronic) Localized edema (Chronic) Assessment: Left leg ulcer fat layer exposed - healed. Cellulitis left lower extremity, improving/stabilizing. venous insufficiency/leg edema with complicated previous traumatic accidents and vascular surgery intervention. 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 Workup for multiple myeloma was negative. chronic pain Plan: I reviewed and discussed his case including etiology, risk factors, and recommended work up and treatment plan. The ulcer has healed. To discontinue dressing care. To keep this leg moisturized to maintain good skin integrity. To continue with edema management. He is discharged from the wound healing center at this time. I recommend not returning to prior job function for short while until his edema fluctuation is better managed and to allow the skin to remodel. He was reassured no signs of infection are noted.
[2020-03-19 11:12] VITALS: BP 150/89; PULSE 100; TEMP 36.6; BMI 27.8
--- NOTE | 2020-03-19 13:09 | PCM.WC.PN ---
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 He denies fever, chills, nausea, vomiting, or loss of appetite. His pain has returned with some swelling discoloration and return of weeping. He thinks this is starting to get infected. He was first seen for this condition on 12-20-2019. 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 He had an epifix applied last week and denies drainage now. He has been applying an Gary wrap up to his knee and is tolerated it is decently and since last week. Progress of Wound: Healed. New ulcer site proximal to the last site with serous drainage and concern of infection - Physical Exam Vital Signs Temp Pulse Resp BP 97.8 F 100 16 150/89 H 03/19/20 11:12 03/19/20 11:12 03/05/20 08:19 03/19/20 11:12 General: Alert, Oriented x3, Cooperative, No apparent distress Extremities: No cyanosis, Capillary Refill Less than 3 Seconds, No Calf Tenderness, Diminished Peripheral Pulses, Edema - Increased, - - Compartments remain soft to palpate left lower extremity Skin: Ulcer/ Wound - Full epithelialization is noted to the medial lower left leg ulcer site at prior recent wound care and advanced wound care product application site. There is no new skin discontinuity and is scattered cluster position just proximal to the prior ulcer encompassing the medial and anterior leg., - - There is periulcer inflammation changes including edema, erythema, tenderness on palpation. I do not appreciate an odor however he relates it is intermittently noted at home. His adjacent skin is also dry hairless and atrophic Wound Measurements and Assessment WC - Nurse 2 - General Ulcer CM Notes Start: 02/27/20 08:24 Freq: Status: Active Protocol: Activity Type Activity Date Activity User E-Sign Co-Sign Detail Recorded Client Recorded Date Recorded By Document 03/19/20 12:14 SHAWN [id number] 03/19/20 12:15 SHAWN 03/19/20 12:14 Wound Center Nurse 2 [Procedure/Treatment] #5 Left Medial Leg -Time 12:14 -Correct Patient Yes -Correct Side, Site, Position Yes -Correct Procedure Yes -Procedure Performed Yes -Type of Procedure Debridement -Clinical Debridement Epidermis / Dermis -Tissue Removed Epidermis, Dermis -Post Debridement (cm) - Length 3 -Post Debridement (cm) - Width 3 -Post Debridement (cm) - Depth 0.1 -Total Square (Post) (cm) 9 -Area of Debridement (cm) - Length 3 -Area of Debridement (cm) - Width 3 -Total Square (Area) (cm) 9 -Tunneling No -Undermining/Tunneling No -Circular Undermining No -Wound/Ulcer Outcome Not Healed -Ulcer Cleansing Rinsed/ Irrigated with Saline -Foul Odor after Cleansing No -Bioengineered Tissue No -Bleeding Controlled with Pressure -Offloading No -Treatment Response Procedure Tolerated Well -Debridement - Open, 1st 20sq cm Yes [See Physician Procedure note for Specifics] - Nurse 3 - General Ulcer D/C NN Start: 02/27/20 08:24 Freq: Status: Active Protocol: Activity Type Activity Date Activity User E-Sign Co-Sign Detail Recorded Client Recorded Date Recorded By Document 03/19/20 12:08 EDGAR [id number] 03/19/20 12:08 EDGAR 03/19/20 12:08 Wound Care Nurse 3 [Wound Dressing] #5 Left Medial Leg -Ulcer Cleansing Rinsed/ Irrigated with Saline -Foul Odor after Cleansing No -Primary Dressing Applied NonAdherent Contact Layer -Primary Dressing Covered/Secured Dry Gauze,Dry with Gauze & Roll Gauze,Secured with Tape [Post Procedure Tolerated] -Treatment Response Procedure Tolerated Well Pain Scale: 0-10 Numeric [Pain] -Is Patient Pain Free? Yes - Visit Discharge [Visit Discharge Information] -Discharge Condition Stable -Ambulatory Status Ambulatory -Transportation Private Auto Musculoskeletal: Muscle Wasting, Tenderness, - - Negative Jaime and Brunson sign left Neurological: Sensory exam intact to light touch and pain Psych/Mental Status: Normal Affect, Appropriate Debridement Note Post-Debridement Measurements/Treatment WC - Nurse 2 - General Ulcer CM Notes Start: 02/27/20 08:24 Freq: Status: Active Protocol: Activity Type Activity Date Activity User E-Sign Co-Sign Detail Recorded Client Recorded Date Recorded By Document 02/27/20 08:42 [id number] 02/27/20 08:52 Document 03/05/20 08:33 [id number] 03/05/20 08:41 Document 03/12/20 08:39 [id number] 03/12/20 08:40 Document 03/19/20 12:14 [id number] 03/19/20 12:15 02/27/20 03/05/20 03/12/20 08:42 08:33 08:39 Wound Center Nurse 2 #5 Left Medial Leg -Time -Correct Patient -Correct Side, Site, Position -Correct Procedure -Procedure Performed -Type of Procedure -Clinical Debridement -Tissue Removed -Post Debridement (cm) - Length -Post Debridement (cm) - Width -Post Debridement (cm) - Depth -Total Square (Post) (cm) -Area of Debridement (cm) - Length -Area of Debridement (cm) - Width -Total Square (Area) (cm) -Tunneling -Undermining/Tunneling -Circular Undermining -Wound/Ulcer Outcome -Ulcer Cleansing -Foul Odor after Cleansing -Bioengineered Tissue -Bleeding Controlled with -Offloading -Treatment Response -Debridement - Open, 1st 20sq cm #4 L Med LE -Time 08:43 08:36 -Correct Patient Yes Yes No -Correct Side, Site, Position Yes Yes No -Correct Procedure Yes Yes No -Procedure Performed Yes Yes No -Type of Procedure Debridement Debridement -Clinical Debridement Epidermis / Subcutaneous Dermis -Tissue Removed Epidermis, Subcutaneous Dermis -Post Debridement (cm) - Length 5 5.5 0 -Post Debridement (cm) - Width 4 4.2 0 -Post Debridement (cm) - Depth 0.1 0.1 0 -Total Square (Post) (cm) 20 23.10 0 -Area of Debridement (cm) - Length 5 5.5 0 -Area of Debridement (cm) - Width 4 4.2 0 -Total Square (Area) (cm) 20 23.10 0 -Tunneling No No -Undermining/Tunneling No No -Circular Undermining No No -Wound/Ulcer Outcome Not Healed Not Healed Healed- Epithelialized -Ulcer Cleansing Rinsed/ Rinsed/ Irrigated with Irrigated with Saline Saline -Foul Odor after Cleansing No No -Bioengineered Tissue No Yes -Type of Bioengineered Tissue Epifix -Expiration Date 11/19/24 -Product Lot Number [id number] -Percent Used 100 -Bleeding Controlled with Pressure Pressure -Other saline [id number] -Offloading No No -Treatment Response Procedure Procedure Tolerated Well Tolerated Well -Debridement - Open, 1st 20sq cm Yes -Debridement - Subq, 1st 20sq cm No No -Apply Skin Sub - 1st 25 sq cm - Legs 1 -Epifix (per sq cm) 0 -Epifix Mesh (per sq cm) 11 Pain Scale: 0-10 Numeric Is Patient Pain Free? Yes Yes Yes 03/19/20 12:14 Wound Center Nurse 2 #5 Left Medial Leg -Time 12:14 -Correct Patient Yes -Correct Side, Site, Position Yes -Correct Procedure Yes -Procedure Performed Yes -Type of Procedure Debridement -Clinical Debridement Epidermis / Dermis -Tissue Removed Epidermis, Dermis -Post Debridement (cm) - Length 3 -Post Debridement (cm) - Width 3 -Post Debridement (cm) - Depth 0.1 -Total Square (Post) (cm) 9 -Area of Debridement (cm) - Length 3 -Area of Debridement (cm) - Width 3 -Total Square (Area) (cm) 9 -Tunneling No -Undermining/Tunneling No -Circular Undermining No -Wound/Ulcer Outcome Not Healed -Ulcer Cleansing Rinsed/ Irrigated with Saline -Foul Odor after Cleansing No -Bioengineered Tissue No -Bleeding Controlled with Pressure -Offloading No -Treatment Response Procedure Tolerated Well -Debridement - Open, 1st 20sq cm Yes #4 L Med LE -Time -Correct Patient -Correct Side, Site, Position -Correct Procedure -Procedure Performed -Type of Procedure -Clinical Debridement -Tissue Removed -Post Debridement (cm) - Length -Post Debridement (cm) - Width -Post Debridement (cm) - Depth -Total Square (Post) (cm) -Area of Debridement (cm) - Length -Area of Debridement (cm) - Width -Total Square (Area) (cm) -Tunneling -Undermining/Tunneling -Circular Undermining -Wound/Ulcer Outcome -Ulcer Cleansing -Foul Odor after Cleansing -Bioengineered Tissue -Type of Bioengineered Tissue -Expiration Date -Product Lot Number -Percent Used -Bleeding Controlled with -Other -Offloading -Treatment Response -Debridement - Open, 1st 20sq cm -Debridement - Subq, 1st 20sq cm -Apply Skin Sub - 1st 25 sq cm - Legs -Epifix (per sq cm) -Epifix Mesh (per sq cm) Pain Scale: 0-10 Numeric Is Patient Pain Free? - Nurse 3 - General Ulcer D/C NN Start: 02/27/20 08:24 Freq: Status: Active Protocol: Activity Type Activity Date Activity User E-Sign Co-Sign Detail Recorded Client Recorded Date Recorded By Document 02/27/20 08:53 [id number] 02/27/20 08:53 JF Document 03/05/20 08:46 BM [id number] 03/05/20 08:47 BMF Document 03/12/20 08:49 KR [id number] 03/12/20 08:50 KR Document 03/19/20 12:08 KR [id number] 03/19/20 12:08 KR 02/27/20 03/05/20 03/12/20 08:53 08:46 08:49 Wound Care Nurse 3 #5 Left Medial Leg -Ulcer Cleansing -Foul Odor after Cleansing -Primary Dressing Applied -Primary Dressing Covered/Secured with #4 L Med LE -Ulcer Cleansing Rinsed/ Irrigated with Saline -Foul Odor after Cleansing No -Primary Dressing Applied NonAdherent Other Contact Layer -Other Dressing EPIMESH -Primary Dressing Covered/Secured with Dry Gauze & Dry Gauze & Roll Gauze, Roll Gauze, Secured with Secured with Tape Tape,Other -Other Covering ABD Left -Compression Wrap Gary Wrap Gary Wrap Treatment Response Pain Scale: 0-10 Numeric Is Patient Pain Free? Yes Yes Yes - Visit Discharge Discharge Condition Stable Stable Stable Ambulatory Status Ambulatory Ambulatory Ambulatory Transportation Private Auto Private Auto Private Auto Medication Reconcilliation completed & Yes provided to patient/care provider Clinical Summary of Care Provided Yes 03/19/20 12:08 Wound Care Nurse 3 #5 Left Medial Leg -Ulcer Cleansing Rinsed/ Irrigated with Saline -Foul Odor after Cleansing No -Primary Dressing Applied NonAdherent Contact Layer -Primary Dressing Covered/Secured with Dry Gauze,Dry Gauze & Roll Gauze,Secured with Tape #4 L Med LE -Ulcer Cleansing -Foul Odor after Cleansing -Primary Dressing Applied -Other Dressing -Primary Dressing Covered/Secured with -Other Covering Left -Compression Wrap Treatment Response Procedure Tolerated Well Pain Scale: 0-10 Numeric Is Patient Pain Free? Yes WC - Visit Discharge Discharge Condition Stable Ambulatory Status Ambulatory Transportation Private Auto Medication Reconcilliation completed & provided to patient/care provider Clinical Summary of Care Provided Wound debrided: leg Laterality: Left Type of Debridement: Selective debridement Anesthesia Used: 4% Lidocaine Solution Depth: Down to and including healthy tissue Percentage of wound debrided: 100 Instrument Used: #15 blade Tissue Removed: fibrous, devitalized tissue, biofilm, slough Severity: Fat Layer Exposed Amount of bleeding with debridement: Mild Bleeding Controlled with: Pressure Patient tolerated procedure well Assessment/Plan Active Problems Ulcer of left lower extremity, limited to breakdown of skin (Chronic) Venous insufficiency (Chronic) Ulcer of left lower extremity with fat layer exposed (Chronic) May-Thurner syndrome (Chronic) Cellulitis of left lower limb (Acute) Localized edema (Chronic) Assessment: Left leg ulcer fat layer exposed - healed. Cellulitis left lower extremity, improving/stabilizing. venous insufficiency/leg edema with complicated previous traumatic accidents and vascular surgery intervention. 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 Workup for multiple myeloma was negative. chronic pain Plan: I reviewed and discussed his case including etiology, risk factors, and recommended work up and treatment plan. The initial ulcer has healed. There is now a new ulcer site just proximal to the recently healed ulcer site. To resume dressing care with Dakin wet-to-dry and to gently wash with antibacterial soap and water. It is also okay to use Adaptic if needed to prevent skin irritation. The debridement was performed today as noted in the clinical panel. Saline irrigation was performed and aerobic and anaerobic cultures were obtained. I recommend doxycycline and a prescription was provided. He was advised on safe and proper use. To keep this leg moisturized to maintain good skin integrity. To continue with edema management. Advanced wound healing prior application will be considered if there is still skin discontinuity and if the infection signs resolved. He will return to clinic next week or call sooner if he has worsening symptoms or questions.
== END 2020-03-20 23:59 ==
LOC: WC 11:00
PROVIDERS: PCP Family Medicine; Referring Provider Podiatrist; Visit Provider Podiatrist
DX: I87.2 Venous insufficiency (chronic) (peripheral) (principal); L97.822 Non-pressure chronic ulcer of other part of left lower leg with fat layer exposed; R60.0 Localized edema; L03.116 Cellulitis of left lower limb; I87.1 Compression of vein
CPT/HCPCS: 15271; 87070; 87075; 87077; 87186; 87205; 97597; 99213; Q4186; G0463

== ENCOUNTER 2020-04-09 08:00 | Outpatient (RCR) | payer BC, SELFPAY ==
[2020-03-21 00:10] VITALS: BP 150/89; PULSE 100; RESP 16; TEMP 36.6
[2020-03-26 08:44] VITALS: BP 155/95; PULSE 98; TEMP 35.8; BMI 27.8
--- NOTE | 2020-03-26 10:33 | PN.PCM_ITS ---
(1) Ulcer of left lower extremity, limited to breakdown of skin Status: Chronic Code(s): L97.921 - Non-pressure chronic ulcer of unspecified part of left lower leg limited to breakdown of skin (2) Venous insufficiency Status: Chronic Code(s): I87.2 - Venous insufficiency (chronic) (peripheral) Type of Wound Date of Service: 03/26/20 Chief Complaint: left leg ulcer History of Wound: This 59 year old male with multiple comorbidities was seen for left leg ulceration. He denies fever, chills, nausea, vomiting, or loss of appetite. His pain has returned with some swelling discoloration and return of weeping. He completed a course of antibiotics and his itching, redness, and swelling have significantly resolved. He was first seen for this condition on 12-20-2019. 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 He has had intermittent closure. He had some abnormal enzyme test results and had a recent abdominal CT scan to look for an adrenal mass. This was not identified on the CT and he is continue to follow-up. Progress of Wound: Recurrence stable - Physical Exam Vital Signs Temp Pulse Resp BP 96.5 F L 98 16 155/95 H 03/26/20 08:44 03/26/20 08:44 03/21/20 00:10 03/26/20 08:44 General: Alert, Oriented x3, Cooperative, No apparent distress HEENT: Atraumatic Extremities: No cyanosis, Capillary Refill Less than 3 Seconds, No Calf Tenderness, Diminished Peripheral Pulses, Edema Skin: Ulcer/ Wound - No purulence, erythema, streaking, odor, infection. Inflammation has resolved. There is scant skin discontinuity noted with islands of epithelialization. His skin is hairless and atrophic. Wound Measurements and Assessment WC - Nurse 1 - General Ulcer Measurement Start: 03/26/20 08:44 Freq: Status: Active Protocol: Activity Type Activity Date Activity User E-Sign Co-Sign Detail Recorded Client Recorded Date Recorded By Document 03/26/20 08:44 EDGAR [id number] 03/26/20 08:49 KR 03/26/20 08:44 Wound Center Nurse 1 [Ulcer Assessment] #5 Left Medial Leg -Current Size (cm) - Length 0.1 -Current Size (cm) - Width 0.1 -Current Size (cm) - Depth 0.1 -Total Square Cm 0.01 -Exudate Amt Small -Exudate Type Serosanguineous -Wound Margin Flat & Intact -Granulation Amt Medium (34-66%) -Granulation Quality Red -Necrosis Amt None Present (0 %) -Texture (Aracely-wound Skin Appearance) No Abnormality, Assessed -Moisture (Aracely-wound Skin Appearance No Abnormality, ) Assessed -Color (Aracely-wound Skin Appearance) No Abnormality, Assessed -Temperature (Aracely-wound Skin No Abnormality Appearance) (Pt Warm) -Tenderness on Palpation (Aracely-wound No Skin Appearance) -Ulcer Cleansing Rinsed/ Irrigated with Saline -Foul Odor after Cleansing No -Anesthetic Used 4% Lidocaine Solution [Edema Assessment] -Point of measurement (cm from the 39.3 medial instep) -Point of Measurement (cm from the 24.1 medial instep) - Nurse 3 - General Ulcer D/C NN Start: 03/26/20 08:44 Freq: Status: Active Protocol: Activity Type Activity Date Activity User E-Sign Co-Sign Detail Recorded Client Recorded Date Recorded By Document 03/26/20 09:41 EDGAR [id number] 03/26/20 09:41 KR 03/26/20 09:41 Wound Care Nurse 3 [Wound Dressing] #5 Left Medial Leg -Ulcer Cleansing Rinsed/ Irrigated with Saline -Foul Odor after Cleansing No -Primary Dressing Applied NonAdherent Contact Layer -Primary Dressing Covered/Secured Dry Gauze & with Roll Gauze, Secured with Tape Pain Scale: 0-10 Numeric [Pain] -Is Patient Pain Free? Yes - Visit Discharge [Visit Discharge Information] -Discharge Condition Stable -Ambulatory Status Ambulatory -Transportation Private Auto Musculoskeletal: No Tenderness to Palpation of Joints or Extremities, Muscle Wasting Neurological: Sensory exam intact to light touch and pain Psych/Mental Status: Normal Affect, Appropriate Debridement Note Post-Debridement Measurements/Treatment WC - Nurse 3 - General Ulcer D/C NN Start: 03/26/20 08:44 Freq: Status: Active Protocol: Activity Type Activity Date Activity User E-Sign Co-Sign Detail Recorded Client Recorded Date Recorded By Document 03/26/20 09:41 EDGAR [id number] 03/26/20 09:41 KR 03/26/20 09:41 Wound Care Nurse 3 #5 Left Medial Leg -Ulcer Cleansing Rinsed/ Irrigated with Saline -Foul Odor after Cleansing No -Primary Dressing Applied NonAdherent Contact Layer -Primary Dressing Covered/Secured with Dry Gauze & Roll Gauze, Secured with Tape Pain Scale: 0-10 Numeric Is Patient Pain Free? Yes WC - Visit Discharge Discharge Condition Stable Ambulatory Status Ambulatory Transportation Private Auto Wound debrided: medial lower leg Laterality: Left Type of Debridement: Excisional debridement Anesthesia Used: 5% Lidocaine Gel Depth: in the subcutaneous layer Percentage of wound debrided: 100 Instrument Used: #15 blade Tissue Removed: fibrous, devitalized subcutaneous, biofilm, slough Severity: Fat Layer Exposed Amount of bleeding with debridement: Mild Bleeding Controlled with: Pressure Patient tolerated procedure well Assessment/Plan Active Problems Ulcer of left lower extremity, limited to breakdown of skin (Chronic) Venous insufficiency (Chronic) Assessment: Left leg ulcer fat layer exposed -returned. Cellulitis left lower extremity, resolved. venous insufficiency/leg edema with complicated previous traumatic accidents and vascular surgery intervention. 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 Workup for multiple myeloma was negative; additional work-up for other cancers in process. chronic pain Plan: I reviewed and discussed his case including etiology, risk factors, and recommended work up and treatment plan. The ulcer has returned. It is also okay to use Adaptic if needed to prevent skin irritation. The debridement was performed today as noted in the clinical panel. He completed a course of doxycycline with resolution of local cellulitis. He change his dressing daily with Adaptic and hydrogel. To wash with soap and water. To keep this leg moisturized to maintain good skin integrity. To continue with edema management. Advanced wound healing prior application will be considered if there is still skin discontinuity next week. I offered application today and he would like to consider it now that the insurance deductible has recently restarted. He understands the benefits, indications, anticipated healing time and management. He has done very well with advanced wound healing product in the past. He will return to clinic next week or call sooner if he has worsening symptoms or questions.
[2020-04-02 08:13] VITALS: BP 156/93; PULSE 97; RESP 18; TEMP 36.4; BMI 27.8
--- NOTE | 2020-04-02 08:45 | PN.PCM_ITS ---
(1) Ulcer of left lower extremity, limited to breakdown of skin Status: Chronic Code(s): L97.921 - Non-pressure chronic ulcer of unspecified part of left lower leg limited to breakdown of skin (2) Venous insufficiency Status: Chronic Code(s): I87.2 - Venous insufficiency (chronic) (peripheral) Type of Wound Date of Service: 04/02/20 Chief Complaint: left leg ulcer History of Wound: This 59 year old male with multiple comorbidities was seen for left leg ulceration. He denies fever, chills, nausea, vomiting, or loss of appetite. His pain has returned with some swelling discoloration and return of weeping. He completed a course of antibiotics and his itching, redness, and swelling have significantly resolved. He was first seen for this condition on 12-20-2019. 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 He is ready to proceed another application today. Progress of Wound: Stable with delayed healing - Physical Exam Vital Signs Temp Pulse Resp BP 97.6 F L 97 18 156/93 H 04/02/20 08:13 04/02/20 08:13 04/02/20 08:13 04/02/20 08:13 General: Alert, Oriented x3, Cooperative, No apparent distress Extremities: No cyanosis, Capillary Refill Less than 3 Seconds, No Calf Tenderness, Edema - Decreased, Peripheral Pulses Normal Skin: Ulcer/ Wound - No purulence, erythema, streaking, odor. Skin discontinuity and skin islands. There are no evidence of infection or necrosis. no bogginess or fluctuance Wound Measurements and Assessment WC - Nurse 1 - General Ulcer Measurement Start: 03/26/20 08:44 Freq: Status: Active Protocol: Activity Type Activity Date Activity User E-Sign Co-Sign Detail Recorded Client Recorded Date Recorded By Document 04/02/20 08:13 RB [id number] 04/02/20 08:15 RB 04/02/20 08:13 Wound Center Nurse 1 [Ulcer Assessment] #5 Left Medial Leg -Combined with other wound No -Current Size (cm) - Length 0.1 -Current Size (cm) - Width 0.1 -Current Size (cm) - Depth 0.1 -Total Square Cm 0.01 -Tunneling No -Undermining/Tunneling No -Circular Undermining No -Exudate Amt Medium -Exudate Type Serosanguineous -Wound Margin Flat & Intact -Granulation Amt Medium (34-66%) -Granulation Quality [place] -Slough/Fibrin Yes -Necrosis Amt Small (1-33%) -Necrotic Tissue Type Adherent Slough -Structure Exposed N/A -Texture (Aracely-wound Skin Appearance) Assessed -Moisture (Aracely-wound Skin Appearance Assessed ) -Color (Aracely-wound Skin Appearance) Assessed -Temperature (Aracely-wound Skin No Abnormality Appearance) (Pt Warm) -Tenderness on Palpation (Aracely-wound No Skin Appearance) -Ulcer Cleansing Wound Cleanser -Foul Odor after Cleansing No -Anesthetic Used 4% Lidocaine Solution [Edema Assessment] -Lower Limb Edema Present Yes -Left Calf (cm) 39.4 -Left Ankle (cm) 23.3 WC - Nurse 2 - General Ulcer CM Notes Start: 03/26/20 08:44 Freq: Status: Active Protocol: Activity Type Activity Date Activity User E-Sign Co-Sign Detail Recorded Client Recorded Date Recorded By Document 04/02/20 08:21 SHAWN [id number] 04/02/20 08:31 SHAWN 04/02/20 08:21 Wound Center Nurse 2 [Procedure/Treatment] #5 Left Medial Leg -Time 08:22 -Correct Patient Yes -Correct Side, Site, Position Yes -Correct Procedure Yes -Procedure Performed Yes -Type of Procedure Debridement -Clinical Debridement Subcutaneous -Tissue Removed Subcutaneous -Post Debridement (cm) - Length 3.2 -Post Debridement (cm) - Width 2.7 -Post Debridement (cm) - Depth 0.1 -Total Square (Post) (cm) 8.64 -Area of Debridement (cm) - Length 3.2 -Area of Debridement (cm) - Width 2.7 -Total Square (Area) (cm) 8.64 -Tunneling No -Undermining/Tunneling No -Circular Undermining No -Wound/Ulcer Outcome Not Healed -Ulcer Cleansing Rinsed/ Irrigated with Saline -Foul Odor after Cleansing No -Bioengineered Tissue Yes -Type of Bioengineered Tissue Epifix Mesh -Expiration Date 12/19/24 -Product Lot Number [id number] -Percent Used 100 -Lot number of Saline Used [id number] -Bleeding Controlled with Pressure -Offloading No -Treatment Response Procedure Tolerated Well -Debridement - Subq, 1st 20sq cm No -Apply Skin Sub - 1st 25 sq cm - Legs 1 -Epifix Mesh (per sq cm) 11 [See Physician Procedure note for Specifics] Pain Scale: 0-10 Numeric [Pain] -Is Patient Pain Free? Yes Musculoskeletal: No Tenderness to Palpation of Joints or Extremities, Muscle Wasting Neurological: Sensory exam intact to light touch and pain Psych/Mental Status: Normal Affect, Appropriate Debridement Note Post-Debridement Measurements/Treatment WC - Nurse 2 - General Ulcer CM Notes Start: 03/26/20 08:44 Freq: Status: Active Protocol: Activity Type Activity Date Activity User E-Sign Co-Sign Detail Recorded Client Recorded Date Recorded By Document 03/26/20 11:48 [address] [id number] 03/26/20 11:49 PL Document 04/02/20 08:21 JF [id number] 04/02/20 08:31 JF 03/26/20 04/02/20 11:48 08:21 Wound Center Nurse 2 #5 Left Medial Leg -Time 09:08 08:22 -Correct Patient Yes Yes -Correct Side, Site, Position Yes Yes -Correct Procedure Yes Yes -Procedure Performed Yes Yes -Type of Procedure Debridement Debridement -Clinical Debridement Subcutaneous Subcutaneous -Tissue Removed Subcutaneous Subcutaneous -Post Debridement (cm) - Length 0.1 3.2 -Post Debridement (cm) - Width 0.1 2.7 -Post Debridement (cm) - Depth 0.1 0.1 -Total Square (Post) (cm) 0.01 8.64 -Area of Debridement (cm) - Length 0.1 3.2 -Area of Debridement (cm) - Width 0.1 2.7 -Total Square (Area) (cm) 0.01 8.64 -Tunneling No No -Undermining/Tunneling No No -Circular Undermining No No -Wound/Ulcer Outcome Not Healed Not Healed -Ulcer Cleansing Rinsed/ Rinsed/ Irrigated with Irrigated with Saline Saline -Foul Odor after Cleansing No No -Bioengineered Tissue No Yes -Type of Bioengineered Tissue Epifix Mesh -Expiration Date 12/19/24 -Product Lot Number [id number] -Percent Used 100 -Lot number of Saline Used [id number] -Bleeding Controlled with Pressure -Offloading No -Treatment Response Procedure Tolerated Well -Debridement - Subq, 1st 20sq cm Yes No -Apply Skin Sub - 1st 25 sq cm - Legs 1 -Epifix Mesh (per sq cm) 11 Pain Scale: 0-10 Numeric Is Patient Pain Free? Yes Yes WC - Nurse 3 - General Ulcer D/C NN Start: 03/26/20 08:44 Freq: Status: Active Protocol: Activity Type Activity Date Activity User E-Sign Co-Sign Detail Recorded Client Recorded Date Recorded By Document 03/26/20 09:41 EDGAR [id number] 03/26/20 09:41 EDGAR 03/26/20 09:41 Wound Care Nurse 3 #5 Left Medial Leg -Ulcer Cleansing Rinsed/ Irrigated with Saline -Foul Odor after Cleansing No -Primary Dressing Applied NonAdherent Contact Layer -Primary Dressing Covered/Secured with Dry Gauze & Roll Gauze, Secured with Tape Pain Scale: 0-10 Numeric Is Patient Pain Free? Yes WC - Visit Discharge Discharge Condition Stable Ambulatory Status Ambulatory Transportation Private Auto Wound debrided: medial leg Laterality: Left Type of Debridement: Excisional debridement Depth: in the subcutaneous layer Percentage of wound debrided: 70 Instrument Used: #15 blade Tissue Removed: fibrous, devitalized subcutaneous, biofilm, slough Severity: Fat Layer Exposed Amount of bleeding with debridement: Mild Bleeding Controlled with: Pressure Patient tolerated procedure well Assessment/Plan Active Problems Ulcer of left lower extremity, limited to breakdown of skin (Chronic) Venous insufficiency (Chronic) Assessment: Left leg ulcer fat layer exposed -returned. Cellulitis left lower extremity, resolved. venous insufficiency/leg edema with complicated previous traumatic accidents and vascular surgery intervention. 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 Workup for multiple myeloma was negative; additional work-up for other cancers in process. chronic pain Plan: I reviewed and discussed his case including etiology, risk factors, and recommended work up and treatment plan. The debridement was performed today as noted in the clinical panel. Obtain to apply advanced wound healing product, epifix. This was applied according standard protocol and was further secured in place with a wound veil and Steri-Strips. A secondary dressing was applied and he was advised to keep this clean, dry, and intact. To continue with edema management. He understands the benefits, indications, anticipated healing time and management. He will return to clinic next week or call sooner if he has worsening symptoms or questions.
--- NOTE | 2020-04-02 12:15 | RAD_ITS ---
STUDY: X-RAY - RIGHT ANKLE REASON FOR EXAM: Right ankle pain and swelling, began last night, no specific injury. TECHNIQUE: 3 view(s) of the ankle. COMPARISON: None. FINDINGS: Normal visualized distal tibia and fibula. Normal medial and lateral malleoli. Normal tibiotalar articulation and ankle mortise. There is a small posterior calcaneal enthesophyte. Otherwise, unremarkable visualized talus and calcaneus. The visualized subtalar, talonavicular, calcaneocuboid and tarsal articulations are normal. There is soft tissue swelling. RAD/Ankle min 3 Views IMPRESSION: Soft tissue swelling. Small posterior calcaneal enthesophyte. Electronically Signed: Royal Sierra MD at 13:29 EST Tel , Service support ,
[2020-04-09 08:14] VITALS: BP 142/88; PULSE 93; RESP 20; TEMP 36; BMI 27.8
--- NOTE | 2020-04-09 08:40 | PCM.WC.PN ---
(1) Ulcer of left lower extremity, limited to breakdown of skin Status: Resolved Code(s): L97.921 - Non-pressure chronic ulcer of unspecified part of left lower leg limited to breakdown of skin (2) Venous insufficiency Status: Chronic Code(s): I87.2 - Venous insufficiency (chronic) (peripheral) (3) Right ankle sprain Status: Acute Qualifiers: Encounter type: subsequent encounter Code(s): S93.401A - Sprain of unspecified ligament of right ankle, initial encounter (4) Gout of right foot Status: Suspected Code(s): M10.9 - Gout, unspecified (5) Walking difficulty due to ankle and foot Status: Chronic Code(s): R26.2 - Difficulty in walking, not elsewhere classified (6) Localized edema Status: Chronic Code(s): R60.0 - Localized edema (7) Right ankle pain Status: Acute Qualifiers: Chronicity: acute Qualified Code(s): M25.571 - Pain in right ankle and joints of right foot Code(s): M25.571 - Pain in right ankle and joints of right foot (8) Inflammatory arthritis Status: Suspected Code(s): M19.90 - Unspecified osteoarthritis, unspecified site (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 right foot/ankle pain History of Wound: This 59 year old male with multiple comorbidities was seen for left leg ulceration. He denies fever, chills, nausea, vomiting, or loss of appetite. His pain has returned with some swelling discoloration and return of weeping. 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 He had an epifix applied last week and denies drainage for most of the week. He thinks the site has healed. He is also following up for right ankle and foot pain with a sudden onset overnight that started 1 week ago. He took prednisone for about 4 days with reduction of the swelling and redness. His pain is now more localized. He still has at least moderate discomfort and is unable to bear weight. He is also wearing an Gary wrap. He uses crutches today. He denies fever, chill, nausea, vomiting. He would like to proceed forward with lab work today. I offered him a subtalar joint aspiration and he will hold off at this time. He deferred cam walker mobilization last week and is now amenable to fitted. Progress of Wound: Healed ulcer - Physical Exam Vital Signs Temp Pulse Resp BP 96.8 F L 93 20 H 142/88 H 04/09/20 08:14 04/09/20 08:14 04/09/20 08:14 04/09/20 08:14 General: Alert, Oriented x3, Cooperative, No apparent distress HEENT: Atraumatic Extremities: No cyanosis, Capillary Refill Less than 3 Seconds, No Calf Tenderness, Diminished Peripheral Pulses, Edema Skin: Ulcer/ Wound - Full epithelialization left lower extremity. No erythema, purulence, drainage, necrosis or skin discontinuity left. No bogginess or fluctuance or warmth on palpation left. There is also no ulcer, streaking, drainage or skin discontinuity or necrosis to the right lower extremity., - Wound Measurements and Assessment WC - Nurse 1 - General Ulcer Measurement Start: 03/26/20 08:44 Freq: Status: Active Protocol: Activity Type Activity Date Activity User E-Sign Co-Sign Detail Recorded Client Recorded Date Recorded By Document 04/09/20 08:14 DL [id number] 04/09/20 08:19 DL 04/09/20 08:14 Wound Center Nurse 1 [Ulcer Assessment] #5 Left Medial Leg -Current Size (cm) - Length 2 -Current Size (cm) - Width 3.2 -Current Size (cm) - Depth 0.1 -Total Square Cm 6.4 -Photo Taken No -Exudate Amt Medium -Exudate Type Serosanguineous -Wound Margin Distinct, Outline Attached -Granulation Amt Medium (34-66%) -Granulation Quality Red -Necrosis Amt Medium (34-66%) -Necrotic Tissue Type Adherent Slough -Structure Exposed N/A -Texture (Aracely-wound Skin Appearance) Localized Edema ,Scarring -Moisture (Aracely-wound Skin Appearance Weeping ) -Color (Aracely-wound Skin Appearance) Hemosiderin Staining,Rubor -Temperature (Aracely-wound Skin No Abnormality Appearance) (Pt Warm) -Tenderness on Palpation (Aracely-wound No Skin Appearance) -Ulcer Cleansing Wound Cleanser -Foul Odor after Cleansing No -Anesthetic Used 4% Lidocaine Solution [Edema Assessment] -Left Calf (cm) 39 -Left Ankle (cm) 23 WC - Nurse 2 - General Ulcer CM Notes Start: 03/26/20 08:44 Freq: Status: Active Protocol: Activity Type Activity Date Activity User E-Sign Co-Sign Detail Recorded Client Recorded Date Recorded By Document 04/09/20 08:26 SHAWN [id number] 04/09/20 08:28 SHAWN 04/09/20 08:26 Wound Center Nurse 2 [Procedure/Treatment] #5 Left Medial Leg -Time 08:27 -Correct Patient No -Correct Side, Site, Position No -Correct Procedure No -Procedure Performed No -Type of Procedure Debridement -Clinical Debridement Subcutaneous -Tissue Removed Subcutaneous -Post Debridement (cm) - Length 0 -Post Debridement (cm) - Width 0 -Post Debridement (cm) - Depth 0 -Total Square (Post) (cm) 0 -Area of Debridement (cm) - Length 0 -Area of Debridement (cm) - Width 0 -Total Square (Area) (cm) 0 -Tunneling No -Undermining/Tunneling No -Circular Undermining No -Wound/Ulcer Outcome Healed- Epithelialized -Ulcer Cleansing Rinsed/ Irrigated with Saline -Foul Odor after Cleansing No -Bioengineered Tissue No -Bleeding Controlled with Pressure -Offloading No -Treatment Response Procedure Tolerated Well -Debridement - Subq, 1st 20sq cm No [See Physician Procedure note for Specifics] Pain Scale: 0-10 Numeric [Pain] -Is Patient Pain Free? Yes Musculoskeletal: Muscle Wasting, Tenderness - There is pain with on palpation also to the distal fibula and the ankle syndesmosis. There is no pain on palpation of the peroneal, Achilles, posterior tibialis tendon. There is pain with passive eversion of the hindfoot, - - Localized edema, erythema and warmth over the lateral hindfoot. There is resolution of pain on palpation to the medial ankle and anterior ankle joint line. There is no pain with passive sagittal plane range of motion of the ankle. There is pain on palpation to the right subtalar joint Neurological: Sensory exam intact to light touch and pain Psych/Mental Status: Normal Affect, Appropriate Debridement Note Post-Debridement Measurements/Treatment NICCI - Nurse 2 - General Ulcer CM Notes Start: 03/26/20 08:44 Freq: Status: Active Protocol: Activity Type Activity Date Activity User E-Sign Co-Sign Detail Recorded Client Recorded Date Recorded By Document 03/26/20 11:48 PL [id number] 03/26/20 11:49 PL Document 04/02/20 08:21 JF [id number] 04/02/20 08:31 JF Document 04/09/20 08:26 JF [id number] 04/09/20 08:28 JF 03/26/20 04/02/20 04/09/20 11:48 08:21 08:26 Wound Center Nurse 2 #5 Left Medial Leg -Time 09:08 08:22 08:27 -Correct Patient Yes Yes No -Correct Side, Site, Position Yes Yes No -Correct Procedure Yes Yes No -Procedure Performed Yes Yes No -Type of Procedure Debridement Debridement Debridement -Clinical Debridement Subcutaneous Subcutaneous Subcutaneous -Tissue Removed Subcutaneous Subcutaneous Subcutaneous -Post Debridement (cm) - Length 0.1 3.2 0 -Post Debridement (cm) - Width 0.1 2.7 0 -Post Debridement (cm) - Depth 0.1 0.1 0 -Total Square (Post) (cm) 0.01 8.64 0 -Area of Debridement (cm) - Length 0.1 3.2 0 -Area of Debridement (cm) - Width 0.1 2.7 0 -Total Square (Area) (cm) 0.01 8.64 0 -Tunneling No No No -Undermining/Tunneling No No No -Circular Undermining No No No -Wound/Ulcer Outcome Not Healed Not Healed Healed- Epithelialized -Ulcer Cleansing Rinsed/ Rinsed/ Rinsed/ Irrigated with Irrigated with Irrigated with Saline Saline Saline -Foul Odor after Cleansing No No No -Bioengineered Tissue No Yes No -Type of Bioengineered Tissue Epifix Mesh -Expiration Date 12/19/24 -Product Lot Number [id number] -Percent Used 100 -Lot number of Saline Used [id number] -Bleeding Controlled with Pressure Pressure -Offloading No No -Treatment Response Procedure Procedure Tolerated Well Tolerated Well -Debridement - Subq, 1st 20sq cm Yes No No -Apply Skin Sub - 1st 25 sq cm - Legs 1 -Epifix Mesh (per sq cm) 11 Pain Scale: 0-10 Numeric Is Patient Pain Free? Yes Yes Yes WC - Nurse 3 - General Ulcer D/C NN Start: 03/26/20 08:44 Freq: Status: Active Protocol: Activity Type Activity Date Activity User E-Sign Co-Sign Detail Recorded Client Recorded Date Recorded By Document 03/26/20 09:41 EDGAR [id number] 03/26/20 09:41 EDGAR 03/26/20 09:41 Wound Care Nurse 3 #5 Left Medial Leg -Ulcer Cleansing Rinsed/ Irrigated with Saline -Foul Odor after Cleansing No -Primary Dressing Applied NonAdherent Contact Layer -Primary Dressing Covered/Secured with Dry Gauze & Roll Gauze, Secured with Tape Pain Scale: 0-10 Numeric Is Patient Pain Free? Yes WC - Visit Discharge Discharge Condition Stable Ambulatory Status Ambulatory Transportation Private Auto Wound debrided: leg Laterality: Left No debridement was completed today - Healed today Assessment/Plan Clinical Impression(s) from Imaging Studies Ankle X-Ray 04/02/20 12:15 IMPRESSION: Soft tissue swelling. Small posterior calcaneal enthesophyte. 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 Cellulitis left lower extremity, resolved. venous insufficiency/leg edema with complicated previous traumatic accidents and vascular surgery intervention. 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 Workup for multiple myeloma was negative; additional work-up for other cancers in process. chronic pain. Acute right foot and ankle pain; work-up differential diagnoses include gout versus inflammatory arthritis versus ankle sprain. Walking difficulty. Lower extremity edema bilateral Plan: I reviewed and discussed his case including etiology, risk factors, and recommended work up and treatment plan. Debridement was not performed because the ulcer site has healed. He was reassured the left lower extremity and and does not have an ulcer or infection. He was advised to allow the skin time to remodel with continued elevation, reduction in activity, ongoing elevation, to apply dry gauze and Gary wrap. We will do this consistently for the next week and then will start to progress his walking activity. I recommend he follows up to the wound healing center in 2 weeks for healed wound check or call sooner if it reopens or if he has any other problems. He has responded well to standard wound care therapy and advanced product epifix application. I also followed up with him in regards to his right foot and ankle pain. Although this is more localized and has improved in a mild manner it is still moderately painful and he is unable to bear weight. To continue crutch use as needed. I recommended diagnostic work-up for gout versus inflammatory arthritis versus infection and lab orders were provided for CBC, CMP, uric acid, ESR, C-reactive protein. I offered him a subtalar joint aspiration to evaluate for any crystal formation and he defers today. We discussed the indication, benefits, risks and how this would affect his treatment plan. It is noted he has already taken prednisone it is okay to continue this for up to 10 days. We will consider other medical medication management pending his lab results. To avoid aggravating activities. I also provided him with a prescription to obtain a cam walker boot to immobilize his acute injury site. I answered all of his questions. I will call him with the results of his lab work and to confirm his ongoing progress after mobilization prior to his 2-week clinical follow-up session which is for a healed ulcer check. The problems addressed require a moderate decision making level which includes one or more chronic illnesses (w/ exacerbation, progression, or side effects), two or more stable chronic illnesses, one undiagnosed new problem w/ uncertain prognosis, one acute illness with systemic symptoms, or one acute complicated injury. The medical decision making level is moderate. There is noted moderate risk of morbidity after considering this treatment plan and diagnostic data. Considerations were given to prescription management, decisions regarding surgical options, or social determinants of health. Note: [employer] speech recognition nursing unit clerk software was used to create portions of this document. Sound-alike and misspelled words, as well as other nursing unit clerk errors may be contained in the documentation.
[2020-04-09 09:11] LABS: Erythrocyte Sedimentation Rate 26 mm/hr (0-20)
[2020-04-09 09:16] LABS: Absolute Lymphocyte Count 2.09 X10^3/uL (0.83-4.51); Absolute Neutrophil Count 4.1 X10^3/uL (2.0-7.7); Basophil# 0.07 X10^3/uL; Eosinophil# 0.32 X10^3/uL; Eosinophils% 4.4 % (0-5); Hematocrit 42.9 % (40-54); Hemoglobin 14.3 g/dL (13.0-16.5); Lymphocyte # 2.09 X10^3/ul (4.0); Lymphocyte % 28.8 % (19-41); Mean Corp Hgb Conc 33.3 g/dL (32-36); Mean Platelet Vol. 10.3 fl (6.2-12.0); Monocyte# 0.67 X10^3/uL; Monocyte% 9.2 % (0-10); NRBC Flagged by Analyzer 0 % (0-5); Neutrophil # 4.09 X10^3/uL (2.7-7.7); Neutrophil % 56.3 % (47-70); Platelet Count 225 K/mm3 (150-450); RBC Distribution Width CV 12.8 % (11.6-14.6); RBC Distribution Width SD 45.1 fl (35.1-43.9); Red Blood Count 4.47 M/mm3 (4.6-6.2); White Blood Count 7.3 K/mm3 (4.4-11.0)
[2020-04-09 09:59] LABS: AST(SGOT) 20 U/L (15-37); Alanine Aminotransfer ALT/SGPT 50 U/L (16-61); Albumin, Serum 3.8 g/dL (3.2-5.0); Alkaline Phosphatase 70 U/L (45-117); Anion Gap 7 (5-15); BUN 16 mg/dL (7-18); BUN/Creat Ratio 16.1 RATIO (10-20); Calcium,Total 9.2 mg/dL (8.5-10.1); Chloride 104 mmol/L (98-107); EST Glomerular Filtration Rate 82 mL/min (>60); Est Glom Filt Rate - Afr Amer 99 mL/min (>60); Estimated Creatinine Clearance 89.89 ml/min; Glucose 99 mg/dL (74-106); Potassium 3.6 mmol/L (3.5-5.1); Protein, Total 7.8 g/dL (6.4-8.2); Sodium Level 139 mmol/L (136-145); Uric Acid 7.9 mg/dL (3.5-7.2)
== END 2020-04-20 23:59 ==
LOC: WC 08:00
PROVIDERS: PCP Family Medicine; Referring Provider Podiatrist; Visit Provider Podiatrist
DX: L97.822 Non-pressure chronic ulcer of other part of left lower leg with fat layer exposed (principal); I87.1 Compression of vein; R26.2 Difficulty in walking, not elsewhere classified; R60.0 Localized edema; M25.571 Pain in right ankle and joints of right foot; G89.29 Other chronic pain; I87.2 Venous insufficiency (chronic) (peripheral); M79.89 Other specified soft tissue disorders; I83.891 Varicose veins of right lower extremity with other complications; S93.401A Sprain of unspecified ligament of right ankle, initial encounter; X58.XXXA Exposure to other specified factors, initial encounter; Y93.9 Activity, unspecified; Y92.9 Unspecified place or not applicable; Y99.9 Unspecified external cause status; Z79.82 Long term (current) use of aspirin; Z79.52 Long term (current) use of systemic steroids; Z79.899 Other long term (current) drug therapy
CPT/HCPCS: 11042; 15271; 73610; 80053; 84550; 85025; 85652; 86140; 99213; Q4186; G0463

== ENCOUNTER 2020-05-07 09:30 | Outpatient (RCR) | payer BC, SELFPAY ==
[2020-04-21 00:13] VITALS: BP 142/88; PULSE 93; RESP 20; TEMP 36
[2020-04-23 09:13] VITALS: BP 147/82; PULSE 78; RESP 18; TEMP 36.3; BMI 27.8
--- NOTE | 2020-04-23 10:40 | PN.PCM_ITS ---
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 right foot/ankle pain History of Wound: This 60 year old male with multiple comorbidities was seen for left leg ulceration. He denies fever, chills, nausea, vomiting, or loss of appetite. His pain has returned with some swelling discoloration and return of weeping. 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 His ulcer has returned and has mild weeping. He is getting frustrated with the recurrence. He is also following up for right ankle and foot pain which has improved with colchicine. He follows up with his primary care physician for this at this time. He also understands his reduced first metatarsophalangeal joint range of motion may be contributing to pain at this site and he can follow-up with the foot and ankle center. He relates it is aggravated with walking and he has mild to moderate intermittent discomfort now. Progress of Wound: Return ulcer, no infection and superficial nature - Physical Exam Vital Signs Temp Pulse Resp BP 97.3 F L 78 18 147/82 H 04/23/20 09:13 04/23/20 09:13 04/23/20 09:13 04/23/20 09:13 General: Alert, Oriented x3, Cooperative, No apparent distress Extremities: Capillary Refill Less than 3 Seconds, No Calf Tenderness, Diminished Peripheral Pulses, Edema, Tenderness - Ulcer manipulation discomfort, - - Decreased tenderness to first metatarsophalangeal joint range of motion palpation. Decreased first metatarsophalangeal joint range of motion limited Skin: Ulcer/ Wound - Left limb without erythema, streaking, odor, infection, necrosis. His skin is hairless, atrophic, with hyperpigmentation and some skin peeling. Wound Measurements and Assessment WC - Nurse 1 - General Ulcer Measurement Start: 04/23/20 09:13 Freq: Status: Active Protocol: Activity Type Activity Date Activity User E-Sign Co-Sign Detail Recorded Client Recorded Date Recorded By Document 04/23/20 09:13 RB [id number] 04/23/20 09:16 RB 04/23/20 09:13 Wound Center Nurse 1 [Ulcer Assessment] #5 Left Medial Leg -Combined with other wound No -Current Size (cm) - Length 0.1 -Current Size (cm) - Width 0.1 -Current Size (cm) - Depth 0.1 -Total Square Cm 0.01 -Tunneling No -Undermining/Tunneling No -Circular Undermining No -Exudate Amt Medium -Exudate Type Serosanguineous -Wound Margin Flat & Intact -Granulation Amt Medium (34-66%) -Granulation Quality [place] -Slough/Fibrin Yes -Necrosis Amt Small (1-33%) -Necrotic Tissue Type Adherent Slough -Structure Exposed N/A -Texture (Aracely-wound Skin Appearance) Assessed, Excoriation -Moisture (Aracely-wound Skin Appearance Assessed ) -Temperature (Aracely-wound Skin No Abnormality Appearance) (Pt Warm) -Tenderness on Palpation (Aracely-wound No Skin Appearance) -Ulcer Cleansing Wound Cleanser -Foul Odor after Cleansing No -Anesthetic Used 4% Lidocaine Solution NICCI - Nurse 2 - General Ulcer CM Notes Start: 04/23/20 09:13 Freq: Status: Active Protocol: Activity Type Activity Date Activity User E-Sign Co-Sign Detail Recorded Client Recorded Date Recorded By Document 04/23/20 09:25 SHAWN [id number] 04/23/20 09:30 SHAWN 04/23/20 09:25 Wound Center Nurse 2 [Procedure/Treatment] -Correct Patient No -Correct Side, Site, Position No -Correct Procedure No -Procedure Performed No [See Physician Procedure note for Specifics] Pain Scale: 0-10 Numeric [Pain] -Is Patient Pain Free? Yes NICCI - Nurse 3 - General Ulcer D/C NN Start: 04/23/20 09:13 Freq: Status: Active Protocol: Activity Type Activity Date Activity User E-Sign Co-Sign Detail Recorded Client Recorded Date Recorded By Document 04/23/20 09:46 [id number] 04/23/20 09:48 DL 04/23/20 09:46 Wound Care Nurse 3 [Wound Dressing] #5 Left Medial Leg -Ulcer Cleansing Rinsed/ Irrigated with Saline -Foul Odor after Cleansing No -Primary Dressing Applied C Hydrogel ($), NonAdherent Contact Layer -Primary Dressing Covered/Secured Dry Gauze & with Roll Gauze, Secured with Tape -Other Covering gary [Post Procedure Tolerated] -Treatment Response Procedure Tolerated Well Pain Scale: 0-10 Numeric [Pain] -Is Patient Pain Free? Yes WC - Visit Discharge [Visit Discharge Information] -Discharge Condition Stable -Ambulatory Status Ambulatory -Transportation Private Auto Musculoskeletal: Muscle Wasting Neurological: Sensory exam intact to light touch and pain Psych/Mental Status: Normal Affect, Appropriate Debridement Note Post-Debridement Measurements/Treatment - Nurse 2 - General Ulcer CM Notes Start: 04/23/20 09:13 Freq: Status: Active Protocol: Activity Type Activity Date Activity User E-Sign Co-Sign Detail Recorded Client Recorded Date Recorded By Document 04/23/20 09:25 [id number] 04/23/20 09:30 04/23/20 09:25 Wound Center Nurse 2 #5 Left Medial Leg -Correct Patient No -Correct Side, Site, Position No -Correct Procedure No -Procedure Performed No Pain Scale: 0-10 Numeric Is Patient Pain Free? Yes - Nurse 3 - General Ulcer D/C NN Start: 04/23/20 09:13 Freq: Status: Active Protocol: Activity Type Activity Date Activity User E-Sign Co-Sign Detail Recorded Client Recorded Date Recorded By Document 04/23/20 09:46 [id number] 04/23/20 09:48 04/23/20 09:46 Wound Care Nurse 3 #5 Left Medial Leg -Ulcer Cleansing Rinsed/ Irrigated with Saline -Foul Odor after Cleansing No -Primary Dressing Applied C Hydrogel ($), NonAdherent Contact Layer -Primary Dressing Covered/Secured with Dry Gauze & Roll Gauze, Secured with Tape -Other Covering gary Treatment Response Procedure Tolerated Well Pain Scale: 0-10 Numeric Is Patient Pain Free? 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 Cellulitis left lower extremity, resolved. venous insufficiency/leg edema with complicated previous traumatic accidents and vascular surgery intervention. 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 Workup for multiple myeloma was negative; additional work-up for other cancers i n process. chronic pain. Gout right foot, improving. Walking difficulty. Lower extremity edema bilateral Plan: I reviewed and discussed his case including etiology, risk factors, and recommended work up and treatment plan. Debridement was not performed because the ulcer site has recently returned and is very superficial with some hemorrhagic tissue exposed. He was reassured the left lower extremity and and does not have an ulcer or infection. I recommend he continues with elevation, reduction in activity, ongoing elevation, to apply dry gauze and Gary wrap. I r ecommend lotion application to his adjacent skin that has fluctuating dryness and skin peeling. He is struggled with lotions and reports his skin is often irritated after use. I recommend he tries a lotion with less ingredients or chemical components because he may be mildly allergic to something in the lotion. I called him after clinic with some specific details and other things to try including basic coconut oil or hypoallergenic lotion with brand-name attitude. He was advised on where to get 1 of these 2 options and was advised to apply daily without application directly to the wound. I recommend he follows up to the wound healing center in 2 weeks. I also followed up with him in regards to his right foot and ankle pain. Although this is more localized and has improved in a mild manner it is still moderately painful and he is unable to bear weight. To continue crutch use as needed. He had a previous elevation in uric acid and was treated with colchicine. He had improvement but still some residual discomfort. I recommend addressing this with chronic gout medication under the management of his primary care physician or leather cartridge belt maker. I also recommend more supportive shoes and orthotics to address his biomechanics. He can follow-up with the foot and ankle center to pursue these pieces of medical equipment. I also offered him a cortisone injection specifically to the joint that is bothersome. The problems addressed require a moderate decision making level which includes one or more chronic illnesses (w/ exacerbation, progression, or side effects), two or more stable chronic illnesses, one undiagnosed new problem w/ uncertain prognosis, one acute illness with systemic symptoms, or one acute complicated injury. The medical decision making level is moderate. There is noted moderate risk of morbidity after considering this treatment plan and diagnostic data. Considerations were given to prescription management, decisions regarding surgical options, or social determinants of health. Note: [employer] speech recognition leasing agent software was used to create portions of this document. Sound-alike and misspelled words, as well as other leasing agent errors may be contained in the documentation.
[2020-04-30 08:54] VITALS: BP 138/86; PULSE 95; RESP 18; TEMP 36.3; BMI 27.8
[2020-04-30 09:18] VITALS: BP 136/82
--- NOTE | 2020-04-30 10:55 | PN.PCM_ITS ---
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 He denies fever, chills, nausea, vomiting, or loss of appetite. His pain has returned with some swelling discoloration and return of weeping. 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 His ulcer has returned and has mild weeping. He reduce his activity and focus more in edema management. He resumed Eucerin lotion use and has not had any irritation. His peripheral skin looks better today. His ulcer is draining more and there is new granular pink tissue noted. Progress of Wound: Stable - Physical Exam Vital Signs Temp Pulse Resp BP 97.3 F L 95 18 136/82 H 04/30/20 08:54 04/30/20 08:54 04/30/20 08:54 04/30/20 09:18 General: Alert, Oriented x3, Cooperative, No apparent distress Extremities: No cyanosis, Capillary Refill Less than 3 Seconds, No Calf Tenderness, Diminished Peripheral Pulses, Edema Skin: Ulcer/ Wound - No purulence, erythema, streaking, odor, infection. Isl ands of granulation tissue as a skin discontinuity is noted. The peripheral skin is less inflamed with reduced skin peeling and weeping. No bogginess or fluctuance on palpation. His skin is atrophic and hairless Wound Measurements and Assessment WC - Nurse 1 - General Ulcer Measurement Start: 04/23/20 09:13 Freq: Status: Active Protocol: Activity Type Activity Date Activity User E-Sign Co-Sign Detail Recorded Client Recorded Date Recorded By Document 04/30/20 08:54 RB [id number] 04/30/20 08:56 RB 04/30/20 08:54 Wound Center Nurse 1 [Ulcer Assessment] #5 Left Medial Leg -Combined with other wound No -Current Size (cm) - Length 0.1 -Current Size (cm) - Width 0.1 -Current Size (cm) - Depth 0.1 -Total Square Cm 0.01 -Tunneling No -Undermining/Tunneling No -Circular Undermining No -Exudate Amt Medium -Exudate Type Serosanguineous -Wound Margin Flat & Intact -Granulation Amt Medium (34-66%) -Granulation Quality [place] -Slough/Fibrin Yes -Necrosis Amt Small (1-33%) -Necrotic Tissue Type Adherent Slough -Structure Exposed N/A -Texture (Aracely-wound Skin Appearance) Assessed, Excoriation -Moisture (Aracely-wound Skin Appearance Assessed ) -Color (Aracely-wound Skin Appearance) Assessed -Temperature (Aracely-wound Skin No Abnormality Appearance) (Pt Warm) -Tenderness on Palpation (Aracely-wound No Skin Appearance) -Ulcer Cleansing Wound Cleanser -Foul Odor after Cleansing No -Anesthetic Used 5% Lidocaine Gel [Edema Assessment] -Lower Limb Edema Present Yes -Left Calf (cm) 39.5 -Left Ankle (cm) 23 WC - Nurse 2 - General Ulcer CM Notes Start: 04/23/20 09:13 Freq: Status: Active Protocol: Activity Type Activity Date Activity User E-Sign Co-Sign Detail Recorded Client Recorded Date Recorded By Document 04/30/20 09:04 SHAWN [id number] 04/30/20 09:14 SHAWN 04/30/20 09:04 Wound Center Nurse 2 [Procedure/Treatment] #5 Left Medial Leg -Time 09:04 -Correct Patient Yes -Correct Side, Site, Position Yes -Correct Procedure Yes -Procedure Performed Yes -Type of Procedure Debridement -Clinical Debridement Subcutaneous -Tissue Removed Subcutaneous -Post Debridement (cm) - Length 4 -Post Debridement (cm) - Width 2 -Post Debridement (cm) - Depth 0.1 -Total Square (Post) (cm) 8 -Area of Debridement (cm) - Length 4 -Area of Debridement (cm) - Width 2 -Total Square (Area) (cm) 8 -Tunneling No -Undermining/Tunneling No -Circular Undermining No -Wound/Ulcer Outcome Not Healed -Ulcer Cleansing Rinsed/ Irrigated with Saline -Foul Odor after Cleansing No -Bioengineered Tissue Yes -Type of Bioengineered Tissue Epifix Mesh -Expiration Date 12/19/24 -Product Lot Number [id number] -Percent Used 100 -Lot number of Saline Used [id number] -Bleeding Controlled with Pressure -Offloading No -Treatment Response Procedure Tolerated Well -Debridement - Subq, 1st 20sq cm No -Apply Skin Sub - 1st 25 sq cm - Legs 1 -Epifix Mesh (per sq cm) 11 [See Physician Procedure note for Specifics] Pain Scale: 0-10 Numeric [Pain] -Is Patient Pain Free? Yes - Nurse 3 - General Ulcer D/C NN Start: 04/23/20 09:13 Freq: Status: Active Protocol: Activity Type Activity Date Activity User E-Sign Co-Sign Detail Recorded Client Recorded Date Recorded By Document 04/30/20 09:18 RB [id number] 04/30/20 09:18 RB 04/30/20 09:18 Wound Care Nurse 3 [Wound Dressing] #5 Left Medial Leg -Primary Dressing Covered/Secured Dry Gauze,Dry with Gauze & Roll Gauze,Secured with Tape [Compression Applied] Left -Other gary [Post Procedure Tolerated] -Treatment Response Procedure Tolerated Well Vital Signs [Blood Pressure] -Blood Pressure (90/60-120/80) 136/82 H -Blood Pressure Mean (mm Hg) 100 -Source Monitor -Position Semi-Fowlers -Blood Pressure Location Left Arm Pain Scale: 0-10 Numeric [Pain] -Is Patient Pain Free? Yes - Visit Discharge [Visit Discharge Information] -Discharge Condition Stable -Ambulatory Status Ambulatory -Transportation Private Auto -Medication Reconcilliation completed No & provided to patient/care provider -Clinical Summary of Care Provided Yes Musculoskeletal: No Tenderness to Palpation of Joints or Extremities, Muscle Wasting, Tenderness - Mild tenderness also palpation Neurological: Sensory exam intact to light touch and pain Psych/Mental Status: Normal Affect, Appropriate Debridement Note Post-Debridement Measurements/Treatment - Nurse 2 - General Ulcer CM Notes Start: 04/23/20 09:13 Freq: Status: Active Protocol: Activity Type Activity Date Activity User E-Sign Co-Sign Detail Recorded Client Recorded Date Recorded By Document 04/23/20 09:25 SHAWN [id number] 04/23/20 09:30 Document 04/30/20 09:04 SHAWN [id number] 04/30/20 09:14 JF 04/23/20 04/30/20 09:25 09:04 Wound Center Nurse 2 #5 Left Medial Leg -Time 09:04 -Correct Patient No Yes -Correct Side, Site, Position No Yes -Correct Procedure No Yes -Procedure Performed No Yes -Type of Procedure Debridement -Clinical Debridement Subcutaneous -Tissue Removed Subcutaneous -Post Debridement (cm) - Length 4 -Post Debridement (cm) - Width 2 -Post Debridement (cm) - Depth 0.1 -Total Square (Post) (cm) 8 -Area of Debridement (cm) - Length 4 -Area of Debridement (cm) - Width 2 -Total Square (Area) (cm) 8 -Tunneling No -Undermining/Tunneling No -Circular Undermining No -Wound/Ulcer Outcome Not Healed -Ulcer Cleansing Rinsed/ Irrigated with Saline -Foul Odor after Cleansing No -Bioengineered Tissue Yes -Type of Bioengineered Tissue Epifix Mesh -Expiration Date 12/19/24 -Product Lot Number [id number] -Percent Used 100 -Lot number of Saline Used [id number] -Bleeding Controlled with Pressure -Offloading No -Treatment Response Procedure Tolerated Well -Debridement - Subq, 1st 20sq cm No -Apply Skin Sub - 1st 25 sq cm - Legs 1 -Epifix Mesh (per sq cm) 11 Pain Scale: 0-10 Numeric Is Patient Pain Free? Yes Yes - Nurse 3 - General Ulcer D/C NN Start: 04/23/20 09:13 Freq: Status: Active Protocol: Activity Type Activity Date Activity User E-Sign Co-Sign Detail Recorded Client Recorded Date Recorded By Document 04/23/20 09:46 DL [id number] 04/23/20 09:48 DL Document 04/30/20 09:18 RB [id number] 04/30/20 09:18 RB 04/23/20 04/30/20 09:46 09:18 Wound Care Nurse 3 #5 Left Medial Leg -Ulcer Cleansing Rinsed/ Irrigated with Saline -Foul Odor after Cleansing No -Primary Dressing Applied C Hydrogel ($), NonAdherent Contact Layer -Primary Dressing Covered/Secured with Dry Gauze & Dry Gauze,Dry Roll Gauze, Gauze & Roll Secured with Gauze,Secured Tape with Tape -Other Covering gary Left -Other gary Treatment Response Procedure Procedure Tolerated Well Tolerated Well Vital Signs Blood Pressure (90/60-120/80) 136/82 H Blood Pressure Mean (mm Hg) 100 Source Monitor Position Semi-Fowlers Blood Pressure Location Left Arm Pain Scale: 0-10 Numeric Is Patient Pain Free? Yes Yes WC - Visit Discharge Discharge Condition Stable Stable Ambulatory Status Ambulatory Ambulatory Transportation Private Auto Private Auto Medication Reconcilliation completed & No provided to patient/care provider Clinical Summary of Care Provided Yes Wound debrided: medial lower leg Laterality: Left Type of Debridement: Excisional debridement Anesthesia Used: 5% Lidocaine Gel Depth: in the subcutaneous layer Percentage of wound debrided: 100 Instrument Used: #15 blade Tissue Removed: fibrous, devitalized subcutaneous, biofilm, slough Severity: Fat Layer Exposed Amount of bleeding with debridement: Mild Bleeding Controlled with: Pressure Patient tolerated procedure well Assessment/Plan Active Problems Localized edema (Chronic) Xerosis cutis (Chronic) Ulcer of left lower extremity, limited to breakdown of skin (Acute) Dermatitis (Chronic) May-Thurner syndrome (Chronic) Assessment: Left leg ulcer fat layer exposed -returned. venous insufficiency/leg edema with complicated previous traumatic accidents and vascular surgery intervention. 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 Workup for multiple myeloma was negative; additional work-up for other cancers in process. chronic pain. xerosis improving Plan: I reviewed and discussed his case including etiology, risk factors, and recommended work up and treatment plan. Debridement was performed as noted in the clinical panel. I also recommend application of advanced wound healing product, epifix today which she has already been approved for. He met his deductible like to proceed forward after he was advised on indication, benefits, anticipated healing course and management. This was applied according standard protocol after verbal consent was obtained and further secured with Adaptic touch and Steri-Strips. He tolerated this well. He was advised to keep this clean, dry, and intact until follow-up next week. To continue with peripheral application of Eucerin. He was also advised on some other moisturizing options such as coconut oil, hypoallergenic lotion, or jojobo oil if he continues to have sensitivities to traditional lotions. He was reassured no local signs of infection or inflammation noted today. His edema reduction is also noted. I recommend he continues with elevation, reduction in activity, ongoing elevation, to apply dry gauze and Gary wrap. To follow-up with the wound healing center in 1 week. Answered his questions. Is noted he is not complaining of right lower extremity foot or ankle discomfort today.
[2020-05-07 09:50] VITALS: BP 141/97; PULSE 91; RESP 16; TEMP 36.6; BMI 27.8
--- NOTE | 2020-05-07 10:51 | PCM.WC.PN ---
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 He denies fever, chills, nausea, vomiting, or loss of appetite. He had an epi fix applied last week and denies drainage. He thinks the site has healed. He has also been tending to his adjacent dry skin with Eucerin without any type of inflammation or reaction. 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 He has intermittent swelling of both feet and ankles which is not noted today. It is also noted he had gout recently and this has since resolved from an acute flareup standpoint. He is continuing to follow-up with his medical administrative specialist. Progress of Wound: Healed - Physical Exam Vital Signs Temp Pulse Resp BP 97.8 F 91 16 141/97 H 05/07/20 09:50 05/07/20 09:50 05/07/20 09:50 05/07/20 09:50 General: Alert, Oriented x3, Cooperative, No apparent distress Extremities: No cyanosis, Capillary Refill Less than 3 Seconds, No Calf Tenderness, Edema - Nearly resolved bilateral lower extremities, Peripheral Pulses Normal Skin: Ulcer/ Wound - The ulcer site has healed and there is full epithelialization. There is no purulence, erythema, streaking, odor, infection. Adjacent skin peeling and inflammation has also resolved. He does have continued chronic pigmentation changes to the leg Wound Measurements and Assessment WC - Nurse 1 - General Ulcer Measurement Start: 04/23/20 09:13 Freq: Status: Active Protocol: Activity Type Activity Date Activity User E-Sign Co-Sign Detail Recorded Client Recorded Date Recorded By Document 05/07/20 09:50 [facility] [id number] 05/07/20 09:56 [facility] 05/07/20 09:50 Wound Center Nurse 1 [Ulcer Assessment] #5 Left Medial Leg -Combined with other wound No -Current Size (cm) - Length 0.1 -Current Size (cm) - Width 0.1 -Current Size (cm) - Depth 0.1 -Total Square Cm 0.01 -Epithelialization Large 67-100% -Tunneling No -Undermining/Tunneling No -Circular Undermining No -Exudate Amt Small -Exudate Type Serosanguineous -Wound Margin Distinct, Outline Attached -Granulation Amt None Present (0 %) -Slough/Fibrin Yes -Necrosis Amt Small (1-33%) -Necrotic Tissue Type Adherent Slough -Texture (Aracely-wound Skin Appearance) Assessed, Scarring -Moisture (Aracely-wound Skin Appearance Assessed,Dry/ ) Scaly -Color (Aracely-wound Skin Appearance) Assessed, Hemosiderin Staining -Temperature (Aracely-wound Skin No Abnormality Appearance) (Pt Warm) -Tenderness on Palpation (Aracely-wound No Skin Appearance) -Ulcer Cleansing soapy water -Foul Odor after Cleansing No -Anesthetic Used 4% Lidocaine Solution - Nurse 3 - General Ulcer D/C NN Start: 04/23/20 09:13 Freq: Status: Active Protocol: Activity Type Activity Date Activity User E-Sign Co-Sign Detail Recorded Client Recorded Date Recorded By Document 05/07/20 10:40 [id number] 05/07/20 10:40 05/07/20 10:40 Wound Care Nurse 3 [Wound Dressing] -Primary Dressing Covered/Secured Dry Gauze, with Secured with Tape [Post Procedure Tolerated] -Treatment Response Procedure Tolerated Well - Visit Discharge [Visit Discharge Information] -Discharge Condition Stable -Ambulatory Status Ambulatory -Transportation Private Auto -Medication Reconcilliation completed No & provided to patient/care provider -Clinical Summary of Care Provided Yes Musculoskeletal: No Tenderness to Palpation of Joints or Extremities, Muscle Wasting Neurological: Sensory exam intact to light touch and pain Psych/Mental Status: Normal Affect, Appropriate Debridement Note Post-Debridement Measurements/Treatment - Nurse 2 - General Ulcer CM Notes Start: 04/23/20 09:13 Freq: Status: Active Protocol: Activity Type Activity Date Activity User E-Sign Co-Sign Detail Recorded Client Recorded Date Recorded By Document 04/23/20 09:25 [id number] 04/23/20 09:30 JF Document 04/30/20 09:04 [id number] 04/30/20 09:14 JF 04/23/20 04/30/20 09:25 09:04 Wound Center Nurse 2 #5 Left Medial Leg -Time 09:04 -Correct Patient No Yes -Correct Side, Site, Position No Yes -Correct Procedure No Yes -Procedure Performed No Yes -Type of Procedure Debridement -Clinical Debridement Subcutaneous -Tissue Removed Subcutaneous -Post Debridement (cm) - Length 4 -Post Debridement (cm) - Width 2 -Post Debridement (cm) - Depth 0.1 -Total Square (Post) (cm) 8 -Area of Debridement (cm) - Length 4 -Area of Debridement (cm) - Width 2 -Total Square (Area) (cm) 8 -Tunneling No -Undermining/Tunneling No -Circular Undermining No -Wound/Ulcer Outcome Not Healed -Ulcer Cleansing Rinsed/ Irrigated with Saline -Foul Odor after Cleansing No -Bioengineered Tissue Yes -Type of Bioengineered Tissue Epifix Mesh -Expiration Date 12/19/24 -Product Lot Number [id number] -Percent Used 100 -Lot number of Saline Used [id number] -Bleeding Controlled with Pressure -Offloading No -Treatment Response Procedure Tolerated Well -Debridement - Subq, 1st 20sq cm No -Apply Skin Sub - 1st 25 sq cm - Legs 1 -Epifix Mesh (per sq cm) 11 Pain Scale: 0-10 Numeric Is Patient Pain Free? Yes Yes - Nurse 3 - General Ulcer D/C NN Start: 04/23/20 09:13 Freq: Status: Active Protocol: Activity Type Activity Date Activity User E-Sign Co-Sign Detail Recorded Client Recorded Date Recorded By Document 04/23/20 09:46 DL [id number] 04/23/20 09:48 DL Document 04/30/20 09:18 RB [id number] 04/30/20 09:18 RB Document 05/07/20 10:40 RB [id number] 05/07/20 10:40 RB 04/23/20 04/30/20 05/07/20 09:46 09:18 10:40 Wound Care Nurse 3 #5 Left Medial Leg -Ulcer Cleansing Rinsed/ Irrigated with Saline -Foul Odor after Cleansing No -Primary Dressing Applied C Hydrogel ($), NonAdherent Contact Layer -Primary Dressing Covered/Secured with Dry Gauze & Dry Gauze,Dry Dry Gauze, Roll Gauze, Gauze & Roll Secured with Secured with Gauze,Secured Tape Tape with Tape -Other Covering gary Left -Other gary Treatment Response Procedure Procedure Procedure Tolerated Well Tolerated Well Tolerated Well Vital Signs Blood Pressure (90/60-120/80) 136/82 H Blood Pressure Mean (mm Hg) 100 Source Monitor Position Semi-Fowlers Blood Pressure Location Left Arm Pain Scale: 0-10 Numeric Is Patient Pain Free? 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 venous insufficiency/leg edema with complicated previous traumatic accidents and vascular surgery intervention. 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 Workup for multiple myeloma was negative; additional work-up for other cancers in process. chronic pain. xerosis improving Plan: I reviewed and discussed his case including etiology, risk factors, and recommended work up and treatment plan. His ulcer site is healed today with full epithelialization. His skin is very fragile and thin. I recommend covering this site with a gauze over the next couple of weeks while the skin continues to remodel. To maintain good skin integrity adjacent to the site with Eucerin lotion which he seems to be tolerating well. To gently wash with soap and water and to avoid soaking the leg. I also advised him to remain diligent with edema management with his Gary wraps and intermittent elevation and muscular contraction of the lower extremities. He relates his gout and edema have significantly reduced however these appear to be intermittent. He will follow-up with his other physicians including endocrinology. To follow-up with the wound healing center in 2 weeks for a healed wound check because he has had a history of intermittent recurrences. I answered his questions. Note: [employer] speech recognition technical training specialist software was used to create portions of this document. Sound-alike and misspelled words, as well as other technical training specialist errors may be contained in the documentation. The problems addressed require a low medical decision making level which includes two or more minor problems, a stable chronic illness, or an acute uncomplicated illness or injury. The medical decision making level is low. There is noted low risk of morbidity after considering this treatment plan and diagnostic data.
== END 2020-05-18 23:59 ==
LOC: WC 09:30
PROVIDERS: PCP Family Medicine; Referring Provider Podiatrist; Visit Provider Podiatrist
DX: L97.822 Non-pressure chronic ulcer of other part of left lower leg with fat layer exposed (principal); I87.2 Venous insufficiency (chronic) (peripheral); I87.1 Compression of vein; R60.0 Localized edema; L85.3 Xerosis cutis; G89.29 Other chronic pain
CPT/HCPCS: 15271; 99213; Q4186; G0463

== ENCOUNTER 2021-01-08 23:17 | Emergency (ER) | payer BC, SELFPAY ==
[2021-01-08 23:19] VITALS: BP 191/102; PULSE 85; RESP 18; TEMP 36.6; O2SAT 97; BMI 28.3
[2021-01-08] MEDS: 0.9% Normal Saline 1,000 ML 999 ML IV (23:56)
[2021-01-08] MEDS: Ondansetron 4 MG/2 ML Vial IV (23:56)
[2021-01-08] MEDS: Morphine 4 MG/ML Syringe IV (23:56)
[2021-01-08 23:57] LABS: Squamous Epithelial Cells - UA 0 SEEN /hpf (0-5)
[2021-01-08 23:58] LABS: Absolute Lymphocyte Count 1.57 X10^3/uL (0.83-4.51); Absolute Neutrophil Count 7.3 X10^3/uL (2.0-7.7); Basophil# 0.08 X10^3/uL; Basophil% 0.8 % (0-1); Eosinophil# 0.22 X10^3/uL; Eosinophils% 2.2 % (0-5); Hematocrit 46.3 % (40-54); Lymphocyte # 1.57 X10^3/ul (0.83-4.51); Lymphocyte % 15.9 % (19-41); Mean Corp Hgb Conc 34.6 g/dL (32-36); Mean Corpuscular Hgb 33.4 pg (27.0-32.0); Mean Corpuscular Volume 96.7 fL (80-94); Mean Platelet Vol. 10.6 fl (6.2-12.0); Monocyte# 0.69 X10^3/uL; NRBC Flagged by Analyzer 0 % (0-5); Neutrophil # 7.27 X10^3/uL (2.7-7.7); Neutrophil % 73.9 % (47-70); Platelet Count 174 K/mm3 (150-450); RBC Distribution Width CV 12.8 % (11.6-14.6); RBC Distribution Width SD 45.1 fl (35.1-43.9); Red Blood Count 4.79 M/mm3 (4.6-6.2); White Blood Count 9.9 K/mm3 (4.4-11.0)
[2021-01-09] LABS: Color, Urine Yellow (Yellow); Glucose, Dipstick Normal (Normal); Ketone-Dipstick 5 mg/dl (Negative); Leukocyte Esterase-Dipstick Negative /ul (Negative); Nitrite-Dipstick Negative (Negative); Occult Blood-Urine 25 /ul (Negative); Protein-Dipstick 15 mg/dl (Negative); Urine Bilirubin Dipstick Negative (Negative); Urine Clarity Clear (Clear); Urine Urobilinogen 1 mg/dl (Normal)
[2021-01-09 00:16] LABS: AST(SGOT) 45 U/L (15-37); Alanine Aminotransfer ALT/SGPT 78 U/L (16-61); Albumin, Serum 4.1 g/dL (3.2-5.0); Alkaline Phosphatase 70 U/L (45-117); Anion Gap 7 (5-15); BUN 21 mg/dL (7-18); BUN/Creat Ratio 18.8 RATIO (10-20); Bilirubin, Direct 0.19 mg/dL (0.00-0.30); Calcium,Total 9.7 mg/dL (8.5-10.1); Chloride 102 mmol/L (98-107); Creatinine, Serum 1.12 mg/dL (0.70-1.30); EST Glomerular Filtration Rate 71 mL/min (>60); Est Glom Filt Rate - Afr Amer 86 mL/min (>60); Estimated Creatinine Clearance 79.27 ml/min; Globulin 4.1 g/dL (2.2-4.2); Glucose 124 mg/dL (74-106); Lipase 121 U/L (73-393); Potassium 4.3 mmol/L (3.5-5.1); Protein, Total 8.2 g/dL (6.4-8.2); Sodium Level 139 mmol/L (136-145)
[2021-01-09 00:31] LABS: Bacteria 3+ /hpf (None Seen); Mucous, Urine 3+ /hpf (<or=2+); Red Blood Cells-Urine 0-5 SEEN /hpf (0-5); White Blood Cells 0-5 SEEN /hpf (0-5)
[2021-01-09 00:32] LABS: Calcium Oxalate Crystals Ur RARE /hpf (<or=2+)
[2021-01-09 00:37] LABS: Lactic Acid 1.3 mmol/L (0.4-1.9)
[2021-01-09] MEDS: Ceftriaxone 1 GM/50 ML BAG IV (03:01)
[2021-01-09] MEDS: Morphine 4 MG/ML Syringe IV (03:01)
--- NOTE | 2021-01-09 03:07 | EX.ED.DYSGE1 ---
HPI History of Present Illness Chief Complaint: Abd Pain Narrative Narrative: Patient is a 60-year-old male who states this evening he was sitting at home when he developed abdominal pain. He states he feels that the pain is more mid abdomen around the umbilicus and sharp and stabbing in nature. He reports with the pain he has noticed bouts of nausea without vomiting. He denies any fevers or chills and he denies any trauma prior to the pain beginning. He states he tried [id number] medications with minimal symptom improvement and secondary to this comes in for evaluation. [facility] Medical History Abnormality of hormone Arthritis Back pain Bone fracture Cellulitis Cellulitis of left leg Cellulitis of left leg Cellulitis of left leg Cellulitis of left leg Cellulitis of leg, left Chronic bronchitis Colonization status Encounter for blood transfusion Former smoker Headache History of DVT (deep vein thrombosis) Hyperlipidemia Hypertriglyceridemia Kidney stone Leg pain, left Rheumatoid arthritis Right ankle pain Right ankle sprain Right ankle sprain Xerosis cutis Home Medications allopurinol 300 mg tablet ea PO 08/15/20 [History Last Taken Unknown] aspirin 81 mg tablet,delayed release 81 mg PO DAILY 08/15/20 [History Last Taken Unknown] hydrocodone-acetaminophen 5-325mg 5mg-325mg 1 tab PO DAILY PRN tab 08/15/20 [History Last Taken Unknown] ibuprofen 600 mg tablet 250 mg PO ONCE tab 08/15/20 [History Last Taken Unknown] metoprolol succinate 100 mg tablet,extended release 24 hr ea PO 08/15/20 [History Last Taken Unknown] multivitamin 1 tab PO DAILY 08/15/20 [History Last Taken Unknown] omeprazole 40 mg capsule,delayed release ea PO 08/15/20 [History Last Taken Unknown] terazosin 2 mg capsule ea PO 08/15/20 [History Last Taken Unknown] cephalexin 500 mg PO TID 7 Days #21 cap 01/09/21 [Rx Last Taken Unknown] ondansetron HCl [Zofran] 4 mg PO Q8H PRN #21 tab 01/09/21 [Rx Last Taken Unknown] oxycodone-acetaminophen [Endocet] 1 tab PO Q6H PRN 3 Days #12 tab 01/09/21 [Rx Last Taken Unknown] tamsulosin [Flomax] 0.4 mg PO DAILY #14 cap 01/09/21 [Rx Last Taken Unknown] Allergy/AdvReac Type Severity Reaction Status Date / Time hydromorphone HCl Allergy Anaphylaxis Verified 01/08/21 23:21 [From Dilaudid] Family History Sister Arthritis Mother Myocardial infarction, Onset Age: 70 Hypertension Father Myocardial infarction, Onset Age: 62 Uncle Myocardial infarction Uncle Myocardial infarction Uncle Myocardial infarction Surgical History H/O endovascular stent graft for abdominal aortic aneurysm History of appendectomy History of orthopedic surgery History of prostatectomy Social History Smoking Status: Current some day smoker tobacco type: cigars per week: 2 how long ago did patient quit smoking: former cigarette smoker, quit 2004 alcohol intake: current alcohol intake frequency: 0-2 drinks per day Alcohol type: beer and hard liquor details: whiskey/beer daily substance use type: does not use what type of physical activity do you participate in: none ROS ROS ED Constitutional Constitutional ED: Denies chills or fever(s) ENT ENT ED: Denies sore throat Cardiovascular Cardiovascular: Denies chest pain Respiratory/Chest Respiratory/Chest: Denies cough or dyspnea Gastrointestinal Gastrointestinal: Reports abdominal pain and nausea; Denies diarrhea or vomiting Genitourinary Genitourinary ED: Denies dysuria or hematuria Musculoskeletal Musculoskeletal: Denies back pain or myalgias Integumentary Denies rash Neurologic Neurologic: Denies headache(s) Hematologic/Lymphatic Hematologic/Lymphatic: Denies easy bleeding or easy bruising EXAM Physical Exam Const Vital Signs: 01/08/21 23:19 Temperature 97.9 F Temperature Source Temporal Pulse Rate 85 Respiratory Rate 18 Blood Pressure 191/102 H Blood Pressure Mean 131 Pulse Ox 97 Oxygen Delivery Method Room Air Positive well nourished and well developed General Appearance ED: well developed HEENT Reports moist mucous membranes Eyes PERRL and EOMs intact bilaterally Neck supple Resp normal respiratory effort and clear to auscultation bilaterally Cardio regular rate and regular rhythm Rate: other Other Details: Radial pulses are plus 2 out of 4 bilaterally are equal and symmetric GI normal to inspection, nondistended, normoactive bowel sounds, non-tender and non-distended GI Narrative: No voluntary guarding or rigidity no pulsatile mass Auscultation: normoactive bowel sounds Palpation: soft Back/Spine no CVA tenderness Extremity normal to inspection Neuro oriented x3 and CN's II-XII intact bilaterally Sensorium / Orientation: alert Motor Exam: strength 5/5 throughout Psych mental status grossly normal Skin no rashes or lesions noted MDM MDM MDM Narrative Medical decision making narrative: Resented to the ER afebrile with a soft nonsurgical abdomen. His pain came on suddenly and is sharp in nature. He does have multiple abdominal surgeries and there was concern for intestinal infection or even internal hernia causing his symptoms so elected to perform basic labs with CT scan. Labs revealed UTI changes but no signs of acute kidney injury or urosepsis. The CT showed a 4 mm stone in the left UVJ causing obstruction with hydronephrosis. However at this time as the patient's pain is improved he has no signs of urosepsis or acute kidney injury he can be placed on medication with follow-up with urology for repeat evaluation. Lab Data Attestation: I reviewed the patient's lab results. Labs: Laboratory Results - last 24 hr 01/08/21 01/08/21 01/08/21 23:50 23:50 23:50 WBC 9.9 RBC 4.79 Hgb 16.0 Hct 46.3 MCV 96.7 H MCH 33.4 H MCHC 34.6 RDW Std Deviation 45.1 H RDW Coeff of Brad 12.8 Plt Count 174 MPV 10.6 Immature Gran % (Auto) 0.200 Neut % (Auto) 73.9 H Lymph % (Auto) 15.9 L [place] % (Auto) 7.0 Eos % (Auto) 2.2 Baso % (Auto) 0.8 Absolute Neuts (auto) 7.3 Absolute Lymphs (auto) 1.57 Nucleated RBC % 0 Sodium 139 Potassium 4.3 Chloride 102 Carbon Dioxide 30.0 Anion Gap 7 BUN 21 H Creatinine 1.12 Estim Creat Clear Calc 79.27 Est GFR (MDRD) Af Amer 86 Est GFR (MDRD) Non-Af 71 BUN/Creatinine Ratio 18.8 Glucose 124 H Lactic Acid 1.3 Calcium 9.7 Total Bilirubin 0.70 Direct Bilirubin 0.19 AST 45 H ALT 78 H Alkaline Phosphatase 70 Total Protein 8.2 Albumin 4.1 Globulin 4.1 Lipase 121 Urine Color Urine Clarity Urine pH Ur Specific [place] Urine Protein Urine Glucose (UA) Urine Ketones Urine Occult Blood Urine Nitrite Urine Bilirubin Urine Urobilinogen Ur Leukocyte Esterase Urine RBC Urine WBC Ur Squamous Epith Cells Calcium Oxalate Crystal Urine Bacteria Urine Mucus 01/08/21 23:50 WBC RBC Hgb Hct MCV MCH MCHC RDW Std Deviation RDW Coeff of Brad Plt Count MPV Immature Gran % (Auto) Neut % (Auto) Lymph % (Auto) [place] % (Auto) Eos % (Auto) Baso % (Auto) Absolute Neuts (auto) Absolute Lymphs (auto) Nucleated RBC % Sodium Potassium Chloride Carbon Dioxide Anion Gap BUN Creatinine Estim Creat Clear Calc Est GFR (MDRD) Af Amer Est GFR (MDRD) Non-Af BUN/Creatinine Ratio Glucose Lactic Acid Calcium Total Bilirubin Direct Bilirubin AST ALT Alkaline Phosphatase Total Protein Albumin Globulin Lipase Urine Color Yellow Urine Clarity Clear Urine pH 5.0 Ur Specific [place] 1.030 Urine Protein 15 H Urine Glucose (UA) Normal Urine Ketones 5 H Urine Occult Blood 25 H Urine Nitrite Negative Urine Bilirubin Negative Urine Urobilinogen 1 H Ur Leukocyte Esterase Negative Urine RBC 0-5 SEEN Urine WBC 0-5 SEEN Ur Squamous Epith Cells 0 SEEN Calcium Oxalate Crystal RARE Urine Bacteria 3+ Urine Mucus 3+ Radiography Diagnostic Testing: Clinical Impression(s) from Imaging Studies Abdomen/Pelvis CT 01/09/21 23:39 IMPRESSION: Obstructing left UVJ calculus with moderate hydroureteronephrosis. Electronically Signed: Saturnino Ayers MD at 2:43 EDT Tel , Service support , Discharge Plan Triage Chief Complaint: Abd Pain ED Provider: Martín Temple Dx/Rx/DC Orders Clinical Impression: Renal colic, Kidney stone Instructions: ED Kidney Stone w/ Colic Prescriptions: New ondansetron HCl [Zofran] 4 mg tablet 4 mg PO Q8H PRN (Reason: nausea and vomiting) Qty: 21 RF: 0 tamsulosin [Flomax] 0.4 mg capsule 0.4 mg PO DAILY Qty: 14 RF: 0 cephalexin 500 mg capsule 500 mg PO TID 7 Days Qty: 21 RF: 0 oxycodone-acetaminophen [Endocet] 5-325 mg tablet 1 tab PO Q6H PRN (Reason: pain) 3 Days Qty: 12 RF: 0 No Action multivitamin [Daily Multi-Vitamin] Tablet 1 tab PO DAILY RF: 0 ibuprofen 600 mg tablet 250 mg PO ONCE RF: 0 omeprazole 40 mg capsule,delayed release(DR/EC) PO RF: 0 metoprolol succinate 100 mg tablet extended release 24 hr PO RF: 0 terazosin 2 mg capsule PO RF: 0 allopurinol 300 mg tablet PO RF: 0 aspirin [Adult Low Dose Aspirin] 81 mg tablet,delayed release (DR/EC) 81 mg PO DAILY RF: 0 hydrocodone-acetaminophen 5-325 mg tablet 1 tab PO DAILY PRNRF: 0 Primary Care Provider: Дмитрий Wilkerson Referrals: Дмитрий Wilkerson MD [Primary Care Provider] - Farhat Kern MD [STAFF PHYSICIAN] - 3-5 Days if not improving Disposition Disposition: Home, Self Care
[2021-01-09 04:07] VITALS: BP 167/60; PULSE 87; RESP 18
--- NOTE | 2021-01-09 23:39 | CT_ITS ---
STUDY: CT ABDOMEN AND PELVIS WITH CONTRAST REASON FOR EXAM: Male, 60 years old. Abd pain RADIATION DOSAGE (If Supplied By Facility): CTDIvol = ( 18.62 ) mGy, DLP = ( 1322.10 ) mGycm TECHNIQUE: Transaxial images were obtained from the dome of the diaphragm to the symphysis pubis without oral contrast. IV 100mL Isovue-300 was administered. Sagittal and coronal images were reconstructed. Individualized dose optimization techniques were used for this CT. COMPARISON: 03/05/2012 CT FINDINGS: The visualized lung bases are unremarkable. The visualized portions of the heart are within normal limits. There is decreased attenuation of the liver consistent with steatosis. Normal gallbladder and extrahepatic biliary system. Normal spleen. Normal pancreas. Normal bilateral adrenal glands. Normal right kidney. 4 mm left UVJ calculus with moderate proximal hydroureteronephrosis and left perinephric fat stranding. Normal visualized stomach. Normal small intestine. Normal colon. There are surgical clips in the region of the appendix consistent with a prior appendectomy. Normal abdominal aorta. Normal inferior vena cava. Left common iliac vein stent. Normal retroperitoneum. Normal urinary bladder. Prostatectomy. Normal abdominal wall. Thoracolumbar vertebral alignment is maintained. CT/Abdomen/Pelvis W IV Cont ONLY IMPRESSION: Obstructing left UVJ calculus with moderate hydroureteronephrosis. Electronically Signed: Saturnino Ayers MD at 2:43 EDT Tel , Service support ,
== END 2021-01-09 04:08 | disposition home or self-care (01) ==
PROVIDERS: Emergency Provider Emergency Medicine; PCP Family Medicine
DX: N13.2 Hydronephrosis with renal and ureteral calculous obstruction (principal); E78.1 Pure hyperglyceridemia; R11.0 Nausea; M06.9 Rheumatoid arthritis, unspecified; J42 Unspecified chronic bronchitis; E78.5 Hyperlipidemia, unspecified; F17.290 Nicotine dependence, other tobacco product, uncomplicated; Z79.82 Long term (current) use of aspirin; Z79.899 Other long term (current) drug therapy; Z86.718 Personal history of other venous thrombosis and embolism
CPT/HCPCS: 74177; 80048; 80076; 81001; 83605; 83690; 85025; 87086; 87088; 96361; 96365; 96375; 96376; 99282; J7030; J7050; Q9967; A4216; J2405

== ENCOUNTER → 2021-02-09 10:55 | Outpatient (CLI) | payer BC, SELFPAY ==
--- NOTE | 2021-02-09 11:00 | EKG12_ITS ---
Test Reason : PRE OP Blood Pressure : / mmHG Vent. Rate : 082 BPM Atrial Rate : 082 BPM P-R Int : 142 ms QRS Dur : 094 ms QT Int : 382 ms P-R-T Axes : 028 070 053 degrees QTc Int : 446 ms Normal sinus rhythm with sinus arrhythmia Nonspecific T wave abnormality Abnormal ECG Confirmed by VERNA SANTORO, PANFILO ([id number]), offline editor VICTORINO MAYA ([id number]) on 02/10/2021 1:18:40 PM Referred By: Farhat Kern Confirmed By:PANFILO GILLESPIE MD
[2021-02-09 12:06] LABS: Hemoglobin 14.7 g/dL (13.0-16.5); Mean Corpuscular Hgb 32.9 pg (27.0-32.0); Mean Platelet Vol. 10.9 fl (6.2-12.0); Platelet Count 175 K/mm3 (150-450); RBC Distribution Width CV 12.7 % (11.6-14.6); RBC Distribution Width SD 43.7 fl (35.1-43.9); Red Blood Count 4.47 M/mm3 (4.6-6.2)
[2021-02-09 12:30] LABS: Anion Gap 5 (5-15); BUN 15 mg/dL (7-18); BUN/Creat Ratio 18.6 RATIO (10-20); Calcium,Total 9.1 mg/dL (8.5-10.1); Chloride 107 mmol/L (98-107); Creatinine, Serum 0.81 mg/dL (0.70-1.30); EST Glomerular Filtration Rate 103 mL/min (>60); Est Glom Filt Rate - Afr Amer 125 mL/min (>60); Glucose 133 mg/dL (74-106); Potassium 3.7 mmol/L (3.5-5.1); Sodium Level 138 mmol/L (136-145)
== END ==
PROVIDERS: PCP Family Medicine; Referring Provider Urology; Visit Provider Urology
DX: Z01.810 Encounter for preprocedural cardiovascular examination (principal); I10 Essential (primary) hypertension
CPT/HCPCS: 36415; 80048; 85027; 93005

== ENCOUNTER → 2022-03-18 | Outpatient (CLI) | payer BC, SELFPAY ==
[2022-03-18 15:52] LABS: International Normalized Ratio 1.2; Partial Thromboplast Time 29.8 Seconds (24.1-36.2); Prothrombin Time (Protime)PT. 14.4 SECONDS (11.7-14.9)
[2022-03-18 15:55] LABS: Anion Gap 5 (5-15); BUN 15 mg/dL (7-18); Calcium,Total 8.9 mg/dL (8.5-10.1); Chloride 107 mmol/L (98-107); Creatinine, Serum 0.79 mg/dL (0.70-1.30); EST Glomerular Filtration Rate 106 mL/min (>60); Est Glom Filt Rate - Afr Amer 128 mL/min (>60); Glucose 103 mg/dL (74-106); Potassium 3.7 mmol/L (3.5-5.1); Sodium Level 141 mmol/L (136-145)
== END | disposition home or self-care (01) ==
LOC: LAB 14:21
PROVIDERS: PCP Family Medicine; Visit Provider Internal Medicine Cardiovascular Disease
DX: R07.9 Chest pain, unspecified (principal); R06.00 Dyspnea, unspecified; R94.30 Abnormal result of cardiovascular function study, unspecified; I10 Essential (primary) hypertension; E78.5 Hyperlipidemia, unspecified; I87.1 Compression of vein
CPT/HCPCS: 36415; 80048; 85610; 85730

== ENCOUNTER 2022-03-23 08:27 | Day surgery (SDC) | payer BC, SELFPAY ==
[2022-03-19 07:36] VITALS: BMI 29.9
--- NOTE | 2022-03-20 15:12 | HP.PCM_ITS ---
History and Physical Date of Admission: 03/23/22 [facility] [address] [place] [address] OFFICE VISIT Date of Service:? 03/18/22 MR#: [id number] Acct: [id number] Name:JAKE FAROOQ Rep #: [id number] : 1960 Provider: Dr. Saturnino Grajeda MD Age/Sex:? 61/M [place] [facility] [place] Signed with Addenda ADDENDUM by Dr. Saturnino Grajeda MD on 03/18/22 at 1546 Addendum Addendum Details:: Addendum: Date: 03-18-2022 Additional information received: Cardiac catheterization report from 05-30-2003 at [facility].? The cardiac catheterization report of the left ventricle to be normal with respect to systolic function with an LVEF of 70% and the patient to have underlying coronary artery disease involving the LAD/diagonal branching system which was considered nonobstructive at the time. Based upon the patient's symptoms, his abnormal ECG, his abnormal treadmill stress test, the documentation of previous CAD (nonobstructive at the time- 2003), superimposed upon his cardiovascular risk factors, again it was recom mended that the patient undergo further definitive evaluation of his CAD status with a diagnostic cardiac catheterization. In the interim the patient will continue his current medical regimen which does include aspirin, a beta-sierra, and an PETE inhibitor.? He has not wanted to add additional medications to his regimen, such as nitrates or lipid-lowering agents, etc., at this time.? He states he will consider medication options depending upon the results of his cardiovascular evaluation. Thank you for allowing me to participate in the care of your patient.? Please don't hesitate to call if any issues arise. Assessment and Plan Assessment and Plan (1) Abnormal exercise tolerance test: ?Status:?Acute (2) Hyperlipidemia: ?Status:?Acute (3) Essential hypertension: ?Status:?Acute (4) May-Thurner syndrome: ?Status:?Chronic (5) Chest pain in adult: ?Status:?Acute (6) Dyspnea: ?Status:?Acute ? ? ? Orders: Orders 12 Lead EKG performed by BMS Today E78.5 - Hyperlipidemia, unspecified, I10 - Essential (primary) hypertension, R94.30 - Abnormal result of cardiovascular function study, unspecified ? Left Heart Cath/COR/LV Percut Today E78.5 - Hyperlipidemia, unspecified, I10 - Essential (primary) hypertension, I87.1 - Compression of vein, R06.00 - Dyspnea, unspecified, R07.9 - Chest pain, unspecified, R94.30 - Abnormal result of cardiovascular function study, unspecified ? Basic Metabolic Profile (BMP) Today E78.5 - Hyperlipidemia, unspecified, I10 - Essential (primary) hypertension, I87.1 - Compression of vein, R06.00 - Dyspnea, unspecified, R07.9 - Chest pain, unspecified, R94.30 - Abnormal result of cardiovascular function study, unspecified ? Partial Thromboplast Time Today E78.5 - Hyperlipidemia, unspecified, I10 - Essential (primary) hypertension, I87.1 - Compression of vein, R06.00 - Dyspnea, unspecified, R07.9 - Chest pain, unspecified, R94.30 - Abnormal result of cardiovascular function study, unspecified ? Prothrombin Time w/INR Today E78.5 - Hyperlipidemia, unspecified, I10 - Essential (primary) hypertension, I87.1 - Compression of vein, R06.00 - Dyspnea, unspecified, R07.9 - Chest pain, unspecified, R94.30 - Abnormal result of cardiovascular function study, unspecified ? 03/18/22 3522 <Electronically signed by Saturnino Grajeda MD> Date Saturnino Grajeda MD cc:? Dr. Дмитрий Wilkerson MD ~* Signed HPI HPI History of Present Illness Surgical H&P: Yes Details: This is a 61-year-old white male who presents today for outpatient cardiovascular consultation based upon concerns of chest discomfort and shortness of breath/dyspnea concerning for angina pectoris equivalent with findings of an abnormal treadmill stress test ([facility]) superimposed upon a history of hyperlipidemia (treated by diet), hypertension, and peripheral vascular disease including May Thurner syndrome.? He states that he has undergone previous cardiovascular evaluation in the remote past with a diagnostic cardiac catheterization being performed at [facility].? At that time he states he did not require any form of coronary revascularization therapy. He notes that he has been having chest discomfort which he sometimes describes as a heavy sensation as well as shortness of breath and dyspnea.? His dyspnea is more so with exertional activity including minimal exertional activity.? He does not describe classic orthopnea or PND.? He has had issues with his lower extremities including lower extremity ulcers that have required wound care center therapy.? He does have an element of lower extremity peripheral pitting edema.? There has been no near-syncope or syncope or ongoing palpitations. Based upon his symptoms he states he underwent evaluation through the [facility] system.? In October of this year he had an ECG which was considered to demonstrate normal sinus rhythm with no acute changes reported.? His ECG was repeated today.? He was noted to have sinus rhythm with T wave changes concerning for myocardial ischemia in the anterior distribution. He had a transthoracic echocardiogram performed on 02-08-2022 per the [facility] system.? Upon review of the transthoracic echocardiogram it appears the left ventricle was thought to be normal with an LVEF of 60%, the right ventricle was thought to be mildly dilated with preserved systolic function, there was no valvular disease appreciated. He did have a treadmill stress test.? This was performed on 02-08-2022.? Based upon the report this was considered abnormal due to low heart rate recovery, ST segment changes/depression, and an abnormal Kinsey treadmill score. He also had a chest x-ray performed through the [facility] system in October of this year.? There were no acute findings reported. He has had previous noninvasive studies performed through the [facility] system.? They are noted below.? They have also been reviewed with him. Intake Vital Signs ? 03/18/2213:01 03/18/2213:05 Height 73 ft 5 in 6 ft 1 in Weight: ? 227 lb 1 oz BMI ? 29.9 BP ? 130/70 H Blood Pressure Location ? Lt brachial Position ? Sitting Respiration ? 16 Pulse ? 76 Pulse Source ? Auscultation Intake Visit Reasons:?SOB, ABN STRESS (AGUSTIN) Improvement Leader Required: No Accompanied by: Self Allergies hydromorphone HCl [From Dilaudid] Allergy (Verified 03/18/22 13:05) Anaphylaxishydrochlorothiazide Adverse Reaction (Unknown, Verified 03/18/22 13:05) Chest heaviness; Foggy Medications aspirin 81 mg tablet,delayed release (Adult Low Dose Aspirin) 81 mg PO DAILY [History Confirmed 03/18/22] multivitamin (Daily Multi-Vitamin tablet) 1 tab PO DAILY 08/15/20 [History Confirmed 03/18/22] lisinopril 5 mg tablet 5 mg PO DAILY 02/04/22 [History Confirmed 03/18/22] allopurinol 300 mg tablet 300 mg PO DAILY 03/17/22 [History Confirmed 03/18/22] ibuprofen 200 mg tablet 200 mg PO Q6H PRN 03/17/22 [History Confirmed 03/18/22] metoprolol succinate 100 mg tablet,extended release 24 hr 150 mg PO DAILY 03/17/22 [History Confirmed 03/18/22] terazosin 2 mg capsule 4 mg PO DAILY 03/17/22 [History Confirmed 03/18/22] PFSH Medical History? Abnormality of hormone Arthritis Back pain Bone fracture Cellulitis Cellulitis of left leg Cellulitis of left leg Cellulitis of left leg Cellulitis of left leg Cellulitis of left lower limb Cellulitis of leg, left Chronic bronchitis Chronic ulcer of left leg with fat layer exposed Colonization status Contact with or suspected exposure to other viral communicable disease Dermatitis Encounter for blood transfusion Essential hypertension Former smoker Gastroenteritis Headache History of DVT (deep vein thrombosis) Hyperlipidemia Hypertension Hypertriglyceridemia Kidney stone Leg pain, left Localized edema Malnutrition Pericardial effusion Pericarditis Rheumatoid arthritis Right ankle pain Right ankle sprain Right ankle sprain Ulcer of left lower extremity with fat layer exposed Ulcer of left lower extremity with fat layer exposed Ulcer of left lower extremity, limited to breakdown of skin Vein stenosis Venous insufficiency of left lower extremity Xerosis cutis Surgical History? History of appendectomy History of arthroscopy of left knee History of orthopedic surgery History of prostatectomy Status post insertion of iliac artery stent (~01/02/14) Family History? Sister ArthritisMother Myocardial infarction,? Onset Age: 70 Hypertension Congestive heart failure CAD (coronary artery disease)Father Myocardial infarction,? Onset Age: 62 CAD (coronary artery disease),? Onset Age: 61Uncle Myocardial infarctionUncle Myocardial infarctionUncle Myocardial infarction Social History? Smoking Status:? Current some day smoker tobacco type: cigars per week: 2 how long ago did patient quit smoking:? former cigarette smoker, quit 2004 alcohol intake:? current alcohol intake frequency: 0-2 drinks per day Alcohol type: beer and hard liquor details:? whiskey/beer daily substance use type:? does not use caffeine:? Yes Type: coffee Number of servings: 2 what type of physical activity do you participate in:? none ROS Const Const: Positive for fatigue (good/bad days); Negative for weakness, body ache, fever(s), headache(s), chills, frequent falls, night sweats, daytime sleepiness, difficulty sleeping, excessive sweating, weight gain, weight loss, increased appetite, poor appetite, anorexia or other Eyes Eyes: Negative for blurry vision or double vision ENT ENT: Negative for headache(s), dizziness or balance problems Cardio Chest Pain: Yes Character: other (heaviness) Onset: at rest and exercise (mostly with activity) Location: mid sternal Duration: minutes Relieving: rest Palpitations: Yes (occasional) feels like its: fast and skipping Edema: Bilateral (HX PVD) Muscle aches with walking: Left (calf pressure HX PVD) Resp Respiratory: Positive for SOB with activity (increased; especially getting out of the showwer), SOB at rest (occasional needing to take a deep breath) and Cough (chroic dry); Negative for SOB orthopnea\SOB lying down, Coughing up blood/hemoptysis, chest congestion, pain on inspiration, snoring, stridor, wheezing, crackles, paroxysmal nocturnal dyspnea or other Musc Musc: Positive for joint pain (HX arthritis); Negative for muscle aches/ myalgia, muscle weakness or balance problems Neuro Neuro: Negative for dizziness, lightheadedness, near syncope, syncope, orthostatic symptoms, frequent falls, headache(s), weakness, confusion, memory loss, restless legs, blurry vision, double vision, vertigo, seizures, lack of coordination or other Endo Endo: Positive for fatigue (good/bad days); Negative for excessive sweating Cardiology Exam Const Appearance: cooperative, healthy appearing, comfortable, no acute distress, well developed and well groomed Nutritional Appearance: overweight Orientation: alert, awake and oriented x3 Head Head: normal to inspection, normocephalic and atraumatic Ears: hearing grossly normal bilaterally Nose: external nose normal Face and Sinus: face symmetric Eyes Eyelids: eyelids normal Conjunctivae: conjunctivae normal Pupils: PERRL EOM: EOM intact bilaterally Neck Neck: normal visual inspection and full ROM Carotids: normal carotid upstroke Chest Chest inspection: normal inspection of the chest, symmetric chest movement and normal respiratory effort Auscultation: Bilateral: Clear to Auscultation Cardio Palpation: normal PMI Rate: regular rate Rhythm: regular rhythm Heart sounds: S1 normal and S2 normal GI GI: normal to inspection, soft and bowel sounds present Neuro General: patient alert, patient awake, patient oriented x3 and moves all extremities Skin Skin: no rashes or lesions noted Extremities Pulses: Normal: Right Radial Pulse and Left Radial Pulse Lower Extremity Edema: +1: Bilateral Psych Psychological: normal affect Supplemental Info Supplemental Information Echocardiogram: 06-27-2014 ADDENDUM by Norberto Burger MD on 06/28/14 at 0949 Procedure This was a 2D Doppler, Color Flow transthoracic echocardiogram. Exam performed portable in patient room. Left Ventricle Mild concentric left ventricular hypertrophy. The estimated ejection fraction is 65 %. No regional wall motion abnormalities noted. Right Ventricle Normal size and thickness. Normal systolic function. Atria Normal left atrium. Normal right atrium. Normal atrial septum. Mitral Valve The mitral valve is structurally normal. No prolapse or stenosis seen. Tricuspid Valve Normal tricuspid valve. Trivial tricuspid valve insufficiency. Right ventricular systolic pressure estimated to be 31 mmHg. Aortic Valve Trisinus/trileaflet aortic valve. Normal aortic valve. Great Vessels Normal aortic root. Normal arch. The inferior vena cava is dilated. Inferior vena cava collapse with respiration. Pericardium/Pleural Moderate pericardial effusion. There are no echocardiographic indications of cardiac tamponade. Circumferential effusion. MMode/2D Measurements & Calculations LVIDd: 3.4 cm ? IVSd: 1.4 cm? Ao root diam: 3.9 cm ? ? ? LAV(MOD-sp4): 37.5 ml LVIDs: 1.9 cm ? LVPWd: 1.2 cm ? Ao root area: 12.0 cm2 RVDd: 2.7 cm? FS: 43.1 %? LA dimension: 3.2 cm ? LA A4 area: 16.1 cm2? ? RA A4 area: 12.1 cm2 Doppler Measurements & Calculations MV E max tigre:? Lat Peak E' Tigre:? Med Peak E' Tigre:? Ao V2 max: 73.4 cm/sec? 8.7 cm/sec? 7.7 cm/sec? 124.6 cm/sec MV A max tigre:? Ao max P.2 mmHg 60.7 cm/sec MV E/A: 1.2 ? _ LV V1 max: 110.2 cm/sec? PA V2 max: 88.0 cm/sec? ? TR max tigre: 254.9 cm/sec? E/E' lat: 8.4 LV V1 max P.9 mmHg ? PA max P.1 mmHg ? ? ? TR max P.0 mmHg ? _ E/E' med: 9.5 Interpretation Summary The estimated ejection fraction is 65 %. Right ventricular systolic pressure estimated to be 31 mmHg. Moderate to large pericardial effusion. There are no echocardiographic indications of cardiac tamponade. Compared to echo report dated 05/27/2014, LV function has remained the same, and there is a new circumferential pericardial effusion. Mild variability with mitral valve inflow, possibly suggesting mild RV compromise. Discussed results with Dr Goddard at 11:00am Ordering Physician: Jerry Goddard Performed By: Sharda Salgado DARREL 06/28/14 1111 Date cc:? Jerry Goddard MD; Дмитрий Kuo MD ~* Signed Procedure This was a 2D Doppler, Color Flow transthoracic echocardiogram. Exam performed portable in patient room. Left Ventricle Mild concentric left ventricular hypertrophy. The estimated ejection fraction is 65 %. No regional wall motion abnormalities noted. Right Ventricle Normal size and thickness. Normal systolic function. Atria Normal left atrium. Normal right atrium. Normal atrial septum. Mitral Valve The mitral valve is structurally normal. No prolapse or stenosis seen. Tricuspid Valve Normal tricuspid valve. Trivial tricuspid valve insufficiency. Right ventricular systolic pressure estimated to be 31 mmHg. Aortic Valve Trisinus/trileaflet aortic valve. Normal aortic valve. Great Vessels Normal aortic root. Normal arch. The inferior vena cava is dilated. Inferior vena cava collapse with respiration. Pericardium/Pleural Moderate pericardial effusion. There are no echocardiographic indications of cardiac tamponade. Circumferential effusion. MMode/2D Measurements & Calculations LVIDd: 3.4 cm ? IVSd: 1.4 cm? Ao root diam: 3.9 cm ? ? ? LAV(MOD-sp4): 37.5 ml LVIDs: 1.9 cm ? LVPWd: 1.2 cm ? Ao root area: 12.0 cm2 RVDd: 2.7 cm? FS: 43.1 %? LA dimension: 3.2 cm ? LA A4 area: 16.1 cm2? ? RA A4 area: 12.1 cm2 Doppler Measurements & Calculations MV E max tigre:? Lat Peak E' Tigre:? Med Peak E' Tigre:? Ao V2 max: 73.4 cm/sec? 8.7 cm/sec? 7.7 cm/sec? 124.6 cm/sec MV A max tigre:? Ao max P.2 mmHg 60.7 cm/sec MV E/A: 1.2 ? _ LV V1 max: 110.2 cm/sec? PA V2 max: 88.0 cm/sec? ? TR max tigre: 254.9 cm/sec? E/E' lat: 8.4 LV V1 max P.9 mmHg ? PA max P.1 mmHg ? ? ? TR max P.0 mmHg ? _ E/E' med: 9.5 Interpretation Summary The estimated ejection fraction is 65 %. Right ventricular systolic pressure estimated to be 31 mmHg. Moderate to large pericardial effusion. There are no echocardiographic indications of cardiac tamponade. Compared to echo report dated 05/27/2014, LV function has remained the same, and there is a new circumferential pericardial effusion. Mild variability with mitral valve inflow, possibly suggesting mild RV compromise. _ Ordering Physician: Jerry Goddard Performed By: Sharda Salgado RDCS 06/28/14 1110 Date Norberto Burger? Stress Test Report Date: 02-21-2020 Procedure: Pharmacologic stress nuclear imaging study? Indications: Chest pain Consent: Per the patient Procedure: The patient underwent pharmacologic (Regadenoson) evaluation with a peak heart rate of 111 beats per minute (68%predicted maximal heart rate) and a peak blood pressure of 138/82 mmHg. The baseline ECG demonstrated sinus rhythm.? The peak pharmacologic ECG demonstrated no obvious ECG changes. There were no cardiac dysrhythmias pretest, during pharmacologic infusion, or recovery. There was no complaint of chest discomfort during pharmacologic infusion or recovery. The examination was discontinued secondary to completion of protocol. Impression: 1.? Pharmacologic (Regadenoson) evaluation 2.? Peak pharmacologic ECG with no obvious ECG changes. 3.? There were no cardiac dysrhythmias pretest, during pharmacologic infusion, or recovery. 4.? Nuclear images pending Myocardial perfusion imaging study: Technique: The patient was injected with 14.5 millicuries of technetium 99m Cardiolite and subsequently rest SPECT Cardiolite nuclear imaging was obtained in the horizontal long, vertical long, and short axis views. The patient underwent pharmacologic (Regadenoson) evaluation with a peak heart rate of 111 beats per minute (68% percent predicted maximal heart rate) and a peak blood pressure of 138/82 mmHg. The patient was injected with 44.7 millicuries of technetium 99m Cardiolite and subsequently stress SPECT Cardiolite nuclear imaging was obtained in the horizontal long, vertical long, and short axis views.? A gated Cardiolite study at peak stress was obtained. Interpretation: Rest and stress SPECT Cardiolite nuclear imaging status post realignment, normalization, and attenuation correction demonstrate relative uniform tracer uptake and myocardial perfusion appearing within normal limits.? There is end systolic thickening and brightening.? The gated Cardiolite study demonstrates myocardial thickening and inward wall motion.? The reported LVEF is 76%. Impression: 1.? Rest and stress SPECT Cardiolite nuclear imaging demonstrate relative uniform tracer uptake and myocardial perfusion appearing within normal limits. 2.? The gated Cardiolite study reports an LVEF of 76%. Chest CTA: 02-06-2020 FINDINGS: There is dependent atelectasis noted in the lungs. There are no pulmonary infiltrates or pleural effusions. The central airways are patent.? There is no pneumothorax. There is no evidence of pulmonary embolus.? There is no evidence of thoracic aortic aneurysm or dissection. The heart and pericardium are within normal limits. There is no thoracic lymphadenopathy. Images through the upper abdomen demonstrate hepatosplenomegaly with fatty infiltration of the liver. CT/CTA Chest W/WO Contrast IMPRESSION: ? No evidence of pulmonary embolus or other acute thoracic disease. ? Hepatosplenomegaly with fatty infiltration of the liver. ? Electronically Signed: Bryan Chua, at 18:42 EST Labs: ?? ? LDL Cholesterol TNP ?? ? HDL Cholesterol 39 mg/dL (40-) L ?? ? Triglycerides 407 mg/dL (0-199)? H ?? ? VLDL Cholesterol 81 mg/dL (5-40)? H Diagnostics: ?? ? Electrocardiogram ?C Echocardiogram ? Stress Test NM ? Stress Test ? Chest X-Ray ? Pulmonary: ?? ? No Data to Display Assessment and Plan Assessment and Plan (1) Abnormal exercise tolerance test: ?Status:?Acute ?Plan: The patient does have an abnormal treadmill stress test. This is superimposed upon cardiovascular risk factors. He has chest discomfort shortness of breath and dyspnea which is concerning for angina pectoris equivalent. He has also has an abnormal ECG which raises concerns of the possibility of myocardial ischemia in the anterior distribution. At the present time he will continue his aspirin therapy, his beta-sierra therapy with his metoprolol XL, and his PETE inhibitor therapy with his lisinopril. It was recommended he undergo further evaluation with diagnostic cardiac catheterization.? The procedure and risk were discussed with him.? He was agreeable to this approach.? Depending upon the findings he may or may not need further cardiac diagnostic studies/therapy. (2) Hyperlipidemia: ?Status:?Acute ?Plan: The patient has had improvement in his lipid labs. It appears that approximately 2 years ago his total cholesterol was 244 with an LDL of 158 and an HDL of 53.? His triglycerides were 165.? He had lipid labs performed 2 days ago through the [facility] system.? His total cholesterol was 198 with an LDL of 108 and an HDL of 36.? His triglycerides were 268.? It is noted his triglycerides have waxed and waned over the years. He states he has tried to do this naturally with diet as he would like to avoid medication if at all possible. Depending upon his cardiovascular findings he was told that he may need medical therapy which could include statin therapy unless otherwise contraindicated. (3) Essential hypertension: ?Status:?Acute ?Plan: He is being treated for hypertension. His medication with respect to his beta-sierra and PETE inhibitor were reviewed. At the moment he will continue his therapy. Depending upon the findings he may or may not need further adjustment of his medications. (4) May-Thurner syndrome: ?Status:?Chronic ?Plan: The patient does have peripheral vascular disease including May Thurner disease. He states he does have PCI performed to this area. He continues to follow with peripheral vascular surgery. (5) Chest pain in adult: ?Status:?Acute ?Plan: Again the patient has a history of chest discomfort.? There are concerns that this is an angina pectoris equivalent. Based upon his risk factors and objective findings it was thought reasonable he undergo further evaluation as described above.? He was agreeable to this approach. (6) Dyspnea: ?Status:?Acute ?Plan: The patient seems to believe his shortness of breath and dyspnea with exertion is somewhat more prominent than his chest discomfort. If his cardiovascular evaluation is unremarkable then he may need further pulm onary evaluation. ? ? ? Orders: Orders 12 Lead EKG performed by BMS Today E78.5 - Hyperlipidemia, unspecified, I10 - Essential (primary) hypertension, R94.30 - Abnormal result of cardiovascular function study, unspecified ? Left Heart Cath/COR/LV Percut Today E78.5 - Hyperlipidemia, unspecified, I10 - Essential (primary) hypertension, I87.1 - Compression of vein, R06.00 - Dyspnea, unspecified, R07.9 - Chest pain, unspecified, R94.30 - Abnormal result of cardiovascular function study, unspecified ? Basic Metabolic Profile (BMP) Today E78.5 - Hyperlipidemia, unspecified, I10 - Essential (primary) hypertension, I87.1 - Compression of vein, R06.00 - Dyspnea, unspecified, R07.9 - Chest pain, unspecified, R94.30 - Abnormal result of cardiovascular function study, unspecified ? Partial Thromboplast Time Today E78.5 - Hyperlipidemia, unspecified, I10 - Essential (primary) hypertension, I87.1 - Compression of vein, R06.00 - Dyspnea, unspecified, R07.9 - Chest pain, unspecified, R94.30 - Abnormal result of cardiovascular function study, unspecified ? Prothrombin Time w/INR Today E78.5 - Hyperlipidemia, unspecified, I10 - Essential (primary) hypertension, I87.1 - Compression of vein, R06.00 - Dyspnea, unspecified, R07.9 - Chest pain, unspecified, R94.30 - Abnormal result of cardiovascular function study, unspecified ? Plan Details Additional Comments: The above was discussed with the patient.? He was agreeable to this approach. Thank you for allowing me to participate in the care of your patient.? Please don't hesitate to call if any issues arise. This note was generated using a voice recognition system and there may be incorrect words, spelling or punctuation that were not noted when reviewing the office note prior to saving. Follow Up: ? ? 3 Months (PFM ) ? ? 03/18/22 (copy of [facility] cardiac cath report) COVID (Procedure Consent) Procedure Criteria Procedure Criteria: Yes Elective The surgeon/proceduralist and patient have discussed in detail the risk of exposure to and/or potential harm posed by the COVID-19 virus with having a surgery/procedure at this time versus the risk of? delaying the surgery/procedure. It is not possible to know either the risk of delaying the surgery or procedure or chance of getting an infection with perfect accuracy, but a joint decision was made between the patient and the surgeon/proceduralist ?to proceed at this time with the scheduled surgery/procedure as indicated on the consent form. Coding Level of Care Code Off vis,new,level 5 Diagnoses Abnormal exercise tolerance test? R94.30 Hyperlipidemia? E78.5 Essential hypertension? I10 May-Thurner syndrome? I87.1 Chest pain in adult? R07.9 Dyspnea? R06.00 Time Spent (min) 45 Coding Level of Care Code Off vis,new,level 5 Diagnoses Abnormal exercise tolerance test? R94.30 Hyperlipidemia? E78.5 Essential hypertension? I10 May-Thurner syndrome? I87.1 Chest pain in adult? R07.9 Dyspnea? R06.00 Time Spent (min) 45 03/18/22 1412 <Electronically signed by Saturnino Grajeda MD> Date Saturnino Grajeda MD Cosigner Signature: Date (if applicable) CC:? Dr. Дмитрий Wilkerson MD ~ Assessment & Plan Addt'l Comments I have examined the patient and the H&P has been reviewed. There are no clinical changes since date of exam. This note was generated using a voice recognition system and there may be incorrect words, spelling or punctuation that were not noted when reviewing the office note prior to saving.
--- NOTE | 2022-03-23 11:33 | CL.D_ITS ---
Patient Name: JAKE ODONNELL Study Date: 03/23/2022 Performing: Saturnino Grajeda MD Ht: 73 inches 185.42 cm : 1960 Wt: 227.01 lbs 102.97 kg Age: 61 Gender: male BSA: 2.27 PROCEDURE(S) PERFORMED DC01-(62077)LHC/COR/LV CLINICAL PROFILE AND INDICATIONS Indications: Suspected CAD Heart Failure: None Stress/Imaging Date: 02/08/2022 Angina Classification Anginal Classification w/in 2 Weeks: CCS II CAD Presentations: Other: angina pectoris CONCLUSIONS Normal Left Ventricular End Diastolic Pressure Normal LV size, wall motion,and systolic function LVEF: by LV gram 65 % [place] Multivessel CAD: non obstructive RECOMMENDATIONS Risk factor modification Medical therapy DESCRIPTION OF PROCEDURE The patient arrived to the procedure lab. The risks and benefits of the procedure as well as a full description of our services here and current unavailability of surgical backup were fully explained to the patient and/or their significant other prior to the catheterization. The Timeout was completed, verifying the correct patient and procedure. The patient's procedural site was prepped and draped in the usual fashion. Local anesthetic was given subcutaneously to right radial region with Lidocaine 2%, per Dr. Ayala. Using a modified Seldinger technique, arterial access was obtained via the right radial artery per Dr. Ayala, a 6Fr sheath was inserted. Left Coronary Artery selective angiography was performed in multiple views using a 5 Fr. 4.0 [place] catheter. Right Coronary Artery selective angiography was then performed in multiple views using a 5 Fr. 4.0 [place] catheter. Left Ventriculography was performed in [place]FF[place] projection using a 5 Fr. Pigtail catheter. LV to AO pullback pressures were then recorded.The arterial sheath was pulled and a TR Band was applied for hemostasis CORONARY ANGIOGRAPHY DOMINANCE: Right Dominant LEFT HEART ASSESSMENT Left Ventricular Ejection Fraction: by LV Gram 65 % Normal LV wall motion Normal Left Ventricular End Diastolic Pressure LVEDP: 11 mmHg LEFT MAIN: Angiographically normal LEFT ANTERIOR DESCENDING ARTERY: Mild luminal irregularities DIAGONAL 1: Proximal - Mild luminal irregularities less than 30% CIRCUMFLEX ARTERY: Mild luminal irregularities MID CIRC: Mild luminal irregularities less than 30% RIGHT CORONARY ARTERY: PROX RCA: Mild luminal irregularities MID RCA: Mild luminal irregularities AORTIC ROOT: Angiographically normal COMPLICATIONS No Complications PROCEDURE MEDICATIONS Versed 1 mg IV Fentanyl 50 mcg IV Oxygen: 2 L/min via nasal cannula Heparin given IA 03/23/2022 10:49:29 Verapamil 2.5mg, Ntg 100mcgs, 3000 units of Heparin given IA 03/23/2022 10:49:29 SUMMARY OF HEMODYNAMIC DATA Time AIR REST ECG 08:54:12 AO 118/78 (96) SA 10:50:40 LV 136/-14, 14 10:57:23 LV 126/-9, 11 10:57:31 LV 127/-11, 13 10:58:34 LVp 124/-12, 12 10:58:39 AOp 126/58 (89) 10:58:46 Signed By Saturnino Grajeda MD On 03/23/2022 11:33:20 Saturnino Grajeda MD
== END 2022-03-23 13:40 | disposition home or self-care (01) ==
PROVIDERS: PCP Family Medicine; Referring Provider Internal Medicine Cardiovascular Disease; Visit Provider Internal Medicine Cardiovascular Disease
DX: R94.30 Abnormal result of cardiovascular function study, unspecified (principal); I73.9 Peripheral vascular disease, unspecified; I10 Essential (primary) hypertension; R60.0 Localized edema; Z79.82 Long term (current) use of aspirin; K76.0 Fatty (change of) liver, not elsewhere classified; E78.5 Hyperlipidemia, unspecified; M79.10 Myalgia, unspecified site; Z87.891 Personal history of nicotine dependence; R00.2 Palpitations; M25.50 Pain in unspecified joint; R16.2 Hepatomegaly with splenomegaly, not elsewhere classified; R06.00 Dyspnea, unspecified; R07.9 Chest pain, unspecified; I87.1 Compression of vein
CPT/HCPCS: 93458; 99152; 99153; J7040; C1769; C1894; Q9967

== ENCOUNTER 2022-08-10 13:00 | Outpatient (RCR) | payer BC, SELFPAY ==
[2022-07-23 08:10] VITALS: BP 135/92; PULSE 101; RESP 20; TEMP 35.9; BMI 29.0
--- NOTE | 2022-07-23 14:04 | HP.PCM_ITS ---
History of Present Illness Date of Service: 07/23/22 Chief Complaint: left leg ulcer History of Wound: Willy is a 62 year old male with multiple comorbidities that presents for evaluation and treatment of a left leg ulceration that has been present for approximately 3 weeks. He has been seen previously for ulcers in this area and has healed but tends to develop them from time to time. He has been applying adaptic and gauze to the area after initially using antibiotic ointment and then hydrogel and promogran which did not seem to be helpful. 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 He wears compression but it is sometimes painful when the ulcers are flared up. He denies fever, chills, nausea, vomiting, or loss of appetite. [facility] Medical History (Updated 07/23/22 @ 14:[address] 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 Colonization status Contact with or suspected exposure to other viral communicable disease Dermatitis Encounter for blood transfusion Essential hypertension Former smoker Gastroenteritis Headache History of DVT (deep vein thrombosis) Hyperlipidemia Hypertension Hypertriglyceridemia Kidney stone Leg pain, left Localized edema Malnutrition Pericardial effusion Pericarditis Rheumatoid arthritis Right ankle pain Right ankle sprain Right ankle sprain Ulcer of left lower extremity with fat layer exposed Ulcer of left lower extremity with fat layer exposed Ulcer of left lower extremity, limited to breakdown of skin Vein stenosis Venous insufficiency of left lower extremity Xerosis cutis Home Medications aspirin 81 mg tablet,delayed release (Adult Low Dose Aspirin) 81 mg PO DAILY 08/15/20 [History Last Taken 03/23/22] multivitamin (Daily Multi-Vitamin tablet) 1 tab PO DAILY 08/15/20 [History Last Taken Unknown] lisinopril 5 mg tablet 5 mg PO DAILY 02/04/22 [History Last Taken 03/23/22] allopurinol 300 mg tablet 300 mg PO DAILY 03/17/22 [History Last Taken Unknown] ibuprofen 200 mg tablet 200 mg PO Q6H PRN Pain 03/17/22 [History Last Taken Unknown] metoprolol succinate 100 mg tablet,extended release 24 hr 150 mg PO DAILY 03/17/22 [History Last Taken 03/23/22] atorvastatin 20 mg tablet 20 mg PO QHS #30 tabs 03/23/22 [Rx Last Taken Unknown] benzonatate 100 mg capsule 100 mg PO TID PRN Cough 07/23/22 [History Last Taken Unknown] colchicine 0.6 mg capsule 0.6 mg PO TID 07/23/22 [History Last Taken Unknown] omeprazole 40 mg capsule,delayed release 40 mg PO DAILY 07/23/22 [History Last Taken Unknown] terazosin 2 mg tablet 4 mg PO DAILY 07/23/22 [History Last Taken Unknown] triamcinolone acetonide 0.1 % topical cream 1 applic topical BID 07/23/22 [History Last Taken Unknown] Allergy/AdvReac Type Severity Reaction Status Date / Time hydromorphone HCl Allergy Anaphylaxis Verified 03/18/22 13:05 [From Dilaudid] hydrochlorothiazide AdvReac Unknown Chest Verified 03/18/22 13:05 heaviness; Foggy Family History Sister Arthritis Mother Myocardial infarction, Onset Age: 70 Hypertension Congestive heart failure CAD (coronary artery disease) Father Myocardial infarction, Onset Age: 62 CAD (coronary artery disease), Onset Age: 61 Uncle Myocardial infarction Uncle Myocardial infarction Uncle Myocardial infarction Surgical History History of appendectomy History of arthroscopy of left knee History of left heart catheterization (LHC) (~03/23/22) History of orthopedic surgery History of prostatectomy Status post insertion of iliac artery stent (~01/02/14) Social History Smoking Status: Current every day smoker tobacco type: cigars per week: 2 how long ago did patient quit smoking: former cigarette smoker, quit 2004 alcohol intake: current alcohol intake frequency: 0-2 drinks per day Alcohol type: beer and hard liquor details: whiskey/beer daily substance use type: does not use caffeine: Yes Type: coffee Number of servings: 2 what type of physical activity do you participate in: none ROS Constitutional Constitutional: Denies chills, fatigue or fever(s) Eyes Eyes: Denies blurry vision, change in vision or loss of vision ENT HEENT: Denies dysphagia, hearing loss or sore throat Cardiovascular Cardiovascular: Denies chest pain, edema or palpitations Respiratory/Chest Respiratory/Chest: Denies dry cough, dyspnea, dyspnea on exertion, productive cough or wheezing Gastrointestinal Gastrointestinal: Denies diarrhea, nausea or vomiting Genitourinary Genitourinary: Denies dysuria or polyuria Musculoskeletal Musculoskeletal: Denies arthralgias, joint stiffness or muscle weakness Integumentary Integumentary: Reports erythema and wounds Neurologic Neurologic: Denies dizziness, memory loss or weakness Psychiatric Psychiatric: Denies homicidal ideation or suicidal ideation Endocrine Endocrinology: Denies polydipsia, polyphagia or polyuria Hematologic/Lymphatic Hematologic/Lymphatic: Denies easy bleeding or easy bruising Allergic/Immunologic Allergic/Immunologic: Denies throat swelling, tongue swelling or urticaria Vital Signs Vital Signs Vital Signs: 07/23/22 08:10 Temperature 96.7 F L Temperature Source Temporal Pulse Rate 101 H Respiratory Rate 20 H Blood Pressure 135/92 H Blood Pressure Mean 106 Blood Pressure Source Monitor Blood Pressure Position Semi-Fowlers Blood Pressure Location Left Arm Weight Weight: 99.79 kg Body Mass Index (BMI) 29.0 Physical Exam Const alert, oriented x3 and no apparent distress General Appearance: cooperative and comfortable HEENT normocephalic and head/scalp atraumatic Resp normal respiratory effort Effort and Inspection: able to speak in complete sentences Cardio regular rate and regular rhythm Skin Wounds: wounds noted Wound Narrative: as in clinical panel Psych mental status grossly normal, thought process normal, cooperative and affect normal Debridement Note Debridement Note Wound debrided: left medial ankle Laterality: Left Type of Debridement: Excisional debridement Anesthesia Used: 4% Lidocaine Solution, 5% Lidocaine Gel and Cetacaine Depth: Down to and including healthy tissue and in the subcutaneous layer Percentage of wound debrided: 100 Instrument Used: 3mm curette Tissue Removed: Yellow slough, devitalized tissue Severity: Fat Layer Exposed Amount of bleeding with debridement: Mild Bleeding Controlled with: Compression and gauze Patient tolerated procedure: Patient tolerated procedure well Post-Debridement Measurements and Additional Note: Post-Debridement Measurements/Treatment NICCI - Nurse 1 - General Ulcer Assessment Start: 07/23/22 08:10 Freq: Status: Active Protocol: NOA Activity Type Activity Date Activity User E-sign Co-sign Detail Recorded Client Recorded Date Recorded By Document 07/23/22 08:10 SHAWN [id number] 07/23/22 08:31 SHAWN 07/23/22 08:10 WC - Today's Visit Information Type of service Initial Visit Arrival Mode Ambulatory Patient Identification Verified (Name & Yes ) Patient Requires Transmission-Based No Precautions Height and Weight Height 6 ft 1 in Weight 99.79 kg Weight in Pounds 220.0 lbs Weight Measurement Method Standing Scale Body Mass Index (BMI) 29.0 BMI Classification Overweight BSA - Chip 2.24 Vital Signs Temperature (97.8 F-99.1 F) 96.7 F L Temperature Source Temporal Pulse Rate (60-100) 101 H Pulse Location Monitor Respiratory Rate (12-18) 20 H Respiratory rate source Observation Blood Pressure (90/60-120/80) 135/92 H Blood Pressure Mean 106 Source Monitor Position Semi-Fowlers Blood Pressure Location Left Arm History Since Last Visit- (Skip if this is Patient's initial visit) Left Footwear Regular Shoe Right Footwear Regular Shoe Pain Scale: 0-10 Numeric Is Patient Pain Free? No left medial ankle -Description Sharp -Intensity 5 -Duration (hours) Chronic -Pain Behavior Withdrawal from Touch,Facial Grimacing -Pain Aggravating Factors ADL's -Alleviating Factors/Interventions Medication -Effectiveness of Alleviating Factor/ Moderately Intervention effective Lower Extremity Assessment/ Foot Assessment/ Toe Nail Assessment Left -Posterior Tibial Palpable Yes -Posterior Tibial Doppler Multiphasic -Dorsalis Pedis Palpable Yes -Dorsalis Pedis Doppler Multiphasic -Extremity Color Hyperpigmented, Hemosiderin -Hair Growth on Legs Yes -Hair Growth on Toes Yes -Temperature of Extremity Warm -Capillary Refill Less than 3 Seconds -Dependent Rubor Yes -Blanched when Elevated No -Other Deformity No -Prior Foot Ulcer No -Charcot Joint No -Prior Amputation No -Thick No -Discolored No -Deformed No -Improper Length & Hygeine No Communication Assessment Preferred language [place] Citizen Able to Read Yes Able to Write Yes Communication Tools None Caregiver Communication Skills No Impairment Impairment Right Hearing Abillity Normal Left Hearing Abillity Normal Visual Assistive Devices Glasses Teaching Assessment Preferences Verbal,Written, Audio/Visual, Demonstration Barriers to Learning None Readiness To Learn Excellent Willingness to Engage in Self Management High Activies Readiness to Engage in Self Management High Activities Anxiety Level Calm Cooperation Cooperative Perception Coherent Interest in Health Problem Asks Questions Education Importance Acknowledges Need Does Patient Smoke tobacco or other Yes substances Smoking Status Current every day smoker Is Patient Diabetic No Functional Assessment Recent Decline in Ability to Perform Denies Any Declines Culture/Buddhist/Correctional Supervisor Cultural/Buddhist Needs that may affect No Treatment Plan Would you allow our hospital supervisor mixing to No meet you for the purpose of spiritual/ emotional support? Correctional Supervisor to contact place of gnosticism No Teaching: Wound Center *Welcome to the Wound Center -Person Taught Patient -Teaching Method Discussion, Demonstration -Response to teaching Return demonstration, Verbalize understanding NICCI - Nurse 1 - General Ulcer Measurement Start: 07/23/22 08:10 Freq: Status: Active Protocol: Activity Type Activity Date Activity User E-sign Co-sign Detail Recorded Client Recorded Date Recorded By Document 07/23/22 08:10 SHAWN [id number] 07/23/22 08:31 SHAWN 07/23/22 08:10 Wound Center Nurse 1 6-left medial ankle -Combined with other wound No -Current Size (cm) - Length 2.5 -Current Size (cm) - Width 0.5 -Current Size (cm) - Depth 0.1 -Total Square Cm 1.25 -Photo Taken Yes -Epithelialization Medium 34-66% -Tunneling No -Undermining/Tunneling No -Circular Undermining No -Classification - Thickness Full Thickness without Exposed Support Structure -Exudate Amt Small -Exudate Type Serosanguineous -Wound Margin Flat & Intact -Granulation Amt Medium (34-66%) -Granulation Quality Red -Slough/Fibrin Yes -Necrosis Amt Small (1-33%) -Structure Exposed N/A -Texture (Aracely-wound Skin Appearance) Assessed, Excoriation, Localized Edema -Moisture (Aracely-wound Skin Appearance) Assessed, Weeping,Dry/ Scaly -Color (Aracely-wound Skin Appearance) Assessed, Hemosiderin Staining -Temperature (Aracely-wound Skin No Abnormality Appearance) (Pt Warm) -Tenderness on Palpation (Aracely-wound Yes Skin Appearance) -Ulcer Cleansing Rinsed/ Irrigated with Saline -Foul Odor after Cleansing No -Anesthetic Used 5% Lidocaine Gel Lower Limb Edema Present Yes Left Calf (cm) 41.4 Left Ankle (cm) 29.0 NICCI - Nurse 2 - General Ulcer CM Notes Start: 07/23/22 08:10 Freq: Status: Active Protocol: Activity Type Activity Date Activity User E-sign Co-sign Detail Recorded Client Recorded Date Recorded By Document 07/23/22 08:43 MW [id number] 07/23/22 09:03 MW 07/23/22 08:43 Wound Center Nurse 2 6-left medial ankle -Time 08:45 -Correct Patient Yes -Correct Side, Site, Position Yes -Correct Procedure Yes -Procedure Performed Yes -Type of Procedure Debridement -Clinical Debridement Subcutaneous -Tissue Removed Subcutaneous -Post Debridement (cm) - Length 2.0 -Post Debridement (cm) - Width 0.5 -Post Debridement (cm) - Depth 0.1 -Total Square (Post) (cm) 1.00 -Area of Debridement (cm) - Length 2.0 -Area of Debridement (cm) - Width 0.5 -Total Square (Area) (cm) 1.00 -Tunneling No -Undermining/Tunneling No -Circular Undermining No -Wound/Ulcer Outcome Not Healed -Ulcer Cleansing Rinsed/ Irrigated with Saline -Foul Odor after Cleansing No -Bioengineered Tissue No -Bleeding Controlled with Pressure -Treatment Response Procedure Tolerated Well -Offloading No -Debridement - Subq, 1st 20sq cm Yes Pain Scale: 0-10 Numeric Is Patient Pain Free? Yes - Nurse 3 - General Ulcer D/C NN Start: 07/23/22 08:10 Freq: Status: Active Protocol: Activity Type Activity Date Activity User E-sign Co-sign Detail Recorded Client Recorded Date Recorded By Document 07/23/22 09:17 [id number] 07/23/22 09:19 RB 07/23/22 09:17 Wound Care Center Nurse 3 6-left medial ankle -Ulcer Cleansing Rinsed/ Irrigated with Saline -Primary Dressing Applied C Hydrogel ($) -Other Dressing tube of hydrogel given if pt doesnt tolerate unna boot per Dr napoleones Left -Multi-Layered Wrap Application Unna Boot - Left ($) Treatment Response Procedure Tolerated Well Pain Scale: 0-10 Numeric Is Patient Pain Free? Yes - Visit Discharge Discharge Condition Stable Ambulatory Status Ambulatory Transportation Private Auto Medication Reconcilliation completed & No provided to patient/care provider Clinical Summary of Care Provided Yes Assessment/Plan Assessment/Plan (1) May-Thurner syndrome: CODE(S): I87.1 - Compression of vein (2) Rheumatoid arthritis: CODE(S): M06.9 - Rheumatoid arthritis, unspecified (3) Polyarthropathy of ankle and foot: CODE(S): M13.0 - Polyarthritis, unspecified (4) Essential hypertension: CODE(S): I10 - Essential (primary) hypertension (5) Atherosclerotic heart disease of [place] coronary artery without angina pectoris: CODE(S): I25.10 - Atherosclerotic heart disease of [place] coronary artery without angina pectoris (6) Ulcer of left lower extremity with fat layer exposed: CODE(S): L97.922 - Non-pressure chronic ulcer of unspecified part of left lower leg with fat layer exposed PLAN: Plan Debridement performed today in clinic as annotated above. At home wound-care instructions: Will apply Unna boot compression lightly to his left leg and have him return for change on Tuesday or Tuesday. Keep dressing clean and dry. Off-loading: The patient was instructed to avoid pressure and friction on the affected areas. Reposition every 2 hours at minimum. Avoid prolonged standing and/or dangling of legs. When seated, feet should be elevated at chest level. Frequent ambulation is encouraged. Diet: Patient encouraged to increase protein intake while taking caution to avoid high carbohydrate and/or sugar intake. Labs/cultures/imaging:Culture not taken due to no obvious cellulitis. Follow-up: Return in 1 week for wound care follow up. Return sooner or report to the emergency room should symptoms worsen, or new symptoms arise. Note: [employer] speech recognition river rafting guide software was used to create portions of this document. Sound-alike and misspelled words, as well as other river rafting guide errors may be contained in the documentation.
[2022-07-26 08:14] VITALS: BP 141/86; PULSE 94; RESP 16; TEMP 36.5; BMI 29.0
[2022-07-30 09:37] VITALS: BP 117/73; PULSE 85; RESP 18; TEMP 36.2; BMI 29.0
--- NOTE | 2022-07-30 14:23 | PCM.WC.PN ---
History of Present Illness Date of Service: 07/30/22 Chief Complaint: left leg ulcer History of Wound: Willy is a 62 year old male with multiple comorbidities that presents for evaluation and treatment of a left leg ulceration that has been present for approximately 3 weeks. He has been seen previously for ulcers in this area and has healed but tends to develop them from time to time. He has been applying adaptic and gauze to the area after initially using antibiotic ointment and then hydrogel and promogran which did not seem to be helpful. 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 He wears compression but it is sometimes painful when the ulcers are flared up. He denies fever, chills, nausea, vomiting, or loss of appetite. Subjective Subjective Willy returns today for follow up of ulcer of left medial ankle. He tolerated UNNA boot treatment and his ulcer is improved. No sign of infection. Denies fever, chills. Objective Data Objective Data Vital Signs: Vital Signs Temp Pulse Resp BP O2 Del Method 97.1 F L 85 18 117/73 Room Air 07/30/22 09:37 07/30/22 09:37 07/30/22 09:37 07/30/22 09:37 07/26/22 08:14 Oxygen Delivery Method Room Air Weight: 99.79 kg Body Mass Index (BMI) 29.0 Physical Exam Const alert, oriented x3 and no apparent distress General Appearance: cooperative and comfortable HEENT normocephalic and head/scalp atraumatic Resp normal respiratory effort Effort and Inspection: able to speak in complete sentences Cardio regular rate and regular rhythm Skin Wounds: wounds noted Wound Narrative: as in clinical panel Psych mental status grossly normal, thought process normal, cooperative and affect normal Debridement Note Debridement Note Wound debrided: left medial ankle Laterality: Left Type of Debridement: Excisional debridement Anesthesia Used: 4% Lidocaine Solution, 5% Lidocaine Gel and Cetacaine Depth: Down to and including healthy tissue and in the subcutaneous layer Percentage of wound debrided: 100 Instrument Used: 3mm curette Tissue Removed: Yellow slough, devitalized tissue Severity: Fat Layer Exposed Amount of bleeding with debridement: Mild Bleeding Controlled with: Compression and gauze Patient tolerated procedure: Patient tolerated procedure well Post-Debridement Measurements and Additional Note: Post-Debridement Measurements/Treatment WC - Nurse 1 - General Ulcer Assessment Start: 07/23/22 08:10 Freq: Status: Active Protocol: WC.LOWEXT Activity Type Activity Date Activity User E-sign Co-sign Detail Recorded Client Recorded Date Recorded By Document 07/23/22 08:10 [id number] 07/23/22 08:31 Document 07/26/22 08:14 [facility] [id number] 07/26/22 08:15 BM Document 07/30/22 09:37 RB [id number] 07/30/22 09:40 RB 07/23/22 07/26/22 07/30/22 08:10 08:14 09:37 WC - Today's Visit Information Type of service Initial Visit Nurse-only Follow-up Visit Visit (Physician/FOAM RUBBER FABRICATOR ) Arrival Mode Ambulatory Ambulatory Ambulatory Transfer Assistance None None Patient Identification Verified (Name & Yes Yes Yes ) Patient Requires Transmission-Based No No No Precautions Height and Weight Height 6 ft 1 in Weight 99.79 kg Weight in Pounds 220.0 lbs Weight Measurement Method Standing Scale Body Mass Index (BMI) 29.0 29.0 29.0 BMI Classification Overweight Overweight Overweight BSA - Chip 2.24 Vital Signs Temperature (97.8 F-99.1 F) 96.7 F L 97.7 F L 97.1 F L Temperature Source Temporal Temporal Temporal Pulse Rate (60-100) 101 H 94 85 Pulse Location Monitor Monitor Monitor Respiratory Rate (12-18) 20 H 16 18 Respiratory rate source Observation Observation Observation Oxygen Delivery Method Room Air Blood Pressure (90/60-120/80) 135/92 H 141/86 H 117/73 Blood Pressure Mean (mm Hg) 106 104 87 Source Monitor Monitor Monitor Position Semi-Fowlers Sitting Semi-Fowlers Blood Pressure Location Left Arm Left Arm Left Arm History Since Last Visit- (Skip if this is Patient's initial visit) Have you changed medications since your No No last visit? Any new allergies or adverse reactions No No Had a fall/change in ADL's that may No No increase risk of falls Signs or symptoms of abuse and/or No No neglect since last visit Have you been in the hospital since your No No last visit? Has dressing in place as prescribed Yes Yes Has compression in place as prescribed Yes Yes Has offloadiing in place as prescribed N/A No Experienced any changes in pain level or No No management Left Footwear Regular Shoe Regular Shoe Right Footwear Regular Shoe Regular Shoe Pain Scale: 0-10 Numeric Is Patient Pain Free? No Yes Yes left medial ankle -Description Sharp -Intensity 5 -Duration (hours) Chronic -Pain Behavior Withdrawal from Touch,Facial Grimacing -Pain Aggravating Factors ADL's -Alleviating Factors/Interventions Medication -Effectiveness of Alleviating Factor/ Moderately Intervention effective Lower Extremity Assessment/ Foot Assessment/ Toe Nail Assessment Left -Posterior Tibial Palpable Yes -Posterior Tibial Doppler Multiphasic -Dorsalis Pedis Palpable Yes -Dorsalis Pedis Doppler Multiphasic -Extremity Color Hyperpigmented, Hemosiderin -Hair Growth on Legs Yes -Hair Growth on Toes Yes -Temperature of Extremity Warm -Capillary Refill Less than 3 Seconds -Dependent Rubor Yes -Blanched when Elevated No -Other Deformity No -Prior Foot Ulcer No -Charcot Joint No -Prior Amputation No -Thick No -Discolored No -Deformed No -Improper Length & Hygeine No Communication Assessment Preferred language Swazi Able to Read Yes Able to Write Yes Communication Tools None Caregiver Communication Skills No Impairment Impairment Right Hearing Abillity Normal Left Hearing Abillity Normal Visual Assistive Devices Glasses Teaching Assessment Preferences Verbal,Written, Audio/Visual, Demonstration Barriers to Learning None Readiness To Learn Excellent Willingness to Engage in Self Management High Activies Readiness to Engage in Self Management High Activities Anxiety Level Calm Cooperation Cooperative Perception Coherent Interest in Health Problem Asks Questions Education Importance Acknowledges Need Does Patient Smoke tobacco or other Yes substances Smoking Status Current every day smoker Is Patient Diabetic No Functional Assessment Recent Decline in Ability to Perform Denies Any Declines Culture/Bahai/Mold Tooling Technician Cultural/[place]ah[place] Needs that may affect No Treatment Plan Would you allow our hospital certified real estate appraiser to No meet you for the purpose of spiritual/ emotional support? Mold Tooling Technician to contact place of religion No Teaching: Wound Center *Welcome to the Wound Center -Person Taught Patient -Teaching Method Discussion, Demonstration -Response to teaching Return demonstration, Verbalize understanding NICCI - Nurse 1 - General Ulcer Measurement Start: 07/23/22 08:10 Freq: Status: Active Protocol: Activity Type Activity Date Activity User E-sign Co-sign Detail Recorded Client Recorded Date Recorded By Document 07/23/22 08:10 [facility] [id number] 07/23/22 08:31 JF Document 07/26/22 08:14 [facility] [id number] 07/26/22 08:15 [facility] Document 07/30/22 09:37 RB [id number] 07/30/22 09:40 RB 07/23/22 07/26/22 07/30/22 08:10 08:14 09:37 Wound Center Nurse 1 6-left medial ankle -Combined with other wound No No -Current Size (cm) - Length 2.5 0.5 -Current Size (cm) - Width 0.5 0.2 -Current Size (cm) - Depth 0.1 0.1 -Total Square Cm 1.25 0.10 -Photo Taken Yes Yes -Epithelialization Medium 34-66% -Tunneling No No -Undermining/Tunneling No No -Circular Undermining No No -Classification - Thickness Full Thickness without Exposed Support Structure -Exudate Amt Small Medium -Exudate Type Serosanguineous Serosanguineous -Wound Margin Flat & Intact Distinct, Outline Attached -Granulation Amt Medium (34-66%) Medium (34-66%) -Granulation Quality Red [place] -Slough/Fibrin Yes Yes -Necrosis Amt Small (1-33%) Medium (34-66%) -Necrotic Tissue Type Adherent Slough -Structure Exposed N/A N/A -Texture (Aracely-wound Skin Appearance) Assessed, Assessed Excoriation, Localized Edema -Moisture (Aracely-wound Skin Appearance) Assessed, Assessed Weeping,Dry/ Scaly -Color (Aracely-wound Skin Appearance) Assessed, Assessed, Hemosiderin Hemosiderin Staining Staining -Temperature (Aracely-wound Skin No Abnormality No Abnormality Appearance) (Pt Warm) (Pt Warm) -Tenderness on Palpation (Aracely-wound Yes No Skin Appearance) -Ulcer Cleansing Rinsed/ Wound Cleanser Irrigated with Saline -Foul Odor after Cleansing No No -Anesthetic Used 5% Lidocaine 5% Lidocaine Gel Gel Lower Limb Edema Present Yes Yes Left Calf (cm) 41.4 39.2 40.5 Left Ankle (cm) 29.0 24.5 24 WC - Nurse 2 - General Ulcer CM Notes Start: 07/23/22 08:10 Freq: Status: Active Protocol: Activity Type Activity Date Activity User E-sign Co-sign Detail Recorded Client Recorded Date Recorded By Document 07/23/22 08:43 MW [id number] 07/23/22 09:03 MW Document 07/30/22 09:46 MW [id number] 07/30/22 09:55 MW 07/23/22 07/30/22 08:43 09:46 Wound Center Nurse 2 6-left medial ankle -Time 08:45 09:46 -Correct Patient Yes Yes -Correct Side, Site, Position Yes Yes -Correct Procedure Yes Yes -Procedure Performed Yes Yes -Type of Procedure Debridement Debridement -Clinical Debridement Subcutaneous Subcutaneous -Tissue Removed Subcutaneous Subcutaneous -Post Debridement (cm) - Length 2.0 0.4 -Post Debridement (cm) - Width 0.5 0.2 -Post Debridement (cm) - Depth 0.1 0.1 -Total Square (Post) (cm) 1.00 0.08 -Area of Debridement (cm) - Length 2.0 0.4 -Area of Debridement (cm) - Width 0.5 0.2 -Total Square (Area) (cm) 1.00 0.08 -Tunneling No No -Undermining/Tunneling No No -Circular Undermining No No -Wound/Ulcer Outcome Not Healed Not Healed -Ulcer Cleansing Rinsed/ Rinsed/ Irrigated with Irrigated with Saline Saline -Foul Odor after Cleansing No No -Bioengineered Tissue No No -Bleeding Controlled with Pressure Pressure -Treatment Response Procedure Procedure Tolerated Well Tolerated Well -Offloading No No -Debridement - Subq, 1st 20sq cm Yes Yes Pain Scale: 0-10 Numeric Is Patient Pain Free? Yes Yes WC - Nurse 3 - General Ulcer D/C NN Start: 07/23/22 08:10 Freq: Status: Active Protocol: Activity Type Activity Date Activity User E-sign Co-sign Detail Recorded Client Recorded Date Recorded By Document 07/23/22 09:17 RB [id number] 07/23/22 09:19 RB Document 07/26/22 08:14 [facility] [id number] 07/26/22 08:15 BMF 07/23/22 07/26/22 09:17 08:14 Wound Care Center Nurse 3 6-left medial ankle -Ulcer Cleansing Rinsed/ Irrigated with Saline -Primary Dressing Applied C Hydrogel ($) -Other Dressing tube of unnan boot hydrogel given if pt doesnt tolerate unna boot per Dr orderes Left -Multi-Layered Wrap Application Unna Boot - Unna Boot - Left ($) Left ($) Treatment Response Procedure Procedure Tolerated Well Tolerated Well Vital Signs Temperature (97.8 F-99.1 F) 97.7 F L Temperature Source Temporal Pulse Rate (60-100) 94 Pulse Location Monitor Respiratory Rate (12-18) 16 Respiratory rate source Observation Oxygen Delivery Method Room Air Blood Pressure (90/60-120/80) 141/86 H Blood Pressure Mean (mm Hg) 104 Source Monitor Position Sitting Blood Pressure Location Left Arm Pain Scale: 0-10 Numeric Is Patient Pain Free? Yes Yes WC - Visit Discharge Discharge Condition Stable Stable Ambulatory Status Ambulatory Ambulatory Transportation Private Auto Private Auto Medication Reconcilliation completed & No provided to patient/care provider Clinical Summary of Care Provided Yes Assessment/Plan Assessment/Plan (1) May-Thurner syndrome: CODE(S): I87.1 - Compression of vein (2) Rheumatoid arthritis: CODE(S): M06.9 - Rheumatoid arthritis, unspecified (3) Polyarthropathy of ankle and foot: CODE(S): M13.0 - Polyarthritis, unspecified (4) Essential hypertension: CODE(S): I10 - Essential (primary) hypertension (5) Atherosclerotic heart disease of [place] coronary artery without angina pectoris: CODE(S): I25.10 - Atherosclerotic heart disease of [place] coronary artery without angina pectoris (6) Ulcer of left lower extremity with fat layer exposed: CODE(S): L97.922 - Non-pressure chronic ulcer of unspecified part of left lower leg with fat layer exposed PLAN: Plan Debridement performed today in clinic as annotated above. At home wound-care instructions: Will apply Unna boot compression lightly to his left leg and have him return for change on Tuesday or Tuesday. Keep dressing clean and dry. Off-loading: The patient was instructed to avoid pressure and friction on the affected areas. Reposition every 2 hours at minimum. Avoid prolonged standing and/or dangling of legs. When seated, feet should be elevated at chest level. Frequent ambulation is encouraged. Diet: Patient encouraged to increase protein intake while taking caution to avoid high carbohydrate and/or sugar intake. Labs/cultures/imaging: Culture not taken due to no obvious cellulitis. Follow-up: Return in 1 week for wound care follow up. Return sooner or report to the emergency room should symptoms worsen, or new symptoms arise. Note: [employer] speech recognition roller die cutting machine operator software was used to create portions of this document. Sound-alike and misspelled words, as well as other roller die cutting machine operator errors may be contained in the documentation.
[2022-08-02 08:15] VITALS: BP 103/80; PULSE 97; RESP 16; TEMP 36.1; BMI 29.0
[2022-08-06 09:28] VITALS: BP 129/75; PULSE 86; RESP 16; TEMP 36.4; BMI 29.0
--- NOTE | 2022-08-06 15:05 | PN.PCM_ITS ---
History of Present Illness Date of Service: 08/06/22 Chief Complaint: left leg ulcer History of Wound: Willy is a 62 year old male with multiple comorbidities that presents for evaluation and treatment of a left leg ulceration that has been present for approximately 3 weeks. He has been seen previously for ulcers in this area and has healed but tends to develop them from time to time. He has been applying adaptic and gauze to the area after initially using antibiotic ointment and then hydrogel and promogran which did not seem to be helpful. 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 He wears compression but it is sometimes painful when the ulcers are flared up. He denies fever, chills, nausea, vomiting, or loss of appetite. Subjective Subjective Willy returns today for follow up of ulcer of left medial ankle. He tolerated UNNA boot treatment and his ulcer is healed. Objective Data Objective Data Vital Signs: Vital Signs Temp Pulse Resp BP O2 Del Method 97.6 F L 86 16 129/75 H Room Air 08/06/22 09:28 08/06/22 09:28 08/06/22 09:28 08/06/22 09:28 08/06/22 09:28 Oxygen Delivery Method Room Air Weight: 99.79 kg Body Mass Index (BMI) 29.0 Debridement Note Debridement Note Wound debrided: left medial ankle No debridement was completed: No debridement was completed today (ulcer is healed) Post-Debridement Measurements and Additional Note: Post-Debridement Measurements/Treatment NICCI - Nurse 1 - General Ulcer Assessment Start: 07/23/22 08:10 Freq: Status: Active Protocol: NOA Activity Type Activity Date Activity User E-sign Co-sign Detail Recorded Client Recorded Date Recorded By Document 07/23/22 08:10 [id number] 07/23/22 08:31 Document 07/26/22 08:14 [facility] [id number] 07/26/22 08:15 [facility] Document 07/30/22 09:37 RB [id number] 07/30/22 09:40 RB Document 08/02/22 08:15 BM [id number] 08/02/22 08:17 BM Document 08/06/22 09:28 [facility] [id number] 08/06/22 09:35 BMF 07/23/22 07/26/22 07/30/22 08:10 08:14 09:37 WC - Today's Visit Information Type of service Initial Visit Nurse-only Follow-up Visit Visit (Physician/CLINICAL RESEARCH SPEC ) Arrival Mode Ambulatory Ambulatory Ambulatory Transfer Assistance None None Patient Identification Verified (Name & Yes Yes Yes ) Patient Requires Transmission-Based No No No Precautions Height and Weight Height 6 ft 1 in Weight 99.79 kg Weight in Pounds 220.0 lbs Weight Measurement Method Standing Scale Body Mass Index (BMI) 29.0 29.0 29.0 BMI Classification Overweight Overweight Overweight BSA - Chip 2.24 Vital Signs Temperature (97.8 F-99.1 F) 96.7 F L 97.7 F L 97.1 F L Temperature Source Temporal Temporal Temporal Pulse Rate (60-100) 101 H 94 85 Pulse Location Monitor Monitor Monitor Respiratory Rate (12-18) 20 H 16 18 Respiratory rate source Observation Observation Observation Oxygen Delivery Method Room Air Blood Pressure (90/60-120/80) 135/92 H 141/86 H 117/73 Blood Pressure Mean (mm Hg) 106 104 87 Source Monitor Monitor Monitor Position Semi-Fowlers Sitting Semi-Fowlers Blood Pressure Location Left Arm Left Arm Left Arm History Since Last Visit- (Skip if this is Patient's initial visit) Have you changed medications since your No No last visit? Any new allergies or adverse reactions No No Had a fall/change in ADL's that may No No increase risk of falls Signs or symptoms of abuse and/or No No neglect since last visit Have you been in the hospital since your No No last visit? Has dressing in place as prescribed Yes Yes Has compression in place as prescribed Yes Yes Has offloadiing in place as prescribed N/A No Experienced any changes in pain level or No No management Left Footwear Regular Shoe Regular Shoe Right Footwear Regular Shoe Regular Shoe Pain Scale: 0-10 Numeric Is Patient Pain Free? No Yes Yes left medial ankle -Description Sharp -Intensity 5 -Duration (hours) Chronic -Pain Behavior Withdrawal from Touch,Facial Grimacing -Pain Aggravating Factors ADL's -Alleviating Factors/Interventions Medication -Effectiveness of Alleviating Factor/ Moderately Intervention effective Lower Extremity Assessment/ Foot Assessment/ Toe Nail Assessment Left -Posterior Tibial Palpable Yes -Posterior Tibial Doppler Multiphasic -Dorsalis Pedis Palpable Yes -Dorsalis Pedis Doppler Multiphasic -Extremity Color Hyperpigmented, Hemosiderin -Hair Growth on Legs Yes -Hair Growth on Toes Yes -Temperature of Extremity Warm -Capillary Refill Less than 3 Seconds -Dependent Rubor Yes -Blanched when Elevated No -Other Deformity No -Prior Foot Ulcer No -Charcot Joint No -Prior Amputation No -Thick No -Discolored No -Deformed No -Improper Length & Hygeine No Communication Assessment Preferred language [place] Able to Read Yes Able to Write Yes Communication Tools None Caregiver Communication Skills No Impairment Impairment Right Hearing Abillity Normal Left Hearing Abillity Normal Visual Assistive Devices Glasses Teaching Assessment Preferences Verbal,Written, Audio/Visual, Demonstration Barriers to Learning None Readiness To Learn Excellent Willingness to Engage in Self Management High Activies Readiness to Engage in Self Management High Activities Anxiety Level Calm Cooperation Cooperative Perception Coherent Interest in Health Problem Asks Questions Education Importance Acknowledges Need Does Patient Smoke tobacco or other Yes substances Smoking Status Current every day smoker Is Patient Diabetic No Functional Assessment Recent Decline in Ability to Perform Denies Any Declines Culture/Worship/Body Stylist Cultural/Worship Needs that may affect No Treatment Plan Would you allow our hospital cardiovascular surgical tech to No meet you for the purpose of spiritual/ emotional support? Body Stylist to contact place of adventist No Teaching: Wound Center *Welcome to the Wound Center -Person Taught Patient -Teaching Method Discussion, Demonstration -Response to teaching Return demonstration, Verbalize understanding 08/02/22 08/06/22 08:15 09:28 WC - Today's Visit Information Type of service Nurse-only Follow-up Visit Visit (Physician/CLINICAL RESEARCH SPEC ) Arrival Mode Ambulatory Ambulatory Transfer Assistance None None Patient Identification Verified (Name & Yes Yes ) Patient Requires Transmission-Based No No Precautions Height and Weight Height Weight Weight in Pounds Weight Measurement Method Body Mass Index (BMI) 29.0 29.0 BMI Classification Overweight Overweight BSA - Chip Vital Signs Temperature (97.8 F-99.1 F) 96.9 F L 97.6 F L Temperature Source Temporal Temporal Pulse Rate (60-100) 97 86 Pulse Location Monitor Monitor Respiratory Rate (12-18) 16 16 Respiratory rate source Observation Observation Oxygen Delivery Method Room Air Room Air Blood Pressure (90/60-120/80) 103/80 129/75 H Blood Pressure Mean (mm Hg) 87 93 Source Monitor Monitor Position Sitting Sitting Blood Pressure Location Left Arm Left Arm History Since Last Visit- (Skip if this is Patient's initial visit) Have you changed medications since your No No last visit? Any new allergies or adverse reactions No No Had a fall/change in ADL's that may No No increase risk of falls Signs or symptoms of abuse and/or No No neglect since last visit Have you been in the hospital since your No No last visit? Has dressing in place as prescribed Yes Yes Has compression in place as prescribed Yes Yes Has offloadiing in place as prescribed N/A N/A Experienced any changes in pain level or No management Left Footwear Regular Shoe Regular Shoe Right Footwear Regular Shoe Regular Shoe Pain Scale: 0-10 Numeric Is Patient Pain Free? Yes Yes left medial ankle -Description -Intensity -Duration (hours) -Pain Behavior -Pain Aggravating Factors -Alleviating Factors/Interventions -Effectiveness of Alleviating Factor/ Intervention Lower Extremity Assessment/ Foot Assessment/ Toe Nail Assessment Left -Posterior Tibial Palpable -Posterior Tibial Doppler -Dorsalis Pedis Palpable -Dorsalis Pedis Doppler -Extremity Color -Hair Growth on Legs -Hair Growth on Toes -Temperature of Extremity -Capillary Refill -Dependent Rubor -Blanched when Elevated -Other Deformity -Prior Foot Ulcer -Charcot Joint -Prior Amputation -Thick -Discolored -Deformed -Improper Length & Hygeine Communication Assessment Preferred language Able to Read Able to Write Communication Tools Caregiver Communication Skills Impairment Right Hearing Abillity Left Hearing Abillity Visual Assistive Devices Teaching Assessment Preferences Barriers to Learning Readiness To Learn Willingness to Engage in Self Management Activies Readiness to Engage in Self Management Activities Anxiety Level Cooperation Perception Interest in Health Problem Education Importance Does Patient Smoke tobacco or other substances Smoking Status Is Patient Diabetic Functional Assessment Recent Decline in Ability to Perform Culture/Worship/Body Stylist Cultural/Worship Needs that may affect Treatment Plan Would you allow our hospital cardiovascular surgical tech to meet you for the purpose of spiritual/ emotional support? Body Stylist to contact place of adventist Teaching: Wound Center *Welcome to the Wound Center -Person Taught -Teaching Method -Response to teaching NICCI - Nurse 1 - General Ulcer Measurement Start: 07/23/22 08:10 Freq: Status: Active Protocol: Activity Type Activity Date Activity User E-sign Co-sign Detail Recorded Client Recorded Date Recorded By Document 07/23/22 08:10 SHAWN [id number] 07/23/22 08:31 JF Document 07/26/22 08:14 BM [id number] 07/26/22 08:15 BM Document 07/30/22 09:37 RB [id number] 07/30/22 09:40 RB Document 08/02/22 08:15 BMF [id number] 08/02/22 08:17 [facility] Document 08/06/22 09:28 BM [id number] 08/06/22 09:35 F 07/23/22 07/26/22 07/30/22 08:10 08:14 09:37 Wound Center Nurse 1 6-left medial ankle -Combined with other wound No No -Current Size (cm) - Length 2.5 0.5 -Current Size (cm) - Width 0.5 0.2 -Current Size (cm) - Depth 0.1 0.1 -Total Square Cm 1.25 0.10 -Date of Last Picture (Recall this field) -Photo Taken Yes Yes -Epithelialization Medium 34-66% -Tunneling No No -Undermining/Tunneling No No -Circular Undermining No No -Classification - Thickness Full Thickness without Exposed Support Structure -Exudate Amt Small Medium -Exudate Type Serosanguineous Serosanguineous -Wound Margin Flat & Intact Distinct, Outline Attached -Granulation Amt Medium (34-66%) Medium (34-66%) -Granulation Quality [place] -Slough/Fibrin Yes Yes -Necrosis Amt Small (1-33%) Medium (34-66%) -Necrotic Tissue Type Adherent Slough -Structure Exposed N/A N/A -Texture ([place]-wound Skin Appearance) Assessed, Assessed Excoriation, Localized Edema -Moisture ([place]ac[place]-wound Skin Appearance) Assessed, Assessed Weeping,Dry/ Scaly -Color ([place]-wound Skin Appearance) Assessed, Assessed, Hemosiderin Hemosiderin Staining Staining -Temperature ([place]ac[place]-wound Skin No Abnormality No Abnormality Appearance) (Pt Warm) (Pt Warm) -Tenderness on Palpation ([place]-wound Yes No Skin Appearance) -Ulcer Cleansing Rinsed/ Wound Cleanser Irrigated with Saline -Foul Odor after Cleansing No No -Anesthetic Used 5% Lidocaine 5% Lidocaine Gel Gel Lower Limb Edema Present Yes Yes Left Calf (cm) 41.4 39.2 40.5 Left Ankle (cm) 29.0 24.5 24 08/02/22 08/06/22 08:15 09:28 Wound Center Nurse 1 6-left medial ankle -Combined with other wound No No -Current Size (cm) - Length 0.1 -Current Size (cm) - Width 0.1 -Current Size (cm) - Depth 0.1 -Total Square Cm 0.01 -Date of Last Picture (Recall this 08/06/22 field) -Photo Taken Yes -Epithelialization Large 67-100% -Tunneling -Undermining/Tunneling -Circular Undermining -Classification - Thickness -Exudate Amt None Present -Exudate Type -Wound Margin -Granulation Amt -Granulation Quality -Slough/Fibrin -Necrosis Amt -Necrotic Tissue Type -Structure Exposed -Texture ([place]ac[place]-wound Skin Appearance) Assessed, Scarring -Moisture ([place]acely-wound Skin Appearance) Assessed -Color (Aracely-wound Skin Appearance) Assessed, Hemosiderin Staining -Temperature ([place]ac[place]-wound Skin No Abnormality Appearance) (Pt Warm) -Tenderness on Palpation ([place]acely-wound No Skin Appearance) -Ulcer Cleansing Soap and Water -Foul Odor after Cleansing No -Anesthetic Used 5% Lidocaine Gel Lower Limb Edema Present Left Calf (cm) 40.8 Left Ankle (cm) 24.2 WC - Nurse 2 - General Ulcer CM Notes Start: 07/23/22 08:10 Freq: Status: Active Protocol: Activity Type Activity Date Activity User E-sign Co-sign Detail Recorded Client Recorded Date Recorded By Document 07/23/22 08:43 MW [id number] 07/23/22 09:03 MW Document 07/30/22 09:46 MW [id number] 07/30/22 09:55 MW Document 08/06/22 09:55 [id number] 08/06/22 09:56 JF 07/23/22 07/30/22 08/06/22 08:43 09:46 09:55 Wound Center Nurse 2 6-left medial ankle -Time 08:45 09:46 -Correct Patient Yes Yes No -Correct Side, Site, Position Yes Yes No -Correct Procedure Yes Yes No -Procedure Performed Yes Yes No -Type of Procedure Debridement Debridement -Clinical Debridement Subcutaneous Subcutaneous -Tissue Removed Subcutaneous Subcutaneous -Post Debridement (cm) - Length 2.0 0.4 0 -Post Debridement (cm) - Width 0.5 0.2 0 -Post Debridement (cm) - Depth 0.1 0.1 0 -Total Square (Post) (cm) 1.00 0.08 0 -Area of Debridement (cm) - Length 2.0 0.4 0 -Area of Debridement (cm) - Width 0.5 0.2 0 -Total Square (Area) (cm) 1.00 0.08 0 -Tunneling No No -Undermining/Tunneling No No -Circular Undermining No No -Wound/Ulcer Outcome Not Healed Not Healed Healed- Epithelialized -Ulcer Cleansing Rinsed/ Rinsed/ Irrigated with Irrigated with Saline Saline -Foul Odor after Cleansing No No -Bioengineered Tissue No No -Bleeding Controlled with Pressure Pressure -Treatment Response Procedure Procedure Tolerated Well Tolerated Well -Offloading No No -Debridement - Subq, 1st 20sq cm Yes Yes Pain Scale: 0-10 Numeric Is Patient Pain Free? Yes Yes Yes WC - Nurse 3 - General Ulcer D/C NN Start: 07/23/22 08:10 Freq: Status: Active Protocol: Activity Type Activity Date Activity User E-sign Co-sign Detail Recorded Client Recorded Date Recorded By Document 07/23/22 09:17 RB [id number] 07/23/22 09:19 RB Document 07/26/22 08:14 [facility] [id number] 07/26/22 08:15 [facility] Document 07/30/22 07:[address] [id number] 08/02/22 07:28 PL Document 08/02/22 08:15 [facility] [id number] 08/02/22 08:17 [facility] Document 08/06/22 09:56 JF [id number] 08/06/22 09:57 JF 07/23/22 07/26/22 07/30/22 09:17 08:14 07:28 Wound Care Center Nurse 3 6-left medial ankle -Ulcer Cleansing Rinsed/ Irrigated with Saline -Primary Dressing Applied C Hydrogel ($) -Other Dressing tube of unnan boot hydrogel given if pt doesnt tolerate unna boot per Dr hope Left -Multi-Layered Wrap Application Unna Boot - Unna Boot - Unna Boot - Left ($) Left ($) Left ($) Treatment Response Procedure Procedure Tolerated Well Tolerated Well Vital Signs Temperature (97.8 F-99.1 F) 97.7 F L Temperature Source Temporal Pulse Rate (60-100) 94 Pulse Location Monitor Respiratory Rate (12-18) 16 Respiratory rate source Observation Oxygen Delivery Method Room Air Blood Pressure (90/60-120/80) 141/86 H Blood Pressure Mean (mm Hg) 104 Source Monitor Position Sitting Blood Pressure Location Left Arm Pain Scale: 0-10 Numeric Is Patient Pain Free? Yes Yes Yes WC - Visit Discharge Discharge Condition Stable Stable Ambulatory Status Ambulatory Ambulatory Transportation Private Auto Private Auto Medication Reconcilliation completed & No provided to patient/care provider Clinical Summary of Care Provided Yes 08/02/22 08/06/22 08:15 09:56 Wound Care Center Nurse 3 6-left medial ankle -Ulcer Cleansing -Primary Dressing Applied NonAdherent Contact Layer -Other Dressing unna boot Left -Multi-Layered Wrap Application Unna Boot - Left ($) Treatment Response Procedure Tolerated Well Vital Signs Temperature (97.8 F-99.1 F) 96.9 F L Temperature Source Temporal Pulse Rate (60-100) 97 Pulse Location Monitor Respiratory Rate (12-18) 16 Respiratory rate source Observation Oxygen Delivery Method Room Air Blood Pressure (90/60-120/80) 103/80 Blood Pressure Mean (mm Hg) 87 Source Monitor Position Sitting Blood Pressure Location Left Arm Pain Scale: 0-10 Numeric Is Patient Pain Free? Yes Yes WC - Visit Discharge Discharge Condition Stable Stable Ambulatory Status Ambulatory Ambulatory Transportation Private Auto Private Auto Medication Reconcilliation completed & Yes provided to patient/care provider Clinical Summary of Care Provided Yes Assessment/Plan Assessment/Plan (1) Venous insufficiency of left lower extremity: CODE(S): I87.2 - Venous insufficiency (chronic) (peripheral) (2) Ulcer of left lower extremity with fat layer exposed: CODE(S): L97.922 - Non-pressure chronic ulcer of unspecified part of left lower leg with fat layer exposed (3) Essential hypertension: CODE(S): I10 - Essential (primary) hypertension (4) May-Thurner syndrome: CODE(S): I87.1 - Compression of vein (5) Rheumatoid arthritis: CODE(S): M06.9 - Rheumatoid arthritis, unspecified (6) Polyarthropathy of ankle and foot: CODE(S): M13.0 - Polyarthritis, unspecified (7) Atherosclerotic heart disease of [place] coronary artery without angina pectoris: CODE(S): I25.10 - Atherosclerotic heart disease of [place] coronary artery without angina pectoris PLAN: Plan Ulcer is healed today. At home wound-care instructions: Will apply adaptic and gauze and continue PETE wrap for compression and continue compression daily to prevent recurrence. Off-loading: The patient was instructed to avoid pressure and friction on the affected areas. Reposition every 2 hours at minimum. Avoid prolonged standing and/or dangling of legs. When seated, feet should be elevated at chest level. Frequent ambulation is encouraged. Diet: Patient encouraged to increase protein intake while taking caution to avoid high carbohydrate and/or sugar intake. Labs/cultures/imaging: Follow-up: He will be discharged from treatment today and we would be happy to treat him in the future if he needs treatment again. Note: [employer] speech recognition instructor of education software was used to create portions of this document. Sound-alike and misspelled words, as well as other instructor of education errors may be contained in the documentation.
[2022-08-10 13:26] VITALS: BP 112/65; PULSE 89; RESP 16; TEMP 36.2; BMI 29.0
== END 2022-08-18 23:59 | disposition home or self-care (01) ==
LOC: WC 13:00
PROVIDERS: PCP Family Medicine; Referring Provider Family Medicine; Visit Provider Family Medicine
DX: L97.322 Non-pressure chronic ulcer of left ankle with fat layer exposed (principal); M06.9 Rheumatoid arthritis, unspecified; J42 Unspecified chronic bronchitis; I87.1 Compression of vein; I10 Essential (primary) hypertension; M13.0 Polyarthritis, unspecified; I25.10 Atherosclerotic heart disease of native coronary artery without angina pectoris; E78.5 Hyperlipidemia, unspecified; Z79.82 Long term (current) use of aspirin; Z79.899 Other long term (current) drug therapy; Z87.891 Personal history of nicotine dependence; Z86.718 Personal history of other venous thrombosis and embolism
CPT/HCPCS: 11042; 29580; 99211; 99213; G0463